=== PATIENT | female | born 1945 | race Caucasian/White ===

== ENCOUNTER 2020-01-30 06:16 | Emergency (ER) | payer MEDICARE ==
--- OUTSIDE RECORDS SUMMARY | 2020-01-30 06:18 | XMS REPORT | Summary of Care ---
:1945 Author Organization [facility] - Health Address [address] [place] [address] Care Team Providers Name Role Phone Samm Cortés Primary Care Provider Reason for Visit Auth/Cert Status Reason Specialty Diagnoses / Procedures Referred By Chelsea self To Contact Contact Surgery Diagnoses Unilateral primary osteoarthritis, right hip Primary osteoarthritis of right hip [M16.11] Adc Pre/P acu/Post Procedures [facility] CODING HELP AR TOTAL HIP ARTHROPLASTY TOTAL HIP ARTHROPLASTY [id number] - AR TOTAL HIP ARTHROPLASTY [address] [place], [place] [address] Fax: Encounter Details Date Type Department Care Team Description 01/13/2020 Anesthesia [facility] Kia Bernstein MD [address] [place] [address] [phone] [facility] Josef Meeks CRNA [address] [place] [phone] [place] [address] [place] [address] Allergies No Known Allergiesdocumented as of this encounter (statuses as of 01/14/2020) Medications Medication Sig Dispensed Refills Start Date End Date Status amitriptyline 10 mg Take 10 mg by 0 Suspended tablet mouth at bedtime. Levothyroxine 88 mcg Take by mouth 0 Suspended capsule daily. propranolol HCl Take 80 mg by 0 Suspended (INDERAL ORAL) mouth 2 (two) times daily. naproxen 250 mg tablet Take 250 mg by 0 Suspended mouth 2 (two) times daily with meals. documented as of this encounter (statuses as of 01/14/2020) Active Problems Problem Noted Date Pain 01/13/2020 documented as of this encounter (statuses as of 01/14/2020) Social History Tobacco Use Types Packs/Day Years Used Date Never Smoker Smokeless Tobacco: Never Used Sex Assigned at Date Recorded Not on file COVID-19 Exposure Response Date Recorded In the last month, have you been in contact with No / Unsure 01/12/2020 10:42 AM CDT someone who was confirmed or suspected to have Coronavirus / COVID-19? documented as of this encounter Last Filed Vital Signs Not on filedocumented in this encounter OR Notes Anesthesia Postprocedure Evaluation - Memo Silverman MD - 01/13/2020 5:27 PM CDT Patient: Amirah Maynard Procedure Summary Date: 01/13/20 Room / Location: [address] Location Anesthesia Start: 1346 Anesthesia Stop: 1642 Procedure: TOTAL HIP ARTHROPLASTY (Right Hips) Diagnosis: Primary osteoarthritis of right hip (Primary osteoarthritis of right hip [M16.11]) Surgeon: Esteban Chawla MD Responsible Provider: Memo Silverman MD Anesthesia Type: General ASA Status: 3 Anesthesia Type: General Last vitals BP 109/57 (01/13/20 1704) Temp 36.6 C (97.9 F) (01/13/20 1639) Pulse 61 (01/13/20 1654) Resp 16 (01/13/20 1648) SpO2 99 % (01/13/20 1704) No complications documented. Anesthesia Post Evaluation Patient location during evaluation: PACU Patient participation: complete - patient participated Level of consciousness: sleepy but conscious Pain management: satisfactory to patient Airway patency: patent Cardiovascular status: acceptable and blood pressure returned to baseline Respiratory status: acceptable Hydration status: acceptable Anesthesia Procedure Notes - Josef Meeks CRNA - 01/13/2020 2:11 PM CDT Associated Order(s): IntubationIntubation Urgency: elective Airway not difficult General Information and Staff Patient location during procedure: OR Resident/TEACHING MUSIC LESSONS: Josef Meeks CRNA Performed: resident/TEACHING MUSIC LESSONS Indications and Patient Condition Indications for airway management: anesthesia Spontaneous Ventilation: absent Sedation level: deep Preoxygenated: yes Patient position: sniffing MILS maintained throughout Mask difficulty assessment: 1 - vent by mask Final Airway Details Final airway type: endotracheal airway Successful airway: ETT Cuffed: yes Successful intubation technique: direct laryngoscopy Endotracheal tube insertion site: oral Blade: Helm Blade size: #2 ETT size (mm): 7.0 Cormack-Lehane Classification: grade I - full view of glottis Placement verified by: chest auscultation and capnometry Measured from: lips ETT to lips (cm): 21 Number of attempts at approach: 1 Additional Comments Airway dry intact nesthesia Preprocedure Evaluation - Karmen Almanzar MD - 01/12/2020 11:43 AM CDT Name/ MRN / Age / Gender: Amirah Maynard, [id number] 74 year old female BMI: Estimated body mass index is 30.07 kg/m as calculated from the following: Height as of this encounter: 1.6 m (5' 3"). Weight as of this encounter: 77 kg (169 lb 12.1 oz). Allergies: Patient has no known allergies. Last Vitals: BP Readings from Last 1 Encounters: No data found for BP Pulse Readings from Last 1 Encounters: No data found for Pulse SpO2 Readings from Last 1 Encounters: No data found for SpO2 Date of Surgery: 01/13/2020 Surgeon: Esteban Chawla MD Procedure: TOTAL HIP ARTHROPLASTY (Right Hips) OR Location: [facility] OR [facility] Anesthesia Preop Eval (physical exam) Anesthesia Preop: Chart Review and Fmim-vp-Fisp [facility] Communication: Patient contacted. Poor historian from alzheimer's. NPO Status Verified Clear Liquids: > 2 Hours Solid Food/Non-Clear Liquids: > 8 Hours PONV Risk Factors: female, non-smoker and post-op opiate use anticipated PONV Risk Score: 3 Anesthesia History Anesthesia History Negative Anesthesia History Negative per Chart Review Previous Anesthetics/Airways Cardiovascular (+) Hypertension Pulmonary Negative Pulmonary ROS Pulmonary ROS Negative per Chart Review Neuro/Musculoskeletal (+) Dementia GI/Hepatic Negative GI/Hepatic ROS GI/Hepatic ROS Negative per Chart Review Hematology Negative Hematology ROS Hematology ROS Negative per Chart Review Comments: Results for AMIRAH MAYNARD ( ) as of 01/13/2020 11:20 01/12/2020 17:41 WBC x10^3: 8.31 RBC x10^6: 4.20 HGB: 13.2 HCT: 39.8 MCV: 94.8 MCH: 31.4 MCHC: 33.2 RDW-SD: 45.0 RDW-CV: 12.8 PLT x10^3: 190 (+) Patient accepts blood transfusion Renal Negative Renal ROS Renal ROS Negative per Chart Review Comments: Results for AMIRAH MAYNARD ( ) as of 01/13/2020 11:20 01/12/2020 17:41 NA: 137 K: 4.6 CL: 104 CO2 TOTAL: 24 AGAP: 9 BUN: 24 (H) GLUCOSE: 91 CREATININE: 0.88 eGFR CALCULATION (non ): 63.2 eGFR CALCULATION (): 76.6 TOTAL BILI: 0.8 CALCIUM: 10.3 Skin Skin ROS Negative per Chart Review Endo/Other (+) Hypothyroidism 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 Hold on DOS. Anticoagulant Therapy: Defer to surgeons Phentermine: Alert [facility] anesthesiologist MAC Cases: Continue taking MILIND inhibitors and ARBs ASA Classification ASA: 3 ASA Comments: Obesity HTN Dementia Hypothyroidism Current Medications: Outpatient Medications Marked as Taking for the 01/13/20 encounter (Hospital Encounter) Medication Sig Dispense Refill amitriptyline 10 mg tablet Take 10 mg by mouth at bedtime. Levothyroxine 88 mcg capsule Take by mouth daily. naproxen 250 mg tablet Take 250 mg by mouth 2 (two) times daily with meals. propranolol HCl (INDERAL ORAL) Take by mouth. Previous Surgeries: Past Surgical History: Procedure Laterality Date HYSTERECTOMY Left TOTAL KNEE ARTHROPLASTY Left Anesthesia Physical Exam General no apparent distress and alert and oriented x 3 Neuro/Psych neurological Dental Abdominal (+) obesity Airway Mallampati score:III TM distance:> 5 cm Neck ROM: full Mouth opening:normal Extremity Normal extremity Pulmonary bilateral clear to auscultation Other Implants front upper Cardiovascular Rhythm:regular Rate: normal Anesthesia Plan ASA Status: 3 Plan discussed during pre-op evaluation: General Anesthetic plan on DOS: General Plan to include: IV induction and ETT Anesthesia plan discussed with: patient or telephone service representative Post-Operative Analgesia: routine analgesia & antiemetics Recovery Plan: PACU Additional comments: Discussed risks of GA, including dysphagia, dysphonia, organ damage, post-operative ventilation, PONV, damage to teeth/lips, heart attack, or stroke. Pt understands and agrees to proceed. All questions answered. Verified the patient has an understanding of the situation for consent. She is AAOx3, is able to say location, procedure, year, month, name, birthday, and answer all questions appropriately. documented in this encounter Miscellaneous Notes Addendum Note - Terri Hernandez CRNA - 01/14/2020 5:00 AM CDT Addendum created 01/14/20 0500 by Terri Hernandez CRNA Intraprocedure Meds edited documented in this encounter Plan of Treatment Health Maintenance Due Date Last Done Comments HEPATITIS C (HCV) SCREEN 1945 DTaP,Tdap,and Td Vaccines (1 - Tdap) 1966 Breast Cancer Screening (MAMMOGRAM) 1987 COLON CANCER SCREENING ANNUAL FIT/FOBT 1997 COLON CANCER SCREENING FIT DNA EVERY 3 YEARS 1997 COLON CANCER SCREENING SIGMOIDOSCOPY EVERY 5 YEARS 1997 COLONOSCOPY 1997 Colorectal Cancer Screening 1997 Zoster Recombinant Vaccine (SHINGRIX) (1 of 2) 1997 Medicare Wellness Visit 2012 Osteoporosis Screening 2012 PNEUMOCOCCAL VACCINES 65+ (1 of 1 - PPSV23) 2012 INFLUENZA VACCINE (#1) 2020 Depression Screening 01/12/2021 01/13/2020 documented as of this encounter Implants Implanted Type Area Mds Rn Device Shelf Model / Identifier Expiration Serial / Lot Date Standard Neck HIP Right: Biomet 06/24/2029 [id number] / Implanted: Qty: 1 on 01/13/2020 by Esteban Darnell MD at [facility] Hip 1 [id number] / [id number] Dual Mobility Bearing HIP Right: [employer] 08/25/19 25 [id number] / Implanted: Qty: 1 on 01/13/2020 by Esteban Darnell MD at [facility] Hip 1 [id number] / [id number] Dual Mobility Acetabular Liner Liner Right: [employer] 07/02/2029 [id number] / Implanted: Qty: 1 on 01/13/2020 by Esteban Darnell MD at [facility] Hip 1 [id number] / [id number] Acetabular Shell Shell Right: [employer] 10/25/2028 [id number] / Implanted: Qty: 1 on 01/13/2020 by Esteban Darnell MD at [facility] Hip 0 [id number] / [id number] Porous Coated Stem Stem Right: [employer] 10/21/2028 [id number] / Implanted: Qty: 1 on 01/13/2020 by Esteban Darnell MD at [facility] Hip 5 [id number] / [id number] documented as of this encounter Procedures Procedure Name Priority Date/Time Associated Diagnosis Comme nts INTUBATION Routine 01/13/2020 2:11 PM Results for this CDT procedure are i n the results section . documented in this encounter Results Intubation (01/13/2020 2:11 PM CDT) Narrative Performed At Josef Meeks CRNA 01/13/2020 2:1 2 PM Intubation Urgency: elective Airway not difficult General Information and Staff Patient location during procedure: OR Resident/TEACHING MUSIC LESSONS: Josef Meeks CRNA Performed: resident/TEACHING MUSIC LESSONS Indications and Patient Condition Indications for airway management: anest hesia Spontaneous Ventilation: absent Sedation level: deep Preoxygenated: yes Patient position: sniffing MILS maintained throughout Mask difficulty assessment: 1 - vent by mask Final Airway Details Final airway type: endotracheal airway Successful airway: ETT Cuffed: yes Successful intubation technique: direct laryngoscopy Endotracheal tube insertion site: oral Blade: Helm Blade size: #2 ETT size (mm): 7.0 Cormack-Lehane Classification: grade I - full view of glottis Placement verified by: chest auscultatio n and capnometry Measured from: lips ETT to lips (cm): 21 Number of attempts at approach: 1 Additional Comments Airway dry intact documented in this encounter Administered Medications Medication Order MAR Action Action Date Dose Rate Site acetaminophen ADULT (OFIRMEV) Given 01/13/2020 3:46 PM CDT 1,00 0 mg injection Administer over 15 Minutes, ONCE INTRA PROCEDURE, Starting Sat01/13/20 at 1546, Until Sat01/13/20 at 1643, Routine, Intra-op ceFAZolin (ANCEF) injection Given 01/13/2020 2:12 PM CDT 2 g ONCE INTRA PROCEDURE, Starting Sat01/13/20 at 1412, Until Codie 01/14/20 at 0459, CRUZ, Intra-op dexamethasone (DECADRON PHOSPHATE) injec tion Given 01/13/2020 2:04 PM CDT 8 mg ONCE INTRA PROCEDURE, Starting Sat01/13/20 at 1404, Until Sat01/13/20 at 1643, Routine, Intra-op ePHEDrine 25 mg/5 mL (5 mg/mL) syringe Given 01/13/2020 3:56 PM CDT 5 mg ONCE INTRA PROCEDURE, Starting Sat01/13/20 at 1501, Until Sat01/13/20 at 1643, Routine, Intra-op Given 01/13/2020 3:30 PM CDT 5 mg Given 01/13/2020 3:21 PM CDT 5 mg FENTanyl PF (SUBLIMAZE (PF)) injection Given 01/13/2020 4:27 PM CDT 25 mcg ONCE INTRA PROCEDURE, Starting Sat01/13/20 at 1354, Until Sat01/13/20 at 1643, Routine, Intra-op Given 01/13/2020 1:54 PM CDT 50 mcg HYDROmorphOne (DILAUDID) injection Given 01/13/2020 2:27 PM CDT 0.2 mg ONCE INTRA PROCEDURE, Starting Sat01/13/20 at 1427, Until Sat01/13/20 at 1643, Routine, Intra-op lactated ringers IV infusion New Bag 01/13/2020 3:12 PM CDT CONTINUOUS PRN, Starting Sat01/13/20 at 1346, Until Sat01/13/20 at 1643, Routine, Intra-op New Bag 01/13/2020 1:46 PM CDT lidocaine 1% (XYLOCAINE) 100 mg/10 mL (1 %) Given 01/13/2020 1: 54 PM CDT 8 mL injection ONCE INTRA PROCEDURE, Starting Sat01/13/20 at 1354, Until Sat01/13/20 at 1643, Routine, Intra-op ondansetron (ZOFRAN (PF)) injection Given 01/13/2020 4:06 PM CDT 4 mg ONCE INTRA PROCEDURE, Starting Sat01/13/20 at 1606, Until Sat01/13/20 at 1643, Routine, Intra-op phenylephrine (VAZCULEP) injection Given 01/13/2020 3:56 PM CDT 100 mcg ONCE INTRA PROCEDURE, Starting Sat01/13/20 at 1508, Until Sat01/13/20 at 1643, Routine, Intra-op Given 01/13/2020 3:30 PM CDT 100 mcg Given 01/13/2020 3:21 PM CDT 50 mcg propofoL IV infusion Given 01/13/2020 1:54 PM CDT 150 mg ONCE INTRA PROCEDURE, Starting Sat01/13/20 at 1354, Until Sat01/13/20 at 1643, Routine, Intra-op rocuronium (ZEMURON) injection Given 01/13/2020 2:17 PM CDT 10 mg ONCE INTRA PROCEDURE, Starting Sat01/13/20 at 1354, Until Sat01/13/20 at 1643, Routine, Intra-op Given 01/13/2020 1:54 PM CDT 40 mg sugammadex (BRIDION) injection Given 01/13/2020 4:13 PM CDT 160 mg ONCE INTRA PROCEDURE, Starting Sat01/13/20 at 1613, Until Sat01/13/20 at 1643, Routine, Intra-op tranexamic acid (CYKLOKAPRON) 770 mg in New Bag 01/13/2020 2:12 P M CDT 770 mg NaCl 0.9% (NS) 250 mL piggyback 770 mg, IV Piggyback, ONCE, 1 dose, Sat01/13/20 at 1130, 250 mL, DSU Pre-op documented in this encounter Insurance Payer Benefit Plan / Subscriber ID Effective Phone Address T ype Group Dates [employer] [id number] [address] [facility] - MEDICARE nt HMO MANAGED MEDICARE ADVANTAGE documented as of this encounter
--- OUTSIDE RECORDS SUMMARY | 2020-01-30 06:18 | XMS REPORT | Summary of Care ---
:1945 Author Organization [facility] Address [address] [place] [address] Care Team Providers Name Role Phone Samm Cortés Primary Care Provider Encounter Details Date Type Department Care Team Description 01/13/2020 Letter (Out) ACC[facility] Magali Wray RN [address] [phone] [place], [place] [phone] Allergies No Known Allergiesdocumented as of this encounter (statuses as of 01/13/2020) Medications Medication Sig Dispensed Refills Start Date End Date Status amitriptyline 10 mg Take 10 mg by 0 Active tablet mouth at bedtime. Levothyroxine 88 mcg Take by mouth 0 Active capsule daily. propranolol HCl (INDERAL Take by mouth. 0 Active ORAL) naproxen 250 mg tablet Take 250 mg by 0 Active mouth 2 (two) times daily with meals. documented as of this encounter (statuses as of 01/13/2020) Active Problems Not on filedocumented as of this encounter (statuses as of 01/13/2020) Social History Tobacco Use Types Packs/Day Years [...] Signs Not on filedocumented in this encounter Plan of Treatment Health Maintenance Due Date Last Done Comments HEPATITIS C (HCV) SCREEN 1945 Depression Screening 1959 DTaP,Tdap,and Td Vaccines (1 - Tdap) 1966 [...] - PPSV23) 2012 INFLUENZA VACCINE (#1) 2020 documented as of this encounter Results Not on filedocumented in this encounter Insurance Payer Benefit Plan / Subscriber ID Effective Phone Address T e Group [facility] [employer]ER [id number] 2019-[address] [facility] documented as of this encounter
--- OUTSIDE RECORDS SUMMARY | 2020-01-30 06:18 | XMS REPORT | Summary of Care ---
:[address] [facility] Address [address] [place] [address] Care Team Providers Name Role Phone CortésSamm David Primary Care Provider Reason for Visit Auth/Cert Status Reason Specialty Diagnoses / Procedures Referred By Dvaid quiñones Referred To Contact Phlebotomy Diagnoses Unilateral primary osteoarthritis, right hip M16.11 (ICD-10-CM) - Unilateral primary osteoarthritis, right hip Adc Pob Lab Draw Procedures CBC WITH DIFF COMP. METABOLIC PANEL (91708) URINALYSIS TYPE AND SCREEN PROTHROMBIN TIME / INR CBC WITH DIFF CMP UA TYPE AND SCREEN - 2 UNITS PT/PTT Professional Office Building [address] [facility] [address], [address] [place] [address] Phone: Fax: Encounter Details Date Type Department Care Team Description 01/12/2020 Hospital Encounter [facility] Radiology MD Robert [address] [place] [phone] [facility] [address] [place], [place] [phone] Allergies No Known Allergiesdocumented as of this [...] (#1) 2020 documented as of this encounter Procedures Procedure Name Priority Date/Time Associated Diagnosis Comme nts XR CHEST 2 VW Routine 01/12/2020 4:07 PM Primary osteoarthrit is Results for this CDT of right hip procedure are i n the results section. documented in this encounter Results XR CHEST 2 VW (01/12/2020 4:07 PM CDT) Specimen Narrative Performed At This result has an attachment that is no t available. HISTORY: Preop. PACS/VR/DOSE TECHNIQUE: PA and lateral views of the chest are obtai karla. No prior chest study available for comparison. FINDINGS: No acute pneumonia detected. No pneumothorax or pleural effusion or pulmonary congestion. Cardiothoracic ratio of appro ximately 13/28.3 cm is consistent with normal cardiac size. Calcified gran ulomas are seen in the right upper lung with calcifications in the right perihilar lymph nodes secondary to remote infection. Left mastectomy noted. Mild thoracolumbar scoliosis noted. No compression fra cture detected in the thoracic vertebral bodies. No aggressive bone lesions. CONCLUSIONS: No signs of acute cardiopulmonary disease . Procedure Note [facility], Radiant Results Inft User - 2019 4:10 PM CDT HISTORY: Preop. TECHNIQUE: PA and lateral views of the c hest are obtained. No prior chest study available for comparison. FINDINGS: No acute pneumonia detected. N o pneumothorax or pleural effusion or pulmonary congestion. Cardiothoracic ratio of approximately 13/28.3 cm is consistent with normal cardiac size. Calcified granulomas are seen in the right upper lung with calcifications in the right perihilar lymph nodes secondary to remote infection. Left mast ectomy noted. Mild thoracolumbar scoliosis noted. No c ompression fracture detected in the thoracic vertebral bodies. No aggressive bone lesions. CONCLUSIONS: No signs of acute cardiopul monary disease. Performing Organization Address City/State/Zipcode Phone Number PACS/VR/DOSE documented in this encounter Visit Diagnoses Diagnosis Primary osteoarthritis of right hip Primary localized osteoarthrosis, pelvic region and thigh documented in this encounter Additional Health Concerns Infection Onset Date Last Indicated Resolved Time COVID-19 Rule Out 01/12/2020 01/12/2020 01/12/2020 6: 26 PM CDT documented as of this encounter Insurance Payer Benefit Plan / Subscriber ID Effective Phone Address T ype Group Dates [facility] [id number] [address] [facility] - MEDICARE HMO MANAGED MEDICARE ADVANTAGE documented as of this encounter
--- OUTSIDE RECORDS SUMMARY | 2020-01-30 06:18 | XMS REPORT | Continuity of Care Document ---
:1945 Author Organization [facility] t Address [address] [place] [address] Care Team Providers Name Role Phone Franchesca HERNANDEZ, A Attending Clinician Unavailable Robert Chawla MD Attending Clinician Jeanna DANIEL Attending Clinician Herrera KHOURY Attending Clinician Nils HERNANDEZ, T Attending Clinician Unavailable Doctor Unassigned, Name Attending Clinician Unavailable Pob, Lab Main Attending Clinician Unavailable Robert Chawla MD Admitting Clinician Problems Condition Condition Condition Status Onset Resolution Last Treating Co mments Source Name Details Category Date Date Treatment Clinician Date Kidney Kidney Problem Active [facility] Primary Primary Diagnosis Active [facility] oste[facility] osteoarthr Kizzy kes - itis of itis of Memoria right hip right hip l [facility] Pain in Pain in Diagnosis Active [facility] joint of [facility] - right hip right hip Pancho brit l [facility] ent Clinics Allergies, Adverse Reactions, Alerts This patient has no known allergies or adverse reactions. Medications Ordered Filled Start Stop Current Ordering Indication Dosage Frequency Signature Comments Components Source Medication Medication Date Date Medication? Clinician (SIG) Name Name Amlodipine Amlodipine Yes Clemente [address] [facility] Besylate Besylate Kendrick [facility] Amitriptyli Amitriptyli Yes Clemente [address] [facility] ne HCl ne HCl Kendrick kes - Memoria l [facility] Propranolol Propranolol Yes Clemente [address] [facility] HCl HCl Kendrick kes - Memoria l [facility] Vitamin D Vitamin D Yes Clemente [address] [facility] Kendrick [facility] Naproxen Naproxen Yes Clemente [address] [facility] Kendrick with food [facility] - or milk as Memoria needed l Outpati ent Clinics Anastrozole Anastrozole Yes Clemente [address] [facility] Kendrick [facility] Levothyroxi Levothyroxi Yes Clemente [address] [facility] ne Sodium ne Sodium Kendrick on an Luke s - empty Memoria stomach in l the Outpati morning ent Clinics Propranolol Propranolol Yes Clemente not [facility] HCl ER HCl ER Kednrick defined [facility] Amitriptyli Amitriptyli Yes Clemente not [facility] ne HCl ne HCl Kendrick defined [facility] Losartan Losartan Yes Clemente [address] [facility] Potassium Potassium Kendrick [facility] Procedures This patient has no known procedures. Encounters Start End Encounter Admission Attending Care Care Encounter Source Date/Time Date/Time Type Type Clinicians Facility Department ID 2020-01-20 2020-01-20 Nurse TOYA Sorensen [id number] 00:00:00 00:00:00 Triage Honey AGUILAR [id number]686 [id number] 2020-01-20 2020-01-20 Telephone Cammy TOYA [id number] 00:00:00 00:00:00 Esteban AGUILAR [id number]686 [id number] 2020-01-13 2020-01-15 [facility] [id number] 10:03:00 15:30:00 Encounter Esteban Jones Reg [id number] [place] [id number] [place] [id number] 2020-01-13 2020-01-13 Anesthesia Josef Meeks [facility] [id number] 13:46:00 16:42:00 Memo Silverman [id number] [place] 4.2.7.2.686 Surgical [id number] [place] [address] 2020-01-13 2020-01-13 Letter TOYA Wray [id number] 00:00:00 00:00:00 (Out) Magali AGUILAR [id number]686 [id number] [id number] 2020-01-13 2020-01-13 Orders Doctor TOYA [id number] 00:00:00 00:00:00 Only Unassigned, LAUREN [id number] [place] [address]686 [id number] 2020-01-12 2020-01-12 [facility] [id number] 15:35:03 23:59:00 Encounter Esteban Finney [id number] [place] 4.2.7.2.686 [place] [id number] 2020-01-12 2020-01-12 Cadmium Liquor Maker Sasha Raman [facility] [id number] 15:29:06 17:51:05 Visit Lab Main Reg [id number] [place] [id number] Professio [id number] [address] 2019-10-07 2019-10-07 [facility] [id number] [address] 15:44:00 15:44:00 t Bone Bone and [facility] ent [facility] 2019-10-06 2019-10-06 [facility] [id number] 14:00:00 14:00:00 t Bone Bone and [facility] Joint [facility] a [facility] ent [facility] 2018-08-01 2018-08-01 [facility] [id number] 14:15:00 14:15:00 t Specialty/U Kizzy kes - Specialty rology Memori a /Urology Clinic [facility] 2018-02-05 2018-02-05 [facility] [id number] 13:30:00 13:30:00 t Specialty/U Kizzy kes - Specialty rology Memori a /Urology Clinic [facility] 2018-01-23 2018-01-23 [facility] [id number] 13:00:00 13:00:00 t Specialty/U Kizzy kes - Specialty rology Memori a /Urology Clinic l [facility] 2018-01-09 2018-01-09 [facility] [id number] 15:04:00 15:04:00 t Specialty/U Kizzy kes - Specialty rology Memori a /Urology Clinic l [facility] 2017-12-26 2017-12-26 [facility] [id number] 16:01:00 16:01:00 t Specialty/U Kizzy kes - Specialty rology Memori a /Urology Clinic l [facility] 2017-12-19 2017-12-19 [facility] [id number] 11:30:00 11:30:00 t Specialty/U Kizzy kes - Specialty rology Memori a /Urology Clinic l [facility] Results This patient has no known results.
--- OUTSIDE RECORDS SUMMARY | 2020-01-30 06:18 | XMS REPORT | Summary of Care ---
:1945 Author Organization [facility] Address [address] [place] [address] Care Team Providers Name Role Phone Samm Cortés David Primary Care Provider Reason for Visit Reason Comments LAB WORK Auth/Cert Status Reason Specialty Diagnoses / Procedures Referred By David quiñones Referred To Contact Phlebotomy Diagnoses Unilateral primary osteoarthritis, right hip M16.11 (ICD-10-CM) - Unilateral primary osteoarthritis, right hip Adc Pob Lab Draw Procedures CBC WITH DIFF COMP. METABOLIC PANEL (25875) URINALYSIS TYPE AND SCREEN PROTHROMBIN TIME / INR CBC WITH DIFF CMP UA TYPE AND SCREEN - 2 UNITS PT/PTT Professional Office Building [address] , [address] [place] [address] Phone: Fax: Encounter Details Date Type Department Care Team Description 01/12/2020 Shoulder Puncher Visit [facility] Ricardo Chawla MD [address] [place] [address] [place] [address] Pre-operative exam (Primary Dx); Professional Office Pob, Adc Lab Main Preop testing Building Phlebotomy Lab Professional Office Building [address] [place] [address] , [address] [place] [address] Allergies No Known Allergiesdocumented as of this encounter (statuses as of 01/12/2020) Medications Medication Sig Dispensed Refills Start Date [...] as of this encounter (statuses as of 01/12/2020) Active Problems Not on filedocumented as of this encounter (statuses as of 01/12/2020) Social History Tobacco Use Types Packs/Day Years [...] Signs Not on filedocumented in this encounter Nursing Notes Tarah Thomas - 01/12/2020 3:15 PM CDT Venipuncture collection performed by clean technique on the right anticubitus. Total of 1 attempts were made. Slight pressure and a bandage/dressing were applied to the site(s). The patient experiencedno complications. The following specimens were processed according to instructions and sent to [facility] laboratories per lab order on : 1 LT BLUE 1 SST RED 3 LAV PPT DK GREEN (LiHep) DK GREEN (SodH) RILEY DK BLUE (K2) DK BLUE (S) ACD Blood Culture NIPT/NTD Covid swab collected. documented in this encounter Miscellaneous Notes Addendum Note - Tarah Thomas - 01/12/2020 3:15 PM CDT Addended by: TARAH THOMAS on: 01/12/2020 05:51 PM Modules accepted: Orders documented in this encounter Plan of Treatment Date Type Specialty Care Team Description 01/13/2020 Hospital Encounter Surgery Esteban Chawla MD [address] [place] [address] [address] [place] [address] [phone] 01/13/2020 Anesthesia Event Surgery Josef Meeks C [address] [phone] 01/13/2020 Surgery Surgery CammyEsteban TOTAL HIP ARTHROPLASTY MD Robert [address] [place] [address] [phone] Name Type Priority Associated Diagnoses Date/Ti me COMP. METABOLIC PANEL LAB Routine Pre-operative exam 01/12/2020 5:41 PM CDT (52928) PROTHROMBIN TIME / INR LAB Routine Pre-operative exam 01/12/2020 5:41 PM CDT aPTT LAB Routine Pre-operative exam 0 5:41 PM CDT URINALYSIS LAB Routine Pre-operative exam 0 5:41 PM CDT COVID-19 (ID NOW RAPID LAB Routine Preop testing 12/25 5:51 PM CDT TESTING) Name Type Priority Associated Diagnoses Order S chedule COMP. METABOLIC PANEL LAB Routine Pre-operative exam Expected: 01/12/2020, (94012) Expires: 2020 PROTHROMBIN TIME / INR LAB Routine Pre-operative exam Expected: 01/12/2020, Expires: 2020 aPTT LAB Routine Pre-operative exam Expected: 01/12/2020, Expires: 2020 Type and Screen - LAB Routine Pre-operative exam Expe cted: 01/12/2020, Expires: 2020 URINALYSIS LAB Routine Pre-operative exam Expected: 01/12/2020, Expires: 2020 COVID-19 (ID NOW RAPID LAB Routine Preop testing Expe cted: 01/12/2020, TESTING) Expires: 2020 Health Maintenance Due Date Last Done Comments [...] Name Priority Date/Time Associated Diagnosis Comme nts CBC WITH DIFF Routine 01/12/2020 5:41 PM Pre-operative exam R esults for this CDT procedure are i n the results section . documented in this encounter Results CBC WITH DIFF (01/12/2020 5:41 PM CDT) Pathologist Sig nature WBC 8.31 4.30 - 11.10 [facility] 10*3/L H[facility]PITAL [facility] RBC 4.20 3.93 - 5.25 [facility] 10*6/L [facility]ITAL [facility] HGB 13.2 11.6 - 15.0 g/dL [facility] HCT 39.8 35.7 - 45.2 % [facility] MCV 94.8 80.6 - 95.5 fL [facility] MCH 31.4 25.9 - 32.8 pg [facility] MCHC 33.2 31.6 - 35.1 g/dL [facility] RDW-SD 45.0 39.0 - 49.9 fL [facility] RDW-CV 12.8 12.0 - 15.5 % [facility] PLT 190 166 - 358 [facility] 10*3/L HOSPITAL LAB[facility] MPV 10.3 9.5 - 12.9 fL [facility] NRBC/100 WBC 0.0 0.0 - 10.0 /100 [facility] WBCs [facility] NRBC x10^3 <0.01 10*3/L [facility] GRAN MAT (NEUT) % 62.8 % [facility] IMM GRAN % 0.50 % [facility] LYMPH % 22.5 % [facility] MONO % 9.5 % [facility] EOS % 3.9 % [facility] BASO % 0.8 % [facility] GRAN MAT x10^3(ANC) 5.22 1.88 - 7.09 [facility] 10*3/uL HOSPITAL LAB[facility]ATORY IMM GRAN x10^3 0.04 0.00 - 0.06 [facility] 10*3/uL HOSPITAL LAB[facility] LYMPH x10^3 1.87 1.32 - 3.29 [facility] 10*3/uL HOSPITAL LAB[facility] MONO x10^3 0.79 0.33 - 0.92 [facility] 10*3/uL HOSPITAL LAB[facility]AT[facility] EOS x10^3 0.32 0.03 - 0.39 [facility] 10*3/uL [facility] BASO x10^3 0.07 0.01 - 0.07 [facility] 10*3/uL [facility] Specimen Blood Performing Organization Address City/State/Zipcode Phone Number [facility] CLIA: [id number] [place] [address] documented in this encounter Visit Diagnoses Diagnosis Hip arthritis - Primary Unspecified arthropathy, pelvic region a nd thigh Pre-operative exam - Primary Preoperative examination, unspecified Preop testing Preoperative examination, unspecified Primary osteoarthritis of right hip Primary localized osteoarthrosis, pelvic region and thigh documented in this encounter Additional Health Concerns Infection Onset Date Last Indicated Resolved Time COVID-19 Rule Out 01/12/2020 01/12/2020 documented as of this encounter Insurance Payer Benefit Plan / Subscriber ID Effective Phone Address T ype Group [facility] [id number] [address] [facility] - MEDICARE HMO MANAGED MEDICARE ADVANTAGE documented as of this encounter
--- OUTSIDE RECORDS SUMMARY | 2020-01-30 06:18 | XMS REPORT | Summary of Care ---
:[address] [facility] Address [address] [place] [address] Care Team Providers Name Role Phone Samm Cortés David Primary Care Provider Reason for Visit Reason Comments LAB WORK Auth/Cert Status Reason Specialty Diagnoses / Procedures Referred By David quiñones Referred To Contact Phlebotomy Diagnoses Unilateral primary osteoarthritis, right hip M16.11 (ICD-10-CM) - Unilateral primary osteoarthritis, right hip Adc Pob Lab Draw Procedures CBC WITH DIFF COMP. METABOLIC PANEL (17244) URINALYSIS TYPE AND SCREEN PROTHROMBIN TIME / INR CBC WITH DIFF CMP UA TYPE AND SCREEN - 2 UNITS PT/PTT Professional Office Building [address] [facility] , [address] [place] [address] Phone: Fax: Encounter Details Date Type Department Care Team Description 01/12/2020 Hotel Or Motel Receptionist Visit [facility] Ricardo Chawla MD [address] [place] [address] Pre-operative exam Professional Office Pob, Adc Lab Main (Primary Dx) Building Phlebotomy Lab Professional Office Building [address] [facility] , [address] [place] [address] Allergies No Known Allergiesdocumented as [...] processed according to instructions and sent to [facility] laboratories per lab order on : 1 LT BLUE 1 SST RED 3 LAV PPT DK GREEN (LiHep) DK GREEN (SodH) RILEY DK BLUE (K2) DK BLUE (S) ACD Blood Culture NIPT/NTD Covid swab collected. documented in this encounter Plan of Treatment Date Type Specialty Care Team Description 01/13/2020 Hospital Encounter Surgery Esteban Chawla MD [address] [facility] So [address] [address] 01/13/2020 Anesthesia Event Surgery Josef Meeks C [address] [phone] 01/13/2020 Surgery Surgery Esteban Chawla TOTAL HIP ARTHROPLASTY MD Robert [address] [facility] So [address] [address] Name Type Priority Associated Diagnoses Order S chedule CBC WITH DIFF LAB Routine Pre-operative exam Expected : 01/12/2020, Expires: 2020 COMP. METABOLIC PANEL LAB Routine Pre-operative exam Expected: 01/12/2020, ([id number]) Expires: 2020 PROTHROMBIN TIME / INR LAB Routine Pre-operative exam Expected: 01/12/2020, Expires: 2020 aPTT LAB Routine Pre-operative exam Expected: 01/12/2020, Expires: 2020 Type and Screen - LAB Routine Pre-operative exam Expe cted: 01/12/2020, Expires: 2020 URINALYSIS LAB Routine Pre-operative exam Expected: 01/12/2020, Expires: 2020 Health Maintenance Due Date Last [...] Results Not on filedocumented in this encounter Visit Diagnoses Diagnosis Hip arthritis - Primary Unspecified arthropathy, pelvic region a nd thigh Pre-operative exam - Primary Preoperative examination, unspecified Primary osteoarthritis of right hip Primary localized osteoarthrosis, pelvic region and thigh documented in this encounter Insurance Payer Benefit Plan / Subscriber ID Effective Phone Address T ype Group Dates [facility] [id number] 2019-[address] - MEDICARE nt HMO MANAGED MEDICARE ADVANTAGE documented as of this encounter
--- OUTSIDE RECORDS SUMMARY | 2020-01-30 06:19 | XMS REPORT | Summary of Care ---
:1945 Author Organization [facility] Address [address] [place] [address] Care Team Providers Name Role Phone Samm Cortés Primary Care Provider Encounter Details Date Type Department Care Team Description 01/13/2020 Orders Only [facility] Doctor Unassigned, No [address] [facility] [place] [address] [address] [place] [address] Allergies No Known Allergiesdocumented as of this encounter (statuses as of 01/18/2020) Medications Medication Sig Dispensed Refills Start Date End Date Status rivaroxaban Take 1 tablet by 20 tablet 0 01/14/2020 02/03/2020 Active (XARELTO) mouth daily for 20 tabletIndications: days. Indications: deep vein thrombosis deep vein prevention thrombosis prevention documented as of this encounter (statuses as of 01/18/2020) Active Problems Problem Noted Date Pain 01/13/2020 documented as of this encounter (statuses as of 01/18/2020) Social History Tobacco Use Types Packs/Day Years [...] DTaP,Tdap,and Td Vaccines (1 - Tdap) 1966 COLON CANCER SCREENING ANNUAL FIT/FOBT 1997 COLON CANCER SCREENING FIT DNA EVERY 3 1997 YEARS COLON CANCER SCREENING SIGMOIDOSCOPY EVERY 1997 5 YEARS COLONOSCOPY 1997 Colorectal Cancer Screening 1997 Zoster Recombinant Vaccine (SHINGRIX) (1 1997 of 2) Medicare Wellness Visit 2012 Osteoporosis Screening 2012 PNEUMOCOCCAL VACCINES 65+ (1 of 1 - 2012 PPSV23) INFLUENZA VACCINE (#1) 2020 Breast Cancer Screening (MAMMOGRAM) 03/05/2020 03/05/2019, 07/03/2017 Depression Screening 01/12/2021 01/13/2020 documented as of this encounter Implants Implanted Type Area Learning And Development Director Device Shelf Model / Identifier Expiration Serial / Lot Date Standard Neck HIP Right: Biomet 06/24/2029 [id number] / Implanted: Qty: 1 on 01/13/2020 by Esteban Darnell MD at [facility] Hip 1 [id number] / [id number] Dual Mobility Bearing HIP Right: Biomet 08/25/19 25 [id number] / Implanted: Qty: 1 on 01/13/2020 by Esteban Darnell MD at [facility] Hip 1 [id number] / [id number] Dual Mobility Acetabular Liner Liner Right: [employer]omet 07/02/2029 [id number] / Implanted: Qty: 1 on 01/13/2020 by Esteban Darnell MD at [facility] Hip 1 [id number] / [id number] Acetabular Shell Shell Right: [employer]omet 10/25/2028 [id number] / Implanted: Qty: 1 on 01/13/2020 by Esteban Darnell MD at [facility] Hip 0 [id number] / [id number] Porous Coated Stem Stem Right: Biomet 10/21/2028 [id number] / Implanted: Qty: 1 on 01/13/2020 by Esteban Darnell MD at [facility] Hip 5 [id number] / [id number] documented as of this encounter Procedures Procedure Name Priority Date/Time Associated Diagnosis Comme nts DAY SURGERY - ADC Routine 01/13/2020 12:01 AM CDT documented in this encounter Results Not on filedocumented in this encounter Insurance Payer Benefit Plan / Subscriber ID Effective Phone Address T ype Group Dates [facility] [id number] 2019-[address] [place] [facility] - MEDICARE nt HMO MANAGED MEDICARE ADVANTAGE documented as of this encounter
--- OUTSIDE RECORDS SUMMARY | 2020-01-30 06:19 | XMS REPORT | Summary of Care ---
:1945 Author Organization [facility] Address [address] [place] [address] Care Team Providers Name Role Phone Samm Cortés Primary Care Provider Reason for Visit Reason Comments Assessment Surgical Wound Encounter Details Date Type Department Care Team Description 01/20/2020 Telephone ACCESS CENTER Esteban Chawla Assessment; Surgical [address] MD Robert Wound Martell [address] [place], [place] [address] [facility] [phone] [place] [address] Allergies No Known Allergiesdocumented as of this encounter (statuses as of 01/20/2020) Medications Medication Sig Dispensed Refills Start Date End Date Status rivaroxaban Take 1 tablet by 20 tablet 0 01/14/2020 02/03/2020 Active (XARELTO) mouth daily for 20 tabletIndications: days. Indications: deep vein thrombosis deep vein prevention thrombosis prevention documented as of this encounter (statuses as of 01/20/2020) Active Problems Problem Noted Date Pain 01/13/2020 documented as of this encounter (statuses as of 01/20/2020) Social History Tobacco Use Types Packs/Day Years [...] Signs Not on filedocumented in this encounter Miscellaneous Notes Telephone Encounter - Nissa Hazel - 01/20/2020 4:54 PM CDTPatient had hip surgery last week and the surgery site is leaking since yesterday. She would like toknow what to do. Please call back documented in this encounter Plan of Treatment [...] of this encounter Implants Implanted Type Area Security Officer Supervisor Device Shelf Model / Identifier Expiration Serial / Lot Date Standard Neck HIP Right: Biomet 06/24/2029 [id number] / Implanted: Qty: 1 on 01/13/2020 by Esteban Darnell MD at [facility] Hip 1 [id number] / [id number] Dual Mobility Bearing HIP Right: [employer] 08/25/19 25 [id number] / Implanted: Qty: 1 on 01/13/2020 by Esteban Darnell MD at [facility] Hip 1 [id number] / [id number] Dual Mobility Acetabular Liner Liner Right: [employer] 07/02/2029 [id number] / Implanted: Qty: 1 on 01/13/2020 by Esteban Darnell MD at [facility] Hip 1 [id number] / [id number] Acetabular Shell Shell Right: [employer] 10/25/2028 [id number] / Implanted: Qty: 1 on 01/13/2020 by Esteban Darnell MD at [facility] Hip 0 [id number] / [id number] Porous Coated Stem Stem Right: [employer]omet 10/21/2028 [id number] / Implanted: Qty: 1 on 01/13/2020 by Esteban Darnell MD at [facility] Hip 5 [id number] / [id number] documented as of this encounter Results Not on filedocumented in this encounter Insurance Payer Benefit Plan / Subscriber ID Effective Phone Address T ype Group Dates [facility] [id number] [address] [facility] - MEDICARE HMO MANAGED MEDICARE ADVANTAGE documented as of this encounter
--- OUTSIDE RECORDS SUMMARY | 2020-01-30 06:19 | XMS REPORT | Summary of Care ---
:1945 Author Organization [facility] - Health Address [address] [place] [id number] Care Team Providers Name Role Phone Samm Cortés David Primary Care Provider Reason for Referral Radiology Services (Routine) Status Reason Specialty Diagnoses / Referred By Referred To Procedures Contact Contact New Request Diagnostic Diagnoses Status post total replacement of right hip Cammy, Radiology Procedures XR HIP 1 VW RIGHT Esteban Jones MD [address] [address] Reason for Visit Auth/Cert Status Reason Specialty Diagnoses / Procedures Referred By R eferred To Contact Contact Surgery Diagnoses Unilateral primary osteoarthritis, right hip Primary osteoarthritis of right hip [M16.11] Adc Pre/P acu/Post Procedures [facility] CODING HELP DE TOTAL HIP ARTHROPLASTY TOTAL HIP ARTHROPLASTY [id number] - DE TOTAL HIP ARTHROPLASTY [address] [place], [place] [address] Fax: Encounter Details Date Type Department Care Team Description 01/13/2020 - Hospital Encounter ADC Medicine Surgery Cammy, [place] Pain 01/15/2020 Unit MD Robert [address] [facility] [address] [place] [address] [facility] [phone] [id number] Allergies No Known Allergiesdocumented as of this encounter (statuses as of 01/15/2020) Medications Medication Sig Dispensed Refills Start Date End Date Status rivaroxaban Take 1 tablet by 20 tablet 0 01/14/2020 Active (XARELTO) mouth daily for 0 tabletIndications: 20 days. deep vein Indications: thrombosis deep vein prevention thrombosis prevention amitriptyline 10 mg Take 10 mg by 0 Discontinued tablet mouth at 0 bedtime. Levothyroxine 88 Take by mouth 0 01/15/20 2 Discontinued mcg capsule daily. 0 propranolol HCl Take 80 mg by 0 Discontinued (INDERAL ORAL) mouth 2 (two) 0 times daily. naproxen 250 mg Take 250 mg by 0 Discontinued tablet mouth 2 (two) 0 times daily with meals. documented as of this encounter (statuses as of 01/15/2020) Active Problems Problem Noted Date Pain 01/13/2020 documented as of this encounter (statuses as of 01/15/2020) Social History Tobacco Use Types Packs/Day Years Used Date Never Smoker Smokeless Tobacco: Never Used Tobacco Cessation: Counseling Given: No Sex Assigned at Date Recorded Not on file COVID-19 Exposure Response Date Recorded In the last month, have you been in contact with No / Unsure 01/12/2020 10:42 AM CDT someone who was confirmed or suspected to have Coronavirus / COVID-19? documented as of this encounter Last Filed Vital Signs Vital Sign Reading Time Taken Comments Blood Pressure 113/59 01/15/2020 10:47 AM CDT Pulse 63 01/15/2020 10:47 AM CDT Temperature 36.2 C (97.2 F) 01/15/2020 10:47 AM CDT Respiratory Rate 18 01/15/2020 10:47 AM CDT Oxygen Saturation 91% 01/15/2020 10:47 AM CDT Inhaled Oxygen Concentration - - Weight 101.5 kg (223 lb 11.2 oz) 01/15/2020 4:58 AM CDT Height 160 cm (5' 2.99") 01/12/2020 11:44 AM CDT Body Mass Index 39.64 01/12/2020 11:44 AM CDT documented in this encounter Discharge Instructions Kristie Gordon RN - 01/15/2020 Patient Discharge Instructions Discharge date: 01/15/2020 Procedure(s): Procedure(s): TOTAL HIP ARTHROPLASTY Discharge Orders Regular Diet; Texture: Regular. Texture Regular. Diabetic: No Discharge Condition - Discharge Condition: GOOD Discharge Activity Discharge Activity: Ambulate VTE Propylaxis- Was ordered during hospitalization Home Health Order Order Comments: I certify that Amirah Arroyo is under my care and that I, or a nurse practitioner or physician's administrative assistant receptionist working with me, had a lvqv-ln-gwwu encounter with this patient on: 01/14/2020. The encounter with Amirah Arroyo was in whole or in part, for the following medical condition(s), which is the primary reason for home health care: Right total hip arthoplasty. I am ordering and certify that based on my findings the following services are medically necessary home health services: Evaluation and Treatment, Home Safety Eval and Physical Therapy Eval & Treatment Times a week: Three For: 4 Weeks Group Home Services: Medication Management and Teaching Times a week: Three For: 4 Weeks PCP follow up: Samm Cortés Call lab results to: My clinical findings support the need for the services listed above because: Decreased mobility Further, I certify that my clinical findings support that this patient is homebound (i.e. absences from home require considerable and taxing effort and are for medical reasons or mormonism services or infrequently or of short duration when for other reasons) because: Requires assistance of supported de vices to leave the home I understand and acknowledge that this is not a valid order until it is authenticated by a medical provider who has authority within their Scope of Practice to do so. I am inputting this information in my capacity as a scribe. Isaiah Moreno RN DMEPOS Order Order Comments: Amirah Arroyo [id number]/[id number] Estimated ANNIA: 99 Date of Laod-yi-Wfir Needs Assessment: 01/14/20 I certify that this patient is under my care and that I, or a nurse practitioner, a certified nurse specialist, or a physician's administrative assistant receptionist working with me, had a bzyl-uh-jqgg encounter that meets the physician bmlk-uj-feps encounter requirement with this patient on the above given date. Diagnosis and Medical Necessity of Requested Service: Right total hip arthoplasty Ambulatory Aids: Bariatric Walker (Folder w/Wheels) Please Attach the Following (as applicable): Patient Demographics Sheet I understand and acknowledge that this is not a valid order until it is authenticated by a medical provider who has authority within their Scope of Practice to do so. I am inputting this information in my capacity as a scribe. Isaiah Moreno, RN DMEPOS Order Order Comments: Amirah Arroyo [id number] Estimated ANNIA: 99 Date of Ivgs-gb-Aroq Needs Assessment: 01/14/20 I certify that this patient is under my care and that I, or a nurse practitioner, a certified nurse specialist, or a physician's administrative assistant receptionist working with me, had a eayh-sa-kyfd encounter that meets the physician surv-sd-sbvq encounter requirement with this patient on the above given date. Diagnosis and Medical Necessity of Requested Service: Right total hip arthoplasty Bariatric 3in1 bedside commode Please Attach the Following (as applicable): Patient Demographics Sheet I understand and acknowledge that this is not a valid order until it is authenticated by a medical provider who has authority within their Scope of Practice to do so. I am inputting this information in my capacity as a scribe. Isaiah Moreno RN Follow instructions as indicated below: 4. Lifting: No weight over 10 lbs 5. Weight: In general, sudden weight gains or losses should be reported to your provider. Cardiac patients should weigh daily and notify their provider for a weight gain of 3 pounds per day or 5 pounds per week. 6. Tobacco Avoidance: Follow recommendations below 7. Because the medications used could procedure some residual nausea and vomiting after you go home,you should eat lightly today, starting with clear liquids (broth, soft drinks, apple juice, jello) and toast or crackers, progressing to bland solid foods and then to your normal diet as tolerated, unle ss otherwise stated by your surgeon. If you get sick, wait a couple of hours and then begin to eat. After 24 hours the nausea should be gone. 8. You may experience some pain and your physician will advise you on what to take for discomfort. This should be taken as directed. If the pain is not relieved, contact your physician. You may alsohave a sore throat from the airway that was in place. You may uses lozenges, throat spray (such as C hloraseptic), or warm salt water gargles for symptomatic relief. 9. If you feel warm, take your temperature. If it is 101 degrees or above call your physician. 10. If you are unable to urinate within five hours after your procedure, call your physician. 11. The type of surgery performed will determine how much bleeding (if any) to expect. Normally, some spotting might occur. If your dressing pad becomes saturated, notify your physician. Elevate surgical site, if applicable, to reduced swelling and pain. Tips on preventing a surgical site infection.. Dont smoke. It is best to quit at least 30 days before surgery, but quitting after surgery is also helpful. If you are diabetic, keep your blood sugar well controlled. WASH YOUR HANDS. Keep your wound clean and remember to wash your hands before and after contact with the area. All health care workers should also wash their hands or use an alcohol based hand rub prior to examining you. If antibiotics are prescribed, take them as directed. Finish the entire course of antibiotics. Call your doctor if you have signs of infection: ? Increased tenderness at the surgical site ? Red streaks or increased redness of the area ? Bad-smelling discharge from the incision ? Fever of 101F or higher ? General tired feeling that doesnt improve Take Home Medications These are medications ordered for you by your healthcare provider. Do not take any other medications or supplements unless advised by your healthcare provider. Current Discharge Medication List START taking these medications Details rivaroxaban (XARELTO) tablet Take 1 tablet by mouth daily for 20 days. Indications: deep vein thrombosis prevention Qty: 20 tablet, Refills: 0 Associated Diagnoses: Hip arthritis; Status post total replacement of right hip; Pain STOP taking these medications amitriptyline 10 mg tablet Comments: Reason for Stopping: Levothyroxine 88 mcg capsule Comments: Reason for Stopping: naproxen 250 mg tablet Comments: Reason for Stopping: propranolol HCl (INDERAL ORAL) Comments: Reason for Stopping: Follow-up appointments: Please follow up with Dr. Chawla For questions regarding follow-up instructions call the [facility] at or If you experience any of the following symptoms such as fever, redness or swelling around the incision site, tenderness, foul odor, please follow up with Dr. Chawla. For worsening symptoms/changing condition/problems or questions: Non-emergency/urgent: Call the [facility] at or Emergency: Go to the closest emergency room or call [phone] If you receive the patient satisfaction survey by mail please complete and return and let us know how we are doing. TOBACCO AVOIDANCE Exposure to tobacco either from smoking or from second hand (environmental) smoke or smokeless tobacco (snuff) is damaging to your health. This information is to encourage everyone to avoid tobacco exposure. It is recommended that you: ? If you smoke or use smokeless tobacco, we encourage you to quit. ? If you have already quit smoking, continue your good work! ? If you do not smoke or use smokeless tobacco, do not start. ? Avoid secondhand smoke. Additional Resources You may want to contact these organizations for further information on smoking and how to quit. [place] [employer], http://www.lungusa.org/stop-smoking/ [place] [employer], http://www.cancer.org/Healthy/StayAwayfromTobacco/index [place] [employer], http://www.heart.org/HEARTORG/GettingHealthy/QuitSmoking/Quit-Smoking_[facility] _001085_SubHomePage.jsp documented in this encounter Progress Notes Paulina Arriola - 01/15/2020 12:10 PM CDTRoutine rounding visit; tax revenue officer initiated a relationship of care and support with patient; patient shared a bit of her narrative; tax revenue officer celebrated with patient as she shared her narrative; patient appears to be coping well; patient requested large print Bible; tax revenue officer provided support through presence, Bible and spiritual resources; patient expressed gratitude for the visit. Cande Machado LB - 01/15/2020 10:04 AM CDT Care Management Discharge Disposition Note (DCDN) 5-2-1 Interventions: Disease specific education;Clear discharge plan;Home visit/home health referral;Follow-up appointments 5-2-1 Providers: Physician;Equity Sales Assistant/Dramatic Reader;Nurse 5-2-1 Patient Capacity Improvements: Avoidance of adverse events/readmission Discharge Plan for ongoing care and services: Durable Medical Equipment;Home Health (HH) Is this a new referral: Yes Patient Choice completed for referred services: Yes DME location: [address] , [place], [place] () [phone] (F) [phone] Other DME location: Durable Medical Equipment: Rolling Walker Home Health location: [address], [place], [place] [address] (P) [phone] (F) [phone]. Discharge location(s): Home Health location: [address], [place], [place] [address] (P) [phone] (F) [phone]. DME location: [address] , [place], [place] () [phone] (F) [phone] Patient choice completed for referred services: Yes Discussed with patient/patients family involved in decision making: No Patient or family caregiver understands, and agrees with discharge plan. Community resources/referrals made or provided to patient: No Resources/Referrals: Transportation: Private Vehicle Mental Status: Alert & Oriented to Person,Place & Time Living Arrangement: Home Other living arrangement: Address of living arrangement: [address] [place] [address] [address] [place] [address] Funding Resources: Medicare Replacement Nursing informed of discharge plan: Yes Name of RN informed: Kristie Expected discharge date: 01/14/2020 Time: Midday [20] Additional Information: CM/SW Name & Contact number: LAINEY Combs Ph. [phone] The following information has been provided to the facility noted above: reason for the patient discharge or transfer; patients physical and psychosocial status; summary of care, treatment, servicesprovided to patient; and the patient progress toward goals. Howard Guerrier PTA - 01/14/2020 2:29 PM CDT Physical Therapy Progress Note: Discharge Recommendations: Therapy Needs and Potential: Patient demonstrates good potential to improve and meet therapy goals with further physical therapy services. Challenges to Home Transition: increased risk of falls decreased safety awareness Equipment recommendations: bariatric RW, shower chair PAIN: Patient reports no pain at rest. Reports right hip pain with movement but doies not rate. PRECAUTIONS: Weight Bearing Precaution: WBAT General Precautions: PPE used:Gloves and Surgical mask, Fall, Posterior hip precautions, Bracing/Cast present or required:N/A S: Patient agreeable to working with PT. Patient is awake and alert but has difficulty staying on task or understanding concepts. O: Patient met Up in chair. Patient seen for the following: Transfers: Sit to stand: CGA using Rolling Walker Stand to sit: CGA using Rolling Walker Gait: Assisted patient with ambulation as follows: 60 feet using Rolling Walker and CGA. Therapeutic exercise: instructed patient in the following: MARY protocol x 10 reps each After session, patient Up in chair and call kapoor provided. RN aware A: Patient tolerated session fair. Gait is steady with slowed radhika and short stride length. Pattern is Step to and antalgic. Patient has difficulty with multi step commands and demonstrates decreased safety awareness. Patient reports multiple falls prior to surgery. Patient has some difficulty u nderstanding hip precautions. She refuses to consider any rehab placement and wants to use home health for rehab. . Patient declines DC today as she feels too weak. P: PT will continue POC with emphasis on gait, transfers, MARY precautions and functional mobility.. Total Timed Tx Codes in Minutes: 43 Min Total Treatment Time in Minutes: 43 Min Howard Kasper PTA [facility] Lic [id number] [facility] Rehab Services [facility] [phone] Krissy Cross PT supv Cande Machado LBSW - 01/14/2020 11:31 AM CDTSubjective Patient ID: Amirah Arroyo is a 74 year old female. Care Management Social Functional Assessment Patient Name: Amirah Arroyo Age: [age] year old Sex: female Previous admit date: N/A Current diagnosis and co-morbidities: Primary osteoarthritis of right hip (M16.11) Readmission Questions: Was patient discharged from any acute care hospital within the last 30 days: No Social Functional Assessment: Primary language spoken/preferred: German Mental Status: Alert & Oriented to Person, Place Information given by: Self Patient's support system: Child Name and number of support system: Faisal Woods dtr [phone] Primary Lithography Contact Worker: Self;Other MPOA: No Living Arrangement: Apartment Address of living arrangement : [address] [place] [address] [address] [place] [address] Persons living in home: Self;Other Names & numbers of persons living in home: pt states her granddtr, Courtney Woods resides with her Barriers to returning home: None Baseline functional status- ambulation: Requires minimal to moderate assistance Functional status-baseline personal care: Requires minimal to moderate assistance Baseline functional status- driving: Dependent Baseline functional status- grocery shopping: Dependent Functional status-baseline housekeeping: Dependent Functional status-baseline meal prep: Requires minimal to moderate assistance Current functional status same as prior: Yes Do you have a PCP?: Yes Name of PCP: Dr. Cortés Home Health Care Agency: No Provider Services: No DME Company: No Equipment: Rollator;Bedside Commode Hemodialysis: No Community resources utilized: None Funding Resources: Medicare Replacement Medicare Replacement name and information: [facility] Prescription coverage plan: Medicare Part D Pharmacy where meds are filled: Other Anticipated services prior to disharge: Continue Medical Eval Additional Recommendations for DC: Medical clearance, pt request to dc home with [facility] Staff Relief and new rolling walker Additional info required for discharge planning: Pending medical evaluation Recommended discharge plan: Home;Home with [facility];DME Referral SFA Complete: Social Functional Assessment complete: Yes Alcohol Use Screening (AUDIT-C) How often do you have a drink containing alcohol?: Never SCORE: 0 Did patient elect to have resources provided: No Role of Care Management explained. Any issues or concerns with obtaining/affording your medications at home: no. Are you or your support system able to worm picker medications at discharge: yes. Review of Systems Objective Physical Exam Assessment/Plan Home with and new rolling walker LAINEY Harrell Dramatic Reader - Care Management [facility] [phone] [email or web address] Abbie Mathew FNP - 01/14/2020 11:16 AM CDT [facility] Hospitalist Progress Note SUBJECTIVE: Patient seen sitting up to chair working with phyiscal therapy no distress. CURRENT MEDICATIONS - reviewed. Current Facility-Administered Medications Medication Dose Route Frequency Last Rate Last Dose acetaminophen (TYLENOL) tablet 1,000 mg 1,000 mg Oral O.R. HOLDING ONCE amitriptyline (ELAVIL) tablet 10 mg 10 mg Oral QHS 10 mg at 01/14/20 0301 diphenhydrAMINE (BENADRYL) tablet 25 mg 25 mg Oral Q4HPRN docusate (COLACE) capsule 100 mg 100 mg Oral Q12H 100 mg at 01/14/20 0844 enoxaparin (LOVENOX) injection 30 mg 30 mg Subcutaneous Q12H 30 mg at 01/14/20 0845 hydralAZINE (APRESOLINE) injection 10 mg 10 mg Intravenous Q6HPRN HYDROcodone-acetaminophen (NORCO 5) 5-325 mg tablet 1 tablet 1 tablet Oral Q6HPRN 1 tablet at01/14/20 0937 levothyroxine (SYNTHROID) tablet 88 mcg 88 mcg Oral QAM-0600 88 mcg at 01/14/20 0410 morpHINE injection 2 mg 2 mg Slow IV Push Q3HPRN 2 mg at 01/13/20 2150 ondansetron (ZOFRAN (PF)) injection 4 mg 4 mg Slow IV Push Q6HPRN 4 mg at 01/14/20 0859 proMETHazine (PHENERGAN) 12.5 mg in NaCl 0.9% (NS) 50 mL IV piggyback 12.5 mg IV Piggyback Q4HPRN 12.5 mg at 01/13/20 2149 propranolol LA (INDERAL LA) 24 hr capsule 80 mg 80 mg Oral BID Stopped at 01/14/20 0800 sodium chloride 0.9 % irrigation solution PRN 1,000 mL at 01/13/20 1349 sodium chloride 0.9 % irrigation solution PRN 3,000 mL at 01/13/20 1349 PHYSICAL EXAM: BP 122/48 | Pulse 55 | Temp 37 C (98.6 F) (Temporal Artery) | Resp 18 | Ht 1.6 m (5' 2.99")| Wt 100 kg (220 lb 6.4 oz) | SpO2 97% | BMI 39.05 kg/m General: NAD HEENT: Anicteric sclerae, NCAT Lungs: CTAB Cardio: RRR, strong symmetric pulses Abdomen: Soft, NTND Genitourinary: No lesions Musculoskeletal: right hip drsg c/d/i Skin: No rash or lesions, normal turgot Neuro: AAOx3, no focal deficits Psych: Normal affect LABS/IMAGING - reviewed, pertinent results as below: CBC BMP PT/INR WBC (10*3/L) Date Value 01/14/2020 11.93 (H) NA (mmol/L) Date Value 01/12/2020 137 No results found for: PT RBC (10*6/L) Date Value 01/14/2020 4.02 K (mmol/L) Date Value 01/12/2020 4.6 INR (no units) Date Value 01/12/2020 1.1 PLT (10*3/L) Date Value 01/14/2020 187 CALCIUM (mg/dL) Date Value 01/12/2020 10.3 HGB (g/dL) Date Value 01/14/2020 12.5 CL (mmol/L) Date Value 01/12/2020 104 aPTT HCT (%) Date Value 01/14/2020 38.5 BUN (mg/dL) Date Value 01/12/2020 24 (H) APTT Patient (Seconds) Date Value 01/12/2020 28 CREATININE (mg/dL) Date Value 01/12/2020 0.88 IMAGING- Hospital Encounter on 01/13/20 XR HIP 1 VW RIGHT Narrative HISTORY: Right hip replacement in [place]. FINDINGS: Crosstable view right hip obtained intraoperatively show resection of head and neck of right femur, acetabular measuring metallic device in the acetabular cavity and metallic measuring device inserted into proximal shaft of the right femur. Additional orthopedic hardware seen projected over the gluteal soft tissues. ASSESSMENT/PLAN Amirah Arroyo is a 74 year old female with PMH as listed above, admitted to the hospital with: POD #1; Right hip arthroplasty by Dr Chawla on 01/13/2020 DVT prophylaxis, discharge planning and pain management done by Dr Chawla. HTN Inderal 80 mg BID Hypoxia likely due to post anesthesia O2 @ 2 liter sat 93% Wean off O2 as tolerated Encourage IS q 1 hr WA Hypothyroidism Levothyroxine 88 mg daily Depression Amitriptyline 10 mg q hs Thank you for the participation in patient care Further recommendations will depend on patient hospital course Prophylaxis: DVT- enoxaparin Patient will discharge with xarelto Stress Ulcer: no indication for prophylaxis Code Status: addressed: full code Disposition: defer to primary [facility] was viewed during this stay ARVIND Rubi Associated attestation - Eugenio Olguin MD - 01/14/2020 5:52 PM CDTI have independently seen and evaluated this patient. I agree with the note below including physicalexam and plan. In summary, patient is admitted for right hip arthroplasty. Rest of plan per below. Annalise Culver, RD - 01/14/2020 10:03 AM CDT MEDICAL NUTRITION THERAPY- CONSULT NOTE: Reason For Consultation: straightener gun parts for positive initial nutrition screen: Moderate disease severity, age Malnutrition Assessment: Nutritional Diagnosis: None SGA Rating: Well-Nourished, Normal Plan: Continue current diet Admission Chief Complaint: had no chief complaint listed for this encounter. Present on Admission: Pain PMH/PSH: has a past medical history of Alzheimer's dementia, Arthritis, Breast cancer, and HTN (hypertension). has a past surgical history that includes hysterectomy (Left); total knee arthroplasty (Left); and total hip arthroplasty (Right, 01/13/2020). GI and Nutrition Related Findings: Symptoms: Nausea and Constipation Difficulty: N/A GI tract alteration: N/A Alternative means of nutrition: N/A General: N/A Medications: Current Facility-Administered Medications: acetaminophen (TYLENOL) tablet 1,000 mg, 1,000 mg, Oral, O.R. HOLDING ONCE, Esteban Chawla MD amitriptyline (ELAVIL) tablet 10 mg, 10 mg, Oral, QHS, Abbie Weiss, REMOTE BROADCAST ENGINEER, 10 mg at 01/14/20 0301 diphenhydrAMINE (BENADRYL) tablet 25 mg, 25 mg, Oral, Q4HPRN, Esteban Chawla MD docusate (COLACE) capsule 100 mg, 100 mg, Oral, Q12H, Esteban Chawla MD, 100 mg at 01/14/20 0844 enoxaparin (LOVENOX) injection 30 mg, 30 mg, Subcutaneous, Q12H, Esteban Chawla MD, 30mg at 01/14/20 0845 hydralAZINE (APRESOLINE) injection 10 mg, 10 mg, Intravenous, Q6HPRN, Zita Fabian MD HYDROcodone-acetaminophen (NORCO 5) 5-325 mg tablet 1 tablet, 1 tablet, Oral, Q6HPRN, Esteban Chawla MD, 1 tablet at 01/14/20 0937 levothyroxine (SYNTHROID) tablet 88 mcg, 88 mcg, Oral, QAM-0600, Abbie Weiss FNP, 88 mcg at 01/14/20 0410 morpHINE injection 2 mg, 2 mg, Slow IV Push, Q3HPRN, Zita Fabian MD, 2 mg at01/13/20 2150 ondansetron (ZOFRAN (PF)) injection 4 mg, 4 mg, Slow IV Push, Q6HPRN, Esteban Chawla MD, 4 mg at 01/14/20 0859 proMETHazine (PHENERGAN) 12.5 mg in NaCl 0.9% (NS) 50 mL IV piggyback, 12.5 mg, IV Piggyback, Q4HPRN, Zita Fabian MD, 12.5 mg at 01/13/20 2149 propranolol LA (INDERAL LA) 24 hr capsule 80 mg, 80 mg, Oral, BID, Abbie Weiss FNP, Stopped at 01/14/20 0800 sodium chloride 0.9 % irrigation solution, , , PRN, Esteban Chawla MD, 1,000 mL at 01/13/20 1349 sodium chloride 0.9 % irrigation solution, , , PRN, Esteban Chawla MD, 3,000 mL at 01/13/20 1349 Lab and Medical Test Results: NA (mmol/L) Date Value 01/12/2020 137 K (mmol/L) Date Value 01/12/2020 4.6 CALCIUM (mg/dL) Date Value 01/12/2020 10.3 CL (mmol/L) Date Value 01/12/2020 104 BUN (mg/dL) Date Value 01/12/2020 24 (H) CREATININE (mg/dL) Date Value 01/12/2020 0.88 GLUCOSE (mg/dL) Date Value 01/12/2020 91 CO2 TOTAL (mmol/L) Date Value 01/12/2020 24 ALBUMIN (g/dL) Date Value 01/12/2020 3.9 T PROTEIN (g/dL) Date Value 01/12/2020 6.6 TOTAL BILI (mg/dL) Date Value 01/12/2020 0.8 No results found for: BILIUNCON No results found for: BILICONJ ALTv (U/L) Date Value 01/12/2020 15 AST(SGOT) (U/L) Date Value 01/12/2020 26 ALK PHOS (U/L) Date Value 01/12/2020 79 Nutrition Assessment: Age: [age] year old Sex: female Ht: Ht Readings from Last 3 Encounters: 01/12/20 1.6 m (5' 2.99") Current Wt: Wt Readings from Last 1 Encounters: 01/13/20 100 kg (220 lb 6.4 oz) BMI: Body mass index is 39.05 kg/m. (Obesity (BMI 30-39.9)) IBW for Ht: 52.27 kg +/- 5.2 kg %IBW: 191% Weight History: Wt Readings from Last 10 Encounters: 01/13/20 100 kg (220 lb 6.4 oz) Inflammatory Markers: Elevated WBC Current Dietary Order(s): Orders Placed This Encounter Procedures Regular Diet; Texture: Regular. EMR Documented Food Allergies/Intolerance/Cultural Preferences: No Known Allergies Nutrition & Diet History: History of Alzheimer's. Patient reports some nausea and constipation. MD aware and correcting. She reports eating breakfast well with no chewing/ swallowing difficulties. Patient appears well nourishedat this time. RD reviewed patient's labs, and will continue to monitor. Calculated Daily Nutritional Needs: Calories: 1850 kcal/day = 18 kcal/kg current wt = 35 kcal/kg IBW Protein: 20% of kcal need/day = 93 g/day = 0.9 g/kg current wt = 1.7 g/kg IBW Fluid: 1850 mL/day or per MD; adjust per acute needs Nutrition Diagnosis: PES #1: Overweight/ obesity related to excessive energy intake as evidenced by BMI of 39 Nutrition Intervention(s): Interventions: 1. Recommend continue the current diet order 2. Recommend encouragement at meals & offer assistance if needed 3. Recommend daily weights 4. Recommend accurate PO intake documented on flowsheet by nursing 5. Took food preferences - kitchen will be helping patient order meals if needed 6. Will monitor diet tolerance, intake, GI function, and nutrition related labs Goals: 1. The pt's documented intake is no less than 75% of provided meals D/C Planning: General healthy diet Nutrition Monitoring and Evaluation: A registered dietitian will f/u in 5-7 days to report nutrition related information and to revise the recommended nutrition intervention(s) if necessary; please page with questions or concerns, thank-you. Annalise Culver RD,GEN RD Office: [phone] signed by Annalise Culver RD at 01/14/2020 10:25 AM CDTdocumented in this encounter Consult Notes Cande Conley LBSW - 01/14/2020 3:22 PM CDTAssociated Order(s): CONSULT TELETYPEWRITER INSTALLER-ADULTPt anticipates on returning home with support of her family with new home health and will need a rolling walker for home use. Pt prefers to use [facility] and [facility]. LAINEY Harrell Dramatic Reader - Care Management [facility] [phone] [email or web address] Krissy Ross PT - 01/14/2020 10:35 AM CDTAssociated Order(s): CONSULT ADULT PHYSICAL THERAPY Patient agreeable to working with physical therapy. Patient met Semi reclined in bed. PHYSICAL THERAPY EVALUATION Consult received, chart reviewed and evaluation complete this date. Patient is referred to PT for evaluation and treatment. Patient is a 74 year old female who presents to hospital for Primary osteoarthritis of right hip [M16.11] , S/P R THR. Discharge Recommendations: Therapy Needs and Potential: Patient demonstrates good potential to improve and meet therapy goals with further physical therapy services. Challenges to Home Transition: increased risk of falls decreased safety awareness Equipment recommendations: bariatric RW, shower chair Current Functional Status and/or Treatment:Functional mobility training, Transfer training, Gait training and Patient/Family/Caregiver education Bed Mobility: Supine to sit: Moderate assist Scooting to edge of bed: Moderate assist Sit to supine: Moderate assist. Transfers: Sit to stand: Minimal assist using Rolling Walker Stand to sit: Minimal assist using Rolling Walker Verbal cueing provided for correct hand placement and correct use of AD Ambulation: Assisted patient with ambulation as follows: 8 feet using Rolling Walker and Minimal assist. With persisted verbal cues. Therapeutic exercise: instructed patient in the following: ankle pumps, quad sets, patient/caregiver verbalizes understanding of instructions. After session, patient Up in chair. Call button provided. Pillow in between LE for precaution. PLAN OF CARE: At least 3 times per week, once or twice a day (while in hospital) per patient's tolerance and medical needs. See below for complete details. Admit Date: 01/13/2020 Hospital Diagnosis:Primary osteoarthritis of right hip [M16.11] PT Diagnosis: Difficulty walking and Weakness Weight Bearing Precaution: WBAT General Precautions: PPE used:Gloves and Surgical mask, General, Fall, Posterior hip precautions Bracing/Cast present or required:N/A PMH: Past Medical History: Diagnosis Date Alzheimer's dementia Arthritis Breast cancer HTN (hypertension) PSH: Past Surgical History: Procedure Laterality Date HYSTERECTOMY Left TOTAL HIP ARTHROPLASTY Right 01/13/2020 Surgeon: Esteban Chawla MD; [place] [facility] [place]THROPLAST[place] Left Prior Living Situation: house and with grandson DME: Four wheeled walker with seat Prior level of Mobility: house hold ambulation Subjective: Patient agreed to participate with PT. Denies pain. Patient/Family Goals: To be able to walk. Patient/Family verbalizes understanding of condition: Yes PAIN: denies pain COMMUNICATION Primary Language: German Able to Verbalize needs: Yes Vision:glasses Hearing:good; no issues reported ORIENTATION/COGNITION: Oriented to: person, place, date/time and situation Awake: Yes Alert: Yes Dizzy: No Follows Commands: Yes 1-Step Yes Multi-Step Yes Inconsistent: No NEUROLOGICAL Light Touch: within functional limits bilateral LE Heel to sharma: NT Tone: Normal BALANCE: Sitting: Static: Good Dynamic: Good Standing: Static: Fair+ Dynamic: NT RANGE OF MOTION: within functional limits L LE, LROM on R hip due to THR STRENGTH: 4/5 (Good), LLE , NT = RLE ENDURANCE: NT SKIN INTEGRITY: not intact, R hip from THR PROBLEM LIST: Decline in bed mobility, Decline in gait, Decline in transfers, Decreased strength, Decreased balance, ROM deficits, Weight bearing restrictions and Safety awareness deficits ASSESSMENT: Patient is a 74 year old female seen secondary to the above listed diagnosis. Patient would benefit from continued PT to address the above listed deficits to maximize independence and safety with functional mobility. Rehabilitation Potential: good Goals: The following goals are to maximize independence and safety with functional mobility to eventually return to prior living situation and prior functional status. Upon discharge, patient and/or family will demonstrate the followin. Supine to sit: CGA Scooting to edge of bed: CGA Sit to supine: CGA 2. Sit to stand: CGA using Rolling Walker Stand to sit: CGA using Rolling Walker 3. CGA with ambulation, Feet: 100 using least assistive device. 4. Demonstrate or verbalize understanding of home exercise program in order to continue with their rehab on their own. Treatment Plan: Gait training, Therapeutic exercise, Transfer training, Balance training, Bed mobility training and Safety education, patient/caregiver education PATIENT EDUCATION: Patient provided with preferred teaching of verbal information on role of PT, plan of care, POC. Shows readiness to learn. Verbal instruction teaching provided. Individual is able toread and verbalizes understanding of teaching provided. Krissy Cross,PT [place] License: [id number] Required Components in Determining Evaluation Level History: No personal factors or comorbidities: Yes (98607) 1-2 personal factors and/or comorbidities: Yes (02895) 3 or more personal factors and/ or comorbidities: No (20527) Examination of Body System(s) Addressing 1-2 elements: Yes (24161) Addressing a total of 3 or more elements: No (14202) Addressing a total of 4 or more elements: No (21614) Clinical Presentation Stable: Yes (27244) Evolving: No (83606) Unstable: No (06487) Clinical Decision Making (Complexity) Low: Yes (57360) Moderate: No (49276) High: No (31333) Abbie Mathew FNP - 01/13/2020 7:17 PM CDTAssociated Order(s): CONSULT INTERNAL MEDICINE [facility] Hospitalist Consultation Note Date of Service: 01/13/2020 CHIEF COMPLAINT: medical management HISTORY OF PRESENT ILLNESS Amirah Arroyo is a 74 year old female with history of HTN, breast CA, hypothyroidism who presents withs/p right hip arthroplasty by Dr Chawla on 01/13/2020. Patient seen at beside, denies chest pain, SOB on O2 2L NC, abdominal pain, dysuria or hematuria. Hospitalist was consulted for medical management. PAST MEDICAL HISTORY Past Medical History: Diagnosis Date Alzheimer's dementia Arthritis Breast cancer HTN (hypertension) PAST SURGICAL HISTORY Past Surgical History: Procedure Laterality Date HYSTERECTOMY Left TOTAL KNEE ARTHROPLASTY Left ALLERGIES No Known Allergies MEDICATIONS Current home medication list reviewed: Current Discharge Medication List STOP taking these medications amitriptyline 10 mg tablet Comments: Reason for Stopping: Levothyroxine 88 mcg capsule Comments: Reason for Stopping: naproxen 250 mg tablet Comments: Reason for Stopping: propranolol HCl (INDERAL ORAL) Comments: Reason for Stopping: FAMILY HISTORY Family History Family history unknown: Yes SOCIAL HISTORY Social History Socioeconomic History Marital status: Spouse name: Not on file Number of children: Not on file Years of education: Not on file Highest education level: Not on file Occupational History Occupation: retired Social Needs Financial resource strain: Not on file Food insecurity Worry: Not on file Inability: Not on file Transportation needs Medical: Not on file Non-medical: Not on file Tobacco Use Smoking status: Never Smoker Smokeless tobacco: Never Used Substance and Sexual Activity Alcohol use: Not on file Drug use: Not on file Sexual activity: Not on file Lifestyle Physical activity Days per week: Not on file Minutes per session: Not on file Stress: Not on file Relationships Social connections Talks on phone: Not on file Gets together: Not on file Attends mormonism service: Not on file Active member of club or organization: Not on file Attends meetings of clubs or organizations: Not on file Relationship status: Not on file Intimate partner violence Fear of current or ex partner: Not on file Emotionally abused: Not on file Physically abused: Not on file Forced sexual activity: Not on file Other Topics Concern Not on file Social History Narrative Not on file PHYSICAL EXAMINATION BP (!) 152/78 | Pulse 66 | Temp 35.5 C (95.9 F) (Temporal Artery) | Resp 18 | Ht 1.6 m (5' 2.99") | Wt 100 kg (220 lb 6.4 oz) | SpO2 93% | BMI 39.05 kg/m General: No acute distress HEENT: Normal oral mucosa, anicteric sclerae, NCAT Cardiovascular: RRR, strong symmetric radial pulses Lungs: CTAB Abdomen: Soft, NTND Musculoskeletal: Normal ROM,rt hip with c/d/i dressing Genitourinary: Normal Skin: No rash, lesions Neuro: AAOx3, no focal deficits Psych: Normal affect LABS - reviewed pertinent labs as below: CBC BMP PT/INR WBC (10*3/L) Date Value 01/12/2020 8.31 NA (mmol/L) Date Value 01/12/2020 137 No results found for: PT RBC (10*6/L) Date Value 01/12/2020 4.20 K (mmol/L) Date Value 01/12/2020 4.6 INR (no units) Date Value 01/12/2020 1.1 PLT (10*3/L) Date Value 01/12/2020 190 CALCIUM (mg/dL) Date Value 01/12/2020 10.3 HGB (g/dL) Date Value 01/12/2020 13.2 CL (mmol/L) Date Value 01/12/2020 104 aPTT HCT (%) Date Value 01/12/2020 39.8 BUN (mg/dL) Date Value 01/12/2020 24 (H) APTT Patient (Seconds) Date Value 01/12/2020 28 CREATININE (mg/dL) Date Value 01/12/2020 0.88 IMAGING - reviewed, pertinent results as below: Hospital Encounter on 01/13/20 XR HIP 1 VW RIGHT Narrative HISTORY: Right hip replacement in OR. FINDINGS: Crosstable view right hip obtained intraoperatively show resection of head and neck of right femur, acetabular measuring metallic device in the acetabular cavity and metallic measuring device inserted into proximal shaft of the right femur. Additional orthopedic hardware seen projected over the gluteal soft tissues. ASSESSMENT/PLAN Amirah Arroyo is a 74 year old white female admitted for: Right hip arthroplasty by Dr Chawla on 01/13/2020 DVT prophylaxis, discharge planning and pain management done by Dr Chawla. HTN Inderal 80 mg BID Hypoxia likely due to post anesthesia O2 @ 2 liter sat 93% Encourage IS q 1 hr WA Hypothyroidism Levothyroxine 88 mg daily Depression Amitriptyline 10 mg q hs Thank you for the participation in patient care Further recommendations will depend on patient hospital course Prophylaxis: DVT- enoxaparin Stress Ulcer: no indication for prophylaxis Code status: full code Smoking Cessation: (Z71.6) Tobacco user?: non smoker [place] [facility] was viewed during this stay ARVIND Rubi Associated attestation - Zita Fabian MD - 01/13/2020 9:40 PM CDTPlease see H&P for details. Patient doing well postoperatively. Still with mild nausea, hypertension and pain. Medications provided. Further recommendations per ortho. Thank you for the opportunityto assist in the care of this patient.documented in this encounter Miscellaneous Notes Care Plan - Nickie Dow RN - 01/15/2020 3:45 AM CDTRemains stable at this time, patient noted to have home medication container in her hands at [facility]. Patient stated that she had already taken her medications from the divided container in the morning and was getting ready to take her medications again. I instructed her not to take them because we already had her medications ready for her. [place] insisted on taking her own medications and I explained to her that we did not want to give her too much medication by mistake if she should forget to tell us that she took her own medication and delay her discharge by making her sick. For the patient's safety, the medications were placed on the desk where she could not reach them without asking for help. are Plan - Adela Morales RN - 01/13/2020 9:15 PM CDT. documented in this encounter Plan of Treatment [...] of this encounter Implants Implanted Type Area Workers Compensation Coordinator Device Shelf Model / Identifier Expiration Serial / Lot Date Standard Neck HIP Right: Biomet 06/24/2029 [id number] / Implanted: Qty: 1 on 01/13/2020 by Esteban Darnell MD at [facility] Hip 1 [id number] / [id number] Dual Mobility Bearing HIP Right: [employer] 08/25/19 25 [id number] / Implanted: Qty: 1 on 01/13/2020 by Esteban Darnell MD at [facility] Hip 1 [id number] / [id number] Dual Mobility Acetabular Liner Liner Right: [employer] 07/02/2029 [id number] / Implanted: Qty: 1 on 01/13/2020 by Esteban Darnell MD at [facility] Hip 1 [id number] / [id number] Acetabular Shell Shell Right: [employer] 10/25/2028 [id number] / Implanted: Qty: 1 on 01/13/2020 by Esteban Darnell MD at [facility] Hip 0 [id number] / [id number] Porous Coated Stem Stem Right: [employer] 10/21/2028 [id number] / Implanted: Qty: 1 on 01/13/2020 by Esteban Darnell MD at [facility] Hip 5 [id number] / [id number] documented as of this encounter Procedures Procedure Name Priority Date/Time Associated Diagnosis Comme nts CBC WITH DIFF Routine 01/15/2020 5:16 Results fo r AM CDT this procedure are in the results section. CBC WITH DIFF Routine 01/14/2020 3:32 Results fo r AM CDT this procedure are in the results section. XR HIP 1 VW RIGHT Routine 01/13/2020 3:45 Status post total R esults for PM CDT replacement of right this pr ocedure hip are in the results section. TOTAL HIP Level 5 01/13/2020 1:34 Primary ARTHROPLASTY (greater than 5 PM CDT osteoarthritis of days) right hip HB ABO GROUPING STAT 01/13/2020 11:00 Results for AM CDT this procedure are in the results section. NOTICE OF PRIVACY Routine 01/12/2020 3:22 PRACTICES PM CDT CONSENT/REFUSAL FOR Routine 01/12/2020 3:21 DIAGNOSIS AND PM CDT TREATMENT ASSIGNMENT OF Routine 01/12/2020 3:21 BENEFITS PM CDT documented in this encounter Results CBC WITH DIFF (01/15/2020 5:16 AM CDT) Pathologist Sig nature WBC 9.98 4.30 - 11.10 [facility] 10*3/L [facility] RBC 3.49 (L) 3.93 - 5.25 [facility] 10*6/L [facility] HGB 11.0 (L) 11.6 - 15.0 [facility] g/dL [facility] HCT 33.3 (L) 35.7 - 45.2 % [facility] MCV 95.4 80.6 - 95.5 fL [facility] MCH 31.5 25.9 - 32.8 pg [facility] MCHC 33.0 31.6 - 35.1 [facility] g/dL [facility] RDW-SD 45.0 39.0 - 49.9 fL [facility] RDW-CV 13.0 12.0 - 15.5 % [facility] PLT 169 166 - 358 [facility] 10*3/L [facility] MPV 11.0 9.5 - 12.9 fL [facility] NRBC/100 WBC 0.0 0.0 - 10.0 /100 [facility] WBCs [facility] NRBC x10^3 <0.01 10*3/L [facility] GRAN MAT (NEUT) % 58.7 % [facility] IMM GRAN % 0.30 % [facility] LYMPH % 25.6 % [facility] MONO % 11.8 % [facility] EOS % 3.0 % [facility] BASO % 0.6 % [facility] GRAN MAT x10^3(ANC) 5.86 1.88 - 7.09 [facility] 10*3/uL [facility] IMM GRAN x10^3 0.03 0.00 - 0.06 [facility] 10*3/uL [facility] LYMPH x10^3 2.55 1.32 - 3.29 [facility] 10*3/uL [facility] MONO x10^3 1.18 (H) 0.33 - 0.92 [facility] 10*3/uL [facility] EOS x10^3 0.30 0.03 - 0.39 [facility] 10*3/uL [facility] BASO x10^3 0.06 0.01 - 0.07 [facility] 10*3/uL [facility] Specimen Blood - ARM, LEFT Performing Organization Address City/State/Zipcode Phone Number [facility] CLIA: [id number] [place] [address] CBC WITH DIFF (01/14/2020 3:32 AM CDT) Pathologist Sig nature WBC 11.93 (H) 4.30 - 11.10 [facility] 10*3/L [facility] RBC 4.02 3.93 - 5.25 [facility] 10*6/L [facility] HGB 12.5 11.6 - 15.0 [facility] g/dL [facility] HCT 38.5 35.7 - 45.2 % [facility] MCV 95.8 (H) 80.6 - 95.5 fL [facility] MCH 31.1 25.9 - 32.8 pg [facility] MCHC 32.5 31.6 - 35.1 [facility] g/dL [facility] RDW-SD 42.9 39.0 - 49.9 fL [facility] RDW-CV 12.1 12.0 - 15.5 % [facility] PLT 187 166 - 358 [facility] 10*3/L [facility] MPV 10.8 9.5 - 12.9 fL [facility] NRBC/100 WBC 0.0 0.0 - 10.0 /100 [facility] WBCs [facility] NRBC x10^3 <0.01 10*3/L [facility] GRAN MAT (NEUT) % 87.6 % [facility] IMM GRAN % 0.60 % [facility] LYMPH % 6.0 % [facility] MONO % 5.5 % [facility] EOS % 0.0 % [facility] BASO % 0.3 % [facility] GRAN MAT x10^3(ANC) 10.45 (H) 1.88 - 7.[address]/[facility] LABORATORY IMM GRAN x10^3 0.07 (H) 0.00 - 0.[address]uL [facility] LYMPH x10^3 0.72 (L) 1.32 - 3.[address] LABORATORY MONO x10^3 0.66 0.33 - 0.[address]/[facility] LABORATORY EOS x10^3 <0.03 (L) 0.03 - 0.[address]/[facility] LABORATORY BASO x10^3 0.03 0.01 - 0.[address] LABORATORY Specimen Blood - ARM, LEFT Performing Organization Address City/[facility]/Zipcode Phone Number [facility] CLIA: [id number] [place] [address] XR HIP 1 VW RIGHT (01/13/2020 3:45 PM CDT) Specimen Narrative Performed At HISTORY: Right hip replacement in OR. PACS/VR/DOSE FINDINGS: Crosstable view right hip obta ined intraoperatively show resection of head and neck of right femu r, acetabular measuring metallic device in the acetabular cavity and metallic measuring device inserted into proximal shaft of the right femur. Addit ional orthopedic hardware seen projected over the gluteal soft tissues. Procedure Note [facility], Radiant Results Inft User - 2019 4:02 PM CDT HISTORY: Right hip replacement in OR. FINDINGS: Crosstable view right hip obta ined intraoperatively show resection of head and neck of right femu r, acetabular measuring metallic device in the acetabular cavity and meta llic measuring device inserted into proximal shaft of the right femur. Addit ional orthopedic hardware seen projected over the gluteal soft tissues. Performing Organization Address City/State/Zipcode Phone Number PACS/VR/DOSE Type and Screen - ONCE STAT (01/13/2020 11:00 AM CDT) Pathologist Sig nature ABO & RH A Positive LAB Comment: Performed at [facility] Laboratory Services - [facility] Blood Bank [address] [place], [place] [address] Toll Free: [phone] CLIA No. [id number] IAT Negative LAB Comment: Performed at [facility] Laboratory Services - [facility] Blood [facility] [address] [place], [place] [address] Toll Free: [phone] CLIA No. [id number] Specimen Blood - VENOUS Performing Organization Address City/State/Zipcode Phone Number BLD LAB documented in this encounter Visit Diagnoses Diagnosis Status post total replacement of right h ip - Primary Hip arthritis Unspecified arthropathy, pelvic region a nd thigh Pain Generalized pain documented in this encounter Administered Medications Medication Order MAR Action Action Date Dose Rate Site acetaminophen (TYLENOL) tablet 1,000 mg 1,000 mg, Oral, O.R. HOLDING ONCE, 1 dose, Starting We d 01/13/20 at 1004, Until Discontinued, Routine, surgery, DSU Pre-op amitriptyline (ELAVIL) tablet 10 mg Given 01/14/2020 8:51 PM CDT 10 mg 10 mg, Oral, QHS, First dose on Sat01/13/20 at 2100, Until Discontinued, Routine Given 01/14/2020 3:01 AM CDT 10 mg docusate (COLACE) capsule 100 mg Given 01/15/2020 8:19 AM CDT 100 mg 100 mg, Oral, Q12H, First dose on Sat01/13/20 at 2000, Until Discontinued, Routine Given 01/14/2020 8:51 PM CDT 100 mg Given 01/14/2020 8:44 AM CDT 100 mg enoxaparin (LOVENOX) injection 30 mg Given 01/15/2020 8:19 AM CDT 30 mg Abdo men-SC 30 mg, Subcutaneous, Q12H, First dose on Sat01/13/20 at 2000, Until Discontinued, Routine Given 01/14/2020 8:50 PM CDT 30 mg Abdo men-SC Given 01/14/2020 8:45 AM CDT 30 mg Abdo men-SC hydralAZINE (APRESOLINE) injection 10 mg 10 mg, Intravenous, Q6HPRN, Starting Sat01/13/20 at 21 38, Until Discontinued, Routine, Hypertension HYDROcodone-acetaminophen (NORCO 5) 5-325 Given 2019 7:40 AM CDT 1 tablet mg tablet 1 tablet 1 tablet, Oral, Q6HPRN, Starting Sat01/13/20 at 1732, Until Discontinued, Routine, Pain (scale 4-6) Given 01/14/2020 8:51 PM CDT 1 tablet Given 01/14/2020 9:37 AM CDT 1 tablet levothyroxine (SYNTHROID) tablet 88 mcg Given 01/15/2020 4:33 AM CDT 88 mcg 88 mcg, Oral, QAM-0600, First dose on Codie 01/14/20 at 0600, Until Discontinued Given 01/14/2020 4:10 AM CDT 88 mcg morpHINE injection 2 mg Given 01/13/2020 9:50 PM CDT 2 mg 2 mg, Slow IV Push, Q3HPRN, Starting Sat01/13/20 at 2137, Until Discontinued, Routine, Pain (scale 7-10), Hold for SBP<110, DBP<60, RR<12, and/or drowsiness/sedation ondansetron (ZOFRAN (PF)) injection 4 mg Given 01/15/2020 7:40 AM CDT 4 mg 4 mg, Slow IV Push, Q6HPRN, Starting Sat01/13/20 at 1731, Until Discontinued, Routine, Nausea and Vomiting (N/V) Given 01/14/2020 8:58 PM CDT 4 mg Given 01/14/2020 8:59 AM CDT 4 mg proMETHazine (PHENERGAN) 12.5 mg in NaCl Given 01/13/2020 9:49 PM CDT 12.5 mg 0.9% (NS) 50 mL IV piggyback 12.5 mg, IV Piggyback, Q4HPRN, Starting Sat01/13/20 at 2137, Until Discontinued, Routine, N/V unresponsive to Ondansetron propranolol LA (INDERAL LA) 24 hr capsule 80 Given 11:19 AM CDT 80 mg mg 80 mg, Oral, BID, First dose on Sat01/13/20 at 2000, Until Discontinued sodium chloride 0.9 % irrigation Given 01/13/2020 1:49 PM CDT 1 ,000 mL Right Hip solution PRN, Starting Sat01/13/20 at 1349, Until Discontinued, Intra-op sodium chloride 0.9 % irrigation Given 01/13/2020 1:49 PM CDT 3 ,000 mL Right Hip solution PRN, Starting Sat01/13/20 at 1349, Until Discontinued, Intra-op Medication Order MAR Action Action Date Dose Rate Site ceFAZolin (ANCEF) 1 g in NaCl 0.9% Given 01/14/2020 3:04 AM CDT 1 g (NS) 50 mL MINI-BAG 1 g, IV Piggyback, Q8H ABX, 2 doses, First dose on Sat01/13/20 at 1745, Last dose on Sat01/14/20 at 0145, 50 mL, Reason for Anti-Infective: Surgical Prophylaxis, Surgical Prophylaxis: Orthopaedic, Duration of therapy: within 24 hours of surgery Given 01/13/2020 7:52 PM CDT 1 g ceFAZolin in dextrose (iso-os) (ANCEF) 2 Given 01/14/2020 3:00 AM CDT 2 g gram/100 mL Piggyback 2 g 2 g (2,000 mg), IV Piggyback, O.R. HOLDING ONCE, 1 dose, Starting Sat01/13/20 at 1004, Until Sat01/14/20 at 0300, 100 mL, DSU Pre-op, Reason for Anti-Infective: Surgical Prophylaxis, Surgical Prophylaxis: Orthopaedic, Duration of therapy: within 24 hours of surgery celecoxib (CELEBREX) capsule 400 mg Given 01/13/2020 11:27 AM CDT 400 mg 400 mg, Oral, O.R. HOLDING ONCE, 1 dose, Starting Sat01/13/20 at 1004, Until Sat01/13/20 at 1127, Routine, Pain, DSU Pre-op gabapentin (NEURONTIN) capsule 300 mg Given 01/13/2020 11:27 AM CDT 300 mg 300 mg, Oral, O.R. HOLDING ONCE, 1 dose, Starting Sat01/13/20 at 1004, Until Sat01/13/20 at 1127, Routine, Surgery/Procedure, DSU Pre-op lactated ringers IV infusion New Bag 01/13/2020 11:28 AM CDT 1,000 mL 20 mL/hr 1,000 mL at 20 mL/hr, 1,000 mL, IV Infusion, ONCE, 1 dose, 01/13/20 at 1015, Routine, DSU Pre-op oxyCODONE-acetaminophen (PERCOCET) 5-325 Given 020 11:29 AM CDT 2 tablets mg per tablet 2 tablet 2 tablet, Oral, O.R. HOLDING ONCE, 1 dose, Starting 01/13/20 at 1004, Until Sat01/13/20 at 1129, Routine, surgery, DSU Pre-op propranoloL (INDERAL) tablet 80 mg Given 01/14/2020 4:09 AM CDT 80 mg 80 mg, Oral, ONCE, 1 dose, Codie 01/14/20 at 0515, Routine documented in this encounter Insurance Payer Benefit Plan / Subscriber ID Effective Phone Address T e Group [facility] [id number] [address] [facility] - MEDICARE Critical access hospitalO MANAGED MEDICARE ADVANTAGE documented as of this encounter
--- OUTSIDE RECORDS SUMMARY | 2020-01-30 06:19 | XMS REPORT | Summary of Care ---
:1945 Author Organization [facility] Address [address] [place] [id number] Care Team Providers Name Role Phone Samm Cortés Primary Care Provider Reason for Visit Reason Onset Date Comments POST-OP 01/20/2020 Draining fluid Encounter Details Date Type Department Care Team Description 01/20/2020 Nurse Triage [facility] Honey Sorensen, RN POST-OP (Draining [address] fluid) [place] [phone] Allergies No Known Allergiesdocumented as of this [...] this encounter Miscellaneous Notes Telephone Encounter - Honey Sorensen RN - 01/20/2020 5:31 PM CDT Reason for Disposition Dressing soaked with blood or body fluid (e.g., drainage) Protocols used: POST-OP INCISION [id number] Patient calls stating that she had hip replacement surgery on 01/13/2020 and there is fluid leaking from the bottom of the dressing and the dressing is saturated. RN advises patient she will call the orthopedic physician on-call for instructions and call the patient back when she has the recommendations. 1757 - RN calls Dr. Jose Juan Westfall the [facility] on-call orthopedic for today. He sates that he is not familiar with this patient and RN notifies that he is the on-call for today. Dr. Westfall informsthis RN that since the patient has another Aquacell dressing she should remove the saturated dressing and pat dry with guaze and apply the new Aquacell dressing. 1800 - RN calls patient back to notify of the above instructions per Dr. Westfall. Patient states that she cannot see back there and is unable to change the dressing herself. Patient states that she has a home health nurse that comes once a day and is asking this RN to call her and tell her what to do. RN states that patient should call the home health nurse to see if she will come back out tonight since she was already there today. Patient verbalizes understanding and states that she will call her now. elephone Encounter - Honey Sorensen RN - 01/20/2020 5:31 PM CDTAdult Triage Assessment Last Clinic Visit: 01/13/2020 - Hip replacement surgery. Primary Symptom: Surgical site is leaking fluid. Onset / Duration: Began yesterday Location / Description: Large dressing, Aquacell over the wound. Leaking at the bottom. Pain / Severity: 0/10 Associated Symptoms: Denies bleeding states that her pants had a wet spot that was about the size ofa 50 cent piece. Fever / Method: Denies Hydration: 1-16.9 oz bottle of water, 2 cups of coffee, urinating normally. Treatment so far: Nothing done Effect on ADL's: none LMP: n/a Pre-existing condition / Immunocompromised: Dementia, Cancer documented in this encounter Plan of Treatment [...] of this encounter Implants Implanted Type Area Nonprofit Director Device Shelf Model / Identifier Expiration Serial / Lot Date Standard Neck HIP Right: Biomet 06/24/2029 [id number] / Implanted: Qty: 1 on 01/13/2020 by Esteban Darnell MD at [facility] Hip 1 [id number] / [id number] Dual Mobility Bearing HIP Right: [employer] 08/25/19 25 [id number] / Implanted: Qty: 1 on 01/13/2020 by Esteban Darnell MD at [facility] Hip 1 [id number] / [id number] Dual Mobility Acetabular Liner Liner Right: [employer] 07/02/2029 [id number] / Implanted: Qty: 1 on 01/13/2020 by Esteban Darnell MD at [facility] Hip 1 [id number] / [id number] Acetabular Shell Shell Right: [employer] 10/25/2028 [id number] / Implanted: Qty: 1 on 01/13/2020 by Esteban Darnell MD at [facility] Hip 0 [id number] / [id number] Porous Coated Stem Stem Right: [employer] 10/21/2028 [id number] / Implanted: Qty: 1 on 01/13/2020 by Esteban Darnell MD at [facility] Hip 5 [id number] / [id number] documented as of this encounter Results Not on filedocumented in this encounter Insurance Payer Benefit Plan / Subscriber ID Effective Phone Address T e Group Dates [facility] [id number] 2019-[address] [facility] - MEDICARE [facility] documented as of this encounter
[2020-01-30] MEDS ORDERED: HYDROMORPHONE HCL 1 MG/ML INJ ONE ×2 (06:39→06:42)
[2020-01-30] MEDS ORDERED: NA CHLORIDE 0.9% 0 ML ONE (06:42)
[2020-01-30] MEDS ORDERED: NA CHLORIDE 0.9% 1,000 ML ONE (06:44)
[2020-01-30 06:49] LABS: Absolute Lymphocytes (CBC) 2.7 K/uL (0.7-4.9); Basophils % 1.2 % (0-1.3); Hematocrit 36.7 % (36.0-45.0); Lymphocytes % 23.6 % (15.3-44.8); MPV 9.1 fL (7.6-11.3); RBC Red Blood Cell Count 3.89 M/uL (3.86-4.86)
[2020-01-30 06:52] LABS: Protime INR 1.4
[2020-01-30 06:59] LABS: Potassium 4.6 mmol/L (3.5-5.1)
[2020-01-30] MEDS ORDERED: DIAZEPAM 10 MG/2 ML INJ SYRINGE ONE (07:52)
--- NOTE | 2020-01-30 09:24 | RAD REPORT ---
EXAM DESCRIPTION: RAD - Pelvis - 01/30/2020 7:58 am CLINICAL HISTORY: TRAUMA COMPARISON: No comparisons FINDINGS: Dislocated right total hip arthroplasty is noted. A fracture is not identified.
--- NOTE | 2020-01-30 09:24 | RAD REPORT ---
EXAM DESCRIPTION: RAD - Hip Right 2 View - 01/30/2020 7:58 am CLINICAL HISTORY: Pain;Smash injury COMPARISON: Hip Right 2 View dated 11/30/2016 FINDINGS: Right total hip arthroplasty is dislocated. The femoral head component is seen to lie in a superior position.
--- NOTE | 2020-01-30 09:42 | ER ---
Nurse's Notes [facility] Name: Amirah Arroyo Age: 74 yrs Sex: Female : 1945 Arrival Date: 01/30/2020 Time: 06:17 Bed 15 Private MD: Karen Cortés C Diagnosis: Dislocated right hip replacement Presentation: 01/29 06:20 Chief complaint: EMS states: they were toned out for report of pt haven fallen and c/o bb right hip pain pt had right hip replacement a week ago. Coronavirus screen: At this time, the client does not indicate any symptoms associated with coronavirus-19. Ebola Screen: No symptoms or risks identified at this time. Initial Sepsis Screen: Does the patient meet any 2 criteria? No. Patient's initial sepsis screen is negative. Does the patient have a suspected source of infection? No. Patient's initial sepsis screen is negative. Risk Assessment: Do you want to hurt yourself or someone else? Patient reports no desire to harm self or others. Onset of symptoms was January 30, 2020. 06:20 Method Of Arrival: EMS: [facility] bb 06:20 Acuity: SHONNA 2 bb Triage Assessment: 06:41 General: Appears distressed, uncomfortable, obese, unkempt, Behavior is anxious, vc uncooperative. Pain: Complains of pain in right hip Pain does not radiate. Pain currently is 10 out of 10 on a pain scale. Quality of pain is described as radiating, Pain began suddenly, Is continuous, Alleviated by medications, relaxation. Historical: - Allergies: 06:23 No Known Allergies; bb - Home Meds: 06:23 xarelto [Active]; unknown [Active]; bb - PMHx: 06:23 Colitis; Hypertension; bb - PSHx: 06:23 Joint replacement; bb - Immunization history:: Adult Immunizations up to date. - Social history:: Smoking status: unknown. Screenin:40 Abuse screen: Denies threats or abuse. Nutritional screening: No deficits noted. vc Tuberculosis screening: No symptoms or risk factors identified. Fall Risk Fall in past 12 months (25 points). Secondary diagnosis (15 points) recent hip replacement. IV access (20 points). Ambulatory Aid- Crutches/Cane/Walker (15 pts). Gait- Normal/Bed Rest/Wheelchair (0 pts) Mental Status- Oriented to own ability (0 pts). Total Sol Fall Scale indicates High Risk Score (45 or more points). Fall prevention measures have been instituted. Side Rails Up X 2 Frequent Obs/Assessments Occuring As available patient and family educated on Fall Prevention Program and Strategies. Assessment: 06:43 General: Appears distressed, uncomfortable, obese, unkempt, Behavior is agitated, vc anxious. Pain: Complains of pain in right hip. Neuro: Level of Consciousness is awake, alert, Oriented to person, place, time, situation. Cardiovascular: Capillary refill is > 3 seconds is sluggish toes Pulses are palpable in right dorsalis pedis artery and left dorsalis pedis artery Rhythm is sinus rhythm. Respiratory: No deficits noted. GI: No signs and/or symptoms were reported involving the gastrointestinal system. : No signs and/or symptoms were reported regarding the genitourinary system. Derm: surgical site noted to right hip, warm, pink, no signs of infection, animal hair noted to surgical sites. Musculoskeletal: Range of motion: limited in right hip Right leg appears shorter in length than left leg. 07:00 Reassessment: Patient's oxygen saturation dropped to 84%, respirations 11, placed on 2L vc nasal canula, SpO2 increased to 96%, respirations 15. 07:00 Reassessment: ELECTRIC HOIST OPERATOR and DAVID Griffith reported pt received 100mcg Fentanyl by EMS TANK TERMINAL GAUGER.. aa5 07:05 General: Appears comfortable, Behavior is calm, cooperative. Pain: Complains of pain in aa5 right hip. Neuro: Level of Consciousness is awake, alert, obeys commands, Oriented to person, place, time, situation. Cardiovascular: Heart tones S1 S2 present Rhythm is sinus rhythm. Respiratory: Airway is patent Respiratory effort is even, unlabored, Respiratory pattern is regular, symmetrical. GI: Abdomen is round. : No signs and/or symptoms were reported regarding the genitourinary system. EENT: No signs and/or symptoms were reported regarding the EENT system. Derm: Skin is pink, warm \\T\\ dry. Incision noted to right hip with Steri-Strips in place, no s/s of infection noted. Musculoskeletal: Right leg shortening noted. Reports pain in right hip. 07:45 Reassessment: X-ray at bedside, pt appears uncomfortable with movement, pt requesting aa5 pain medication at this time, ELECTRIC HOIST OPERATOR notified and Valium ordered. . 07:55 Reassessment: Pt's O2 sat decreased to 84% 2 L NC, rapidly increased to 93% 2 L NC, and aa5 pt currently 97% O2 sat 3 L NC, RR 16, pt drowsy and sleepy at this time, opens eyes to verbal stimuli. ELECTRIC HOIST OPERATOR was notified of findings. . 08:20 Reassessment: Pt resting in bed with eyes closed, drowsy, RR 18, O2 sat 100% 3 L NC. Pt aa5 appears comfortable in bed. Awaiting disposition, ELECTRIC HOIST OPERATOR stated awaiting call back from Dr. Chawla (orthopedic) . 09:00 Reassessment: Pt resting in bed with eyes closed, respirations even and unlabored, skin aa5 is pink/warm/dry. . 09:30 Reassessment: Patient is alert, oriented x 3, equal unlabored respirations, skin aa5 warm/dry/pink. per ER corporate legal secretary: Transfer to [facility], now attempting transfer to [facility]. Pt notified of wait time, pt verbalizes understanding. . 10:25 Reassessment: Pt resting in bed with eyes closed, respirations even and unlabored, skin aa5 is pink/warm/dry. . 11:30 Reassessment: Report given to Azeb Nurse at [facility] at 1030. Pt states "I aa5 need to speak to my grandson Ar before I go anywhere, I need to let him know". Attempted to call pt's grandson at 1034, 1115, and 1120, left voicemail for him to call back, pt was notified of unsuccessful attempts. Awaiting for grandson to return phone call before transfer to [facility]. . 11:45 Reassessment: Pt was able to contact grandson using ER's ipad using [employer]. Pt aa5 notified grandson of transfer to [facility]. EMS was contacted by ER corporate legal secretary for transfer. . 11:50 Reassessment: ELECTRIC HOIST OPERATOR notified of pt's increased pain and notified pt refused Perez aa5 placement. . 11:50 Reassessment: Patient is alert, oriented x 3, equal unlabored respirations, skin aa5 warm/dry/pink. 12:00 Reassessment: Patient is alert, oriented x 3, equal unlabored respirations, skin aa5 warm/dry/pink. Vital Signs: 06:20 BP 163 / 91; Pulse 77; Resp 20 S; Temp 99.1(A); Pulse Ox 96% on R/A; Weight 102.06 kg bb (R); Pain 10/10; 08:01 BP 154 / 85; Pulse 74; Resp 18; Temp 98.5(O); Pulse Ox 99% on 2 lpm NC; aa5 09:00 BP 152 / 93; Pulse 78; Resp 16 S; Pulse Ox 99% on 2 lpm NC; aa5 10:00 BP 149 / 67; Pulse 73; Resp 16 S; Pulse Ox 100% on 2 lpm NC; aa5 11:00 BP 136 / 73; Pulse 71; Resp 18 S; Temp 98.3(TE); Pulse Ox 99% on 2 lpm NC; aa5 ED Course: 06:17 Patient arrived in ED. am2 06:17 Karen Cortés MD is Private Physician. am2 06:19 [facility]iser [facility]-C [facility]. snw 06:19 Brendon Goodson MD is Attending Physician. snw 06:22 Triage completed. bb 06:23 Arm band placed on Patient placed in an exam room, on a stretcher, on pulse oximetry. bb 06:25 Inserted saline lock: 22 gauge in right forearm, using aseptic technique. Blood mg2 collected. 06:37 No provider procedures requiring assistance completed. mg2 06:40 Gladis Sahni RN is Primary Nurse. vc 06:43 Patient has correct armband on for positive identification. Placed in gown. Bed in low vc position. Side rails up X2. telemetry monitor on. Pulse ox on. NIBP on. 07:00 Report received from DAVID Griffith. aa5 07:58 XRAY Pelvis In Process Unspecified. EDMS 07:58 Hip Right 2 View XRAY In Process Unspecified. EDMS 08:31 initiated a transfer with Kishor from the [facility]. eb 08:41 connected the orthopedic surgeon clinical medical transcriptionist for [facility] with Lavern nunn Np for patient transfer consultation. 09:15 initiated a transfer with Honey Olsen from the [facility]. eb 09:[address] Price with Dr. Goodson for patient transfer consultation/ Dr. Price has eb denied the patient in transfer due to not having the service available. 09:23 Kishor from the [facility] called to deny patient in transfer due eb to physician discretion. 09:[address] Daley the orthopedic surgeon clinical medical transcriptionist for [facility] with Lavern for eb patient transfer consultation. 09:[address] Coleman the hospitalist clinical medical transcriptionist for [facility] with Serena Carr for eb patient transfer consultation. 09:54 administrative approval given by Honey Olsen/ patient has been accepted to [facility] bed 1510/ Dr. Coleman has accepted the patient in transfer/ report to be called to [phone]. 10:22 Chest Single View XRAY In Process Unspecified. EDMS 12:00 Patient transferred, IV remains in place. aa5 Administered Medications: 06:30 Drug: Dilaudid 1 mg Route: IVP; Site: right forearm; mg2 06:40 Follow up: Response: No adverse reaction; Pain is decreased vc 06:37 Drug: NS 0.9% 1000 ml Route: IV; Rate: 75 ml/hr; Site: right forearm; mg2 07:47 Drug: Valium 2.5 mg Route: IVP; Site: right antecubital; aa5 08:26 Follow up: Response: Other; Other: See nurse's notes. aa5 11:52 Drug: Dilaudid 0.5 mg Route: IVP; Site: right forearm; aa5 12:00 Follow up: Response: No adverse reaction aa5 Outcome: 09:42 ER care complete, transfer ordered by MD. jones 12:00 Transferred by ground EMS to [facility], Transfer form completed. aa5 X-rays sent w/ patient. 12:00 Condition: stable 12:00 Instructed on the need for transfer, Demonstrated understanding of instructions. 12:03 Patient left the ED. aa5 Signatures: Dispatcher [employer] EDOK Lavern Kiser, FABRICE CAROUSEL ATTENDANT-Alexisw Sharon Ahumada RN RN bb Gongora, Angie, Nadine Melendez RN [facility] Aggie Finch Elizabeth eb Gardose, Michele, RN RN mg2 Gladis Sahni RN RN vc Corrections: (The following items were deleted from the chart) 08:05 08:01 Pulse 74bpm; Resp 18bpm; Pulse Ox 99% RA; mh5 mh5 08:54 08:41 connected the orthopedic surgeon clinical medical transcriptionist for [facility] with Lavern nunn for patient transfer consultation. eb 09:22 09:18 Diet: eb eb 14:05 08:01 BP 154 / 85; Pulse 74bpm; Resp 18bpm; Pulse Ox 99% RA; Temp 98.5F Oral; 5 aa5
--- NOTE | 2020-01-30 09:42 | EDPHYS ---
Physician Documentation [facility] Name: Amirah Arroyo Age: 74 yrs Sex: Female : 1945 Arrival Date: 01/30/2020 Time: 06:17 Bed 15 Private MD: Karen Cortés C ED Physician Brendon Goodson HPI: 01/29 07:07 This 74 yrs old Female presents to ER via EMS with complaints of Hip Pain. snw 07:07 The patient or guardian reports decreased range of motion, deformity, pain, swelling. snw that occurred at home, sustained from a fall, the right lower extremity is shortened, The patient is not able to ambulate. Patient is not able to bear weight. The complaints affect the right hip. Onset: The symptoms/episode began/occurred suddenly, this morning. Associated signs and symptoms: Loss of consciousness: the patient experienced no loss of consciousness. Severity of symptoms: At their worst the symptoms were moderate, severe. The patient has experienced a previous episode. recent right hip replacement. Historical: - Allergies: 06:23 No Known Allergies; bb - Home Meds: 06:23 xarelto [Active]; unknown [Active]; bb - PMHx: 06:23 Colitis; Hypertension; bb - PSHx: 06:23 Joint replacement; bb - Immunization history:: Adult Immunizations up to date. - Social history:: Smoking status: unknown. ROS: 07:05 Constitutional: Negative for fever, chills, and weight loss, Eyes: Negative for injury, snw pain, redness, and discharge, ENT: Negative for injury, pain, and discharge, Neck: Negative for injury, pain, and swelling, Cardiovascular: Negative for chest pain, palpitations, and edema, Respiratory: Negative for shortness of breath, cough, wheezing, and pleuritic chest pain, Abdomen/GI: Negative for abdominal pain, nausea, vomiting, diarrhea, and constipation, Back: Negative for injury and pain, : Negative for injury, bleeding, discharge, and swelling, Skin: Negative for injury, rash, and discoloration, Neuro: Negative for headache, weakness, numbness, tingling, and seizure, Psych: Negative for depression, anxiety, suicide ideation, homicidal ideation, and hallucinations. 07:05 MS/extremity: Positive for injury or acute deformity, decreased range of motion, pain, felt a pop in hip and fell. Exam: 06:28 Head/Face: Normocephalic, atraumatic. Eyes: Pupils equal round and reactive to light, snw extra-ocular motions intact. Lids and lashes normal. Conjunctiva and sclera are non-icteric and not injected. Cornea within normal limits. Periorbital areas with no swelling, redness, or edema. ENT: Nares patent. No nasal discharge, no septal abnormalities noted. Tympanic membranes are normal and external auditory canals are clear. Oropharynx with no redness, swelling, or masses, exudates, or evidence of obstruction, uvula midline. Mucous membranes moist. Neck: Trachea midline, no thyromegaly or masses palpated, and no cervical lymphadenopathy. Supple, full range of motion without nuchal rigidity, or vertebral point tenderness. No Meningismus. Chest/axilla: Normal chest wall appearance and motion. Nontender with no deformity. No lesions are appreciated. Cardiovascular: Regular rate and rhythm with a normal S1 and S2. No gallops, murmurs, or rubs. Normal PMI, no JVD. No pulse deficits. Respiratory: Lungs have equal breath sounds bilaterally, clear to auscultation and percussion. No rales, rhonchi or wheezes noted. No increased work of breathing, no retractions or nasal flaring. Abdomen/GI: Soft, non-tender, with normal bowel sounds. No distension or tympany. No guarding or rebound. No evidence of tenderness throughout. Back: No spinal tenderness. No costovertebral tenderness. Full range of motion. 06:28 Constitutional: The patient appears awake, anxious, in obvious pain. 06:28 Skin: Appearance: Color: pale, wound to right lateral hip well approximated. 06:28 Neuro: Exam negative for acute changes. 07:11 Musculoskeletal/extremity: Extremities: grossly normal except: noted in the right hip: snw decreased ROM, pain, swelling. Vital Signs: 06:20 BP 163 / 91; Pulse 77; Resp 20 S; Temp 99.1(A); Pulse Ox 96% on R/A; Weight 102.06 kg bb (R); Pain 10/10; 08:01 BP 154 / 85; Pulse 74; Resp 18; Temp 98.5(O); Pulse Ox 99% on 2 lpm NC; aa5 09:00 BP 152 / 93; Pulse 78; Resp 16 S; Pulse Ox 99% on 2 lpm NC; aa5 10:00 BP 149 / 67; Pulse 73; Resp 16 S; Pulse Ox 100% on 2 lpm NC; aa5 11:00 BP 136 / 73; Pulse 71; Resp 18 S; Temp 98.3(TE); Pulse Ox 99% on 2 lpm NC; aa5 MDM: 06:41 Patient medically screened. snw 07:59 Data reviewed: vital signs, nurses notes. Test interpretation: by ED physician or snw midlevel provider: plain radiologic studies, + right hip dislocation. Counseling: I had a detailed discussion with the patient and/or guardian regarding: the historical points, exam findings, and any diagnostic results supporting the discharge/admit diagnosis, the presence of at least one elevated blood pressure reading (>120/80) during this emergency department visit, radiology results. Physician consultation: Esteban Chawla MD was called at 08:00, regarding consult. 08:24 Physician consultation: was contacted at 08:25, Dr. Chawla is out of town, will snw attempt transfer. 08:31 ED course: Attempting/Initiating transfer to [facility]. snw 08:52 Physician consultation: Dr. Price was called at 08:53, was contacted at 08:53, regarding snw regarding transfer, Dr. Price is a trauma surgeon and will reach out to joint/ortho team. 09:20 ED course: Dr. Kendrick, chief of ortho, out of town. Dr. Price called to let us know they snw have no ortho services available. Will attempt transfer to [facility] . 09:31 Physician consultation: Dr Montoya was called at 09:31, was contacted at 09:32, snw regarding regarding transfer, Dr. Montoya kindly accepts pt in transfer. 01/29 06:28 Order name: CBC with Diff; Complete Time: 06:59 snw 01/29 06:28 Order name: Chem 7; Complete Time: 06:59 snw 01/29 06:28 Order name: PT-INR; Complete Time: 07:01 snw 01/29 06:28 Order name: Ptt, Activated; Complete Time: 07:01 snw 01/29 06:28 Order name: TS; Complete Time: 08:39 snw 01/29 07:53 Order name: ABO/RH no charge; Complete Time: 07:53 EDMS 01/29 06:28 Order name: XRAY Pelvis; Complete Time: 09:33 snw 01/29 06:28 Order name: Hip Right 2 View XRAY; Complete Time: 09:33 snw 01/29 06:28 Order name: EKG; Complete Time: 06:29 snw 01/29 09:52 Order name: Chest Single View XRAY; Complete Time: 11:07 snw 01/29 06:28 Order name: NPO; Complete Time: 06:37 snw 01/29 06:28 Order name: EKG - Nurse/Tech; Complete Time: 06:37 snw 01/29 07:00 Order name: O2 Per Protocol; Complete Time: 07:05 snw EC:37 Rate is 75 beats/min. Rhythm is regular. QRS [place] is Normal. CA interval is normal. QRS snw interval is normal. QT interval is normal. T waves are Normal. Clinical impression: Normal ECG. Administered Medications: 06:30 Drug: Dilaudid 1 mg Route: IVP; Site: right forearm; mg2 06:40 Follow up: Response: No adverse reaction; Pain is decreased vc 06:37 Drug: NS 0.9% 1000 ml Route: IV; Rate: 75 ml/hr; Site: right forearm; mg2 07:47 Drug: Valium 2.5 mg Route: IVP; Site: right antecubital; aa5 08:26 Follow up: Response: Other; Other: See nurse's notes. aa5 11:52 Drug: Dilaudid 0.5 mg Route: IVP; Site: right forearm; aa5 12:00 Follow up: Response: No adverse reaction aa5 Disposition: 01/30/20 09:42 Transfer ordered to [facility]. Diagnosis is Dislocated right hip replacement. - Reason for transfer: Higher level of care. - Accepting physician is Dr. Coleman. - Condition is Stable. - Problem is new. - Symptoms are unchanged. Addendum: 02/02/2020 10:17 Co-signature as Attending Physician, Brendon Goodson MD I agree with the assessment and c gilbert plan of care. Signatures: Dispatcher [employer] Brendon Villa MD MD cha Waters, Shelly, ASSOCIATE DESIGNER-C ASSOCIATE DESIGNER-Csnw Sharon Ahumada, RN RN bb Angie Gongora, DAVID RN aa5 Jessee Alcocer RN RN [facility] Gladis Sahni RN Corrections: (The following items were deleted from the chart) 01/29 07:07 06:28 Musculoskeletal/extremity: Extremities: decreased ROM, pain, shortened, rotated, snw Circulation is intact in all extremities. Sensation intact. snw 07: 07:07 that occurred at home, sustained from a fall, the left lower extremity is snw shortened, The patient is not able to ambulate. Patient is not able to bear weight. snw : 07:07 recent right hip replacement, snw snw 07:14 06:28 Skin: Appearance: Color: pale, snw snw 07:14 06:28 Musculoskeletal/extremity: Extremities: decreased ROM, pain, shortened, rotated, snw Circulation is intact in all extremities. Sensation intact. left hip painful, shortened, pedal edema. snw 12:01 11:24 Perez ordered. snw aa5 12:03 09:42 01/30/2020 09:42 Transfer ordered to [facility]. aa5 Diagnosis is Dislocated right hip replacement. Reason for transfer: Higher level of care. Accepting physician is Dr. Coleman. Condition is Stable. Problem is new. Symptoms are unchanged. snw
--- NOTE | 2020-01-30 10:39 | RAD REPORT ---
EXAM DESCRIPTION: RAD - Chest Single View - 01/30/2020 10:22 am CLINICAL HISTORY: pre op Chest pain. COMPARISON: Chest Pa And Lat (2 Views) dated 10/09/2019; Chest Pa And Lat (2 Views) dated 03/04/2019; Abdomen 1 View (KUB) dated 12/19/2017; Chest Pa And Lat (2 Views) dated 12/20/2016 FINDINGS: Portable technique limits examination quality. Calcified granulomas are present in the right lung, unchanged. The lungs are mildly emphysematous but clear. The heart is normal in size. No displaced fractures.Left axilla surgical clips seen. IMPRESSION: No acute intrathoracic process suspected.
[2020-01-30] MEDS ORDERED: HYDROMORPHONE HCL 0.5 MG/0.5 ML INJ ONE (11:56)
--- NOTE | 2020-01-31 06:54 | EKG ---
Test Date: 2020-01-30 Test Time: 06:37:35 Roentgenologist: DIAN MEASUREMENT RESULTS: Intervals: Rate: 75 MI: 174 QRSD: 78 QT: 376 QTc: 419 [place]: P: 81 MI: 174 QRS: -1 T: 51 INTERPRETIVE STATEMENTS: Normal sinus rhythm Normal ECG Compared to ECG 10/13/2019 14:07:27 No significant changes Electronically Signed On 01-31-20 06:53:14 CDT by Syd Oswald
[2020-01-31 12:04] VITALS: BP 154/85; TEMP 98.5; O2SAT 99
== END 2020-01-30 12:03 | disposition short-term general hospital (02) ==
LOC: ER 06:16
DX: T84.020A Dislocation of internal right hip prosthesis, initial encounter (principal); W19.XXXA Unspecified fall, initial encounter; Y93.9 Activity, unspecified; Y92.009 Unspecified place in unspecified non-institutional (private) residence as the place of occurrence of the external cause; I10 Essential (primary) hypertension; Z79.01 Long term (current) use of anticoagulants
CPT/HCPCS: 93005; 85025; 80048; 36415; 86900; 86850; 85610; 86901; 85730; 71045; 72170; 73502; 99285; J3360; J1170 ×2; J7030

== ENCOUNTER 2020-02-05 14:09 | Inpatient (IN) | payer MEDICARE ==
--- NOTE | 2020-02-08 10:46 | R.PREADM ---
PRE-ADMISSION SCREENING FORM SCREENING DATE AND TIME 02/05/2020 11:44 (CDT) ANTICIPATED REHAB ADMISSION DATE 02/07/2020 REFERRING FACILITY [facility] MEDICAL REFERRAL DATE AND TIME 02/05/2020 11:45 (CDT) ACUTE ADMIT DATE 01/30/2020 Previous Rehabilitation(s): No. ACUTE METAL EXPEDITER/DC NUCLEAR WEAPONS SPECIALIST [facility]ILPA ATTENDING PHYSICIAN KHADRA BAIRD REFERRING PHYSICIAN KORINA BAIRD PRIMARY CARE PHYSICIAN [facility] REHAB FACILITY [facility] CLINICAL LIAISON Rosibel Liu PHYSICIAN REVIEWER Dr. Charly Ross M.D. MR# [id number] NAME AMIRAH MAYNARD ADDRESS [address] [place] [address] PHONE [facility] [id number] DATE OF 1945 AGE 74 N# [id number] GENDER female MARITAL STATUS RACE unknown race ADMIT FROM 02 - [facility] PRE-HOSPITAL LIVING SETTING 01 - Home (private home/apt. board/care, assisted living, retirement, transitional living) HOME TYPE AND DETAILS Type of home: single family house # of levels in the residence: 1 # of steps within the residence: 0 # of steps to enter the residence: 0 PRE-HOSPITAL LIVING WITH Alone FAMILY SUPPORT No PRIMARY FAMILY CONTACT NAME PIA LEARY PRIMARY FAMILY CONTACT PHONE PRIMARY FAMILY CONTACT RELATIONSHIP DAUGHTER PHONE PRIMARY FAMILY CONTACT ON ADM.? no IS PRIMARY FAMILY CONTACT AUTH. REP.? no 1ST EMERGENCY CONTACT PIA LEARY 1ST CONTACT PHONE 1ST CONTACT RELATIONSHIP DAUGHTER PHONE 1ST CONTACT ON ADM. no IS 1ST CONTACT AUTH. REP.? no PHONE 2ND CONTACT ON ADM.? no PATIENT EMPLOYMENT STATUS Retired (for age) PATIENT EMPLOYER No Employer PAYOR INFORMATION: 1ST PAYOR NAME [facility] 1ST PAYOR PHONE [phone] 1ST PAYOR INJURY/ILLNESS DUE TO ACCIDENT? No ANOTHER REPUBLICAN RESPONSIBLE? No PRIMARY REHAB/ACUTE DIAGNOSIS: RIGHT HIP FRACTURE ONSET DATE 01/30/2020 REHAB IMPAIRMENT CATEGORY (EFRAIN): 07 Fracture of LE (FracLE) MEETS 60% rule AFFECTED EXTREMITIES: RLE PRIMARY DIAGNOSIS-RELATED SURGERIES: Emergency Unilateral Hip Fracture - performed by KORINA BAIRD on 01/30/2020 SUMMARY OF ACUTE HOSPITALIZATION: Pt. is a 74 yo Right-handed female of unknown race. On 01/30/2020 she was admitted to [facility] and underwent emergency surgery for RI GHT HIP FRACTURE (Unilateral Hip Fracture) by KORINA BAIRD. Pre-morbidly, Pt. was independent/mod-I in Locomotion, Balance, Safety Awareness, Sphincter Control, Self-Care, and Communication; and she had good Social Cognition and Endurance. Currently, she has deficits of Locomotion, Balance, Transfers Control, Self-Care, and Endurance. Pt. is now referred to [facility] for acute in-patient rehabilitation in order to maximize patient's functional independence in activities of daily living, strength, ROM, and mobi lity. Patient has realistic goal of being discharged at assistance level 7-Ind to reside at Home with Pt s elf. Amirah Maynard is a 74 year -old female that lives independently at home in her one story home. She has no stairs to get into his house. She was able to do daily activated on her own prior. Mrs. Maynard has a history of HTN, hypothyroidism, L breast cancer in remission, s/p L TKA who presents with acute R hip dislocation after a R MARY on 01/06/2020 and is now s/p L hip revision on 02/03/[address] Flores. Pt WBAT with posterior hip precautions. To f u/p in clinical in 2-3 weeks for suture removal. She has done all of her own caring, Cooking and laundry. She performs all her own ADLs and IADLs. Prior to [facility] she was seeing her PCP regularly. The patient would most definitely benefit from acute inpatient rehab and has become severely debilitated and unable to live at her prior level of activity at home Getting her stronger and better to be back living at home independently is our goal. It is reasonable and necessary for the patient to come to acute inpatient rehab for approximately 7-10 days in order to return to her prior level of care. She now being transferre d to [facility] Inpatient rehabilitation and is medically stable with relatively stable labs. She is now medically stable but in need of 24 hour nursing, doctor supervision and oversight while receiving active and ongoing participate in 3 hours of therapy a day/15 hours per week and receive care with intensive interdisciplinary approach. COVID-19 screening performed; spoke with patient via phone. Patient denies new onset of fever, cough, difficulty breathing, sore throat, body aches and non-allergy nasal congestion in the past 24 hours. Patient denies travel outside of [place] in the past 14 days. Patient denies any contact with someone who has a confirmed diagnosis of or is under investigation for COVID-19 in the past 14 days. Patient has been tested negative for COVID- 19. PAST MEDICAL HISTORY HTN Hypothyroidism, unspecified (E03.9) L BREAST CANCER IN REMISSION R HIP DISLOCATION PAST SURGICAL HISTORY: TOTAL HIP ARTHROPLASTY 01/06/20 RIGHT HIP REVISION 02/02/20 PLACEMENT WOUND VAC MEDICATION ALLERGIES: No Known Drug Allergies (NKDA) ENVIRONMENTAL ALLERGIES: - Substance Allergies None Known - Other Allergies None Known CODE STATUS: Full code WEIGHT/HEIGHT/BMI: WEIGHT 103 lbs HEIGHT 5' 4" BMI 17.7 DIET: - Diet Type Regular - Diet - Solid Texture Regular - Diet - Liquid Texture Regular - Tube Feed N/A REVIEW OF SYSTEMS: - Gen Alert and awake Lying in bed No apparent distress Oriented to: person, time, and place - Vital Signs Temperature: 97.5 F SBP/DBP: 167/73 Pulse:79 Resp: 18 Vital signs stable, afebrile - CVS RRR VITAL SIGNS Temperature: 97.5 SBP/DBP: 167/73 Pulse:79 Resp: 18 Vital signs stable, afebrile MEDICATIONS/TREATMENT: Other- See attached MAR (Medication Administration Record). CURRENT SPHINCTER CONTROL: Pre-hospital bladder status: unspecified # of bladder accidents in the last 7 days prior to screenin Pre-hospital bowel status: unspecified # of bowel accidents in the last 7 days prior to screenin Last Bowel Movement Date: 02/05/2020 CURRENT LOCOMOTION STATUS: distance walked 200 feet W RW DETAILED CURRENT FUNCTIONAL STATUS: - Bladder accident frequency: Ind - No accidents in the past 7 days - Bowel accident frequency: Ind - No accidents in the past 7 days - Walking score based on distance walked: 0(N/A) - Wheelchair score based on distance traveled: 0(N/A) QI SCORES: - Self-Care A. Eating 03-Partial/moderate assistance B. Oral hygiene 03-Partial/moderate assistance C. Toileting hygiene 03-Partial/moderate assistance E. Shower/bathe self 03-Partial/moderate assistance G. Lower body dressing 88-Not attempted due to medical condition or safety concerns H. Putting on/taking off footwear 88-Not attempted due to medical condition or safety concerns - Mobility A. Roll left and right 03-Partial/moderate assistance B. Sit to lying 03-Partial/moderate assistance C. Lying to sitting on side of bed 03-Partial/moderate assistance D. Sit to stand 04-Supervision or touching assistance E. Chair/[id number]-sqlga transfer 03-Partial/moderate assistance F. Toilet transfer 03-Partial/moderate assistance G. Car transfer 88-Not attempted due to medical condition or safety concerns I. Walk 10 feet 88-Not attempted due to medical condition or safety concerns J. Walk 50 feet with two turns 88-Not attempted due to medical condition or safety concerns K. Walk 150 feet 88-Not attempted due to medical condition or safety concerns L. Walking 10 feet on uneven surfaces 88-Not attempted due to medical condition or safety concerns M. 1 step (curb) 88-Not attempted due to medical condition or safety concerns N. 4 steps 88-Not attempted due to medical condition or safety concerns O. 12 steps 88-Not attempted due to medical condition or safety concerns P. Picking up object 88-Not attempted due to medical condition or safety concerns R. Wheel 50 feet with two turns 88-Not attempted due to medical condition or safety concerns S. Wheel 150 feet 88-Not attempted due to medical condition or safety concerns - Bladder and Bowel Bladder continence Bowel continence - Endurance Fair - Balance Fair - Safety Awareness Fair CURRENT FUNC. DEFICITS: Self-Care, Mobility, Endurance, Balance, and Safety Awareness CURRENT / PREVIOUS ASSISTIVE DEVICES: 3-in-1 Commode Rolling Walker HISTORY OF FALLS. HAS THE PATIENT HAD TWO OR MORE FALLS IN THE PAST YEAR OR ANY FALL WITH INJURY IN T HE PAST YEAR?: No PRIOR SURGERY. DID THE PATIENT HAVE MAJOR SURGERY DURING THE 100 DAYS PRIOR TO ADMISSION?: No THERAPY NOTES FROM ACUTE CARE: Attached. SPECIAL NEEDS: - Safety Concerns Skin breakdown precautions needed due to skin breakdown risk PRECAUTIONS: - Anterior Hip Precaution No abduction No active extension No adduction across midline No external rotation No hip flexion >90 degrees No internal rotation - Posterior Hip Precaution No adduction across midline No external rotation No hip flexion >90 degrees No internal rotation No wheel chair propulsion - Weight Bearing Precaution WBAT right LE PATIENT NEEDS ACTIVE AND ONGOING THERAPEUTIC INTERVENTION OF MULTIPLE THERAPY DISCIPLINES, INCLUDING: - Dietary and Nutrition Adequate Nutrition. Nutritional Education. Nutritional Supplements. PATIENT NEEDS CLOSE MEDICAL SUPERVISION BY A REHABILITATION PHYSICIAN FOR: Coordination of Treatment Team Post-Op Complications PATIENT REQUIRES 24X7 REHAB NURSING FOR MEDICAL AND FUNCTIONAL MGT. OF THE FOLLOWING DEFICITS: Disease Management Medication Management Patient/Family Education Providing Safe Environment PATIENT REQUIRES INTENSIVE, COORDINATED INTERDISCIPLINARY APPROACH TO REHAB: Arranging Home Equipment/Services Discharge Planning Family Intervention/Training Director Of Revenue/Case Management PATIENT REHAB POTENTIAL: Ten MAYNARD is able and expected to receive 3 hours of individualized therapy daily on at least 5 of ever y 7 days [facility] [place] prognosis for significant practical improvement within a reasonable period of time appears Good Expected level of measurable improvement will be of a practical value to Ten CHENGs functional capacit y or adaptations to impairments Has a viable Discharge Plan Medically appropriate; condition is sufficiently stable to participate in intensive rehab program DISCHARGE PLAN: - Estimated Length of Stay (days) 14. - Consensus on plan Discharge plan has been discussed with primary caregiver. Patient/Family is in agreement with the meagan n. Primary caregiver is in agreement with the plan. - Patient/Family Goals Return home independently. - Planned Living Setting Upon Discharge Home, to live alone. Transitional Living. Primary caregiver: Pt self. RECOMMENDED CARE LEVEL: IRF RECOMMENDATION DETAILS: Recommended Admission to Comprehensive Rehabilitation Program to Increase Functional [place] SCREENER'S COMPLETENESS CONFIRMATION: - Screening Confirmation The patient data collection on this preadmission screening form is finished PHYSICIANS REVIEW AND ADMISSION DETERMINATION Admit - Based on my review of the Pre-Admission Screening results, in my medical judgment and experie nce, I concur with the findings and recommend admission to [facility], as this patient requires an IRF level of care. SIGNATURE PANEL: Records Management Assistant - [electronically] signed by Rosibel Liu on 02/08/2020 at 09:16 (CDT) Records Management Assistant - [electronically] signed by Jose Carson PT on 02/08/2020 at 10:18 (CDT) Physician Reviewer - [electronically] signed by Dr. Charly Ross M.D. on 02/08/2020 at 10:45 (CDT )
--- OUTSIDE RECORDS SUMMARY | 2020-02-08 16:26 | XMS REPORT | Clinical Summary ---
:1945 Author Organization [facility] Address [address] [place] [address] Care Team Providers Name Role Phone Samm Cortés MD Primary Care Provider Allergies No Known Allergies Medications Medication Sig Dispensed Refills Start Date End Date Status acetaminophen Take 2 tablets 30 tablet 0 02/08/2020 Active (TYLENOL) 500 MG (1,000 mg total) by 0 tablet mouth every 8 (eight) hours as needed for Pain for up to 10 days. amitriptyline Take 1 tablet (50 mg 30 tablet 0 02/08/202001/25 Active (ELAVIL) 50 MG total) by mouth 1 tablet nightly. amLODIPine Take 1 tablet (10 mg 30 tablet 0 02/09/2020 02 Active (NORVASC) 10 MG total) by mouth 1 tablet daily. enoxaparin Inject 0.4 mLs (40 8 mL 0 02/09/2020 Active (LOVENOX) 40 mg/0.4 mg total) 0 mL Syrg subcutaneously daily for 20 days. levothyroxine Take 1 tablet (137 30 tablet 0 02/09/2020 Active (SYNTHROID, mcg total) by mouth 1 LEVOTHROID) 137 MCG Every morning on an tablet empty stomach. lidocaine Place 1 patch onto 30 patch 0 02/08/2020 Active (LIDODERM) 5 % the skin daily for 0 patch 30 days Remove & Discard patch within 12 hours or as directed by MD. propranoloL Take 1 tablet (10 mg 90 tablet 0 02/08/2020 Active (INDERAL) 10 MG total) by mouth 3 0 tablet (three) times daily for 30 days. rifAMPin (RIFADIN) Take 1 capsule (300 84 capsule 0 02/08/2020 Active 300 MG capsule mg total) by mouth 0 every 12 (twelve) hours for 42 days. vancomycin Inject 1,000 mg 0 02/08/2020 Ac tive (VANCOCIN) 1000 mg intravenously every IV in NS 100 ML MBP 12 (twelve) hours. Active Problems Problem Noted Date Dislocated hip, right, initial encounter 01/30/2020 Hypothyroidism 01/30/2020 Left breast cancer in remission 01/30/2020 History of total right hip arthroplasty 01/30/2020 Encounters Date Type Specialty Care Team Description 02/02/2020 Anesthesia Event Gino Ball, MARÍA 02/02/2020 Surgery Marisol Galindo REVISION,TOT AL HIP MD Edin 01/30/2020 - Hospital Encounter General Internal [place], Dislo cated hip, right, initial encounter ([facility]); 02/08/2020 Medicine MD Nancy Impaired mobility and ADLs; Toño Allred MD Metabolic encephalopathy; Yahaira Galvan History of total right hip arthroplasty; MD Juan J Hypothyroidi sm, unspecified type; Infection of pr osthetic joint, initial encounter ([facility]) 01/30/2020 Orders Only General Internal Medicine 01/30/2020 Documentation Internal Medicine Nancy Coleman MD after 02/07/2019 Social History Tobacco Use Types Packs/Day Years Used Date Never Assessed Sex Assigned at Date Recorded Not on file Job Start Date Occupation Industry Not on file Not on file Not on file Travel History Travel Start Travel End No recent travel history available. Last Filed Vital Signs Vital Sign Reading Time Taken Blood Pressure 136/78 02/08/2020 11:16 AM CDT Pulse 84 02/08/2020 11:16 AM CDT Temperature 36.2 C (97.2 F) 02/08/2020 11:16 AM CDT Respiratory Rate 18 02/08/2020 11:16 AM CDT Oxygen Saturation 99% 02/08/2020 11:16 AM CDT Inhaled Oxygen Concentration - - Weight 103.9 kg (229 lb) 01/30/2020 5:00 PM CDT Height 162.6 cm (5' 4") 01/30/2020 3:34 PM CDT Body Mass Index 39.31 01/30/2020 5:00 PM CDT Plan of Treatment Health Maintenance Due Date Last Done Comments BREAST CANCER SCREENING 1945 COLON CANCER SCREENING COLONOSCOPY 1945 PNEUMOCOCCAL 65+ LOW/MEDIUM RISK (1 of 2 - PCV13) 2012 Medicare IPPE (WELCOME TO MEDICARE) 05/27/2019 INFLUENZA VACCINE (#1) 2020 Implants Implanted Type Area Pillowcase Turner Device Shelf Model / Identifier Expiration Serial / Date Lot Scr Acet St Tril 6.5x30mm - [id number] TOTAL JOINT Right: TALITA:TALITA [id number] 11/30/2029 / Implanted: Qty: 1 on 02/02/2020 by Marisol Galindo MD CONSTRUCT Hip US / [id number] Scr Acet St Tril 6.5x30mm - [id number] TOTAL JOINT Right: TALITA:TALITA [id number] 05/26/2029 / Implanted: Qty: 1 on 02/02/2020 by Marisol Galindo MD CONSTRUCT Hip US / [id number] Liner G7 Dual Mobility 44mm F [id number] - [id number] TOTAL JOINT Right: BIOMET ORTHO [id number] 10/26/2029 [id number] / Implanted: Qty: 1 on 02/02/2020 by Marisol Galindo MD CONSTRUCT Hip / [id number] Head Ceramic Biolx 28mm Delta 650-1055 - [id number] TOTAL JOINT Ri ght: BIOMET [id number] 09/13/2029 650-1055 / Implanted: Qty: 1 on 02/02/2020 by Marisol Galindo MD CONSTRUCT Hip / [id number] Sleeve Taper Ceramic 650-1068 - [id number] TOTAL JOINT Right: BIOMET [id number] 11/25/2028 650-1068 / Implanted: Qty: 1 on 02/02/2020 by Marisol Galindo MD CONSTRUCT Hip / [id number] [place] Acetabular Shell Right: BIOMET [id number] 07/20/2029 [id number] / Implanted: Qty: 1 on 02/02/2020 by Marisol Galindo MD Hip / [id number] 6.5 Mm Self Tapping Bone Screw Right: BIOMET [id number] 10/21/2029 [id number] / Implanted: Qty: 1 on 02/02/2020 by Marisol Galindo MD Hip / [id number] 6.5x20mm Bone Screw Right: Talita [id number] 07/27 [id number] / Implanted: Qty: 1 on 02/02/2020 by Marisol Galindo MD Hip / [id number] Dual Mobility Bearing Right: Talita [id number] / Implanted: Qty: 1 on 02/02/2020 by Marisol Galindo MD Hip / [id number] Procedures Procedure Name Priority Date/Time Associated Comments Diagnosis CBC W/PLT COUNT & AUTO Routine 02/08/2020 5:44 R esults for this DIFFERENTIAL AM CDT procedure are i n the results section. CBC W/PLT COUNT & AUTO Routine 02/08/2020 5:44 R esults for this DIFFERENTIAL AM CDT procedure are i n the results section. MAGNESIUM Routine 02/08/2020 5:44 Results for this AM CDT procedure are i n the results section. BASIC METABOLIC PANEL Routine 02/08/2020 5:44 Re sults for this (7) AM CDT procedure are i n the results section. SARS-COV2/RT-PCR ([facility] STAT 02/07/2020 12:43 R esults for this & REF LABS) PM CDT procedure are i n the results section. CBC W/PLT COUNT & AUTO Routine 02/07/2020 4:08 R esults for this DIFFERENTIAL AM CDT procedure are i n the results section. VANCOMYCIN LEVEL, Timed 02/07/2020 4:08 Result s for this TROUGH AM CDT procedure are i n the results section. CBC W/PLT COUNT & AUTO Routine 02/07/2020 4:08 R esults for this DIFFERENTIAL AM CDT procedure are i n the results section. MAGNESIUM Routine 02/07/2020 4:08 Results for this AM CDT procedure are i n the results section. BASIC METABOLIC PANEL Routine 02/07/2020 4:08 Re sults for this (7) AM CDT procedure are i n the results section. XR CHEST 1 VIEW STAT 02/06/2020 9:40 Results for this PORTABLE/BEDSIDE AM CDT procedure a re in the results section. CBC W/PLT COUNT & AUTO Routine 02/06/2020 5:29 R esults for this DIFFERENTIAL AM CDT procedure are i n the results section. CBC W/PLT COUNT & AUTO Routine 02/06/2020 5:29 R esults for this DIFFERENTIAL AM CDT procedure are i n the results section. MAGNESIUM Routine 02/06/2020 5:29 Results for this AM CDT procedure are i n the results section. BASIC METABOLIC PANEL Routine 02/06/2020 5:29 Re sults for this (7) AM CDT procedure are i n the results section. TRANSFUSION SERVICE 02/05/2020 6:00 REPORT - SCAN PM CDT MAGNESIUM Routine 02/05/2020 6:39 Results for this AM CDT procedure are i n the results section. BASIC METABOLIC PANEL Routine 02/05/2020 6:39 Re sults for this (7) AM CDT procedure are i n the results section. TRANSFUSION SERVICE 02/04/2020 6:01 REPORT - SCAN PM CDT MAGNESIUM Routine 02/04/2020 6:09 Results for this AM CDT procedure are i n the results section. BASIC METABOLIC PANEL Routine 02/04/2020 6:09 Re sults for this (7) AM CDT procedure are i n the results section. PREPARE RBC STAT 02/04/2020 12:09 Results for this AM CDT procedure are i n the results section. PREPARE RBC Routine 02/03/2020 11:54 Results for this PM CDT procedure are i n the results section. TRANSFUSION SERVICE 02/03/2020 6:00 REPORT - SCAN PM CDT CBC (HEMOGRAM ONLY) Routine 02/03/2020 6:58 Resu lts for this AM CDT procedure are i n the results section. MAGNESIUM Routine 02/03/2020 6:58 Results for this AM CDT procedure are i n the results section. BASIC METABOLIC PANEL Routine 02/03/2020 6:58 Re sults for this (7) AM CDT procedure are i n the results section. HEMOGLOBIN AND Routine 02/02/2020 10:05 Results f or this HEMATOCRIT PM CDT procedure are i n the results section. TRANSFUSION SERVICE 02/02/2020 6:20 REPORT - SCAN PM CDT PREPARE PLASMA STAT 02/02/2020 5:44 Results f or this PM CDT procedure are i n the results section. XR CHEST 1 VIEW CRUZ 02/02/2020 5:28 Results for this PORTABLE/BEDSIDE PM CDT procedure a re in the results section. XR PELVIS 1 OR 2 VIEWS STAT 02/02/2020 5:28 R esults for this PM CDT procedure are i n the results section. ANTIBODY STAT 02/02/2020 5:01 Results for this IDENTIFICATION PM CDT procedure are in the results section. TISSUE EXAM AP Routine 02/02/2020 3:53 Results for this PM CDT procedure are i n the results section. XR PELVIS 1 OR 2 VIEWS Routine 02/02/2020 3:15 R esults for this PM CDT procedure are i n the results section. TRANSFUSE Routine 02/02/2020 3:08 LEUKO-REDUCED RED PM CDT BLOOD CELLS HGB/HCT (H&H) - STAT STAT 02/02/2020 3:05 Res ults for this LAB PM CDT procedure are i n the results section. GLUCOSE-STAT LAB STAT 02/02/2020 3:05 Results for this PM CDT procedure are i n the results section. POTASSIUM-STAT LAB STAT 02/02/2020 3:05 Resul ts for this PM CDT procedure are i n the results section. SODIUM NA-STAT LAB STAT 02/02/2020 3:05 Resul ts for this PM CDT procedure are i n the results section. BLOOD GAS, ARTERIAL STAT 02/02/2020 3:05 Resu lts for this PM CDT procedure are i n the results section. CALCIUM, IONIZED STAT 02/02/2020 3:05 Results for this PM CDT procedure are i n the results section. RRL CRITICAL LABS STAT 02/02/2020 3:05 Result s for this (ABG,NA,K,H&H,GLUCOSE) PM CDT proce dure are in the results section. FUNGUS CULTURE + Routine 02/02/2020 2:19 SMEAR PM CDT AFB CULTURE + SMEAR Routine 02/02/2020 2:19 (NON-SPUTUM) PM CDT SURGICALLY OBTAINED Routine 02/02/2020 2:19 Resu lts for this CULTURE + GRAM STAIN PM CDT procedu re are in the results section. ANAEROBIC CULTURE Routine 02/02/2020 2:19 PM CDT HGB/HCT (H&H) - STAT STAT 02/02/2020 2:17 Res ults for this LAB PM CDT procedure are i n the results section. GLUCOSE-STAT LAB STAT 02/02/2020 2:17 Results for this PM CDT procedure are i n the results section. POTASSIUM-STAT LAB STAT 02/02/2020 2:17 Resul ts for this PM CDT procedure are i n the results section. SODIUM NA-STAT LAB STAT 02/02/2020 2:17 Resul ts for this PM CDT procedure are i n the results section. BLOOD GAS, ARTERIAL STAT 02/02/2020 2:17 Resu lts for this PM CDT procedure are i n the results section. STAT-LAB IONIZED STAT 02/02/2020 2:17 Results for this CALCIUM PM CDT procedure are i n the results section. RRL CRITICAL LABS STAT 02/02/2020 2:17 Result s for this (ABG,NA,K,H&H,GLUCOSE) PM CDT proce dure are in the results section. FUNGUS CULTURE + Routine 02/02/2020 2:14 SMEAR PM CDT ANAEROBIC CULTURE Routine 02/02/2020 2:14 PM CDT AFB CULTURE + SMEAR Routine 02/02/2020 2:14 (NON-SPUTUM) PM CDT SURGICALLY OBTAINED Routine 02/02/2020 2:14 Resu lts for this CULTURE + GRAM STAIN PM CDT procedu re are in the results section. SPIN/CONCENTRATION Routine 02/02/2020 2:14 Resul ts for this CHARGE PM CDT procedure are i n the results section. FUNGUS CULTURE + Routine 02/02/2020 1:53 SMEAR PM CDT AFB CULTURE + SMEAR Routine 02/02/2020 1:53 (NON-SPUTUM) PM CDT SURGICALLY OBTAINED Routine 02/02/2020 1:53 Resu lts for this CULTURE + GRAM STAIN PM CDT procedu re are in the results section. ANAEROBIC CULTURE Routine 02/02/2020 1:53 PM CDT SPIN/CONCENTRATION Routine 02/02/2020 1:53 Resul ts for this CHARGE PM CDT procedure are i n the results section. PREPARE RBC STAT 02/02/2020 12:29 Results for this PM CDT procedure are i n the results section. PLACEMENT,WOUND VAC 02/02/2020 12:00 Dislocated hip, PM CDT right, initial encounter (HCC) Special Needs REQ: RADIOLUCENT FLAT TOP TA BLE, PEG BOARD, CELL SAVER, AQUA MANTIS, LUZ REVISION SET (FLEXIBLE OSTEO TOMES) HOOK CUREWETTES, BIOMET, DR[facility] GAL[facility]O[employer] SPECIAL HIP RETRACTOR (FROM [facility]) , ADAPTIC WOUND VAC SUPPLIES, HAVE AVAILABLE CANCELLOUS BONE GRAFT REVISION,TOTAL HIP 02/02/2020 12:00 PM CDT Dislocated hip, right, initial encounter ([facility]) Special Needs REQ: RADIOLUCENT FLAT TOP TA BLE, PEG BOARD, CELL SAVER, AQUA MANTIS, LUZ REVISION SET (FLEXIBLE OSTEO TOMES) HOOK CUREWETTES, BIOMET, DR[employer] GALINDO[employer] SPECIAL HIP RETRACTOR (FROM [facility]) , ADAPTIC WOUND VAC SUPPLIES, HAVE AVAILABLE CANCELLOUS BONE GRAFT CBC (HEMOGRAM ONLY) Routine 02/02/2020 6:05 AM CDT Results for this procedure are i n the results section . APTT Routine 02/02/2020 6:05 AM CDT Resu lts for this procedure are i n the results section . PROTHROMBIN TIME/INR Routine 02/02/2020 6:05 AM CDT Results for this procedure are i n the results section . MAGNESIUM Routine 02/02/2020 6:05 AM CDT Resu lts for this procedure are i n the results section . BASIC METABOLIC PANEL (7) Routine 02/02/2020 6:05 AM CDT Results for this procedure are i n the results section . TRANSFUSION SERVICE REPORT 02/01/2020 6:00 PM CDT - SCAN PT/APTT Routine 02/01/2020 6:46 AM CDT Resu lts for this procedure are i n the results section . CBC (HEMOGRAM ONLY) Routine 02/01/2020 6:46 AM CDT Results for this procedure are i n the results section . MAGNESIUM Routine 02/01/2020 6:46 AM CDT Resu lts for this procedure are i n the results section . BASIC METABOLIC PANEL (7) Routine 02/01/2020 6:46 AM CDT Results for this procedure are i n the results section . FL ASPIRATION HIP RIGHT Routine 01/31/2020 3:18 PM CDT Results for this procedure are i n the results section . CT PELVIS WITHOUT IV STAT 01/31/2020 2:46 PM CDT Results for this CONTRAST procedure are i n the results section . ABORH, MANUAL STAT 01/31/2020 12:52 PM CDT Res ults for this procedure are i n the results section . TYPE AND SCREEN, AUTOMATED STAT 01/31/2020 12:14 PM CDT Results for this procedure are i n the results section . C-REACTIVE PROTEIN STAT 01/31/2020 11:23 AM CDT Results for this procedure are i n the results section . XR PELVIS 1 OR 2 VIEWS STAT 01/31/2020 9:37 AM CDT Results for this procedure are i n the results section . PTH, INTACT Routine 01/31/2020 2:40 AM CDT Resu lts for this procedure are i n the results section . PHOSPHORUS Routine 01/31/2020 2:40 AM CDT Resu lts for this procedure are i n the results section . MAGNESIUM Routine 01/31/2020 2:40 AM CDT Resu lts for this procedure are i n the results section . BASIC METABOLIC PANEL (7) Routine 01/31/2020 2:40 AM CDT Results for this procedure are i n the results section . ECG 12-LEAD Routine 01/30/2020 7:06 PM CDT Procedure Note - Interface, External Ris In - 01/30/2020 7:17 PM CDT Ventricular Rate 72 BPM Atrial Rate 72 BPM P-R Interval 182 ms QRS Duration 82 ms Q-T Interval 378 ms QTC Calculation(Bazett) 413 ms P Newton 44 degrees R Newton -12 degrees T Newton 39 degrees Normal sinus rhythm Normal ECG When compared with ECG of 21:37, No significant change was fo und ECG 12-LEAD Routine 01/30/2020 7:06 PM CDT Resu lts for this procedure are i n the results section . PT/APTT Routine 01/30/2020 4:43 PM CDT Resu lts for this procedure are i n the results section . MAGNESIUM Routine 01/30/2020 4:43 PM CDT Resu lts for this procedure are i n the results section . COMPREHENSIVE METABOLIC Routine 01/30/2020 4:43 PM CDT Results for this PANEL procedure are i n the results section . CBC (HEMOGRAM ONLY) Routine 01/30/2020 4:43 PM CDT Results for this procedure are i n the results section . TSH/FREE T4 IF INDICATED Routine 01/30/2020 4:32 PM CDT Results for this procedure are i n the results section . SARS-COV2/RT-PCR ([facility] & REF STAT 01/30/2020 3:44 PM CDT Results for this LABS) procedure are i n the results section . XR HIP 4 VIEWS, RIGHT STAT 01/30/2020 2:44 PM CDT Results for this procedure are i n the results section . after 02/07/2019 Results CBC with platelet count + automated diff (02/08/2020 5:44 AM CDT)Only the most recent of3 resultswithin the time period is included. WBC 6.8 3.5 - 10.5 K/L [facility] RBC 2.82 (L) 3.93 - 5.22 M/L [facility] Hemoglobin 8.6 (L) 11.2 - 15.7 GM/DL [facility] Hematocrit 28.6 (L) 34.1 - 44.9 % [facility] MCV 101.4 (H) 79.4 - 94.[address] [facility] MCH 30.5 25.6 - 32.2 pg [facility] MCHC 30.1 (L) 32.2 - 35.5 GM/DL [facility] RDW 13.9 11.7 - 14.4 % [facility] Platelets 233 150 - 450 K/CU MM [facility] MPV 10.4 9.4 - 12.[address] [facility] nRBC 0 0 - 0 /[address] [facility] % Neutros 50 % [facility] % Lymphs 21 % [facility] % Monos 13 % [facility] % Eos 15 % [facility] % Baso 1 % [facility] # Neutros 3.41 1.56 - 6.13 K/L [facility] # Lymphs 1.40 1.18 - 3.74 K/L [facility] # Monos 0.88 (H) 0.24 - 0.36 K/L [facility] # Eos 1.03 (H) 0.04 - 0.36 K/L [facility] # Baso 0.06 0.01 - 0.08 K/L [facility] Immature 1 0 - 1 % [facility] Granulocytes-Relative MEDICAL CE NTER Specimen Blood Performing Organization Address City/[facility] Phone Number [address] [address] CENTER Magnesium (02/08/2020 5:44 AM CDT)Only the most recent of10 resultswithin the time period is included. Magnesium 1.9 1.6 - 2.6 mg/dL [facility] Specimen Blood Narrative Performed At Branding Specialist ID - AAHAMID [facility] Performing Organization Address [facility] Phone Number [address] [address] CENTER Basic Metabolic Panel (02/08/2020 5:44 AM CDT)Only the most recent of9 results within the time period is included. Sodium 139 136 - 145 meq/L [facility] Potassium 3.9 3.5 - 5.1 meq/L [facility] Chloride 105 98 - 107 meq/L [facility] CO2 28 22 - 29 meq/L [facility] BUN 12 7 - 21 mg/dL [facility] Creatinine 0.79 0.57 - 1.25 mg/dL [facility] Glucose 109 (H) 70 - 105 mg/dL [facility] Calcium 9.6 8.4 - 10.2 mg/dL [facility] EGFR 72Comment: ESTIMATED GFR IS mL/min/1.73 sq m [facility] NOT ACCURATE CREATININE ME DICAL CENTER CLEARANCE IN PREDICTING GLOMERULAR FILTRATION RATE. ESTIMATED GFR IS NOT APPLICABLE FOR DIALYSIS PATIENTS. Specimen Blood Narrative Performed At Branding Specialist ID - AAHAMID [facility] Performing Organization Address City/State/Zipcode Phone Number [facility] [address] [place] [address] CENTER SARS-CoV2/RT-PCR (Asymptomatic ONLY) (02/07/2020 12:43 PM CDT)Only the most recent of2 resultswithin the time period is included. SARS-COV2/RT-PCR Negative Not Detected, Negative, [facility] See external report for MEDICAL CENTER linked test SARS-COV-[address] [facility] LOLITA [facility] Specimen Other Narrative Performed At Negative result for this test determines that [facility] SARS-CoV-2 RNA was not present in the specimen above the Limit of Detection (LOD).However, Negative results do not preclude SARS-CoV-2 infection and should not be used as the sole basis for treatment or patient management decisions. Negative results must be combined with clinical observations, patient history, and epidemiological information. A false negative result may occur if a specimen is improperly collected, transported or handled.A false negative result should be considered if patient's recent exposures or clinical presentation indicate that COVID-19 (SARS-CoV-2) is likely and diagnostic tests for other causes of illness are negative.Re-testing should be considered in cases of suspected false negatives. The limit of detection for this assay is 800 copies/mL. This SARS CoV-2 test is a real-time RT-PCR test intended for the qualitative detection of nucleic acid from SARS-CoV-2 in a nasopharyngeal swab specimen collected from individuals suspected of COVID-19 by their healthcare provider. This test has not been Food and Drug Administration (FDA) cleared or approved.This is a modified version of an approved Emergency Use Authorization (EUA) and is in the process of review by the FDA. Once authorized by the FDA, the issued EUA will be effective until the declaration that circumstances exist justifying the authorization of the emergency use of in vitro diagnostic tests for detection and/or diagnosis of COVID-19 is terminated under Section 564(b)(2) of the Act or the EUA is revoked under Section 564(g) of the Act. Fact Sheet for Healthcare Providers: https://www.Giv[employer]/sites/default/files/pro duct/documents/Fact_Sheet_HC_Providers_Lyra_SA RS-CoV-2.pdf Fact Sheet for Healthcare Patients: https://www.[employer]iv[employer]/sites/default/files/pro duct/documents/Fact_Sheet_Patients_Lyra_SARS-C oV-2.pdf Performing Laboratory: [address] [address] Performing Organization Address City/State/Zipcode Phone Number [address] [address] CENTER Vancomycin level, trough (02/07/2020 4:08 AM CDT) Vancomycin Tr 15.1 10.0 - 20.0 ug/mL [facility] Specimen Blood Narrative Performed At Branding Specialist ID - ADMIN [facility] Performing Organization Address City/State/Zipcode Phone Number [facility] [address] [place], [place] [address] XR chest 1 view portable / bedside (02/06/2020 9:40 AM CDT)Only the most recent of2 resultswithin the time period is included. Specimen Narrative Performed At FINAL REPORT GE RIS Exam: RAD, CHEST, 1 VIEW, NON DEPT Date: 02/06/2020 10:05 AM Indication: Line placement Comparison: Chest radiograph 02/02/2020 FINDINGS: Lines/Tubes:Interval removal of right IJ central venous catheter. Interval placement of right PICC line wh ich terminates in the SVC. Lungs:The lungs are well-inflated. Uncha nged right lung nodules measuring up to 1.3 cm. No new focal con solidation or pulmonary edema. Pleura:No pleural effusion. No pneumotho rax. Heart/Mediastinum:The cardiomediastinal silhouette is normal in size and contour. Bones/Soft Tissues: No acute osseous inj ury. Abdomen: No free air below the diaphragm . IMPRESSION: Right PICC line terminates in the SVC. Unchanged right pulmonary nodules measur ing up to 1.[address] should be considered on a nonurgent basi s for further evaluation. Signed: Dane Stovall MD Report Verified Date/Time:02/06/2020 10:07:30 Reading Location: [address] Reading Room Procedure Note Interface, External Ris In - 02/06/2020 10:09 AM CDT FINAL REPORT Exam: RAD, CHEST, 1 VIEW, NON DEPT Date: 02/06/2020 10:05 AM Indication: Line placement Comparison: Chest radiograph 02/02/2020 FINDINGS: Lines/Tubes:Interval removal of right IJ central venous catheter. Interval placement of right PICC line wh ich terminates in the SVC. Lungs:The lungs are well-inflated. Uncha nged right lung nodules measuring up to 1.3 cm. No new focal con solidation or pulmonary edema. Pleura:No pleural effusion. No pneumotho rax. Heart/Mediastinum:The cardiomediastinal silhouette is normal in size and contour. Bones/Soft Tissues: No acute osseous inj ury. Abdomen: No free air below the diaphragm . IMPRESSION: Right PICC line terminates in the SVC. Unchanged right pulmonary nodules measur ing up to 1.[address] should be considered on a nonurgent basi s for further evaluation. Signed: Dane Stovall MD Report Verified Date/Time: 02/06/2020 1 0:07:30 Reading Location: [address] Reading Room Performing Organization Address City/State/Zipcode Phone Number [employer] RIS TRANSFUSION SERVICE REPORT - SCAN (02/05/2020 6:00 PM CDT)Only the most recent of5 resultswithin the time period is included. Narrative Performed At This result has an attachment that is no t available. Prepare RBC (02/04/2020 12:09 AM CDT)Only the most recent of3 resultswithin the time period is included. Unit ABO A Pos SAFETRACE TX UNIT NUMBER [id number] SAFETRACE TX Status WORK IN PROGRESS SAFETRACE TX Blood Bank Product RED BLOOD CELLS SAFETRACE TX PRODUCT CODE [id number] SAFETRACE TX Unit ABO A Pos SAFETRACE TX UNIT NUMBER [id number] SAFETRACE TX Status WORK IN PROGRESS SAFETRACE TX Blood Bank Product RED BLOOD CELLS SAFETRACE TX PRODUCT CODE [id number] SAFETRACE TX Unit ABO A Pos SAFETRACE TX UNIT NUMBER [id number] SAFETRACE TX Status WORK IN PROGRESS SAFETRACE TX Blood Bank Product RED BLOOD CELLS SAFETRACE TX PRODUCT CODE [id number] SAFETRACE TX Unit ABO A Pos SAFETRACE TX UNIT NUMBER [id number] SAFETRACE TX Status WORK IN PROGRESS SAFETRACE TX Blood Bank Product RED BLOOD CELLS SAFETRACE TX PRODUCT CODE [id number] SAFETRACE TX CROSSMATCH COMPATIBLE SAFETRACE TX CROSSMATCH COMPATIBLE SAFETRACE TX CROSSMATCH COMPATIBLE SAFETRACE TX CROSSMATCH COMPATIBLE SAFETRACE TX Performing Organization Address City/State/[facility] Phone Number SAFETRACE TX CBC (Hemogram only) (02/03/2020 6:58 AM CDT)Only the most recent of4 results within the time period is included. WBC 13.4 (H) 3.5 - 10.5 K/L [facility] RBC 2.94 (L) 3.93 - 5.22 M/L [facility] Hemoglobin 9.2 (L) 11.2 - 15.7 GM/DL [facility] Hematocrit 28.9 (L) 34.1 - 44.9 % [facility] MCV 98.3 (H) 79.4 - 94.8 fL [facility] MCH 31.3 25.6 - 32.2 pg [facility] MCHC 31.8 (L) 32.2 - 35.5 GM/DL [facility] RDW 13.2 11.7 - 14.4 % [facility] Platelets 236 150 - 450 K/CU MM [facility] MPV 11.3 9.4 - 12.3 fL [facility] nRBC 0 0 - 0 /100 WBC [facility] Specimen Blood Performing Organization Address City/State/Zipcode Phone Number [address] [address] CENTER Hemoglobin and hematocrit (02/02/2020 10:05 PM CDT) Hemoglobin 10.0 (L) 11.2 - 15.7 GM/DL [facility] Hematocrit 31.5 (L) 34.1 - 44.9 % [facility] Specimen Blood Narrative Performed At Branding Specialist ID - [id number] [facility] Performing Organization Address [facility] Phone Number [address] [address] CENTER Prepare plasma (02/02/2020 5:44 PM CDT) Unit ABO A Pos SAFETRACE TX UNIT NUMBER [id number] SAFETRACE TX Status RETURNED FROM ISSUE SAFETRACE TX Blood Bank Product FFP SAFETRACE TX PRODUCT CODE [id number] SAFETRACE TX Performing Organization Address City/[facility] Phone Number SAFETRACE TX XR pelvis 1 or 2 views (02/02/2020 5:28 PM CDT)Only the most recent of3 results within the time period is included. Specimen Narrative Performed At FINAL REPORT RIS RAD, PELVIS, 1 OR 2 VIEWS CLINICAL HISTORY:Post op TECHNIQUE: RAD, PELVIS, 1 OR 2 VIEWS COMPARISON: February 01 2022 hours prior . IMPRESSION: Right hip total arthroplasty revision silas hancock. Postoperative subcutaneous emphysema is reduced. Hardw are appears stable without acute complication. Osseous alignment is anatomic. Mild gaseous distention of small bowel l oops may represent postoperative ileus but mechanical obstr uction not excluded. Signed: Nino Aldana MD Report Verified Date/Time:02/02/2020 20:40:20 Procedure Note Interface, External Ris In - 02/02/2020 8:42 PM CDT FINAL REPORT RAD, PELVIS, 1 OR 2 VIEWS CLINICAL HISTORY:Post op TECHNIQUE: RAD, PELVIS, 1 OR 2 VIEWS COMPARISON: February 01 2022 hours prior . IMPRESSION: Right hip total arthroplasty revision silas hancock. Postoperative subcutaneous emphysema is reduced. Hardw are appears stable without acute complication. Osseous alignment is anatomic. Mild gaseous distention of small bowel l oops may represent postoperative ileus but mechanical obstr uction not excluded. Signed: Nino Aldana MD Report Verified Date/Time: 02/02/2020 2 0:40:20 Performing Organization Address City/[facility] Phone Number GE RIS Antibody identification (02/02/2020 5:01 PM CDT) ANTIBODY ID (BEAKER) UNID IgG SAFETRACE T X Antibody Consult SIGNED OUTComment: Nonspecific IgG SAFETRACE TX reactivity detected; this is likely of limited clinical significance. For transfusion purposes, crossmatch compatible RBCs will be selected. Electronic Signature: Jazzy Vasquez MD Specimen Performing Organization Address [facility] Phone Number SAFETRACE TX Tissue Exam (02/02/2020 3:53 PM CDT) Case Report Surgical Pathology Report Case: [id number] [facility] Authorizing Provider:Marisol Davis MDCollected: 02/02/2020 03:53 PM [facility] Ordering Location: [facility] PERIOPERATIVE Received:02/03/2020 09:39 AM SERVICES Pathologist: Lauren Putnam MD Specimen:Explant, Liu rdware from previous surgery for ID: cup/head from right hip replacement DIAGNOSIS [facility] [employer] ALTH A. HARDWARE, RIGHT HIP REPLACEMENT, GROSS EXAMIN ATION ONLY: [facility] - HARDWARE IDENTIFIED (SEE GROSS DESCRIPTION) . Signing Pathologist Direct Phone Line: CPT Code(s) [address] [facility] ADITU SAS HE ALTH [facility] ER CLINICAL HISTORY Dislocated right total [facility] hip. [facility] ER SPECIMEN SOURCE Explant [facility] Received fresh labeled with the patient's name, accession number and "explant" are three metallic narayan to narayan-white pieces of orthopedic hardware ranging from 2.3 to 5.0 cm in greatest dimension, which [facility] are grossly consistent with an acetabulum, ball and socket. The following inscription is identified: [facility] "[id number]" "[id number]" "B 28 MM X STD" "[id number]" A gross photograph is taken. No sections are submitted. This case is for gross examination only. PA/ew Gross assessment was [facility] performed at [place], Department of [facility] Pathology, [address] [place] [id number], Technical component was [facility] performed at [place], Department of [facility] Pathology, [address] [place] [id number], Professional component was [facility] performed at [place], Department of [facility] Pathology, [address] [place] [id number], Specimen Tissue - Explant Performing Organization Address City/[facility] Phone Number [address] [phone] [place] Transfuse Leuko-Red RBC (02/02/2020 3:08 PM CDT)Potassium-Stat Lab (02/02/2020 3:05 PM CDT)Only the most recent of2 resultswithin the time period is included. Potassium 3.8 3.6 - 5.5 meq/L [facility] Specimen Blood, Arterial Narrative Performed At FiO2: 50%, Temp 36.3C [facility] FiO2: 50%, Temp 36.3C FiO2: 50%, Temp 36.3C FiO2: 50%, Temp 36.3C FiO2: 50%, Temp 36.3C Performing Organization Address City/[facility] [place] [address] [place] Sodium Na-Stat Lab (02/02/2020 3:05 PM CDT)Only the most recent of2 results within the time period is included. Sodium 134 (L) 136 - 145 meq/L [facility] Specimen Blood, Arterial Narrative Performed At FiO2: 50%, Temp 36.3C [facility] FiO2: 50%, Temp 36.3C FiO2: 50%, Temp 36.3C FiO2: 50%, Temp 36.3C FiO2: 50%, Temp 36.3C Performing Organization Address City/[facility] [place] [address] [place] Glucose-Stat Lab (02/02/2020 3:05 PM CDT)Only the most recent of2 resultswithin the time period is included. Glucose 133 (H) 70 - 110 mg/dL [facility] Specimen Blood, Arterial Narrative Performed At FiO2: 50%, Temp 36.3C [facility] FiO2: 50%, Temp 36.3C FiO2: 50%, Temp 36.3C FiO2: 50%, Temp 36.3C FiO2: 50%, Temp 36.3C Performing Organization Address City/[facility] [place] [address] [place] HGB/HCT (H&H)-Stat Lab (02/02/2020 3:05 PM CDT)Only the most recent of2 resultswithin the time period is included. Hemoglobin 9.6 (L) 12.0 - 15.0 g/dL [facility] Hematocrit 28.0 (L) 36.0 - 45.0 % [facility] Specimen Blood, Arterial Narrative Performed At FiO2: 50%, Temp 36.3C [facility] FiO2: 50%, Temp 36.3C FiO2: 50%, Temp 36.3C FiO2: 50%, Temp 36.3C FiO2: 50%, Temp 36.3C Performing Organization Address [facility] Phone Number [address] [address] [place] Calcium, Ionized (02/02/2020 3:05 PM CDT) Calcium, Ion 1.09 (L) 1.12 - 1.27 mmol/L [facility] pH, Blood 7.38 [facility] Specimen Blood Narrative Performed At FiO2: 50%, Temp 36.3C [facility] Performing Organization Address [facility] Phone Number [address] [address] [place] Blood gas, arterial (02/02/2020 3:05 PM CDT)Only the most recent of2 results within the time period is included. pH, Arterial 7.39 7.35 - 7.45 [facility] pCO2, Arterial 41 35 - 45 mmHg [facility] pO2, Arterial 236 (H) 80 - 90 mmHg [facility] O2 Sat, Arterial 99.5 (H) 96.0 - 97.0 % [facility] HCO3, Arterial 24 21 - 29 mmol/L [facility] Base Excess, Arterial -0.9 -2.0 - 3.0 mmol/L [facility] Patient Temperature 36.3 C [facility] FIO2 50.0 % [facility] Specimen Blood, Arterial Narrative Performed At FiO2: 50%, Temp 36.3C [facility] FiO2: 50%, Temp 36.3C FiO2: 50%, Temp 36.3C FiO2: 50%, Temp 36.3C FiO2: 50%, Temp 36.3C Performing Organization Address [facility]/Zipcode Phone Number [facility] [address] [place] [address] CENTER Surgically obtained culture + gram stain (02/02/2020 2:19 PM CDT)Only the most recent of3 resultswithin the time period is included. Result <1+ Methicillin resistant [facility] Staphylococcus aureus (A) MEDICA L [place] Result <1+ Enterococcus species (A) [facility] Result <1+ Staphylococcus epidermidis C [facility] (A) MEDICAL CENTER Gram Stain Result 1+ White blood cells seen [facility] Gram Stain Result No organisms seen [facility] Specimen Tissue - Other Organism Antibiotic Method Susceptibility Methicillin resistant Clindamycin Resistant Staphylococcus aureus Methicillin resistant Erythromycin >=8: Resis tant Staphylococcus aureus Methicillin resistant Linezolid 2: Suscept ible Staphylococcus aureus Methicillin resistant Oxacillin >=4: Resis tant Staphylococcus aureus Methicillin resistant Rifampin <=0.5: [place]ba ceptible Staphylococcus aureus Methicillin resistant Tetracycline <=1: Susce ptible Staphylococcus aureus Methicillin resistant Trimethoprim + <=10: Susc eptible Staphylococcus aureus Sulfamethoxazole Methicillin resistant Vancomycin 1: Suscept ible Staphylococcus aureus Staphylococcus epidermidis Clindamycin <=0.1 2: Susceptible Staphylococcus epidermidis Erythromycin >=8: Resistant Staphylococcus epidermidis Linezolid 2: [place] sceptible Staphylococcus epidermidis Oxacillin >=4: Resistant Staphylococcus epidermidis Rifampin <=0.5 : Susceptible Staphylococcus epidermidis Tetracycline <=1: Susceptible Staphylococcus epidermidis Trimethoprim + 160: Resistant Sulfamethoxazole Staphylococcus epidermidis Vancomycin 2: [place] sceptible Performing Organization Address [facility]/Zipcode Phone Number [place] [phone] [place] [address] CENTER STAT-LAB IONIZED CALCIUM (02/02/2020 2:17 PM CDT) Filter Ionized Calcium 1.17 mmol/L [facility] Specimen Blood Narrative Performed At Reference Range: No Normals [facility] Performing Organization Address City/[facility]/Zipcode Phone Number [facility] [address] CENTER SPIN/CONCENTRATION CHARGE (02/02/2020 2:14 PM CDT)Only the most recent of2 resultswithin the time period is included. Concentration charged Done [facility] Specimen Tissue Performing Organization Address [facility] Phone Number [address] [phone] CENTER aPTT (02/02/2020 6:05 AM CDT) PTT 36.4 (H) 22.5 - 36.0 seconds [facility] Specimen Blood Performing Organization Address [facility] Phone Number [address] [phone] [place] Prothrombin time/INR (02/02/2020 6:05 AM CDT) Protime 14.3 (H) 11.9 - 14.2 seconds [facility] INR 1.14 <=5.90 [facility] Specimen Blood Narrative Performed At Effective 10/22/2018: PT Reference Range [facility] Change New: 11.9-14.2Previous: 11.7-14.7 RECOMMENDED COUMADIN/WARFARIN INR THERAPY RANGES STANDARD DOSE: 2.0-3.0Includes: PROPHYLAXIS for venous thrombosis, systemic embolization; TREATMENT for venous thrombosis and/or pulmonary embolus. HIGH RISK: Target INR is 2.5-3.5 for patients wiht mechanical heart valves. Performing Organization Address [facility] Phone Number [address] [phone] [place] PT/aPTT (02/01/2020 6:46 AM CDT)Only the most recent of2 resultswithin the time period is included. Protime 15.0 (H) 11.9 - 14.2 seconds [facility] INR 1.21 <=5.90 [facility] PTT 45.4 (H) 22.5 - 36.0 seconds [facility] Specimen Blood Narrative Performed At Effective 10/22/2018: PT Reference Range [facility] Change New: 11.9-14.2Previous: 11.7-14.7 RECOMMENDED COUMADIN/WARFARIN INR THERAPY RANGES STANDARD DOSE: 2.0-3.0Includes: PROPHYLAXIS for venous thrombosis, systemic embolization; TREATMENT for venous thrombosis and/or pulmonary embolus. HIGH RISK: Target INR is 2.5-3.5 for patients wiht mechanical heart valves. Performing Organization Address City/State/Zipcode Phone Number [facility] [address] [place] [address] CENTER FL aspiration hip right (01/31/2020 3:18 PM CDT) Specimen Narrative Performed At FINAL REPORT Sitrion Fluoroscopic guided right hip aspiration History: Patient with recent dislocation of right total hip arthroplasty. Technique: Written informed consent was obtained af ter discussing risks, benefits, and alternatives of the proced ure with the patient. Patient was brought to the fluoroscopy s uite and placed in supine position. Fluoroscopic imaging demonstra lesley posterior, superior dislocation of the right hip joint. The patient is status post right total hip arthroplasty, with inverted ac etabular cup. A suitable percutaneous access site was chosen over lying the inferolateral aspect of the acetabular cup, as request ed by the referring clinician. Overlying skin was prepared a nd draped in the usual sterile fashion.Overlying tissues we re anesthetized with dilute Lidocaine for local anesthesia.Using fluoroscopic guidance, an 22 gauge spinal needle was advanced onto th e inferolateral aspect of the acetabular cup. Brick Catcher images sa glen in the patient's medical record. Aspiration was attempted. No flu id was obtained from the hip joint. Needle was removed.Hemostasis achieved at puncture site by direct compression.The patient tolerated the proce dure well.There were no complications. Impression: Fluoroscopic guided intra-articular need le placement within the right hip joint. Aspiration was attempted, yie lding no fluid. Fluoroscopy time: 0.8 minutes Number of fluoroscopic images obtained: 4 Signed: Yonatan Lagos MD Report Verified Date/Time:01/31/2020 15:48:19 Reading Location: [facility] B1 C013T [facility] Reading Room Procedure Note Interface, External Ris In - 01/31/2020 3:50 PM CDT FINAL REPORT Fluoroscopic guided right hip aspiration History: Patient with recent dislocation of right total hip arthroplasty. Technique: Written informed consent was obtained af ter discussing risks, benefits, and alternatives of the proced ure with the patient. Patient was brought to the fluoroscopy s uite and placed in supine position. Fluoroscopic imaging demonstra lesley posterior, superior dislocation of the right hip joint. The patient is status post right total hip arthroplasty, with inverted ac etabular cup. A suitable percutaneous access site was chosen over lying the inferolateral aspect of the acetabular cup, as request ed by the referring clinician. Overlying skin was prepared a nd draped in the usual sterile fashion. Overlying tissues were anesthetized with dilute Lidocaine for local anesthesia. Using f luoroscopic guidance, an 22 gauge spinal needle was advanced onto th e inferolateral aspect of the acetabular cup. Brick Catcher images sa glen in the patient's medical record. Aspiration was attempted. No flu id was obtained from the hip joint. Needle was removed. Hemostasis a chieved at puncture site by direct compression. The patient tolerat ed the procedure well. There were no complications. Impression: Fluoroscopic guided intra-articular need le placement within the right hip joint. Aspiration was attempted, yie lding no fluid. Fluoroscopy time: 0.8 minutes Number of fluoroscopic images obtained: 4 Signed: Yonatan Lagos MD Report Verified Date/Time: 01/31/2020 1 5:48:19 Reading Location: [facility] B1 C013T [facility] Reading Room Performing Organization Address City/State/Zipcode Phone Number Sitrion CT pelvis without IV contrast (01/31/2020 2:46 PM CDT) Specimen Narrative Performed At FINAL REPORT Sitrion CT pelvis without contrast HISTORY: Periprosthetic hip dislocation, surgical planning COMPARISON: X-rays of same date Technique: serial axial imaging was perf ormed without intravenous contrast as per departmental protocol. Multiplanar images are reconstructed and reviewed when indicate d. This CT examination is performed using o ne or more of the following dose reduction techniques: Automated exposure control, adjustment o f the mA and /or kV according to patient size, and/or use of iterative reconstruction technique. FINDINGS: The patient is status post right total h ip arthroplasty the femoral component of the arthroplasty appears we ll situated within the medullary space of the proximal femur. T he right femoral head component is dislocated posteriorly and superiorly with respect to the right acetabulum. The acetabular com ponent of the arthroplasty is significantly displaced, with the cup op ening posteriorly and superiorly. No acute fracture is identif ied. Mild diffuse osteopenia is noted. Mild degenerative changes of t he symphysis pubis. Moderate L4-L5 and L5-S1 degenerative disc diseas e is noted. A lateral soft tissue fluid collection i s noted, which likely represents a postoperative seroma or phill lving hematoma. This measures 12.5 x 11.4 x 7.7 cm in size. Within the pelvis, small amount of nonsp ecific free fluid is seen. The uterus appears absent. IMPRESSION: 1. Posterosuperior dislocation of the ri ght hip. 2. The acetabular component of the right total hip arthroplasty is significantly displaced within the right acetabular fossa. The cup now opens posteriorly and superiorly. 3. 12.5 x 11.4 x 7.7 cm complex collecti on within the subcutaneous fat lateral to the right hip, likely a p ostoperative seroma or evolving hematoma. Signed: Yonatan Lagos MD Report Verified Date/Time:01/31/2020 15:42:10 Reading Location: [address] Reading Room Procedure Note Interface, External Ris In - 01/31/2020 3:45 PM CDT FINAL REPORT CT pelvis without contrast HISTORY: Periprosthetic hip dislocation, surgical planning COMPARISON: X-rays of same date Technique: serial axial imaging was perf ormed without intravenous contrast as per departmental protocol. Multiplanar images are reconstructed and reviewed when indicate d. This CT examination is performed using o ne or more of the following dose reduction techniques: Automated exposure control, adjustment o f the mA and /or kV according to patient size, and/or use of iterative reconstruction technique. FINDINGS: The patient is status post right total h ip arthroplasty the femoral component of the arthroplasty appears we ll situated within the medullary space of the proximal femur. T he right femoral head component is dislocated posteriorly and superiorly with respect to the right acetabulum. The acetabular com ponent of the arthroplasty is significantly displaced, with the cup op ening posteriorly and superiorly. No acute fracture is identif ied. Mild diffuse osteopenia is noted. Mild degenerative changes of t he symphysis pubis. Moderate L4-L5 and L5-S1 degenerative disc diseas e is noted. A lateral soft tissue fluid collection i s noted, which likely represents a postoperative seroma or phill lving hematoma. This measures 12.5 x 11.4 x 7.7 cm in size. Within the pelvis, small amount of nonsp ecific free fluid is seen. The uterus appears absent. IMPRESSION: 1. Posterosuperior dislocation of the ri ght hip. 2. The acetabular component of the right total hip arthroplasty is significantly displaced within the right acetabular fossa. The cup now opens posteriorly and superiorly. 3. 12.5 x 11.4 x 7.7 cm complex collecti on within the subcutaneous fat lateral to the right hip, likely a p ostoperative seroma or evolving hematoma. Signed: Yonaatn Lagos MD Report Verified Date/Time: 01/31/2020 1 5:42:10 Reading Location: [facility] C0T [facility] Reading Room Performing Organization Address City/State/Zipcode Phone Number GE RIS ABORH, manual (01/31/2020 12:52 PM CDT) Rh Factor POS [facility] ABO Grouping A [facility] Specimen Blood Performing Organization Address City/[facility]/Zipcode Phone Number [facility] [address] [place] [address] Type and screen, automated (01/31/2020 12:14 PM CDT) ABO/RH AUTOMATED (BEAKER) A [facility] Ab Scrn POSITIVEComment: done on [facility] Specimen Blood Performing Organization Address City/[facility] Phone Number [address] [address] C-Reactive Protein (01/31/2020 11:23 AM CDT) CRP 2.11 (H) 0.00 - 0.50 mg/dL [facility] Specimen Blood Narrative Performed At Branding Specialist ID - CHRISS Bonds [facility] Performing Organization Address City/[facility] Phone Number [address] [address] CENTER Phosphorus (01/31/2020 2:40 AM CDT) Phosphorus 3.3 2.3 - 4.7 mg/dL [facility] Specimen Blood Narrative Performed At Branding Specialist ID - ALFRED Galvan [facility] Performing Organization Address [facility] Phone Number [address] [address] CENTER PTH, intact (01/31/2020 2:40 AM CDT) PTH 138.2 (H) 8.5 - 72.5 pg/mL [facility] Specimen Blood Narrative Performed At Branding Specialist ID - ALFRED Galvan [facility] Performing Organization Address [facility] Phone Number [address] [address] CENTER ECG 12 lead (01/30/2020 7:06 PM CDT) Specimen Narrative Performed At Ventricular Rate 72 BPM GE MUSE Atrial Rate 72 BPM P-R Interval 182 ms QRS Duration 82 ms Q-T Interval 378 ms QTC Calculation(Bazett) 413 ms P Newton 44 degrees R Newton -12 degrees T Newton 39 degrees Normal sinus rhythm Normal ECG When compared with ECG of 29-OCT-2001 21 :37, No significant change was found Confirmed by MD NELSON, MANDA ([id number]) on 01/31/20 12:31:57 PM Procedure Note Interface, External Ris In - 01/31/2020 12:32 PM CDT Ventricular Rate 72 BPM Atrial Rate 72 BPM P-R Interval 182 ms QRS Duration 82 ms Q-T Interval 378 ms QTC Calculation(Bazett) 413 ms P Newton 44 degrees R Newton -12 degrees T Newton 39 degrees Normal sinus rhythm Normal ECG When compared with ECG of 29-OCT-2001 21 :37, No significant change was found Confirmed by MD DAMON MAJID ( 190) on 01/31/2020 12:31:57 PM Performing Organization Address City/State/Zipcode Phone Number GE LUCIO Comprehensive metabolic panel (01/30/2020 4:43 PM CDT) Protein, Total 7.0Comment: Specimen 6.0 - 8.3 gm/dL [facility] slightly hemolyzed [facility] Albumin 3.8Comment: Specimen 3.5 - 5.0 g/dL [facility] slightly hemolyzed [facility] Alkaline Phosphatase 100 40 - 150 U/L [facility] Total Bilirubin 0.5Comment: Specimen 0.2 - 1.2 mg/dL [facility] slightly hemolyzed [facility] Sodium 137 136 - 145 meq/L [facility] Potassium 4.4Comment: Specimen 3.5 - 5.1 meq/L [facility] slightly hemolyzed [facility] Chloride 104 98 - 107 meq/L [facility] CO2 24 22 - 29 meq/L [facility] BUN 22 (H) 7 - 21 mg/dL [facility] Creatinine 1.17Comment: Specimen 0.57 - 1.25 mg/dL [facility] slightly hemolyzed [facility] Glucose 103 70 - 105 mg/dL [facility] Calcium 9.7 8.4 - 10.2 mg/dL [facility] AST 19Comment: Specimen 5 - 34 U/L [facility] slightly hemolyzed [facility] ENTER ALT 11Comment: Specimen 6 - 55 U/L [facility] slightly hemolyzed [facility] ENTER EGFR 45Comment: ESTIMATED GFR mL/min/1.73 sq m [facility] IS NOT ACCURATE [facility] CREATININE CLEARANCE IN PREDICTING GLOMERULAR FILTRATION RATE. ESTIMATED GFR IS NOT APPLICABLE FOR DIALYSIS PATIENTS. Specimen Blood Narrative Performed At Branding Specialist ID - DB [facility] Performing Organization Address City/[facility]/Zipcode Phone Number [address] [address] CENTER TSH/Free T4 If Indicated (01/30/2020 4:32 PM CDT) TSH 2.609 0.350 - 4.940 uIU/mL [facility] Specimen Blood Narrative Performed At Branding Specialist ID - DB [facility] Performing Organization Address City/[facility] Phone Number [address] [phone] CENTER XR Hip 4 Views, Right (01/30/2020 2:44 PM CDT) Specimen Narrative Performed At FINAL REPORT GE RIS TECHNIQUE: Multiple views of the right h ip. INDICATION: 74-year-old woman with recen t right total hip arthroplasty. COMPARISON: None. FINDINGS: Suboptimal lateral views due to overlyin g electronic structures and body habitus. Superior dislocation of the femoral comp onent of the right hip prosthesis in relation to the acetabular component. No acute fractures. Soft tissues are grossly unremarkable. IMPRESSION: Superior dislocation of the femoral comp onent of the right hip prosthesis in relation to the acetabular component. Signed: Ba White MD Report Verified Date/Time:01/30/2020 17:21:57 Reading Location: [facility] B1 C013Y CT Body R eading Room Procedure Note Interface, External Ris In - 01/30/2020 5:24 PM CDT FINAL REPORT TECHNIQUE: Multiple views of the right h ip. INDICATION: 74-year-old woman with recen t right total hip arthroplasty. COMPARISON: None. FINDINGS: Suboptimal lateral views due to overlyin g electronic structures and body habitus. Superior dislocation of the femoral comp onent of the right hip prosthesis in relation to the acetabular component. No acute fractures. Soft tissues are grossly unremarkable. IMPRESSION: Superior dislocation of the femoral comp onent of the right hip prosthesis in relation to the acetabular component. Signed: Ba White MD Report Verified Date/Time: 01/30/2020 1 7:21:57 Reading Location: [facility] B1 C013Y CT Body R eading Room Performing Organization Address City/State/Zipcode Phone Number GE RIS after 02/07/2019 Insurance Payer Benefit Plan / Group Subscriber ID Type Phone A ddress [facility] - MEDICARE AARP/MEDICARE COMPLETE xxxxxxxxx MGD CARE Advance Directives For more information, please contact:[facility] [place], [place] [phone] Code Status Date Activated Date Inactivated Comments Full Code 01/30/2020 1:42 PM This code status was determined by: Patient
--- OUTSIDE RECORDS SUMMARY | 2020-02-08 16:28 | XMS REPORT | Continuity of Care Document ---
:1945 Author Organization [facility] t Address [address] [place] [address] Care Team Providers Name Role Phone David Cortés MD Primary Care Physician Nhi KHOURY Attending Clinician Alona Allred MD Attending Clinician Juan J Galvan MD Attending Clinician Kishor Ball CRNA Attending Clinician Edin Flores MD Attending Clinician NHI Attending Clinician Unavailable Franchesca HERNANDEZ, A Attending Clinician Unavailable Robert Chawla MD Attending Clinician Jeanna DANIEL Attending Clinician Herrera KHOURY Attending Clinician Nils HERNANDEZ, T Attending Clinician Unavailable Doctor Unassigned, Name Attending Clinician Unavailable Pob, Lab Main Attending Clinician Unavailable ALONA ALLRED Admitting Clinician Unavailable Robert Chawla MD Admitting Clinician Payers Payer Name Policy Type Policy Number Effective Expiration Source Date Date [facility] - xxxxxxxxx [facility] COMPLETExxxxxxxxx Center Problems Condition Condition Condition Status Onset Resolution Last Treating Co mments Source Name Details Category Date Date Treatment Clinician Date Dislocated Dislocated Disease Active [facility] hip, hip, 01-29 [facility] right, right, 00:00: Medical initial initial 00 Center encounter encounter Hypothyroi Hypothyroi Disease Active [facility] dism dism 01-29 [facility] - 00:[facility] Medical 00 Center Left Left Disease Active [facility] breast breast 01-29 kes - cancer in cancer in 00:00: Medi jan remission remission 00 Cent er History of History of Disease Active [facility] 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 Social History Social Habit Start Date Stop Date Quantity Comments Source Sex Assigned At [facility] Medications Ordered Filled Start Stop Current Ordering Indication Dosage Frequency Signature Comments Components Source Medication Medication Date Date Medication? Clinician (SIG) Name Name vancomycin Yes 1000mg Inject [facility] (VANCOCIN) 02-07 1,000 mg [facility] - 1000 mg IV 00:00: intravenou M edical in NS 100 00 sly every Cente r ML MBP 12 (twelve) hours. amitriptyli 2020- Yes 50mg QD Take [address] [address] ne (ELAVIL) 02-07 tablet (50 L ukes - 50 MG 00:00: 23:59 mg total) Medica l tablet 00 :00 by mouth Center nightly. rifAMPin 2019- Yes 300mg Take 1 [facility] (RIFADIN) 02-07 capsule [facility] - 300 MG 00:00: 23:59 (300 mg Medical capsule 00 :00 total) by Center mouth every 12 (twelve) hours for 42 days. lidocaine 2019- Yes 1{patch Q24H Place [address] (LIDODERM) 02-07 } patch onto Kizzy kes - 5 % patch 00:00: 23:59 the skin Med ical 00 :00 daily for Center 30 days Remove & Discard patch within 12 hours or as directed by . propranoloL 2019- Yes 10mg [id number] Take [address] [address] (INDERAL) 02-07 [id number] tablet (10 [facility] - 10 MG 00:00: 23:59 3D mg total) Medica l tablet 00 :00 by mouth 3 Center (three) times daily for 30 days. acetaminoph 2019- Yes 1000mg Take [address] en 02-07 09-24 tablets [facility] - (TYLENOL) 00:00: 23:59 (1,000 mg Me dical 500 MG 00 :00 total) by Center tablet mouth every 8 (eight) hours as needed for Pain for up to 10 days. Amlodipine Amlodipine Yes Clemente [address] [facility] [address] Besylate Besylate Kendrick [facility] Amitriptyli Amitriptyli Yes Clemente [address] [facility] ne HCl ne HCl Kendrick [facility] Propranolol Propranolol Yes Clemente [address] [facility] [address] HCl HCl Kendrick [facility] Vitamin D Vitamin D Yes Clemente [address] [facility] Kendrick [facility] Naproxen Naproxen Yes Clemente [address] Kendrick with food [facility] - or milk as Memoria needed l [facility] Anastrozole Anastrozole Yes Clemente [address] [facility] [address] Kendrick [facility] Levothyroxi Levothyroxi Yes Clemente [address] [facility] ne Sodium ne Sodium Kendrick on an Luke s - empty Memoria stomach in l the [facility] Propranolol Propranolol Yes Clemente not [facility] HCl ER HCl ER Kendrick defined [facility] Amitriptyli Amitriptyli Yes Clemente not [facility] ne HCl ne HCl Kendrick defined [facility] Losartan Losartan Yes Clemente [address] [address] Potassium Potassium Kendrick [facility] Vital Signs Vital Name Observation Time Observation Value Comments Source Systolic blood 2020-02-08 11:16:00 136 mm[Hg] [facility] Diastolic blood 2020-02-08 11:16:00 78 mm[facility]Hg[facility] Heart rate 2020-02-08 11:16:00 84 /min [facility] Body temperature 2020-02-08 11:16:00 36.22 Sara [facility] Respiratory rate 2020-02-08 11:16:00 18 /min [facility] Oxygen saturation in 2020-02-08 11:16:00 99 /min [facility] Arterial blood by Medical Ce nter Pulse oximetry Body weight Measured 2020-01-30 17:00:00 103.874 kg [facility] BMI 2020-01-30 17:00:00 39.31 kg/m2 [facility] Body height 2020-01-30 15:34:00 162.6 cm [facility] Procedures Procedure Date / Time Performing Clinician Source Performed BASIC METABOLIC PANEL (7) 2020-02-08 05:44:00 Toño Allred In [facility] MAGNESIUM 2020-02-08 05:44:00 Toño Allred In [facility] CBC W/PLT COUNT & AUTO 2020-02-08 05:44:00 Yahaira Galvan [facility] DIFFERENTIAL [facility] SARS-COV2/RT-PCR ([facility] & 2020-02-07 12:43:00 Toño Allred In [facility] - REF LABS) [facility] BASIC METABOLIC PANEL (7) 2020-02-07 04:08:00 Toño Allred In [facility] MAGNESIUM 2020-02-07 04:08:00 Toño Allred In [facility] VANCOMYCIN LEVEL, TROUGH 2020-02-07 04:08:[address] [facility] CBC W/PLT COUNT & AUTO 2020-02-07 04:08:00 Yahaira Galvan [facility] DIFFERENTIAL [facility] XR CHEST 1 VIEW 2020-02-06 09:40:[address] [facility] - PORTABLE/BEDSIDE [facility] BASIC METABOLIC PANEL (7) 2020-02-06 05:29:00 Toño Allred In [facility] MAGNESIUM 2020-02-06 05:29:00 Toño Allred In [facility] CBC W/PLT COUNT & AUTO 2020-02-06 05:29:00 Kristina Galvanfrancia [facility] TRANSFUSION SERVICE 2020-02-05 18:00:59 Provider, Default [facility] BASIC METABOLIC PANEL (7) 2020-02-05 06:39:00 Vanessa Allredg In [facility] MAGNESIUM 2020-02-05 06:39:00 Brigida Sung In [facility] TRANSFUSION SERVICE 2020-02-04 18:01:18 Provider, Default [facility] BASIC METABOLIC PANEL (7) 2020-02-04 06:09:00 Vanessa Allredg In [facility] MAGNESIUM 2020-02-04 06:09:00 Toño Allred In [facility] PREPARE RBC 2020-02-04 00:09:00 Vanessa Allredg In [facility] PREPARE RBC 2020-02-03 23:54:00 Vanessa Allredg In [facility] TRANSFUSION SERVICE 2020-02-03 18:00:51 Provider, Default [facility] BASIC METABOLIC PANEL (7) 2020-02-03 06:58:00 Vanessa Allredg In [facility] MAGNESIUM 2020-02-03 06:58:00 BrigidaVanessag In [facility] CBC (HEMOGRAM ONLY) 2020-02-03 06:58:00 Toño Allred In [facility] HEMOGLOBIN AND HEMATOCRIT 2020-02-02 22:05:00 Kyrie Husain [facility] TRANSFUSION SERVICE 2020-02-02 18:20:15 Provider, Default [facility] PREPARE PLASMA 2020-02-02 17:44:00 Marisol lFores [facility] XR PELVIS 1 OR 2 VIEWS 2020-02-02 17:28:00 Hakan Husain [facility] XR CHEST 1 VIEW 2020-02-02 17:28:00 Jacqueline Granger [facility] ANTIBODY IDENTIFICATION 2020-02-02 17:01:00 Marisol Flores [facility] TISSUE EXAM 2020-02-02 15:53:00 Sonia Floresmalintaomari [facility] XR PELVIS 1 OR 2 VIEWS 2020-02-02 15:15:00 Marisol Flores [facility] TRANSFUSE LEUKO-REDUCED 2020-02-02 15:08:47 LizzyGino [facility] RED BLOOD CELLS [facility] CALCIUM, IONIZED 2020-02-02 15:05:30 Sonia Floresmalintaomari [facility] BLOOD GAS, ARTERIAL 2020-02-02 15:05:30 Sonia Floresmalintaomari [facility] SODIUM NA-STAT LAB 2020-02-02 15:05:30 Sonia Floresmalintaomari [facility] POTASSIUM-STAT LAB 2020-02-02 15:05:30 Sonia Floresmalintaomari [facility] GLUCOSE-STAT LAB 2020-02-02 15:05:30 Sonia Floresmalintaomari [facility] HGB/HCT (H&H) - STAT LAB 2020-02-02 15:05:30 Mariana Floresomari Magdy eagle [facility] ANAEROBIC CULTURE 2020-02-02 14:19:31 Sonia Floresmalintaomari [facility] SURGICALLY OBTAINED 2020-02-02 14:19:31 Marisol Flores [facility] - CULTURE + GRAM STAIN [employer] CULTURE + SMEAR 2020-02-02 14:19:31 Mariana Floresomari Edin [facility] - (NON-SPUTUM) [facility] FUNGUS CULTURE + SMEAR 2020-02-02 14:19:31 Sonia Floresmalintaomari [facility] STAT-LAB IONIZED CALCIUM 2020-02-02 14:17:59 Ze Allred [facility] BLOOD GAS, ARTERIAL 2020-02-02 14:17:59 Ze Allred [facility] SODIUM NA-STAT LAB 2020-02-02 14:17:59 Ze Allred [facility] POTASSIUM-STAT LAB 2020-02-02 14:17:59 Brigida, Ze [facility] GLUCOSE-STAT LAB 2020-02-02 14:17:59 BrigidaZe [facility] HGB/HCT (H&H) - STAT LAB 2020-02-02 14:17:59 BrigidaZe [facility] SURGICALLY OBTAINED 2020-02-02 14:14:17 [facility] + GRAM STAIN [employer] CULTURE + SMEAR 2020-02-02 14:14:17 [facility] ANAEROBIC CULTURE 2020-02-02 14:14:17 [facility] FUNGUS CULTURE + SMEAR 2020-02-02 14:14:17 Sonia Floresmalintaomari [facility] SPIN/CONCENTRATION CHARGE 2020-02-02 14:14:00 Sandra Soniamalintaomari [facility] ANAEROBIC CULTURE 2020-02-02 13:53:38 Sonia Floresmalintaomari [facility] SURGICALLY OBTAINED 2020-02-02 13:53:38 Mariana [facility]ari [facility] + GRAM STAIN [facility] [employer] CULTURE + SMEAR 2020-02-02 13:53:38 Marisol Flores [facility] (NON-SPUTUM) [facility] FUNGUS CULTURE + SMEAR 2020-02-02 13:53:38 Sandra [facility] SPIN/CONCENTRATION CHARGE 2020-02-02 13:53:00 Sandra Soniamalintaomari [facility] PREPARE RBC 2020-02-02 12:29:00 Sandra [facility] REVISION,TOTAL HIP 2020-02-02 12:00:00 Sandra [facility] PLACEMENT,WOUND VAC 2020-02-02 12:00:00 Sandra [facility]intaomari [facility] BASIC METABOLIC PANEL (7) 2020-02-02 06:05:00 Toño Allred [facility] MAGNESIUM 2020-02-02 06:05:00 Toño Allred In [facility] PROTHROMBIN TIME/INR 2020-02-02 06:05:00 Brendon Means [facility] APTT 2020-02-02 06:05:00 Brendon Means [facility] CBC (HEMOGRAM ONLY) 2020-02-02 06:05:00 Toño Allred In [facility] TRANSFUSION SERVICE 2020-02-01 18:00:13 Provider, Default [facility] REPORT - SCAN Scanning [facility] BASIC METABOLIC PANEL (7) 2020-02-01 06:46:00 Toño Allred In [facility] MAGNESIUM 2020-02-01 06:46:00 oTño Allred In [facility] CBC (HEMOGRAM ONLY) 2020-02-01 06:46:00 Toño Allred In [facility] PT/APTT 2020-02-01 06:46:00 Toño Allred In [facility] FL ASPIRATION HIP RIGHT 2020-01-31 15:18:00 Toño Allred In [facility] CT PELVIS WITHOUT IV 2020-01-31 14:46:00 Brendon Means [facility] ABORH, MANUAL 2020-01-31 12:52:00 Marleen Montague [facility] TYPE AND SCREEN, 2020-01-31 12:14:00 Brendon Means [facility] C-REACTIVE PROTEIN 2020-01-31 11:23:00 Brendon Means [facility] XR PELVIS 1 OR 2 VIEWS 2020-01-31 09:37:00 Brendon Means [facility] BASIC METABOLIC PANEL (7) 2020-01-31 02:40:00 Toño Allred In [facility] MAGNESIUM 2020-01-31 02:40:00 Toño Allred In [facility] PHOSPHORUS 2020-01-31 02:40:00 Toño Allred In [facility] PTH, INTACT 2020-01-31 02:40:00 Toño Allred In [facility] ECG 12-LEAD 2020-01-30 19:06:28 Unknown, Hl7 Doctor [facility] CBC (HEMOGRAM ONLY) 2020-01-30 16:43:00 Toño Allred In [facility] COMPREHENSIVE METABOLIC 2020-01-30 16:43:00 Toño Allred In [facility] MAGNESIUM 2020-01-30 16:43:00 Toño Allred In [facility] PT/APTT 2020-01-30 16:43:00 Toño Allred In [facility] TSH/FREE T4 IF INDICATED 2020-01-30 16:32:00 Toño Allred In [facility] SARS-COV2/RT-PCR ([facility] & 2020-01-30 15:44:00 Toño Allred In [facility] REF LABS) [facility] XR HIP 4 VIEWS, RIGHT 2020-01-30 14:44:00 Toño Allred In [facility] Plan of Care Planned Activity Planned Date Details Comments Source Future Scheduled 2020-01-26 INFLUENZA VACCINE (#1) [facility] Test 00:00:00 [code = INFLUENZA Medical Ce nter VACCINE (#1)] Future Scheduled 2019-05-27 Medicare IPPE (WELCOME [facility] Test 00:00:00 TO MEDICARE) [code = [facility] Medicare IPPE (WELCOME TO MEDICARE)] Future Scheduled 2012 PNEUMOCOCCAL [address] - Test 00:00:00 LOW/MEDIUM RISK (1 of 2 [facility] - PCV13) [code = PNEUMOCOCCAL 65+ LOW/MEDIUM RISK (1 of 2 - PCV13)] Future Scheduled 1945 Screening for malignant [facility] - Test 00:00:00 neoplasm of breast Medical C enter (procedure) [code = 421145435] Future Scheduled 1945 Screening for malignant [facility] - Test 00:00:00 neoplasm of colon Medical Ce nter (procedure) [code = 549627137] Medication 2020-02-09 amLODIPine (NORVASC) 10 [facility] - 00:00:00 MG tablet [code = Medical Ce nter 694581] Medication 2020-02-[address] [facility] - 00:00:00 (SYNTHROID, LEVOTHROID) [facility] 137 MCG tablet [code = 338403] Medication 2020-02-09 enoxaparin (LOVENOX) [address] [facility] - 00:00:00 mg/0.4 mL Syrg [code = Medic [place] 722678] Encounters Start End Encounter Admission Attending Care Care Encounter Source Date/Time Date/Time Type Type Clinicians Facility Department ID 2020-01-20 2020-01-20 Nurse TOYA Sorensen [id number] 00:00:00 00:00:00 Triage Honey AGUILAR [id number] [place] [id number] 2020-01-20 2020-01-20 Telephone TOYA Chawla [id number] 00:00:00 00:00:00 Esteban AGUILAR [id number] [place] [id number] 2020-01-13 2020-01-15 [facility] [id number] 10:03:00 15:30:00 Encounter Esteban Finney [id number] [place] [id number] [place] [id number] [facility] 2020-01-13 2020-01-13 Anesthesia Josef Meeks [facility].2.840.11 [id number] 13:46:00 16:42:00 Memo Silverman [id number] [place] [id number] Surgical [id number] [place] 020 2020-01-13 2020-01-13 Letter TOYA Wray [id number] 00:00:00 00:00:00 (Out) Magali AGUILAR [id number]686 [id number] 019 2020-01-13 2020-01-13 Orders Doctor [place] [id number] 00:00:00 00:00:00 Only UnassignedLAUREN [id number] [place] [facility] [id number] [id number] 2020-01-12 2020-01-12 [facility] [id number] 15:35:03 23:59:00 Encounter Esteban Finney [id number] [place] [id number] [place] [id number] 2020-01-12 2020-01-12 Admitting Interviewer Sasha Raman [facility] [id number] 15:29:06 17:51:05 Visit Lab Emeka Finney [id number] [place] [id number] Professio [id number] [address] 2019-10-07 2019-10-07 [facility] [id number] 15:44:00 15:44:00 t [facility] 2019-10-06 2019-10-06 [facility] [id number] 14:00:00 14:00:00 t [facility] 2018-08-01 2018-08-01 [facility] [id number] 14:15:00 14:15:00 t Specialty/U Kzizy kes - Specialty rology Memori a /Urology Clinic l [facility] ent [facility] 2018-02-05 2018-02-05 [facility] [id number] 13:30:00 13:30:00 t Specialty/U Kizzy kes - Specialty rology Memori a /Urology Clinic l [facility] 2018-01-23 2018-01-23 [facility] [id number] 13:00:00 13:00:00 t Specialty/U Kizzy kes - Specialty rology Memori a /Urology Clinic l [facility] ent [facility] 2018-01-09 2018-01-09 [facility] [id number] 15:04:00 15:04:00 t Specialty/U Kizzy kes - Specialty rology Memori a /Urology Clinic l [facility] ent [facility] 2017-12-26 2017-12-26 Outpatient Akua Almanza [id number] 16:01:00 16:01:00 t Specialty/U [facility]izzy kes - [facility] 2017-12-19 2017-12-19 Outpatient Akua Almanza [id number] 11:30:00 11:30:00 t Specialty/U Kizzy kes - [facility]ty [facility] a /Urology [facility] ent [facility] Results Test Description Test Time Test Comments Results Result Comments Source SARS-CoV2/RT-PCR (Asymptomatic ONLY) 2020-02-08 11:39:00 Test Item Value Reference Range Interpretation Comme nts SARS-COV2/RT-PCR (test code = Negative Not Detected, 31247-8) Negative, See external report for linked test SARS-COV-2 PERFORMING LAB [facility] LOLITA (test code = 78275-0) CLARICE (test code = CLARICE) Negative result for this test determines that SARS-CoV-2 RNA was not present in the specimen above the Limit of Detection (LOD). However, Negative results do not preclude SARS-CoV-2 infection and should not be used as the sole basis for treatment or patient management decisions. Negative results must be combined with clinical observations, patient history, and epidemiological information. A false negative result may occur if a specimen is improperly collected, transported or handled. A false negative result should be considered if patient's recent exposures or clinical presentation indicate that COVID-19 (SARS-CoV-2) is likely and diagnostic tests for other causes of illness are negative. Re-testing should be considered in cases of suspected [...] Food and Drug Administration (FDA) cleared or approved. This is a modified version of an approved [...] of the Act. Fact Sheet for Healthcare Providers:https://www.[employer]. com/sites/default/files/produ ct/documents/Fact_Sheet_HC_Pr dlvcobb_Tqur_IQXX-HiU-7.pdf Fact Sheet for Healthcare Patients:https://www.[employer] om/sites/default/files/produc t/documents/Fact_Sheet_Patien nk_Vgzr_XODN-YdL-2.pdf Performing Laboratory:[facility] [place] [address] [facility] ([facility] & REF LABS)2020-02-08 11:39:00 Test Item Value Reference Range Interpretation Comments SARS-COV2/RT-PCR (test Negative Not Detected, Negative, code = 6884150) See external report for linked test SARS-COV-2 PERFORMING LAB [facility] LOLITA (test code = 1954027) Negative result for this test determines that SARS-CoV-2 RNA was not present in the specimen above the Limit of Detection (LOD). However, Negative results do not preclude SARS-CoV-2 infection and should not be used as the sole basis for treatment or patient management decisions. Negative results mustbe combined with clinical observations, patient history, and epidemiological information. A false negative result may occur if a specimen is improperly collected, transported or handled. A false negative result should be considered if patient's recent exposures or clinical presentation indicate that COVID-19 (SARS-CoV-2) is likely and diagnostic tests for other causes of illness are negative. Re-testing should be considered in cases of suspected false negatives.The limit of detection for this assay is 800 copies/mL.This SARS CoV-2 test is a real-time RT-PCR test intended for the qualitative detection of nucleic acid from SARS-CoV-2 in a nasopharyngeal swab specimen collected from individuals susp ected of COVID-19 by their healthcare provider.This test has not been Food and Drug Administration (FDA) cleared or approved. This is a modified version of an approved [...] is revoked under Section 564(g) of the Act.Fact Sheet for Healthcare Providers:https://www.[employer]/sites/default/files/product/documents/Fact_Shee c_TY_Prxhvqfub_Xthn_EJSU-KvO-5.pdfFact Sheet for Healthcare Patients:https://www.[employer]/sites/default/files/product/ documents/Ascv_Eqlpg_Bsbkgbmn_Pawi_CURM-KqY-8.pdfPerforming Laboratory:[facility], [place] [address]Yhuzs Metabolic Panel 2020-02-08 09:58:00 Test Item Value Reference Range Interpretation Comments Sodium (test code = 139 meq/L 304-248 5754-2) Potassium (test code = 3.9 meq/L 3.5-5.1 2823-3) Chloride (test code = 105 meq/L 98-107 2075-0) CO2 (test code = 28 meq/L 22-29 2028-9) BUN (test code = 12 mg/dL 7-21 3094-0) Creatinine (test code 0.79 mg/dL 0.57-1.25 = 2160-0) Glucose (test code = 109 mg/dL 70-105 H 2345-7) Calcium (test code = 9.6 mg/dL 8.4-10.2 91439-0) EGFR (test code = 72 mL/min/1.73 [place] [address]-0) NOT ACCURATE CREATININE CLEARANCE IN PREDICTING GLOMERULAR FILTRATION RATE . ESTIMATED GFR I S NOT APPLICABLE FOR DIALYSIS PATIENTS. CLARICE (test code = CLARICE) Urology Surgeon ID - AAHAMID Lab Interpretation Abnormal (test code = 29755-8) [facility]00 Test Item Value Reference Range Interpretation Comments Magnesium (test code = 1.9 mg/dL 1.6-2.6 96614-2) CLARICE (test code = CLARICE) Urology Surgeon ID - AAHAMID Lab Interpretation (test Normal code = 34576-3) [facility] Test Item Value Reference Range Interpretation Comments MAGNESIUM (BEAKER) (test code = 1.9 mg/dL 1.6-2.6 627) Urology Surgeon ID - AAHAMIDBASIC METABOLIC [id number] 09:58:00 Test Item Value Reference Range Interpretation Comments SODIUM (BEAKER) 139 meq/L 136-145 (test code = 381) POTASSIUM (BEAKER) 3.9 meq/L 3.5-5.1 (test code = 379) CHLORIDE (BEAKER) 105 meq/L 98-107 (test code = 382) CO2 (BEAKER) (test 28 meq/L 22-29 code = 355) BLOOD UREA NITROGEN 12 mg/dL 7-21 (BEAKER) (test code = 354) CREATININE (BEAKER) 0.79 mg/dL 0.57-1.25 (test code = 358) GLUCOSE RANDOM 109 mg/dL 70-105 H (BEAKER) (test code = 652) CALCIUM (BEAKER) 9.6 mg/dL 8.4-10.2 (test code = 697) EGFR (BEAKER) (test 72 mL/min/1.73 ESTIMA TAINA GFR IS code = 1092) sq m NOT ACCURATE CREATININE CLEARANCE IN PREDICTING GLOMERULAR FILTRATION RATE . ESTIMATED GFR I S NOT APPLICABLE FOR DIALYSIS PATIEN TS. Urology Surgeon ID - AAHAMIDCBC with platelet count + automated [id number] 06:38:00 Test Item Value Reference Range Interpretation Comments WBC (test code = 6690-2) 6.8 3.5- 10.5 K/L RBC (test code = 789-8) 2.82 3.93- 5.22 M/L L MCHC (test code = 786-4) 30.1 32.2- 35.5 GM/DL L Hematocrit (test code = 4544-3) 28.6 % 34.1-44.9 L MCV (test code = 787-2) 101.4 fL 79.4-94.8 H MCH (test code = 785-6) 30.5 pg 25.6-32.2 RDW (test code = 788-0) 13.9 % 11.7-14.4 Platelets (test code = 777-3) 233 150- 450 K/CU MM MPV (test code = 45406-6) 10.4 fL 9.4-12.3 nRBC (test code = 413) 0 0- 0 /100 WBC % Neutros (test code = 429) 50 % % Lymphs (test code = 430) 21 % % Monos (test code = 431) 13 % % Eos (test code = 432) 15 % % Baso (test code = 437) 1 % # Neutros (test code = 670) 3.41 1.56- 6.13 K/L # Lymphs (test code = 414) 1.40 1.18- 3.74 K/L # Monos (test code = 415) 0.88 0.24- 0.36 K/L H # Eos (test code = 416) 1.03 0.04- 0.36 K/L H # Baso (test code = 417) 0.06 0.01- 0.08 K/L Immature Granulocytes-Relative 1 % 0-1 (test code = 2801) Lab Interpretation (test code = Abnormal 18870-5) [facility] W/PLT COUNT & AUTO [id number] 06:38:00 Test Item Value Reference Range Interpretation Comments WHITE BLOOD CELL COUNT (BEAKER) 6.8 K/ L 3.5-10.5 (test code = 775) RED BLOOD CELL COUNT (BEAKER) 2.82 M/ L 3.93-5.22 L (test code = 761) HEMOGLOBIN (BEAKER) (test code = 8.6 GM/DL 11.2-15.7 L 410) HEMATOCRIT (BEAKER) (test code = 28.6 % 34.1-44.9 L 411) MEAN CORPUSCULAR VOLUME (BEAKER) 101.4 fL 79.4-94.8 H (test code = 753) MEAN CORPUSCULAR HEMOGLOBIN 30.5 pg 25.6-32.2 (BEAKER) (test code = 751) MEAN CORPUSCULAR HEMOGLOBIN CONC 30.1 GM/DL 32.2-35.5 L (BEAKER) (test code = 752) RED CELL DISTRIBUTION WIDTH 13.9 % 11.7-14.4 (BEAKER) (test code = 412) PLATELET COUNT (BEAKER) (test 233 K/CU MM 150-450 code = 756) MEAN PLATELET VOLUME (BEAKER) 10.4 fL 9.4-12.3 (test code = 754) NUCLEATED RED BLOOD CELLS 0 /100 WBC 0-0 (BEAKER) (test code = 413) NEUTROPHILS RELATIVE PERCENT 50 % (BEAKER) (test code = 429) LYMPHOCYTES RELATIVE PERCENT 21 % (BEAKER) (test code = 430) MONOCYTES RELATIVE PERCENT 13 % (BEAKER) (test code = 431) EOSINOPHILS RELATIVE PERCENT 15 % (BEAKER) (test code = 432) BASOPHILS RELATIVE PERCENT 1 % (BEAKER) (test code = 437) NEUTROPHILS ABSOLUTE COUNT 3.41 K/ L 1.56-6.13 (BEAKER) (test code = 670) LYMPHOCYTES ABSOLUTE COUNT 1.40 K/ L 1.18-3.74 (BEAKER) (test code = 414) MONOCYTES ABSOLUTE COUNT (BEAKER) 0.88 K/ L 0.24-0.36 H (test code = 415) EOSINOPHILS ABSOLUTE COUNT 1.03 K/ L 0.04-0.36 H (BEAKER) (test code = 416) BASOPHILS ABSOLUTE COUNT (BEAKER) 0.06 K/ L 0.01-0.08 (test code = 417) IMMATURE GRANULOCYTES-RELATIVE 1 % 0-1 PERCENT (BEAKER) (test code = 2801) BASIC METABOLIC [id number] 15:29:00 Test Item Value Reference Range Interpretation Comments SODIUM (BEAKER) 142 meq/L 136-145 (test code = 381) POTASSIUM (BEAKER) 3.9 meq/L 3.5-5.1 (test code = 379) CHLORIDE (BEAKER) 108 meq/L 98-107 H (test code = 382) CO2 (BEAKER) (test 26 meq/L 22-29 code = 355) BLOOD UREA NITROGEN 17 mg/dL 7-21 (BEAKER) (test code = 354) CREATININE (BEAKER) 0.84 mg/dL 0.57-1.25 (test code = 358) GLUCOSE RANDOM 114 mg/dL 70-105 H (BEAKER) (test code = 652) CALCIUM (BEAKER) 9.4 mg/dL 8.4-10.2 (test code = 697) EGFR (BEAKER) (test 67 mL/min/1.73 ESTIMA TAINA GFR IS code = 1092) sq m NOT ACCURATE CREATININE CLEARANCE IN PREDICTING GLOMERULAR FILTRATION RATE . ESTIMATED GFR I S NOT APPLICABLE FOR DIALYSIS PATIEN DIDIER. Run at [place] on [address] CH.[id number] 15:29:00 Test Item Value Reference Range Interpretation Comments MAGNESIUM (BEAKER) (test code = 1.9 mg/dL 1.6-2.6 627) Vancomycin level, [id number] 11:33:00 Test Item Value Reference Range Interpretation Comments Vancomycin Tr (test code = 15.1 ug/mL 10-20 4092-3) CLARICE (test code = CLARICE) Urology Surgeon ID - ADMIN Lab Interpretation (test Normal code = 89450-2) [facility] [id number] 11:33:00 Test Item Value Reference Range Interpretation Comments VANCOMYCIN TROUGH (BEAKER) (test 15.1 ug/mL 10.0-20.0 code = 522) Urology Surgeon ID - ADMINCBC W/PLT COUNT & AUTO [id number] 04:53:00 Test Item Value Reference Range Interpretation Comments WHITE BLOOD CELL COUNT (BEAKER) 6.5 K/ L 3.5-10.5 (test code = 775) RED BLOOD CELL COUNT (BEAKER) 2.63 M/ L 3.93-5.22 L (test code = 761) HEMOGLOBIN (BEAKER) (test code = 8.1 GM/DL 11.2-15.7 L 410) HEMATOCRIT (BEAKER) (test code = 26.8 % 34.1-44.9 L 411) MEAN CORPUSCULAR VOLUME (BEAKER) 101.9 fL 79.4-94.8 H (test code = 753) MEAN CORPUSCULAR HEMOGLOBIN 30.8 pg 25.6-32.2 (BEAKER) (test code = 751) MEAN CORPUSCULAR HEMOGLOBIN CONC 30.2 GM/DL 32.2-35.5 L (BEAKER) (test code = 752) RED CELL DISTRIBUTION WIDTH 13.8 % 11.7-14.4 (BEAKER) (test code = 412) PLATELET COUNT (BEAKER) (test 208 K/CU MM 150-450 code = 756) MEAN PLATELET VOLUME (BEAKER) 10.4 fL 9.4-12.3 (test code = 754) NUCLEATED RED BLOOD CELLS 0 /100 WBC 0-0 (BEAKER) (test code = 413) NEUTROPHILS RELATIVE PERCENT 46 % (BEAKER) (test code = 429) LYMPHOCYTES RELATIVE PERCENT 27 % (BEAKER) (test code = 430) MONOCYTES RELATIVE PERCENT 12 % (BEAKER) (test code = 431) EOSINOPHILS RELATIVE PERCENT 13 % (BEAKER) (test code = 432) BASOPHILS RELATIVE PERCENT 1 % (BEAKER) (test code = 437) NEUTROPHILS ABSOLUTE COUNT 3.04 K/ L 1.56-6.13 (BEAKER) (test code = 670) LYMPHOCYTES ABSOLUTE COUNT 1.75 K/ L 1.18-3.74 (BEAKER) (test code = 414) MONOCYTES ABSOLUTE COUNT (BEAKER) 0.79 K/ L 0.24-0.36 H (test code = 415) EOSINOPHILS ABSOLUTE COUNT 0.85 K/ L 0.04-0.36 H (BEAKER) (test code = 416) BASOPHILS ABSOLUTE COUNT (BEAKER) 0.06 K/ L 0.01-0.08 (test code = 417) IMMATURE GRANULOCYTES-RELATIVE 1 % 0-1 PERCENT (BEAKER) (test code = 2801) RAD, CHEST, 1 VIEW, NON [id number] 10:07:00Reason for exam:->PICC LINE PLACEMENTShould this be performed at the bedside?->YesFINAL REPORT Exam: RAD, CHEST, 1 VIEW, NON DEPTDate: 02/06/2020 10:05 AM Indica tion: Line placement Comparison: Chest radiograph 02/02/2020 FINDINGS: Lines/Tubes:Interval removal ofright IJ central venous catheter. Interval placement of right PICC line which terminates in the SVC.Lungs:The lungs are well-inflated. Unchanged right lung nodules measuring up to 1.3 cm. No new focal consolidation or pulmonary edema. Pleura:No pleural effusion. No pneumothorax. Heart/Mediastinum:Thecardiomediastinal silhouette is normal in size and contour. Bones/Soft Tissues: No acute osseous injury. Abdomen: No free air below the diaphragm. IMPRESSION:Right PICC line terminates in the SVC. Unchanged right pulmonary nodules measuring up to 1.[address] should be considered on a nonurgent basis for further evaluation. Signed: Dane Stovall Verified Date/Time: 02/06/2020 10:07:30 Reading Location: [address] Transitional Reading Room XR chest 1 view portable / [id number] 10:07:00Interface, External Ris In - 02/06/2020 10:09 AM CDTFINAL REPORT Exam: RAD, CH EST, 1 VIEW, NON DEPTDate: 02/06/2020 10:05 AM Indication: Line placement Comparison: Chest radiograph 02/02/2020 FINDINGS: Lines/Tubes:Interval removal of right IJ central venous catheter. Interval placement of right PICC line which terminates in the SVC. Lungs:The lungs are well-inflated. Unchanged right lung nodules measuring up to 1.3 cm. No new focal consolidation or pulmonary edema. Pleura:No pleural effusion. No pneumothorax. Heart/Mediastinum:The cardiomediastinal silhouette is normal in size and contour. Bones/Soft Tissues: No acute osseous injury. Abdomen: No free air below the diaphragm. IM PRESSION:Right PICC line terminates in the SVC. Unchanged right pulmonary nodules measuring up to 1.[address] should be considered on a nonurgent basis for further evaluation. Signed: Dane Stovall Verified Date/Time: 02/06/2020 10:07:30 Reading Location: [address] Transitional [facility]Room [facility] 08[facility]29:00 Test Item Value Reference Range Interpretation Comments MAGNESIUM (BEAKER) (test code = 1.9 mg/dL 1.6-2.6 627) Urology Surgeon ID - ALFRED MBASIC METABOLIC [id number] 08:29:00 Test Item Value Reference Range Interpretation Comments SODIUM (BEAKER) 139 meq/L 136-145 (test code = 381) POTASSIUM (BEAKER) 4.1 meq/L 3.5-5.1 (test code = 379) CHLORIDE (BEAKER) 107 meq/L 98-107 (test code = 382) CO2 (BEAKER) (test 24 meq/L 22-29 code = 355) BLOOD UREA NITROGEN 15 mg/dL 7-21 (BEAKER) (test code = 354) CREATININE (BEAKER) 0.91 mg/dL 0.57-1.25 (test code = 358) GLUCOSE RANDOM 101 mg/dL 70-105 (BEAKER) (test code = 652) CALCIUM (BEAKER) 9.6 mg/dL 8.4-10.2 (test code = 697) EGFR (BEAKER) (test 61 mL/min/1.73 ESTIMA TAINA GFR IS code = 1092) sq m NOT ACCURATE CREATININE CLEARANCE IN PREDICTING GLOMERULAR FILTRATION RATE . ESTIMATED GFR I S NOT APPLICABLE FOR DIALYSIS PATIEN TS. Urology Surgeon ID - ALFRED [facility] W/PLT COUNT & AUTO [id number] 06:23:00 Test Item Value Reference Range Interpretation Comments WHITE BLOOD CELL COUNT 7.7 K/ L 3.5-10.5 (BEAKER) (test code = 775) RED BLOOD CELL COUNT 2.81 M/ L 3.93-5.22 L (BEAKER) (test code = 761) HEMOGLOBIN (BEAKER) 8.9 GM/DL 11.2-15.7 L (test code = 410) HEMATOCRIT (BEAKER) 29.1 % 34.1-44.9 L (test code = 411) MEAN CORPUSCULAR 103.6 fL 79.4-94.8 H Discordant MCV VOLUME (BEAKER) (test result s compared to code = 753) previous result s; clinical correl ation required. MEAN CORPUSCULAR 31.7 pg 25.6-32.2 HEMOGLOBIN (BEAKER) (test code = 751) MEAN CORPUSCULAR 30.6 GM/DL 32.2-35.5 L HEMOGLOBIN CONC (BEAKER) (test code = 752) RED CELL DISTRIBUTION 13.7 % 11.7-14.4 WIDTH (BEAKER) (test code = 412) PLATELET COUNT 229 K/CU MM 150-450 (BEAKER) (test code = 756) MEAN PLATELET VOLUME 10.4 fL 9.4-12.3 (BEAKER) (test code = 754) NUCLEATED RED BLOOD 0 /100 WBC 0-0 CELLS (BEAKER) (test code = 413) NEUTROPHILS RELATIVE 47 % PERCENT (BEAKER) (test code = 429) LYMPHOCYTES RELATIVE 27 % PERCENT (BEAKER) (test code = 430) MONOCYTES RELATIVE 11 % PERCENT (BEAKER) (test code = 431) EOSINOPHILS RELATIVE 13 % PERCENT (BEAKER) (test code = 432) BASOPHILS RELATIVE 1 % PERCENT (BEAKER) (test code = 437) NEUTROPHILS ABSOLUTE 3.66 K/ L 1.56-6.13 COUNT (BEAKER) (test code = 670) LYMPHOCYTES ABSOLUTE 2.07 K/ L 1.18-3.74 COUNT (BEAKER) (test code = 414) MONOCYTES ABSOLUTE 0.86 K/ L 0.24-0.36 H COUNT (BEAKER) (test code = 415) EOSINOPHILS ABSOLUTE 1.00 K/ L 0.04-0.36 H COUNT (BEAKER) (test code = 416) BASOPHILS ABSOLUTE 0.08 K/ L 0.01-0.08 COUNT (BEAKER) (test code = 417) IMMATURE 1 % 0-1 GRANULOCYTES-RELATIVE PERCENT (BEAKER) (test code = 2801) SURGICALLY OBTAINED CULTURE + GRAM [id number] 11:08:00 Test Item Value Reference Range Interpretation Comments CULTURE A <1+ Same organi sm has (BEAKER) (test been isolated from code = 1095) cultures(s) of the same body site and collection date . Repeat identifi cation and susceptibil ity testing perform ed only after consultat ion with the [facility] microbiology laboratory.Ente rococcu s species GRAM STAIN <1+ White blood RESULT (BEAKER) cells seen (test code = 1123) GRAM STAIN No organisms seen RESULT (BEAKER) (test code = 338560) SURGICALLY OBTAINED CULTURE + GRAM [id number] 11:07:00 Test Item Value Reference Interpretation Comments Range CULTURE (BEAKER) METHICILLIN A <1+ Methici llin (test code = 1095) RESISTANT resistant STAPHYLOCOCCUS Staphylococcu s AUREUS aureus Clindamycin (test R code = 10) Erythromycin (test R code = 4) Linezolid (test code S = 40) Nitrofurantoin (test S code = 23) Oxacillin (test code R = 14) Rifampin (test code = S 43) Tetracycline (test S code = 2) Trimethoprim + S Sulfamethoxazole (test code = 47) Vancomycin (test code S = 13) CULTURE (BEAKER) A <1+ Enteroc occus (test code = 1095) species CULTURE (BEAKER) STAPHYLOCOCCUS A <1+ Staph ylococcus (test code = 1095) EPIDERMIDIS epidermid is Clindamycin (test S code = 10) Erythromycin (test R code = 4) Linezolid (test code S = 40) Nitrofurantoin (test S code = 23) Oxacillin (test code R = 14) Rifampin (test code = S 43) Tetracycline (test S code = 2) Trimethoprim + R Sulfamethoxazole (test code = 47) Vancomycin (test code S = 13) GRAM STAIN RESULT 1+ White blood (BEAKER) (test code = cells seen 1123) GRAM STAIN RESULT No organisms seen (BEAKER) (test code = 499251) SURGICALLY OBTAINED CULTURE + GRAM [id number] 11:07:00 Test Item Value Reference Range Interpretation Comments CULTURE (BEAKER) ENTEROCOCCUS A <1+ Enteroc occus (test code = FAECALIS faecalis 1095) Ampicillin (test S code = 26) Linezolid (test S code = 40) Vancomycin (test S code = 13) GRAM STAIN RESULT <1+ White blood (BEAKER) (test cells seen code = 1123) GRAM STAIN RESULT No organisms seen (BEAKER) (test code = 558221) [id number] 09:46:00 Test Item Value Reference Range Interpretation Comments MAGNESIUM (BEAKER) (test code = 1.9 mg/dL 1.6-2.6 627) Urology Surgeon ID - HULL FBASIC METABOLIC [id number] 09:46:00 Test Item Value Reference Range Interpretation Comments SODIUM (BEAKER) 142 meq/L 136-145 (test code = 381) POTASSIUM (BEAKER) 4.2 meq/L 3.5-5.1 (test code = 379) CHLORIDE (BEAKER) 107 meq/L 98-107 (test code = 382) CO2 (BEAKER) (test 26 meq/L 22-29 code = 355) BLOOD UREA NITROGEN 19 mg/dL 7-21 (BEAKER) (test code = 354) CREATININE (BEAKER) 0.85 mg/dL 0.57-1.25 (test code = 358) GLUCOSE RANDOM 108 mg/dL 70-105 H (BEAKER) (test code = 652) CALCIUM (BEAKER) 9.6 mg/dL 8.4-10.2 (test code = 697) EGFR (BEAKER) (test 66 mL/min/1.73 ESTIMA TAINA GFR IS code = 1092) sq m NOT ACCURATE CREATININE CLEARANCE IN PREDICTING GLOMERULAR FILTRATION RATE . ESTIMATED GFR I S NOT APPLICABLE FOR DIALYSIS PATIEN TS. Urology Surgeon ID - CHRISS [id number] 11:06:00 Test Item Value Reference Range Interpretation Comments MAGNESIUM (BEAKER) (test code = 1.9 mg/dL 1.6-2.6 627) Urology Surgeon ID - TITOBASIC METABOLIC [id number] 11:06:00 Test Item Value Reference Range Interpretation Comments SODIUM (BEAKER) 139 meq/L 136-145 (test code = 381) POTASSIUM (BEAKER) 4.3 meq/L 3.5-5.1 (test code = 379) CHLORIDE (BEAKER) 107 meq/L 98-107 (test code = 382) CO2 (BEAKER) (test 24 meq/L 22-29 code = 355) BLOOD UREA NITROGEN 18 mg/dL 7-21 (BEAKER) (test code = 354) CREATININE (BEAKER) 0.97 mg/dL 0.57-1.25 (test code = 358) GLUCOSE RANDOM 102 mg/dL 70-105 (BEAKER) (test code = 652) CALCIUM (BEAKER) 9.8 mg/dL 8.4-10.2 (test code = 697) EGFR (BEAKER) (test 56 mL/min/1.73 ESTIMA TAINA GFR IS code = 1092) sq m NOT ACCURATE CREATININE CLEARANCE IN PREDICTING GLOMERULAR FILTRATION RATE . ESTIMATED GFR I S NOT APPLICABLE FOR DIALYSIS PATIEN TS. Urology Surgeon ID - TITOPreparandre [id number] 00:09:00 Test Item Value Reference Range Interpretation Comments Unit ABO (test code = A Pos 0595166) UNIT NUMBER (test code = [id number] 934-0) Status (test code = 0844447) WORK IN PROGRESS Blood Bank Product (test RED BLOOD CELLS code = 2263) PRODUCT CODE (test code = L9373Q57 933-2) CROSSMATCH (test code = COMPATIBLE 2264) [facility] [id number] 15:53:00 Test Item Value Reference Range Interpretation Comments Case Report (test code Surgical Pathology = 104) Report Case: [id number] Authorizing Provider: Marisol Flores MD Collected: 02/02/2020 03:53 PM Ordering Location: [facility] PERI[facility] Received: 02/03/2020 09:39 AM SERVICES Pathologist: Lauren Putnam MD Specimen: Explant, Hardware from previous surgery for ID: cup/head from right hip replacement DIAGNOSIS (test code = [id number] 3220) uZzEwMzNcZnRuYmpcdWMxIH itwmZnBIokc2SmC9CmJyWfD FxhbnNpXGRlZmxhbmcxMDMz GAR9qyKrKEUkVPeyMMXqZZf eYq2dgAHqmFidKwBqMSZle7 vocdTDxvdmdOe7p7bnAJWeX aO7dJSaXFftI1extrZwxMCf KIMsSEu4cR82CUSqeY5gcIU sIDtccmVkMFxncmVlbjBcYm o8DRRaU1qcLCDaERLgV5BvZ Y2oFFDwWgm5HGH2KVG4nOgp b0T5jIUejTQiiAhbZuPsDnK yHAGPt4IkQVl8qOqgN1XfTH RtNkK6qORbCIVvXUptQUFkV KIuvyI3pB68PHfporZ3xHPt l5Ioy98ep500bP0tvVXwWYS 9LPWnHYTjuNAqOGImWOA1BQ XytOAiY5t9HcCviLLzG4E7R bEwxKDqH5V0BvPiwMZrR0V7 YmIveUMmHMHzeSEaQk9tdCW auHHogt1sor00EAC3j6RhwI gyDRZ5RSH3XvTcZk3veOPfA ZNwUA2dIvUrxTNyGQUdse77 kZsuAFfcqxLwmR6sAcLhKFT bnSJlPYSxSX0ifESiTCXfcC 5ucmxjXHBnYnJkcmhlYWRcc FfailNhNx8kjCziPSS9RLtm S0cvgT6cVoP5DHvaA4xclQ8 uELk4PYpsgUK3TTCjeQ3zEE 8oexrnx5lfUrYrKE6pmhbea 3zdSeBpFQ2kuoc9w9ckZiOa HB0wsdxrt0iiOjDzYEgkBIZ efaydACQvq9FjkfewOBIlu5 AaA8BpgNhnV39cdRhoI89bR DMqhSlorZ2xiQbjrG3dQmGz ZnMyMFxxbFxwbGFpblxmMFx mczIwXHBsYWluXGYwXGZzMj AgrDEmPPKsgqSghCcorM7kY jBcZnMyMFxwbGFpblxmMVxm czIwIEEuIEhBUkRXQVJFLCB SSUdIVCBISVAgUkVQTEFDRU 0PCgCdNAiPA8CWLYOISS2UM bJTFA1WJH7THWg9TTSwwfko bFxwbGFpblxmMFxmczIwXHB sYWluXGYxXGZzMjAgICAgLS TDFDGFG5ULEQEHRRHYSSlQV HNPVSwBVXIcS8DVT8AjALCA T8JSOPNST33yCvinfHPkqpr jFRbgbdHoFJTyum76WGM7Lt Llb1E5EVA1CLCdRYVew2asI GVmbGFuZzEwMzNcZnRuYmpc cEQpXUAhAoVjr2ebm414oQS gu6pfDQTeXfN9uWYxQDRhsZ NlH331JAIvKKjue8jod8CiK DWgvJTcy4T7ZSCLidkrrHh9 zKtqK61ed6K2IyxdO4zcSDV aDADlU6YhEA4rVVWqExt6VN D3SAK4WUOeXBUtX9AiWK0nV NXiyHJtEMd0h6cnpSmxDJFh HAD6e8tcCXrispOlOL8ahd4 nrFo8h0wzyfWkIWSoQZWokR IFCMDaE6VdnXoiFz3pdTq1i YghWfdxFIX3Xgg4YN7ikn10 csx2rZttWSSvpkpuJpG4QVf jIDSzovwrGPx7QXiwOPHmtH W8YNKhnJCrB9RzNPBqXV8zj bm4BHA9HHikVJPzMnN9JGIj cAIsSQGrgIhwBUzgs212MLJ 2FoVeBL0wU3Mnr2Z1lS4zfL ScIEDdsQJvFyCcSEAllk4va WFtDUzci3ChRHW4rgO1aMPa nEWaWUFnRcE4UFaeQR4ikx7 9ATBxVNT3ko3rrWDipUirjt ZofSHuHNtdY2WpSXExo533J VFuA0JwFBPjr6G7nbApIvJh IYDdyJL0pdQ0CLVxQK6uxpm ql8bpDDpyNXrlREBpnsJ9kn D0ALSljNYyK8GtyW7yAFOyG O3rahvlf5rcUVE8HEvzFPUa QRB2PnJdYIRsk9Fxaha4FyF kk3DhmJGpAPacL12ub067QJ JspoAoI7gleAAcqemyfNShx cmsLMwemmO8OKRfDOzrlzzk OMHfADujB3ikGcFuAIWsfBi gDGadu4VjGPDrVJSiOiGeuS EgNVZcTly5MTYefSNxAATyO bZpO2oswhkzCmFOKPQbj2mn R4walFJYwMOjD9GoDUsptqU wEYelNEayCxVbBAj5CV93RP roNUTqqd26 CPT Code(s) (test code n3qieIEkRREeaVAiJhWjCZO = 3357) yASDrg2omZNJrbWKoPjExWc NcZnRuYmpcdWMxXGRlZmYwe 2mcg156bJUod2hjILIwQfL4 aXQjZOXgzWWgU638w5kiv4e gnkVpxVL5WPZeGQB8IGxjpj GdvbE5JNoedIPbFaM5YNoud fMlUOlqbjWquxAaRld5ITSn T848AQY9pLpoe8gmSVD5KZB vUHQeMcLzUy7fdASzO312GD JgUODMPRQldOh4QDEimsSih zYkoWQZy648O306q6chJEGx ufUpaWhGpehcx2taU568FWI hcGVydzEyMjQwXHBhcGVyaD S1QQQqOL5qvzetNgWtEJ4sj lawHrAxOF1yecj7WbNvCL6a cmdiNzIwXGhlYWRlcnkwXGZ bi7MnjeohDD8lL5Fyv6Q0cN 9maXRcZGVmdGFiNzIwXGZvc y8mbCKmMSxzu3JmZDU1ydY5 dREetQMeTBVmBL79Dbwah0E eUbbxAVT4ZGBzflLym2Gvv3 pnUeBvzzNbS6mbA7QnWBWoV FFkRBUxGuCnszPzy4Kww9Rg eCFgyJc7f3mqVRPrLZOqaHa ms3diYYL4ICZrJ7J6wLOru0 izPIuqDCSgfFK4slosYOvyI JYzbbM2bvchAJfaMBSkmDZ5 mecqYNtnKJLyQgB5cvnkSUh kNEEgPIV1UOngy441MME3AX xzYmtwYWdlXHBnbmNvbnRcc GduZGVjXHBsYWluXHBsYWlu XGYwXGZzMjRccWxccGxhaW5 yBsDyPaGkCUkoFA8gVQQjF9 mypDZqVMYjGSTyR8ceTtOdd Y6wxCpjAHbnurBmIWs6JiQm XHBhcn0= CLINICAL HISTORY (test k5uuhGIfNFSuhSCiPbAgTKT code = 3356) cWHZdf0leDTFvdFPaDmDpSc NcZnRuYmpcdWMxXGRlZmYwe 7pot974kGYic3qpQIEnWuE3 iXYiKNUtdXKsM649i5ala4t umtOvgCN9KQUkBIP4GMmahc SolwH1TCxtbHSeJsJ1LMlrn aSmZAgauvJzzoSqLft4AZQn A640EJQ4pBpbj0obTXO5GBR lIHGvTsAgOy7byPLcR658DM VrFMCMYOEsbYh4QRIgbwCxj uLtyYPGx628H233f2itHKAl jdLwgGhUhtvig7mcR074IPZ hcGVydzEyMjQwXHBhcGVyaD S6ZXOeZM8hdhadYdVzYI1lp pqxZoHxYF8wles5DbVdOZ0x cmdiNzIwXGhlYWRlcnkwXGZ or0NrzcnpHY9cC0Uqu1E5oT 9maXRcZGVmdGFiNzIwXGZvc b2dcBOoGHdkn1WbMCT3ecZ4 oMPqwFTiXNItCM49Ggymc5O aQvpyKBK3CXIfllYsp4Ras3 cuFjFhzpNnE4ooH5HlSHTlT JCcWFVcFbFovnKhi8Vkf8Ti bTOknKb1h9wsUTOwSHXafXj oa7yxQSD3VTAbS3B0iFVbu8 unQYwyVOIwaVK4nitxUFjzU HWpdrZ9qifeANgwSREzhOW8 fdetASfxXRNtYvI9tovsEQy sZAYbTJJ8AZlrz570MZI7VR xzYmtwYWdlXHBnbmNvbnRcc GduZGVjXHBsYWluXHBsYWlu XGYwXGZzMjRccWxccGxhaW5 xLnDrDiSkPBqcNY4vESXpJ2 fajFRtRZAyUMXdT6slCbScb S9pqMnsVUripdKaKZFcp8oj V9A9KJRimmhpyNLylD89XVt gaGlwLlxwYXJ9 SPECIMEN SOURCE (test c2ttgFVxWALzdYPiEsUmLZA code = 3377) iOJZnx2llHRAhlCBsLpFoMc NcZnRuYmpcdWMxXGRlZmYwe 0qfm646wXJwt6bsLHByJjZ1 tLYhEAKfzPDvM490a8seh3z iooKbpKF4NCEvZTT1STpjio WpemG0KHtfiMKaFfG7KPnsw yGiUJpfwyFhzfXpEky5ZSUq E145WBC6nYcwf9qcQTJ9QUT iXPXwKtXgAc6dfPQbG577WI VqUPAVQBHbcKb9SSPgypVrs rDalYLUz507S747l3cgAZPn wgTbkWkMsrkik2iiH168HFK hcGVydzEyMjQwXHBhcGVyaD C3CVTcRI6hjqezQrFeJV1mw icxScJcYR6uval8TvOhRG5h cmdiNzIwXGhlYWRlcnkwXGZ vz0GlrkiwJB5uX8Qug0V6aH 9maXRcZGVmdGFiNzIwXGZvc t8zkPIbBAgqg1KgPUB0deP3 aXBexSEjDWVdZI41Mqkhj6E pRubxPRI9WSBnrrYre2Pfs3 ntFnPudvAyB0suD8DlXDJeI KAxWCPdRdLnfdUed2Kay9Nz kYXbvRh8r7ntHIZoUJWnuAv og5nfRHM6IEYvX7D2yWZll7 dbTPieGPSmhFP2xfphVRruK YKbjmE9xgxjLEybPELrmIC4 hjqpTEreSMLuAsI9rdpwIBm sMSBlGLR6JOpip542DTU4ZT xzYmtwYWdlXHBnbmNvbnRcc GduZGVjXHBsYWluXHBsYWlu XGYwXGZzMjRccWxccGxhaW5 wHnViPiOdBDbrBJ4pQMTkN0 fceZCoNQGjTVCiD3ldPwLld A2jiMsdHRznqbEtPBV7aGoh bnQgXHBhcn0= GROSS DESCRIPTION n1sjlTWbCNGltOFnQqOpWOH (test code = 3366) eBHBzb1dbGPDucOYuBuJdBk NcZnRuYmpcdWMxXGRlZmYwe 1nwt885eFQiu6cuEUZjViC6 fWWzWWTlyDAbU997m8xzw3u eeuFhzSN3VVPcRVV7BMowep BskoD7CZxhxDMvVzT4HEsnp yPvQSkrzvMyviCbGjr0YEUr R625YJD9cPsuu3vfJOR1ZQX uXBOeWtVtDc8ipVPjH381SZ FkVNFJWOWdlAm9YEOvjwVhn lUdeRXAf565N450w6shLBJh chEnlYlAejbak6wxQ139WOS hcGVydzEyMjQwXHBhcGVyaD Y9MBEgOL4txmniCeSlAR1ov vsiCvLrMN9msfg6QwGrAG0a cmdiNzIwXGhlYWRlcnkwXGZ jl4DmllgxWV9oM9Krx2X5jK 9maXRcZGVmdGFiNzIwXGZvc f3jpZEuVZhhq8WtGBC8ikV7 qKRenKHjBZRjJQ20Tpaxp4Y lPaitAUE2XVDhlyXvf2Clv3 ofOtYzvgIqR0gzN7PpLMEqZ JKtTEPtLjXksnSig4Yzs1Nz qPAfxAe3w9kpHNTyHRBoyKx ky9vaVZC8TGReO0D6uNCbf2 fxNRtgGJWkxMO6pwmtFYfeQ KJqbxC7kxtkKYpjZYNlwBP7 fhewTXolVCLdIhX5egkkUQh wWEXrCNL9CChnf184HBT1JC xzYmtwYWdlXHBnbmNvbnRcc GduZGVjXHBsYWluXHBsYWlu XGYwXGZzMjRccWxccGxhaW5 cUnBaXcWtLVryZP1iHUWaY3 tcnVEuOHOuBFTjD1bfViOrx N4dgSlsHVnxvzHwKVRfV9Sl dmVkIGZyZXNoIGxhYmVsZWQ el7b1yAQ8lNVfuYM0sJVewW ztDX7taQYtVUTxM1Bjz3iaa gEjkV4mAPHqBS0yFRBpeYTx MP61PkCoafIfxVjoDFWgkFU 3YChlzQAmK1DcxVR7cpHukb M4EAaopCMqKFMpJCLzyhQfF fMuwcKhg9TsWRejNGxtlsA2 YXJlIHJhbmdpbmcgZnJvbSA zAnTguF0uGD8jCFFlRVnrIN lyEMO7QZE7JKVsaPAtd4zcn dckj5kfW7gjEOPoCXjou8Pt xTpsY85eq0vslOXysFY3ePR pJQQiHHMtXUCjXmMduV0iJE TkvEieYM1gKKZoR4zdnI7mE VyqEDXexSmno7yiQnJckaCq cmlwdGlvbiBpcyBpZGVudGl maWVkOlxwYXJccGFyICIwMT IrWJF6TrHuPJUppvYlXsB0S FpsOkOwwBKsSBBUTTW5UF7D RShaV6MXKgpdRAMwRuE8WVJ 6GVAxxNIyILFxdkUXEZszb1 ZjPXMfu6DsZ7UvyGrgyBAbi UMzQE3mEL2nSZWyN2Fzu33j LLLpVLQtjSCjwGQ4XDAuBPN teMBzM8EhWUSldqPex2XbV9 Uig0RjKKiqeNngGFQev74ky 56luK9zUXBtOWwqKLGmhw2= Gross assessment was [facility] performed at ([facility], code = 2777) Department of Pathology, [address] [place] [address], Technical component [facility] was performed at ([facility], code = 2778) Department of Pathology, [address] [place] [address], Professional component [facility] was performed at ([facility], code = 2779) Department of Pathology, [address] [place] [address], [id number] 15:53:00Surgical Pathology Report Case: [id number] Authorizing Provider: Marisol Flores MD Collected: 02/02/2020 03:53 PM Ordering Location: [facility] PERIOPERATIVE Received: 02/03/2020 09:39 AM SERVICES Pathologist: Lauren Putnam MD Specimen: Explant, Hardware from previous surgery for ID: cup/head from right hip replacement A. HARDWARE, RIGHT HIP REPLACEMENT, GROSS EXAMINATION ONLY: - HARDWARE IDENTIFIED (SEE GROSS DESCRIPTION). Signing Pathologist Direct Phone Line: [phone] signed by Lauren Putnam MD on 02/03/2020 at 3:53 [id number] right total hip.Explant Received fresh labeled with the patient's name, accession number and "explant" are three metallic narayan to narayan- white pieces of orthopedic hardware ranging from 2.3 to 5.0 cm in greatest dimension, which are grossly consistent with an acetabulum, ball andsocket. The following inscription is identified:"[id number]""[id number]""B 28 MM X STD""[id number]"A gross photograph is taken. No sections are submitted. This case is for gross examination only. PA/ew [facility], Department of Pathology, [address] [place] [address], [facility], [address] [place] [address], [facility], Department of [facility]ology, [address] [place] [address], HOCPIZMUS 2020-02-03 10:24:00 Test Item Value Reference Range Interpretation Comments MAGNESIUM (BEAKER) 1.8 mg/dL 1.6-2.6 Specimen slightly (test code = 627) hemolyzed Urology Surgeon ID - PIAYA LBASIC METABOLIC [id number] 10:24:00 Test Item Value Reference Range Interpretation Comments SODIUM (BEAKER) 136 meq/L 136-145 (test code = 381) POTASSIUM (BEAKER) 4.6 meq/L 3.5-5.1 Specimen slightly (test code = 379) hemolyzed CHLORIDE (BEAKER) 105 meq/L 98-107 (test code = 382) CO2 (BEAKER) (test 21 meq/L 22-29 L code = 355) BLOOD UREA NITROGEN 18 mg/dL 7-21 (BEAKER) (test code = 354) CREATININE (BEAKER) 0.90 mg/dL 0.57-1.25 Specimen slightly (test code = 358) hemolyzed GLUCOSE RANDOM 105 mg/dL 70-105 (BEAKER) (test code = 652) CALCIUM (BEAKER) 9.2 mg/dL 8.4-10.2 (test code = 697) EGFR (BEAKER) (test 62 mL/min/1.73 ESTIMA TAINA GFR IS code = 1092) sq m NOT ACCURATE CREATININE CLEARANCE IN PREDICTING GLOMERULAR FILTRATION RATE . ESTIMATED GFR I S NOT APPLICABLE FOR DIALYSIS PATIEN TS. Urology Surgeon ID - PIAYA LCBC (Hemogram only)2020-02-03 07:27:00 Test Item Value Reference Range Interpretation Comments WBC (test code = 6690-2) 13.4 3.5- 10.5 K/L H RBC (test code = 789-8) 2.94 3.93- 5.22 M/L L MCHC (test code = 786-4) 31.8 32.2- 35.5 GM/DL L Hematocrit (test code = 4544-3) 28.9 % 34.1-44.9 L MCV (test code = 787-2) 98.3 fL 79.4-94.8 H MCH (test code = 785-6) 31.3 pg 25.6-32.2 RDW (test code = 788-0) 13.2 % 11.7-14.4 Platelets (test code = 777-3) 236 150- 450 K/CU MM MPV (test code = 84521-4) 11.3 fL 9.4-12.3 nRBC (test code = 413) 0 0- 0 /100 WBC Lab Interpretation (test code = Abnormal 65656-9) [facility] (HEMOGRAM ONLY)2020-02-03 07:27:00 Test Item Value Reference Range Interpretation Comments WHITE BLOOD CELL COUNT (BEAKER) 13.4 K/ L 3.5-10.5 H (test code = 775) RED BLOOD CELL COUNT (BEAKER) 2.94 M/ L 3.93-5.22 L (test code = 761) HEMOGLOBIN (BEAKER) (test code = 9.2 GM/DL 11.2-15.7 L 410) HEMATOCRIT (BEAKER) (test code = 28.9 % 34.1-44.9 L 411) MEAN CORPUSCULAR VOLUME (BEAKER) 98.3 fL 79.4-94.8 H (test code = 753) MEAN CORPUSCULAR HEMOGLOBIN 31.3 pg 25.6-32.2 (BEAKER) (test code = 751) MEAN CORPUSCULAR HEMOGLOBIN CONC 31.8 GM/DL 32.2-35.5 L (BEAKER) (test code = 752) RED CELL DISTRIBUTION WIDTH 13.2 % 11.7-14.4 (BEAKER) (test code = 412) PLATELET COUNT (BEAKER) (test 236 K/CU MM 150-450 code = 756) MEAN PLATELET VOLUME (BEAKER) 11.3 fL 9.4-12.3 (test code = 754) NUCLEATED RED BLOOD CELLS 0 /100 WBC 0-0 (BEAKER) (test code = 413) SPIN/CONCENTRATION [id number] 03:49:00 Test Item Value Reference Range Interpretation Comments CONCENTRATION CHARGED (BEAKER) (test Done code = 2657) SPIN/CONCENTRATION [id number] 03:48:00 Test Item Value Reference Range Interpretation Comments Concentration charged (test code = Done 2657) [facility] [id number] 03:48:00 Test Item Value Reference Range Interpretation Comments CONCENTRATION CHARGED (BEAKER) (test Done code = 2657) RAD, PELVIS, 1 OR 2 [id number] 01:50:00Reason for exam:->right hip revisionFINAL REPORT CLINICAL HISTORY: Right hip revision COMPARISON: 01/31/2020 FINDINGS: A single intraoperative view of the right hip is submitted. 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 The femoral head prosthesis is not yet in place. There is soft tissue gas overlying the right hip related to operative changes. Please see the procedure report for full results. Signed: Cassandra Schafer MDReport Verified Date/Time: 02/03/2020 01:50:25 Hemoglobin and [id number] 22:24:00 Test Item Value Reference Range Interpretation Comments Hemoglobin (test code = 10.0 11.2- 15.7 GM/DL L 786-4) Hematocrit (test code = 31.5 % 34.1-44.9 L 4544-3) CLARICE (test code = CLARICE) Urology Surgeon ID - [id number] Lab Interpretation (test Abnormal code = 36383-9) [facility]HEMOGLOB[facility] [id number] 22:24:00 Test Item Value Reference Range Interpretation Comments HEMOGLOBIN (BEAKER) (test code = 10.0 GM/DL 11.2-15.7 L 410) HEMATOCRIT (BEAKER) (test code = 31.5 % 34.1-44.9 L 411) Urology Surgeon ID - [id number], CHEST, 1 VIEW, NON [id number] 22:03:00Reason for exam:->right IJ placementShould this be performed at the bedside?->Yes FINAL REPORT X-ray chest AP portable HISTORY: Right IJ catheter placement COMPARISON: None. FINDINGS: Right IJ route central venous catheter is seen with the tip terminating at the level below the olga. There is no pneumothorax. There is significant patient rotation on this exam making interpretation difficult. There is suspected cardiomegaly, atherosclerotic aorta, possible right middle lobe pneumonia, left middle and lower lung zone interstitial and airspace disease. A 12 mm nodule and a 9 mm nodule in the right upper and mid lung zones respectively. There is no acute bony or upper abdominal abnormality. Surgical lenard are seen in the left axilla. IMPRESSION: Right IJ central line and a good position. Multiple pulmonary abnormalities as described above. These can be best evaluated on a repeat study with better patient positioning. The pulmonary nodules should be compared with the prior exam. A CT chest may be considered also. Signed: Ok Mosquera MDReport VerifiedDate/Time: 02/02/2020 22:03:36 Reading Location: [address] Consult Reading Room RAD, PELVIS, 1 OR 2 [id number] 20:40:00STAT for PACUReason for exam:->Post op FINAL REPORT RAD, PELVIS, 1 OR 2 VIEWS CLINICAL HISTORY:Post op TECHNIQUE: RAD, PELVIS, 1 OR 2 VIEWS COMPARISON: February 01 2022 hours prior.IMPRESSION:Right hip total arthroplasty revision changes. Postoperative subcutaneous emphysema is reduced. Hardware appears stable without acute complication. Osseous alignment is anatomic. Mild gaseous distention of small bowel loops mayrepresent postoperative ileus but mechanical obstruction not excluded. Signed: Nino Aldana MDReport Verified Date/Time: 02/02/2020 20:40:20 XR pelvis 1 or 2 [id number] 20:40:00Interface, External Ris In - 02/02/2020 8:42 PM CDTFINAL REPORT RAD, PELVIS,1 OR 2 VIEWS CLINICAL HISTORY:Post op TECHNIQUE: RAD, PELVIS, 1 OR 2 VIEWS COMPARISON: February 01 2022 hours prior.IMPRESSION:Right hip total arthroplasty revision changes. Postoperative subcutaneous emphysema is reduced. Hardware appears stable without acute complication. Osseous alignment is anatomic. Mild gaseous distention of small bowel loops may represent postoperative ileus but mechanical obstruction not excluded. Signed: Nino Aldana MDReport Verified Date/Time: 02/02/2020 20:40:20 [facility] [id number] 17:44:00 Test Item Value Reference Range Interpretation Comments Unit ABO (test code = A Pos 3750328) UNIT NUMBER (test code = [id number] 934-0) Status (test code = RETURNED FROM ISSUE 3877210) Blood Bank Product (test FFP code = 2263) PRODUCT CODE (test code = F0180D01 933-2) [facility] HospitalAntibody [id number] 17:01:00 Test Item Value Reference Range Interpretation Comments ANTIBODY ID (BEAKER) UNID IgG (test code = 2253) Antibody Consult SIGNED OUT Nonspecific IgG (test code = 2479) reactivit y detected; this is likely of limited clinica l significance. F or transfusion pur poses, crossmatch comp atible RBCs will be se lected. Electronic Sign ature: Jazzy rico MD [facility] HospitalBlood gas, [id number] 15:22:00 Test Item Value Reference Range Interpretation Comments pH, Arterial (test code = 7.39 7.35-7.45 4-1) pCO2, Arterial (test code 41 35- 45 mmHg = 2018-12) pO2, Arterial (test code = 236 80- 90 mmHg H 3-7) O2 Sat, Arterial (test 99.5 % 96-97 H code = 2708-6) HCO3, Arterial (test code 24 mmol/L 21-29 = 1959-) Base Excess, Arterial -0.9 mmol/L -2-3 (test code = 1925-7) Patient Temperature (test 36.3 C code = 8310-5) FIO2 (test code = 1819) 50 % CLARICE (test code = CLARICE) FiO2: 50%, Temp 36.3CFiO2: 50%, Temp 36.3CFiO2: 50%, Temp 36.3CFiO2: 50%, Temp 36.3CFiO2: 50%, Temp 36.3C Lab Interpretation (test Abnormal code = 33282-8) [facility] HospitalCalcium, [id number] 15:22:00 Test Item Value Reference Range Interpretation Comments Calcium, Ion (test code = 1.09 mmol/L 1.12-1.27 L 1994-3) pH, Blood (test code = 7.38 21344-0) CLARICE (test code = CLARICE) FiO2: 50%, Temp 36.3C Lab Interpretation (test Abnormal code = 76830-8) [facility] HospitalHGB/HCT (H&H)-Stat [id number] 15:22:00 Test Item Value Reference Range Interpretation Comments Hemoglobin (test code = 9.6 g/dL 12-15 L 786-4) Hematocrit (test code = 28.0 % 36-45 L 4544-3) CLARICE (test code = CLARICE) FiO2: 50%, Temp 36.3CFiO2: 50%, Temp 36.3CFiO2: 50%, Temp 36.3CFiO2: 50%, Temp 36.3CFiO2: 50%, Temp 36.3C Lab Interpretation (test Abnormal code = 10236-6) [facility] HospitalGlucose-Stat [id number] 15:22:00 Test Item Value Reference Range Interpretation Comments Glucose (test code = 133 mg/dL 70-110 H 2345-7) CLARICE (test code = CLARICE) FiO2: 50%, Temp 36.3CFiO2: 50%, Temp 36.3CFiO2: 50%, Temp 36.3CFiO2: 50%, Temp 36.3CFiO2: 50%, Temp 36.3C Lab Interpretation (test Abnormal code = 16135-8) [facility] Na-Stat [id number] 15:22:00 Test Item Value Reference Range Interpretation Comments Sodium (test code = 134 meq/L 136-145 L 2951-2) CLARICE (test code = CLARICE) FiO2: 50%, Temp 36.3CFiO2: 50%, Temp 36.3CFiO2: 50%, Temp 36.3CFiO2: 50%, Temp 36.3CFiO2: 50%, Temp 36.3C Lab Interpretation (test Abnormal code = 61044-2) [facility] HospitalCALCIUM, [id number] 15:22:00 Test Item Value Reference Range Interpretation Comments CALCIUM IONIZED (BEAKER) (test 1.09 mmol/L 1.12-1.27 L code = 698) PH, BLOOD (BEAKER) (test code = 7.38 1810) FiO2: 50%, Temp 36.3CBLOOD GAS, [id number] 15:22:00 Test Item Value Reference Range Interpretation Comments PH ARTERIAL (BEAKER) (test code = 7.39 7.35-7.45 383) PCO2 ARTERIAL (BEAKER) (test code 41 mmHg 35-45 = 384) PO2 ARTERIAL (BEAKER) (test code 236 mmHg 80-90 H = 385) O2 SATURATION ARTERIAL (BEAKER) 99.5 % 96.0-97.0 H (test code = 386) HCO3 ARTERIAL (BEAKER) (test code 24 mmol/L 21-29 = 388) BASE EXCESS ARTERIAL (BEAKER) -0.9 mmol/L -2.0-3.0 (test code = 387) PATIENT TEMPERATURE (BEAKER) 36.3 C (test code = 1818) FIO2 (BEAKER) (test code = 1819) 50.0 % FiO2: 50%, Temp 36.3CFiO2: 50%, Temp 36.3CFiO2: 50%, Temp 36.3CFiO2: 50%, Temp 36.3CFiO2: 50%, Temp 36.3CSODIUM NA-STAT [id number] 15:22:00 Test Item Value Reference Range Interpretation Comments SODIUM (BEAKER) (test code = 381) 134 meq/L 136-145 L FiO2: 50%, Temp 36.3CFiO2: 50%, Temp 36.3CFiO2: 50%, Temp 36.3CFiO2: 50%, Temp 36.3CFiO2: 50%, Temp 36.3CGLUCOSE-STAT [id number] 15:22:00 Test Item Value Reference Range Interpretation Comments GLUCOSE RANDOM (BEAKER) (test code 133 mg/dL 70-110 H = 652) FiO2: 50%, Temp 36.3CFiO2: 50%, Temp 36.3CFiO2: 50%, Temp 36.3CFiO2: 50%, Temp 36.3CFiO2: 50%, Temp 36.3CHGB/HCT (H&H) - STAT [id number] 15:22:00 Test Item Value Reference Range Interpretation Comments HEMOGLOBIN (BEAKER) (test code = 9.6 g/dL 12.0-15.0 L 410) HEMATOCRIT (BEAKER) (test code = 28.0 % 36.0-45.0 L 411) FiO2: 50%, Temp 36.3CFiO2: 50%, Temp 36.3CFiO2: 50%, Temp 36.3CFiO2: 50%, Temp 36.3CFiO2: 50%, Temp 36.3CPotassium-Stat [id number] 15:18:00 Test Item Value Reference Range Interpretation Comments Potassium (test code = 3.8 meq/L 3.6-5.5 2823-3) CLARICE (test code = CLARICE) FiO2: 50%, Temp 36.3CFiO2: 50%, Temp 36.3CFiO2: 50%, Temp 36.3CFiO2: 50%, Temp 36.3CFiO2: 50%, Temp 36.3C Lab Interpretation (test Normal code = 96250-3) [facility] HospitalPOTASSIUM-STAT [id number] 15:18:00 Test Item Value Reference Range Interpretation Comments POTASSIUM (BEAKER) (test code = 3.8 meq/L 3.6-5.5 379) FiO2: 50%, Temp 36.3CFiO2: 50%, Temp 36.3CFiO2: 50%, Temp 36.3CFiO2: 50%, Temp 36.3CFiO2: 50%, Temp 36.3CGLUCOSE-STAT [id number] 14:34:00 Test Item Value Reference Range Interpretation Comments GLUCOSE RANDOM (BEAKER) (test code 107 mg/dL 70-110 = 652) Temp 35fio2 56%Temp 35fio2 56%Temp 35fio2 56%Temp 35fio2 56%Temp 35fio2 56% POTASSIUM-STAT [id number] 14:34:00 Test Item Value Reference Range Interpretation Comments POTASSIUM (BEAKER) (test code = 4.1 meq/L 3.6-5.5 379) Temp 35fio2 56%Temp 35fio2 56%Temp 35fio2 56%Temp 35fio2 56%Temp 35fio2 56%BLOOD GAS, [id number] 14:34:00 Test Item Value Reference Range Interpretation Comments PH ARTERIAL (BEAKER) (test code = 7.47 7.35-7.45 H 383) PCO2 ARTERIAL (BEAKER) (test code 38 mmHg 35-45 = 384) PO2 ARTERIAL (BEAKER) (test code = 158 mmHg 80-90 H 385) O2 SATURATION ARTERIAL (BEAKER) 99.2 % 96.0-97.0 H (test code = 386) HCO3 ARTERIAL (BEAKER) (test code 27 mmol/L 21-29 = 388) BASE EXCESS ARTERIAL (BEAKER) 2.6 mmol/L -2.0-3.0 (test code = 387) PATIENT TEMPERATURE (BEAKER) (test 35.0 C code = 1818) FIO2 (BEAKER) (test code = 1819) 56.0 % Temp 35fio2 56%Temp 35fio2 56%Temp 35fio2 56%Temp 35fio2 56%Temp 35fio2 56% SODIUM NA-STAT [id number] 14:34:00 Test Item Value Reference Range Interpretation Comments SODIUM (BEAKER) (test code = 381) 134 meq/L 136-145 L Temp 35fio2 56%Temp 35fio2 56%Temp 35fio2 56%Temp 35fio2 56%Temp 35fio2 56% HGB/HCT (H&H) - STAT [id number] 14:34:00 Test Item Value Reference Range Interpretation Comments HEMOGLOBIN (BEAKER) (test code = 8.2 g/dL 12.0-15.0 L 410) HEMATOCRIT (BEAKER) (test code = 24.0 % 36.0-45.0 L 411) Temp 35fio2 56%Temp 35fio2 56%Temp 35fio2 56%Temp 35fio2 56%Temp 35fio2 56%STAT- LAB IONIZED [id number] 14:33:00 Test Item Value Reference Range Interpretation Comments Filter Ionized Calcium 1.17 mmol/L (test code = 1994-0) CLARICE (test code = CLARICE) Reference Range: No Normals [facility] [id number] 14:33:00 Test Item Value Reference Range Interpretation Comments FILTER IONIZED CALCIUM (BEAKER) 1.17 mmol/L (test code = 1854) Reference Range: No [id number] 11:28:00 Test Item Value Reference Range Interpretation Comments MAGNESIUM (BEAKER) (test code = 2.0 mg/dL 1.6-2.6 627) Urology Surgeon ID - ROSALIO CBASIC METABOLIC [id number] 11:28:00 Test Item Value Reference Range Interpretation Comments SODIUM (BEAKER) 138 meq/L 136-145 (test code = 381) POTASSIUM (BEAKER) 4.5 meq/L 3.5-5.1 (test code = 379) CHLORIDE (BEAKER) 102 meq/L 98-107 (test code = 382) CO2 (BEAKER) (test 28 meq/L 22-29 code = 355) BLOOD UREA NITROGEN 17 mg/dL 7-21 (BEAKER) (test code = 354) CREATININE (BEAKER) 0.88 mg/dL 0.57-1.25 (test code = 358) GLUCOSE RANDOM 107 mg/dL 70-105 H (BEAKER) (test code = 652) CALCIUM (BEAKER) 9.7 mg/dL 8.4-10.2 (test code = 697) EGFR (BEAKER) (test 63 mL/min/1.73 ESTIMA TAINA GFR IS code = 1092) sq m NOT ACCURATE CREATININE CLEARANCE IN PREDICTING GLOMERULAR FILTRATION RATE . ESTIMATED GFR I S NOT APPLICABLE FOR DIALYSIS PATIEN TS. Urology Surgeon ID - ROSALIO CProthrombin time/[id number] 06:58:00 Test Item Value Reference Range Interpretation Comments Protime (test code = 14.3 11.9- 14.2 H 5902-2) seconds INR (test code = 1.14 <=5.90 6301-6) CLARICE (test code = CLARICE) Effective 10/22/2018: PT Reference Range ChangeNew: 11.9-14.2 Previous: 11.7-14.7 RECOMMENDED COUMADIN/WARFARIN INR THERAPY RANGESSTANDARD DOSE: 2.0-3.0 Includes: PROPHYLAXIS for venous thrombosis, systemic embolization; TREATMENT for venous thrombosis and/or pulmonary embolus.HIGH RISK: Target INR is 2.5-3.5 for patients wiht mechanical heart valves. Lab Interpretation Abnormal (test code = 39742-2) [facility]PTT[facility] 06:58:00 Test Item Value Reference Range Interpretation Comments PTT (test code = 54713-7) 36.4 22.5- 36.0 seconds H Lab Interpretation (test code = Abnormal 79468-0) [facility] HospitalPROTHROMBIN TIME/[id number] 06:58:00 Test Item Value Reference Range Interpretation Comments PROTIME (BEAKER) (test code = 14.3 seconds 11.9-14.2 H 759) INR (BEAKER) (test code = 370) 1.14 <=5.90 Effective 10/22/2018: PT Reference Range ChangeNew: 11.9-14.2 Previous: 11.7- 14.7RECOMMENDED COUMADIN/WARFARIN INR THERAPY RANGESSTANDARD DOSE: 2.0-3.0 Includes: PROPHYLAXIS for venous thrombosis, systemic embolization; TREATMENT for venous thrombosis and/or pulmonary embolus.HIGH RISK: Target INR is2.5-3.5 for patients wiht mechanical heart valves.[id number] 06:58:00 Test Item Value Reference Range Interpretation Comments PARTIAL THROMBOPLASTIN TIME 36.4 seconds 22.5-36.0 H (BEAKER) (test code = 760) CBC (HEMOGRAM ONLY)2020-02-02 06:46:00 Test Item Value Reference Range Interpretation Comments WHITE BLOOD CELL COUNT (BEAKER) 8.2 K/ L 3.5-10.5 (test code = 775) RED BLOOD CELL COUNT (BEAKER) 2.97 M/ L 3.93-5.22 L (test code = 761) HEMOGLOBIN (BEAKER) (test code = 9.1 GM/DL 11.2-15.7 L 410) HEMATOCRIT (BEAKER) (test code = 29.7 % 34.1-44.9 L 411) MEAN CORPUSCULAR VOLUME (BEAKER) 100.0 fL 79.4-94.8 H (test code = 753) MEAN CORPUSCULAR HEMOGLOBIN 30.6 pg 25.6-32.2 (BEAKER) (test code = 751) MEAN CORPUSCULAR HEMOGLOBIN CONC 30.6 GM/DL 32.2-35.5 L (BEAKER) (test code = 752) RED CELL DISTRIBUTION WIDTH 12.8 % 11.7-14.4 (BEAKER) (test code = 412) PLATELET COUNT (BEAKER) (test 211 K/CU MM 150-450 code = 756) MEAN PLATELET VOLUME (BEAKER) 10.8 fL 9.4-12.3 (test code = 754) NUCLEATED RED BLOOD CELLS 0 /100 WBC 0-0 (BEAKER) (test code = 413) [id number] 11:22:00 Test Item Value Reference Range Interpretation Comments MAGNESIUM (BEAKER) (test code = 2.0 mg/dL 1.6-2.6 627) Urology Surgeon ID - YOKASTA MBASIC METABOLIC [id number] 11:22:00 Test Item Value Reference Range Interpretation Comments SODIUM (BEAKER) 138 meq/L 136-145 (test code = 381) POTASSIUM (BEAKER) 4.2 meq/L 3.5-5.1 (test code = 379) CHLORIDE (BEAKER) 103 meq/L 98-107 (test code = 382) CO2 (BEAKER) (test 28 meq/L 22-29 code = 355) BLOOD UREA NITROGEN 20 mg/dL 7-21 (BEAKER) (test code = 354) CREATININE (BEAKER) 1.02 mg/dL 0.57-1.25 (test code = 358) GLUCOSE RANDOM 115 mg/dL 70-105 H (BEAKER) (test code = 652) CALCIUM (BEAKER) 9.8 mg/dL 8.4-10.2 (test code = 697) EGFR (BEAKER) (test 53 mL/min/1.73 ESTIMA TAINA GFR IS code = 1092) sq m NOT ACCURATE CREATININE CLEARANCE IN PREDICTING GLOMERULAR FILTRATION RATE . ESTIMATED GFR I S NOT APPLICABLE FOR DIALYSIS PATIEN TS. Urology Surgeon ID Christ TEMPLETON MPT/[id number] 07:29:00 Test Item Value Reference Range Interpretation Comments Protime (test code = 15.0 11.9- 14.2 H 5902-2) seconds INR (test code = 1.21 <=5.90 6301-6) PTT (test code = 45.4 22.5- 36.0 H 48048-3) seconds CLARICE (test code = CLARICE) Effective 10/22/2018: PT Reference Range ChangeNew: 11.9-14.2 Previous: 11.7-14.7 RECOMMENDED COUMADIN/WARFARIN INR THERAPY RANGESSTANDARD DOSE: 2.0-3.0 Includes: PROPHYLAXIS for venous thrombosis, systemic embolization; TREATMENT for venous thrombosis and/or pulmonary embolus.HIGH RISK: Target INR is 2.5-3.5 for patients wiht mechanical heart valves. Lab Interpretation Abnormal (test code = 95241-2) [facility] HospitalPT/[id number] 07:29:00 Test Item Value Reference Range Interpretation Comments PROTIME (BEAKER) (test code = 15.0 seconds 11.9-14.2 H 759) INR (BEAKER) (test code = 370) 1.21 <=5.90 PARTIAL THROMBOPLASTIN TIME 45.4 seconds 22.5-36.0 H (BEAKER) (test code = 760) Effective 10/22/2018: PT Reference Range ChangeNew: 11.9-14.2 Previous: 11.7- 14.7RECOMMENDED COUMADIN/WARFARIN INR THERAPY RANGESSTANDARD DOSE: 2.0-3.0 Includes: PROPHYLAXIS for venous thrombosis, systemic embolization; TREATMENT for venous thrombosis and/or pulmonary embolus.HIGH RISK: Target INR is2.5-3.5 for patients wiht mechanical heart valves.CBC (HEMOGRAM ONLY)2020-02-01 07:21:00 Test Item Value Reference Range Interpretation Comments WHITE BLOOD CELL COUNT (BEAKER) 9.4 K/ L 3.5-10.5 (test code = 775) RED BLOOD CELL COUNT (BEAKER) 2.89 M/ L 3.93-5.22 L (test code = 761) HEMOGLOBIN (BEAKER) (test code = 9.3 GM/DL 11.2-15.7 L 410) HEMATOCRIT (BEAKER) (test code = 29.1 % 34.1-44.9 L 411) MEAN CORPUSCULAR VOLUME (BEAKER) 100.7 fL 79.4-94.8 H (test code = 753) MEAN CORPUSCULAR HEMOGLOBIN 32.2 pg 25.6-32.2 (BEAKER) (test code = 751) MEAN CORPUSCULAR HEMOGLOBIN CONC 32.0 GM/DL 32.2-35.5 L (BEAKER) (test code = 752) RED CELL DISTRIBUTION WIDTH 12.8 % 11.7-14.4 (BEAKER) (test code = 412) PLATELET COUNT (BEAKER) (test 220 K/CU MM 150-450 code = 756) MEAN PLATELET VOLUME (BEAKER) 10.9 fL 9.4-12.3 (test code = 754) NUCLEATED RED BLOOD CELLS 0 /100 WBC 0-0 (BEAKER) (test code = 413) FL, ASPIRATION, HIP, [id number] 15:48:00Send cell count, gram stain, cultureReason for exam:->R hip dislocation s/p MARY, rule out hip infection per orthoFINAL REPORT Fluoroscopic guided right hip aspiration History: Patient with recent dislocation of right total hip arthroplasty. Technique: Written informed consent was obtained after discussing risks, benefits, and alternatives of the procedure with the patient. Patient was brought to the fluoroscopy suite and placed in supine position. Fluoroscopic imaging demonstrates posterior, superior dislocation of the right hip joint. The patient is status post right total hip arthroplasty, with inverted acetabular cup. A suitable percutaneous access site was chosen overlying the inferolateral aspect of the acetabular cup, as requested by the referring clinician. Overlying skin wasprepared and draped in the usual sterile fashion. Overlying tissues were anesthetized with dilute Lidocaine for local anesthesia. Using fluoroscopic guidance, an 22 gauge spinal needle was advanced onto the inferolateral aspect of the acetabular cup. [employer] images saved in the patient's medical record. Aspiration was attempted. No fluid was obtained from the hip joint. Needle was removed. Hemostasis achieved at puncture site by direct compression. The patient tolerated the procedure well. There were no complications. Impression: Fluoroscopic guided intra-articular needle placement within the right hip joint. Aspiration was attempted, yielding no fluid. Fluoroscopy time: 0.8 minutes Number of fluoroscopic images obtained: 4 Signed: Yonatan Lagos MDReport Verified Date/Time: 01/31/2020 15:48:19 Reading Location: [address] Transitional Reading Room [place] aspiration hip [id number] 15:48:00Interface, External Ris In - 01/31/2020 3:50 PM CDTFINAL REPORT Fluoroscopicguided right hip aspiration History: Patient with recent dislocation of right total hip arthroplasty. Technique: Written informed consent was obtained after discussing risks, benefits, and alternatives of the procedure with the patient. Patient was brought to the fluoroscopy suite and placed in supine position. Fluoroscopic imaging demonstrates posterior, superior dislocation of the right hip joint. The patient is status post right total hip arthroplasty, with inverted acetabular cup. A suitable percutaneous access site was chosen overlying the inferolateral aspect of the acetabular cup, as reque sted by the referring clinician. Overlying skin was prepared and draped in the usual sterile fashion. Overlying tissues were anesthetized with dilute Lidocaine for local anesthesia. Using fluoroscopic guidance, an 22 gauge spinal needle was advanced onto the inferolateral aspect of the acetabular cup. [employer] images saved in the patient's medical record. Aspiration was attempted. No fluid was obtained from the hip joint. Needle was removed. Hemostasis achieved at puncture site by direct compression. The patient tolerated the procedure well. There were no complications. Impression: Fluoro scopic guided intra-articular needle placement within the right hip joint. Aspiration was attempted,yielding no fluid. Fluoroscopy time: 0.8 minutes Number of fluoroscopic images obtained: 4 Signed: Yonatan Lagos MDReport Verified Date/Time: 01/31/2020 15:48:19 Reading Location: [address] Reading [facility], WO [id number] 15:42:00 Unlisted Reason for Exam - Click Yes and Enter Reason Below->YesUnlisted Reason for Exam->Evaluate right periprosthetic hip dislocation for surgical planningFINAL REPORT CT pelvis without contrast HISTORY: Periprosthetic hip dislocation, surgical planning COMPARISON: X-rays of same date Technique: serial axial imaging was performed without intravenous contrast as per departmental protocol. Multiplanar images are reconstructed and reviewed when indicated. This CT examination is performed using one or more of the following dose reduction techniques: Automated exposure control, adjustment of the mA and /or kV according to patient size, and/or use of iterative reconstruction technique. FINDINGS: The patient is status post right total hip arthroplasty the femoral component of the arthroplasty appears well situated within the medullary space of the proximal femur. The right femoral head component is dislocated posteriorly and superiorly with respect to the right acetabulum. The acetabular component of the arthroplasty is significantly displaced, with the cup opening posteriorly and superiorly. No acute fracture is identified. Mild diffuse osteopenia is noted. Mild degenerative changes of the symphysis pubis. Moderate L4-L5 and L5-S1 degenerative disc disease is noted. A lateral soft tissue fluid collection is noted, which likely represents a postoperative seroma or evolving hematoma. This measures 12.5 x 11.4 x 7.7 cm in size. Within the pelvis, small amount of nonspecific free fluid is seen. The uterus appears absent. IMPRESSION:1. Posterosuperior dislocation of the right hip.2. The acetabular component of the right total hip arthroplasty is significantly displaced within the right acetabular fossa. The cup now opens posteriorly and superiorly.3. 12.5 x 11.4 x 7.7 cm complex collection within the subcutaneous fat lateralto the right hip, likely a postoperative seroma or evolving hematoma. Signed: Yonatan Lagos MDReport Verified Date/Time: 01/31/2020 15:42:10 Reading Location: [address] Transitional Reading Room CT pelvis without IV [id number] 15:42:00Interface, External Ris In - 01/31/2020 3:[address] pelvis without contrast HISTORY: Periprosthetic hip dislocation, surgical planning COMPARISON: X-rays of same date Technique: serial axial imaging was performed without intravenous contrast as per departmental protocol. Multiplanar images are reconstructed and reviewed when indicated. This CT examination is performed using one or more of the following dose reduction techniques: Automated exposure control, adjustment of the mA and /or kV according to patient size, and/or use of iterative reconstruction technique. FINDINGS: The patient is status post right total hip arthroplasty the femoral component of thearthroplasty appears well situated within the medullary space of the proximal femur. The right femoral head component is dislocated posteriorly and superiorly with respect to the right acetabulum. The acetabular component of the arthroplasty is significantly displaced, with the cup opening posteriorlyand superiorly. No acute fracture is identified. Mild diffuse osteopenia is noted. Mild degenerativechanges of the symphysis pubis. Moderate L4-L5 and L5-S1 degenerative disc disease is noted. A lateral soft tissue fluid collection is noted, which likely represents a postoperative seroma or evolving hematoma. This measures 12.5 x 11.4 x 7.7 cm in size. Within the pelvis, small amount of nonspecific free fluid is seen. The uterus appears absent. IMPRESSION:1. Posterosuperior dislocation of the right hip.2. The acetabular component of the right total hip arthroplasty is significantly displaced within the right acetabular fossa. The cup now opens posteriorly and superiorly.3. 12.5 x 11.4 x 7.7 cm complex collection within the subcutaneous fat lateral to the right hip, likely a postoperative seroma or evolving hematoma. Signed: Yonatan Lagos MDReport Verified Date/Time: 01/31/2020 15:42:10 Reading Location: [address] Transitional Reading Room Electronically signed by: Eulalio RICO 01/31/2020 03:42 [facility], [id number] 14:14:00 Test Item Value Reference Range Interpretation Comments ABO/RH AUTOMATED (BEAKER) A POSITIVE (test code = 2260) Ab Scrn (test code = 890-4) POSITIVE done on echo [facility], [id number] 13:22:00 Test Item Value Reference Range Interpretation Comments Rh Factor (test code = 2589) POS ABO Grouping (test code = 2588) A [facility] 12 [id number] 12:31:58Interface, External Ris In - 01/31/2020 12:32 PM CDTVentricular Rate 72 BPMAtrial Rate 72 BPMP-R Interval 182 msQRS Duration 82 msQ-T Interval 378 msQTC Calculation(Kaela) 413 msP [place] 44 degreesR [place] -12 degreesT [place] 39 degreesNormal sinus rhythmNormal ECGWhen compared with ECG of 29-OCT-2001 21:37,No significant change was foundConfirmed by MD NELSON, MANDA ([id number]) on 01/31/2020 12:31:57 PMCUSC [facility]Reactive [id number] 12:26:00 Test Item Value Reference Range Interpretation Comments CRP (test code = 676) 2.11 mg/dL 0-0.5 H CLARICE (test code = CLARICE) Urology Surgeon ID - CHRISS F Lab Interpretation (test Abnormal code = 27980-9) [facility]ACTIVE [id number] 12:26:00 Test Item Value Reference Range Interpretation Comments C-REACTIVE PROTEIN (BEAKER) (test 2.11 mg/dL 0.00-0.50 H code = 676) Urology Surgeon ID - CHRISS CAREYD, PELVIS, 1 OR 2 [id number] 10:03:00Reason for exam:->right hip dislocationFINAL REPORT Pelvis, one view History:Right hip dislocation Comparison:01/30/2020 Findings: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 The acetabular c omponent appears vertically oriented. The study is limited by large patient body habitus. No additional significant bone or joint space abnormality is appreciated. Signed: Yonatan Lagos MDReport Verified Date/Time: 01/31/2020 10:03:40 Reading Location: [address] Transitional Reading Room El ectronically signed by: YONATAN LAGOS MD on 01/31/2020 10:03 AMPTH, intact 2020-01-31 04:30:00 Test Item Value Reference Range Interpretation Comments PTH (test code = 2731-8) 138.2 pg/mL 8.5-72.5 H CLARICE (test code = CLARICE) Urology Surgeon ID - ALFRED M Lab Interpretation (test Abnormal code = 86562-9) [facility] 04:30:00 Test Item Value Reference Range Interpretation Comments Phosphorus (test code = 3.3 mg/dL 2.3-4.7 2777-1) CLARICE (test code = CLARICE) Urology Surgeon ID Christ SIMON M Lab Interpretation (test Normal code = 63732-4) [facility], [id number] 04:30:00 Test Item Value Reference Range Interpretation Comments PARATHYROID HORMONE INTACT 138.2 pg/mL 8.5-72.5 H (BEAKER) (test code = 577) Urology Surgeon ID - ALFRED [id number] 04:30:00 Test Item Value Reference Range Interpretation Comments PHOSPHORUS (BEAKER) (test code = 3.3 mg/dL 2.3-4.7 604) Urology Surgeon ID - ALFRED [id number] 04:30:00 Test Item Value Reference Range Interpretation Comments MAGNESIUM (BEAKER) (test code = 2.0 mg/dL 1.6-2.6 627) Urology Surgeon ID - ALFRED MBASIC METABOLIC [id number] 04:30:00 Test Item Value Reference Range Interpretation Comments SODIUM (BEAKER) 137 meq/L 136-145 (test code = 381) POTASSIUM (BEAKER) 4.1 meq/L 3.5-5.1 (test code = 379) CHLORIDE (BEAKER) 103 meq/L 98-107 (test code = 382) CO2 (BEAKER) (test 27 meq/L 22-29 code = 355) BLOOD UREA NITROGEN 18 mg/dL 7-21 (BEAKER) (test code = 354) CREATININE (BEAKER) 1.00 mg/dL 0.57-1.25 (test code = 358) GLUCOSE RANDOM 102 mg/dL 70-105 (BEAKER) (test code = 652) CALCIUM (BEAKER) 9.8 mg/dL 8.4-10.2 (test code = 697) EGFR (BEAKER) (test 55 mL/min/1.73 ESTIMA TAINA GFR IS code = 1092) sq m NOT ACCURATE CREATININE CLEARANCE IN PREDICTING GLOMERULAR FILTRATION RATE . ESTIMATED GFR I S NOT APPLICABLE FOR DIALYSIS PATIEN TS. Urology Surgeon ID - ALFRED MSARS-COV2/RT-PCR ([facility])2020-01-30 21:00:00 Test Item Value Reference Range Interpretation Comments SARS-COV2/RT-PCR (test Negative Not Detected, Negative, code = 0316861) See external report for linked test SARS-COV-2 PERFORMING LAB [facility] LOLITA (test code = 2659706) Negative result for this test determines that SARS-CoV-2 RNA was not present in the specimen above the Limit of Detection (LOD). However, Negative results do not preclude SARS-CoV-2 infection and should not be used as the sole basis for treatment or patient management decisions. Negative results mustbe combined with clinical observations, patient history, and epidemiological information. A false negative result may occur if a specimen is improperly collected, transported or handled. A false negative result should be considered if patient's recent exposures or clinical presentation indicate that COVID-19 (SARS-CoV-2) is likely and diagnostic tests for other causes of illness are negative. Re-testing should be considered in cases of suspected false negatives.The limit of detection for this assay is 800 copies/mL.This SARS CoV-2 test is a real-time RT-PCR test intended for the qualitative detection of nucleic acid from SARS-CoV-2 in a nasopharyngeal swab specimen collected from individuals susp ected of COVID-19 by their healthcare provider.This test has not been Food and Drug Administration (FDA) cleared or approved. This is a modified version of an approved [...] is revoked under Section 564(g) of the Act.Fact Sheet for Healthcare Providers:https://www.[employer]/sites/default/files/product/documents/Fact_Shee d_PZ_Fagtgylod_Syzr_XZYO-MhH-0.pdfFact Sheet for Healthcare Patients:https://www.[employer]/sites/default/files/product/ documents/Yynn_Nmpdy_Vlaoahdf_Zxkq_XNMJ-XsO-9.pdfPerforming Laboratory:[facility] [place], [place] [address]more Jose.[place], [place] [address]CBZ/Free T4 If [id number] 17:58:00 Test Item Value Reference Range Interpretation Comments TSH (test code = 96416-8) 2.609 0.350- 4.940 uIU/mL CLARICE (test code = CLARICE) Urology Surgeon ID - DB Lab Interpretation (test Normal code = 37890-6) [facility]/FREE T4 IF [id number] 17:58:00 Test Item Value Reference Range Interpretation Comments THYROID STIMULATING HORMONE 2.609 uIU/mL 0.350-4.940 (BEAKER) (test code = 772) Urology Surgeon ID - DBComprehensive metabolic [id number] 17:35:00 Test Item Value Reference Range Interpretation Comments Protein, Total (test 7.0 6.0- 8.3 gm/dL Speci men slightly code = 2885-2) hemolyzed Albumin (test code = 3.8 g/dL 3.5-5 Specime n slightly 00440-5) hemolyzed Alkaline Phosphatase 100 U/L 40-150 (test code = 6768-6) Total Bilirubin (test 0.5 mg/dL 0.2-1.2 Specim en slightly code = 1975-2) hemolyzed Sodium (test code = 137 meq/L 144-630 6373-2) Potassium (test code = 4.4 meq/L 3.5-5.1 Speci men slightly 2823-3) hemolyzed Chloride (test code = 104 meq/L 98-107 2075-0) CO2 (test code = 24 meq/L 22-29 2028-9) BUN (test code = 22 mg/dL 7-21 H 3094-0) Creatinine (test code 1.17 mg/dL 0.57-1.25 Specim en slightly = 2160-0) hemolyzed Glucose (test code = 103 mg/dL 70-105 2345-7) Calcium (test code = 9.7 mg/dL 8.4-10.2 09077-2) AST (test code = 19 U/L 5-34 Specimen sl ightly 1920-8) hemolyzed ALT (test code = 11 U/L 6-55 Specimen sl ightly 1742-6) hemolyzed EGFR (test code = 45 mL/min/1.73 [place] [address]-5) NOT ACCURATE CREATININE CLEARANCE IN PREDICTING GLOMERULAR FILTRATION RATE . ESTIMATED GFR I S NOT APPLICABLE FOR DIALYSIS PATIENTS. CLARICE (test code = CLARICE) Urology Surgeon ID - DB Lab Interpretation Abnormal (test code = 01962-3) [facility]2020-[facility] 17:35:00 Test Item Value Reference Range Interpretation Comments MAGNESIUM (BEAKER) 2.1 mg/dL 1.6-2.6 Specimen slightly (test code = 627) hemolyzed Urology Surgeon ID - DBCOMPREHENSIVE METABOLIC [id number] 17:35:00 Test Item Value Reference Range Interpretation Comments TOTAL PROTEIN 7.0 gm/dL 6.0-8.3 Specimen sligh tly (BEAKER) (test code = hemoly zed 770) ALBUMIN (BEAKER) 3.8 g/dL 3.5-5.0 Specimen sl ightly (test code = 1145) hemolyzed ALKALINE PHOSPHATASE 100 U/L 40-150 (BEAKER) (test code = 346) BILIRUBIN TOTAL 0.5 mg/dL 0.2-1.2 Specimen sli ghtly (BEAKER) (test code = hemoly zed 377) SODIUM (BEAKER) (test 137 meq/L 136-145 code = 381) POTASSIUM (BEAKER) 4.4 meq/L 3.5-5.1 Specimen slightly (test code = 379) hemolyzed CHLORIDE (BEAKER) 104 meq/L 98-107 (test code = 382) CO2 (BEAKER) (test 24 meq/L 22-29 code = 355) BLOOD UREA NITROGEN 22 mg/dL 7-21 H (BEAKER) (test code = 354) CREATININE (BEAKER) 1.17 mg/dL 0.57-1.25 Specimen slightly (test code = 358) hemolyzed GLUCOSE RANDOM 103 mg/dL 70-105 (BEAKER) (test code = 652) CALCIUM (BEAKER) 9.7 mg/dL 8.4-10.2 (test code = 697) AST (SGOT) (BEAKER) 19 U/L 5-34 Specimen slightly (test code = 353) hemolyzed ALT (SGPT) (BEAKER) 11 U/L 6-55 Specimen slightly (test code = 347) hemolyzed EGFR (BEAKER) (test 45 mL/min/1.73 ESTIMA TAINA GFR IS code = 1092) sq m NOT ACCURATE CREATININE CLEARANCE IN PREDICTING GLOMERULAR FILTRATION RATE . ESTIMATED GFR I S NOT APPLICABLE FOR DIALYSIS PATIEN TS. Urology Surgeon ID - DBRAD, HIP, MIN 4 VIEWS, [id number] 17:21:00Reason for exam:- >recent right total hip arthroplasty, ?dislocationFINAL REPORT TECHNIQUE: Multiple views of the right hip. INDICATION: 74-year-old woman with recent right total hip arthroplasty. COMPARISON: None. FINDINGS:Suboptimal lateral views due to overlying electronic structures and body habitus. Superior dislocation of the femoral component of the right hip prosthesis in relation to the acetabular component.No acute fractures.Soft tissu es are grossly unremarkable. IMPRESSION:Superior dislocation of the femoral component of the right hip prosthesis in relation to the acetabular component. Signed: Ba White MDReport Verified Date/Time: 01/30/2020 17:21:57 Reading Location: [facility] B1 C013Y CT Body Reading Room XR Hip 4 Views, [id number] 17:21:00Interface, External Ris In - 01/30/2020 5:24 PM CDTFINAL REPORT TECHNIQUE: Multiple views of the right hip. INDICATION: 74-year-old woman with recent right total hip arthroplasty. COMPARISON: None. FINDINGS:Suboptimal lateral views due to overlying electronic structures and body habitus. Superior dislocation of the femoral component of the right hip prosthesis in relation to the acetabular component.No acute fractures.Soft tissues are grossly unremarkable. IMPRESSION:Superiordislocation of the femoral component of the right hip prosthesis in relation to the acetabular component. Signed: Ba White MDReport Verified Date/Time: 01/30/2020 17:21:57 Reading Location: [facility] C[facility] Body Reading Room [facility] [id number] 17:17:00 Test Item Value Reference Range Interpretation Comments PROTIME (BEAKER) (test code = 14.9 seconds 11.9-14.2 H 759) INR (BEAKER) (test code = 370) 1.20 <=5.90 PARTIAL THROMBOPLASTIN TIME 25.7 seconds 22.5-36.0 (BEAKER) (test code = 760) Effective 10/22/2018: PT Reference Range ChangeNew: 11.9-14.2 Previous: 11.7- 14.7RECOMMENDED COUMADIN/WARFARIN INR THERAPY RANGESSTANDARD DOSE: 2.0-3.0 Includes: PROPHYLAXIS for venous thrombosis, systemic embolization; TREATMENT for venous thrombosis and/or pulmonary embolus.HIGH RISK: Target INR is2.5-3.5 for patients wiht mechanical heart valves.CBC (HEMOGRAM ONLY)2020-01-30 17:09:00 Test Item Value Reference Range Interpretation Comments WHITE BLOOD CELL COUNT (BEAKER) 8.9 K/ L 3.5-10.5 (test code = 775) RED BLOOD CELL COUNT (BEAKER) 3.82 M/ L 3.93-5.22 L (test code = 761) HEMOGLOBIN (BEAKER) (test code = 11.9 GM/DL 11.2-15.7 410) HEMATOCRIT (BEAKER) (test code = 38.9 % 34.1-44.9 411) MEAN CORPUSCULAR VOLUME (BEAKER) 101.8 fL 79.4-94.8 H (test code = 753) MEAN CORPUSCULAR HEMOGLOBIN 31.2 pg 25.6-32.2 (BEAKER) (test code = 751) MEAN CORPUSCULAR HEMOGLOBIN CONC 30.6 GM/DL 32.2-35.5 L (BEAKER) (test code = 752) RED CELL DISTRIBUTION WIDTH 12.6 % 11.7-14.4 (BEAKER) (test code = 412) PLATELET COUNT (BEAKER) (test 197 K/CU MM 150-450 code = 756) MEAN PLATELET VOLUME (BEAKER) 10.6 fL 9.4-12.3 (test code = 754) NUCLEATED RED BLOOD CELLS 0 /100 WBC 0-0 (BEAKER) (test code = 413)
[2020-02-08] MEDS: LIDOCAINE 4% PATCH TOP SCH (17:41)
[2020-02-08] MEDS: ENOXAPARIN 30 MG/0.3 ML SQ SCH (18:48)
[2020-02-08] MEDS ORDERED: VANCOMYCIN 1.75 GM in NA CHLORIDE 0.9% 500 ML IVPB SCH (20:00)
[2020-02-08] MEDS: PROPRANOLOL HCL 10 MG TAB PO SCH (20:18)
[2020-02-08] MEDS ORDERED: AMITRIPTYLINE 50 MG TAB PO SCH (21:00)
[2020-02-08] MEDS ORDERED: DOCUSATE NA/SENNA CONC 1 TAB PO PRN (22:41)
[2020-02-08] MEDS: ACETAMINOPHEN 500 MG TAB PO PRN (23:18)
[2020-02-09 00:20] LABS: Urine Appearance CLEAR; Urine Blood NEGATIVE (NEG); Urine Color ORANGE; Urine Glucose NEGATIVE (NEG); Urine Protein NEGATIVE (NEG); Urine Specific Gravity 1.025 (1.005-1.030); Urine pH 5.5 (5.0-7.0)
[2020-02-09 00:24] LABS: Urine Bilirubin NEGATIVE (NEG)
[2020-02-09 01:31] LABS: Urine Culture Reflex Order NOT NEEDED
[2020-02-09 01:32] LABS: Calcium Oxalate Crystals- Ur MANY (NONE SEEN); Urine RBC NONE SEEN /HPF (NONE SEEN)
[2020-02-09 01:33] LABS: Urine Bacteria <20 /HPF (<20)
[2020-02-09 06:03] LABS: Absolute Lymphocytes (CBC) 1.3 K/uL (0.7-4.9); Hematocrit 25.8 % (36.0-45.0); Lymphocytes % 21.2 % (15.3-44.8); MPV 8.6 fL (7.6-11.3); RBC Red Blood Cell Count 2.72 M/uL (3.86-4.86)
[2020-02-09 06:28] LABS: Albumin 2.8 g/dL (3.4-5.0); Magnesium 2.2 mg/dL (1.8-2.4); Potassium 3.8 mmol/L (3.5-5.1); Prealbumin 13.2 mg/dL (20-40)
[2020-02-09] MEDS ORDERED: LEVOTHYROXINE SOD 0.025 MG TAB PO SCH (06:30)
[2020-02-09] MEDS ORDERED: LEVOTHYROXINE SOD 0.112 MG TAB PO SCH (06:30)
[2020-02-09] MEDS: ENOXAPARIN 30 MG/0.3 ML SQ SCH (07:04)
[2020-02-09] MEDS: LIDOCAINE 4% PATCH TOP SCH (07:45)
[2020-02-09] MEDS: AMLODIPINE 10 MG TAB PO SCH (07:46)
[2020-02-09] MEDS: PROPRANOLOL HCL 10 MG TAB PO SCH ×2 (09:06→14:51)
[2020-02-09] MEDS: ACETAMINOPHEN 500 MG TAB PO PRN ×2 (09:06→20:35)
--- NOTE | 2020-02-09 12:30 | HP ---
Date of Admission: 02/09/2020 Chief Complaint: For rehab after hip surgery. History Of Present Illness: This is a 74-year-old female patient who had surgery done for right hip replacement due to osteoarthritis by Dr. Chawla in approximately 2 weeks after surgery while she was at home walking with her walker. The patient says that all of a sudden she heard and felt something popped in her right hip area and she started to go down to the floor. She did not have a free fall, she slowly managed to sit down on the floor, and ambulance was called and she was brought to the emergency room. In the ER, she was noted to have superior dislocation of the right hip prosthesis and she was transferred to [place]. Dr. Chawla was out of town at that time, so the patient was to [place]. While she was in [place], she had surgery done for this and intraoperatively the cultures collected from this right hip region has grown 3 different bacteria and it is Enterococcus, Staph aureus, Staph epidermidis, so the patient was diagnosed as having prosthetic joint infection and was started on vancomycin and rifampicin on 02/05/2020 and plan is to provide 6 weeks of IV antibiotics. PICC line was placed and she was transferred to our rehab floor yesterday. I have reviewed available records from [place] and she was having some encephalopathy problem due to narcotic pain medication, so she was managed with Tylenol and Celebrex. Her chest x-ray had shown some bilateral pulmonary nodules which will require further investigation. I have reviewed multiple prior chest x-rays at our hospital and there was no mention of any pulmonary nodules. 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 We have not seen that reported in our chest x-ray at our hospital. Allergies: NO KNOWN ALLERGIES. Medications: At home she takes amitriptyline 100 mg at bedtime, amlodipine 5 mg daily in morning, anastrozole 1 mg daily, levothyroxine 75 mcg p.o. daily, losartan 100 mg p.o. daily, naproxen 500 mg 2 times a day as needed for arthritis, and propranolol XL 80 mg 1 capsule by mouth daily. Review of Systems: Musculoskeletal: As mentioned above, significant for hip pain. All other systems reviewed and negative. Past Medical History: Significant for hypothyroidism, impaired fasting glucose, hypertension, hyperlipidemia, left breast cancer, osteoarthritis at multiple sites, fibromyalgia, osteoporosis. Past Surgical History: Left breast mastectomy, hysterectomy, left knee arthroplasty surgery and right hip arthroplasty surgery done last month in December 2019. Family History: Father had a stroke. Mother had stomach cancer. Brother had Alzheimer disease. Social History: Negative for alcohol use. Prior history of smoking but not at present time. The patient quit smoking long time ago. Physical Examination: Vital Signs: Last blood pressure this morning 180/77, pulse 77, height 5 feet 4 inches, weight 232 pounds. Temperature 98.3, respiratory rate 16, oxygen saturation 96%. General: Awake, alert, oriented, not in distress. HEENT: Head atraumatic, normocephalic. Conjunctivae nonerythematous. Sclerae white. Mouth, no thrush or edema noted. Ears/Nose, no mass, lesion, discharge noted. Neck: Supple. No JVD, lymph nodes, bruit, thyromegaly noted. Lungs: Bilateral good equal air entry. Clear to auscultation. No rhonchi. No rales. Heart: Normal heart sounds, no murmur or gallop. Abdomen: Soft, bowel sounds normal. No guarding, rigidity, tenderness, mass, hepatosplenomegaly, distention, or bruit noted. Extremities: No leg edema. No calf tenderness. Right hip exam; the patient has a long surgical scar with presence of sutures, right lateral hip. No evidence of discharge or bleeding or redness. Skin: No rash, ulcer, cellulitis. Lymphatics: No lymph node enlargement in neck, supraclavicular, infraclavicular region. Neuro: No focal neurological deficit. Chest: Unremarkable. External Genitalia: Deferred. Rectal: Deferred. Laboratory Data: White count 6.1, hemoglobin 8.8, platelets 215. Sodium 146, potassium 3.8, chloride 112, bicarb 31, BUN 13, creatinine 0.93, glucose 110, prealbumin 13.2, albumin 2.8, magnesium 2.2. Urinalysis; 2+ esterase, wbc 5-10, bacteria less than 20. COVID-19 test came back negative. Impression: 1. Prosthetic joint infection, right hip. 2. Anemia, due to acute blood loss. 3. Hypertension. 4. Hyperlipidemia. 5. Hypothyroidism. 6. Impaired fasting glucose. 7. Left breast cancer. 8. Pulmonary nodules. 9. Osteoarthritis, multiple sites. 10. Fibromyalgia. 11. Osteoporosis. Plan: Admit the patient to the hospital for further evaluation and management of this problem. We will consult Dr. Ross from rehab floor to manage the patient's physical therapy aspect. We will continue home medications per order. Monitor blood pressure, adjust blood pressure medication if it becomes necessary. Give iron supplement. We will give her some stool softener. DVT prophylaxis with Lovenox will be given per order. I have ordered a repeat chest x-ray to be done here and also we will do CAT scan of the chest without contrast. Continue pain medications per order and the patient informed me that she does not want to have any followup visit with Dr. Chawla, so we will not put any consultation request for him. We will continue her current antibiotics, vancomycin, and rifampicin seen, and consult pharmacy to manage vancomycin dosing. The patient has a PICC line in place in the right arm. PICC line site appears normal. KALEE/SHASHANK Voice ID: [id number] MTDD
--- NOTE | 2020-02-09 13:40 | RAD REPORT ---
EXAM DESCRIPTION: CT - Thorax Wo Con - 02/09/2020 12:33 pm CLINICAL HISTORY: Pulmonary nodule TECHNIQUE: Computed axial tomography of the chest was obtained. Contrast was not requested. All CT scans are performed using dose optimization technique as appropriate and may include automated exposure control or mA/KV adjustment according to patient size. FINDINGS: The evaluation of mediastinum, desean and vessels is limited secondary to lack of IV contras t administration. Several calcified granulomas right lung. Mild tree-in-bud opacities right lung. Left lung is clear. T iny subpleural pulmonary nodules likely benign Calcified mediastinal and calcified hilar lymph nodes. Coronary arterial calcifications A pleural effusion is not present. No pericardial effusion Hepatic and splenic granulomata. Left mastectomy IMPRESSION: Calcified right lung granuloma is, calcified lymph nodes, hepatic and splenic granulomat a indicative of prior granulomatous disease Mild tree-in-bud opacities may indicate a mild atypical pneumonia
[2020-02-09] MEDS ORDERED: ENOXAPARIN 40 MG/0.4 ML SQ SCH (17:00)
--- NOTE | 2020-02-09 19:30 | R.HP ---
HISTORY AND PHYSICAL FACILITY: [facility] ENCOUNTER DATE AND TIME: 02/09/2020 19:23 (CDT) MR#: [id number] NAME AMIRAH MAYNARD ADDRESS: [address] [place] [address] CITY: [place]IP [id number] PHONE: DATE OF : 1945 AGE: 74 SSN# [id number] GENDER: Female DEXTERITY Right-handed MARITAL STATUS RACE Unknown race PRE-HOSPITAL LIVING SETTING 01 - Home (private home/apt. board/care, assisted living, halfway, transitional living) PRE-HOSPITAL LIVING WITH Alone ENCOUNTER PHYSICIAN: Dr. Charly Ross M.D. REFERRING DOCTOR: KORINA BAIRD DATE OF ADMISSION: 02/08/2020 14:07 (CDT) REFERRING FACILITY [facility] PRIMARY CARE PHYSICIAN [place] HOME TYPE AND DETAILS: Type of home: single family house # of levels in the residence: 1 # of steps within the residence: 0 # of steps to enter the residence: 0 ONSET DATE: 01/30/2020 PRIMARY DIAGNOSIS-RELATED SURGERIES: Emergency Unilateral Hip Fracture - performed by KORINA BAIRD on 01/30/2020 HISTORY OF PRESENT ILLNESS (HPI): Currently, she has deficits of Locomotion, Balance, Transfers Control, Self-Care, and Endurance. On 01/30/2020 she was admitted to [facility] and underwent emergency surgery for RI GHT HIP FRACTURE (Unilateral Hip Fracture) by KORINA BAIRD. Pre-morbidly, Pt. was independent/mod-I in Locomotion, Balance, Safety Awareness, Sphincter Control, Self-Care, and Communication; and she had good Social Cognition and Endurance. Pt. is now referred to [facility] for acute in-patient rehabilitation in order to maximize patient's functional independence in activities of daily living, strength, ROM, and mobi lity. Pt. is a 74 yo Right-handed female of unknown race. Patient has realistic goal of being discharged at assistance level 7-Ind to reside at Home with Pt s elf. Amirah Maynard is a 74 year -old female that lives independently at home in her one story home. She has no stairs to get into his house. She was able to do daily activated on her own prior. Mrs. Maynard has a history of HTN, hypothyroidism, L breast cancer in remission, s/p L TKA who presents with acute R hip dislocation after a R MARY on 01/06/2020 and is now s/p L hip revision on 02/03/[address] Flores. Pt WBAT with posterior hip precautions. To f u/p in clinical in 2-3 weeks for suture removal. She has done all of her own caring, Cooking and laundry. She performs all her own ADLs and IADLs. Prior to COVID she was seeing her PCP regularly. The patient would most definitely benefit from acute inpatient rehab and has become severely debilitated and unable to live at her prior level of activity at home Getting her stronger and better to be back living at home independently is our goal. It is reasonable and necessary for the patient to come to acute inpatient rehab for approximately 7-10 days in order to return to her prior level of care. She now being transferre d to [facility] rehabilitation and is medically stable with relatively stable labs. She is now medically stable but in need of 24 hour nursing, doctor supervision and oversight while receiving active and ongoing participate in 3 hours of therapy a day/15 hours per week and receive care with intensive interdisciplinary approach. COVID-19 screening performed; spoke with patient via phone. Patient denies new onset of fever, cough, difficulty breathing, sore throat, body aches and non-allergy nasal congestion in the past 24 hours. Patient denies travel outside of [place] in the past 14 days. Patient denies any contact with someone who has a confirmed diagnosis of or is under investigation for COVID-19 in the past 14 days. Patient has been tested negative for COVID- 19. MEDICATION ALLERGIES: No Known Drug Allergies (NKDA) ENVIRONMENTAL ALLERGIES: - Substance Allergies None Known - Other Allergies None Known PAST MEDICAL HISTORY: HTN Hypothyroidism, unspecified (E03.9) L BREAST CANCER IN REMISSION R HIP DISLOCATION PAST SURGICAL HISTORY: PLACEMENT WOUND VAC RIGHT HIP REVISION 02/02/20 TOTAL HIP ARTHROPLASTY 01/06/20 SOCIAL HISTORY: - Home Living Alone REVIEW OF SYSTEMS: - Gen No Chills Fatigue No Fever - Eyes No Double Vision No itchiness - ENMT No Difficulty Swallowing - CVS No Chest Discomfort No Chest Pain Fatigue No Weight Gain - Resp No Cough No Shortness of Breath - GI Continent No Abdominal Pain Constipation No Diarrhea - Continent No Kidney Pain No Painful Urination No Urinary Urgency - MSK Joint Pain No Muscle Cramps Stiffness - Skin No Itching No Rash No Suspicious Lesions - Neuro Coordination Difficulty No Difficulty with Concentration No Memory Loss No Seizures Weakness - Psych No Anxiety No Depression No HIV Exposure No Persistent Infections No Seasonal Allergies - Endo No Cold/Heat Intolerance No Excessive Hunger No Excessive Thirst No Excessive Urination PHYSICAL EXAM - Gen Alert and awake Lying in bed No apparent distress Oriented to: person, time, and place - Skin No skin breakdown. No abnormalities - Eyes No abnormalities - ENMT No abnormalities - Neck No abnormalities - CVS RRR - Chest No abnormalities - Abd Soft - GI Non distended Deferred - No abnormalities - Ext Right hip surgical site has good hemostasis. - MSK 4+/5 weakness in right lower extremity - Neuro 4/5 strength right lower extremity. - Psych No abnormalities VITAL SIGNS Temperature: 97.9 SBP/DBP: 150/65 Pulse: 77 Resp: 16 NURSING: - Shower allowing shower - Skin care per protocol PRECAUTIONS: - Anterior Hip Precaution No abduction No active extension No adduction across midline No external rotation No hip flexion >90 degrees No internal rotation - Posterior Hip Precaution No adduction across midline No external rotation No hip flexion >90 degrees No internal rotation No wheel chair propulsion - Weight Bearing Precaution WBAT right LE ACTIVITIES OOB only with supervision QI SCORES: - Self-Care A. Eating 03-Partial/moderate assistance B. Oral hygiene 03-Partial/moderate assistance C. Toileting hygiene 03-Partial/moderate assistance E. Shower/bathe self 03-Partial/moderate assistance G. Lower body dressing 88-Not attempted due to medical condition or safety concerns H. Putting on/taking off footwear 88-Not attempted due to medical condition or safety concerns - Mobility M. 1 step (curb) 88-Not attempted due to medical condition or safety concerns N. 4 steps 88-Not attempted due to medical condition or safety concerns O. 12 steps 88-Not attempted due to medical condition or safety concerns P. Picking up object 88-Not attempted due to medical condition or safety concerns R. Wheel 50 feet with two turns 88-Not attempted due to medical condition or safety concerns A. Roll left and right 03-Partial/moderate assistance B. Sit to lying 03-Partial/moderate assistance C. Lying to sitting on side of bed 03-Partial/moderate assistance D. Sit to stand 04-Supervision or touching assistance E. Chair/jmo-jt-[id number] transfer 03-Partial/moderate assistance F. Toilet transfer 03-Partial/moderate assistance G. Car transfer 88-Not attempted due to medical condition or safety concerns I. Walk 10 feet 88-Not attempted due to medical condition or safety concerns J. Walk 50 feet with two turns 88-Not attempted due to medical condition or safety concerns K. Walk 150 feet 88-Not attempted due to medical condition or safety concerns L. Walking 10 feet on uneven surfaces 88-Not attempted due to medical condition or safety concerns S. Wheel 150 feet 88-Not attempted due to medical condition or safety concerns - Bladder and Bowel Bladder continence Bowel continence - Endurance Fair - Balance Fair - Safety Awareness Fair CURRENT FUNC. DEFICITS: Self-Care, Mobility, Endurance, Balance, and Safety Awareness MEDICATIONS: - Other See attached MAR (Medication Administration Record) ASSESSMENT: Pt. is a 74 yo Right-handed female of unknown race.Currently, she has deficits of Locomotion, Balance , Transfers Control, Self-Care, and Endurance.On 01/30/2020 she was admitted to [facility] and underwent emergency surgery for RIGHT HIP FRACTURE (Unilateral Hip Fracture) by Shahid BAIRD.Pre-morbidly, Pt. was independent/mod-I in Locomotion, Balance, Safety Awareness, Sphincter Co ntrol, Self-Care, and Communication; and she had good Social Cognition and Endurance.Pt. is now refer red to [facility] for acute in-patient rehabilitation in order to maximize pat ient's functional independence in activities of daily living, strength, ROM, and mobility.- Rehab Goa l Patient has realistic goal of being discharged at assistance level 7-Ind to reside at Home with Pt s elf. Amirah Maynard is a 74 year -old female that lives independently at home in her one story home. She has no stairs to get into his house. She was able to do daily activated on her own prior. Mrs. Maynard has a history of HTN, hypothyroidism, L breast cancer in remission, s/p L TKA who presents with acute R hip dislocation after a R MARY on 01/06/2020 and is now s/p L hip revision on 02/03/[address] Flores. Pt WBAT with posterior hip precautions. To f u/p in clinical in 2-3 weeks for suture removal. She has done all of her own caring, Cooking and laundry. She performs all her own ADLs and IADLs. Prior to COVID she was seeing her PCP regularly. The patient would most definitely benefit from acute inpatient rehab and has become severely debilitated and unable to live at her prior level of activity at home Getting her stronger and better to be back living at home independently is our goal. It is reasonable and necessary for the patient to come to acute inpatient rehab for approximately 7-10 days in order to return to her prior level of care. She now being transferre d to [facility] rehabilitation and is medically stable with relatively stable labs. She is now medically stable but in need of 24 hour nursing, doctor supervision and oversight while receiving active and ongoing participate in 3 hours of therapy a day/15 hours per week and receive care with intensive interdisciplinary approach. COVID-19 screening performed; spoke with patient via phone. Patient denies new onset of fever, cough, difficulty breathing, sore throat, body aches and non-allergy nasal congestion in the past 24 hours. Patient denies travel outside of [place] in the past 14 days. Patient denies any contact with someone who has a confirmed diagnosis of or is under investigation for COVID-19 in the past 14 days. Patient has been tested negative for COVID- 19.REHAB PLAN: - Physical Therapy Decreased range of motion - to improve, our physical therapists will perform initial evaluation of pt 's status upon admission and devise an individualized program for increasing patient's Range of Motio n. Gait dysfunction - to improve, our physical therapists will perform initial evaluation of pt's status upon admission and devise an individualized program for Gait Training, and Wheel Chair mobility Inability to transfer - to improve, our physical therapists will perform initial evaluation of pt's s tatus upon admission and devise an individualized program for Bed mobility Need for home safety evaluation - to improve, our physical therapists will perform initial evaluation of pt's status upon admission and devise an individualized program for Home Evaluation Need in caregiver upon discharge - to improve, our physical therapists will perform initial evaluatio n of pt's status upon admission and devise an individualized program for Caregiver Training New precaution - to improve, our physical therapists will perform initial evaluation of pt's status u juan jose admission and devise an individualized program for Patient precaution education Poor balance - to improve, our physical therapists will perform initial evaluation of pt's status upo n admission and devise an individualized program for Balance Training Poor endurance - to improve, our physical therapists will perform initial evaluation of pt's status u juan jose admission and devise an individualized program for Endurance Training Weakness - to improve, our physical therapists will perform initial evaluation of pt's status upon ad mission and devise an individualized program for Aquatic Therapy, Neuromuscular Reeducation, and Stre ngthening Achieving independence - to improve, our physical therapists will perform initial evaluation of pt's status upon admission and devise an individualized program for Community Reintegration Activities - Occupational Therapy ADL deficits - to improve, our occupation therapists will perform initial evaluation of pt's status u juan jose admission and devise an individualized program for Bathing, Bed mobility, Community Reintegration , Cooking, Dressing, Eating, Fine Motor Skills, Grooming, Homemaking, Kitchen Mobility, Laundry, Eloisa ent Education, Safety Awareness, Splinting - Positioning, Transfers(Toilet, Tub, Shower), and Wheel C hair Management Need for intensive care unit registered nurse - to improve, our occupation therapists will perform initial evaluation of pt's s tatus upon admission and devise an individualized program for Caregiver Training Weakness - to improve, our occupation therapists will perform initial evaluation of pt's status upon admission and devise an individualized program for Aquatic Therapy, Balance, Endurance, UE ROM, and U E strengthening MEDICAL PLAN: - Anterior Hip Precaution No abduction No active extension No adduction across midline No external rotation No hip flexion >90 degrees No internal rotation - Diet - Liquid Texture Start Regular - Tube Feed Start N/A - Diet Type Start Regular - Posterior Hip Precaution No adduction across midline No external rotation No hip flexion >90 degrees No internal rotation No wheel chair propulsion - Weight Bearing Precaution WBAT right LE - Skin care per protocol - Other See attached MAR (Medication Administration Record) - Diet - Solid Texture Regular - Shower shower DISCHARGE PLAN: - Estimated Length of Stay (days) 14. - Consensus on plan Discharge plan has been discussed with primary caregiver. Patient/Family is in agreement with the meagan n. Primary caregiver is in agreement with the plan. - Patient/Family Goals Return home independently. - Planned Living Setting Upon Discharge Home, to live alone. Transitional Living. Primary caregiver: Pt self. SIGNATURE PANEL: (CDT)
--- NOTE | 2020-02-09 19:33 | PAPE ---
POST ADMISSION PHYSICIAN EVALUATION PATIENT: [facility] MR# [id number] REFERRING DOCTOR KORINA BAIRD PRIMARY CARE PHYSICIAN [place] EVALUATION DATE AND TIME 02/09/2020 19:29 (CDT) NAME RUSSEL MAYNARD DATE OF 1945 AGE 74 PHONE SSN# [id number] GENDER female EVALUATING PHYSICIAN Dr. Charly Ross M.D. ADMISSION DIAGNOSIS: RIGHT HIP FRACTURE ONSET DATE 01/30/2020 POST-ADMISSION FUNCTIONAL/MEDICAL STATUS: - Bladder Same accident frequency: Ind - No accidents in the past 7 days - Bowel Same accident frequency: Ind - No accidents in the past 7 days - Walking Same score based on distance walked: 0(N/A) - Wheelchair Same score based on distance traveled: 0(N/A) STATUS CHANGE EVALUATION: No change in Functional or Medical Status is identified compared with Pre-Admission screening. PATIENT NEEDS CLOSE MEDICAL SUPERVISION BY A REHABILITATION PHYSICIAN FOR: Coordination of Treatment Team Post-Op Complications PATIENT REQUIRES 24X7 REHAB NURSING FOR MEDICAL AND FUNCTIONAL MGT. OF THE FOLLOWING DEFICITS: Disease Management Medication Management Patient/Family Education Providing Safe Environment PATIENT REQUIRES INTENSIVE, COORDINATED INTERDISCIPLINARY APPROACH TO REHAB: Arranging Home Equipment/Services Discharge Planning Family Intervention/Training Sports Instructor/Case Management LIST OF IDENTIFIED AND POTENTIAL PROBLEMS: Alteration in leisure activities Bladder, Incontinence Bowel, Incontinence Infection, Actual or Potential Mobility Impaired Pain, Alteration in Comfort Self Care Deficit Skin Integrity, Actual or Potential Urinary Tract Infection (UTI), Actual or Potential PATIENT COULD BE AT RISK FOR COMPLICATIONS FROM ADVERSE MEDICAL CONDITIONS DUE TO HIS/HER COMORBIDITI ES AND THE RIGORS OF THE INTENSIVE REHABILLITATION PROGRAM. METHODS OR INTERVENTIONS TO AVOID COMPLIC ATIONS INCLUDE: - Infection Clinical staff to assess and manage the signs and symptoms of infection including fever, redness, war mth, etc. - Urinary Tract Infection - Falls Patient will be evaluated for Fall Precautions and will be placed on Fall Precautions as indicated pe r protocol. - Skin Breakdown Nursing will assess skin daily using assessment tool and will place on Skin Breakdown Precautions as indicated per protocol. - Pain Clinical staff may employ non-medication methods such as massage, distraction, decrease stimulus, etc . as needed. Clinical staff will assess patient's pain level every shift per protocol to assess and e nsure pain management effectiveness. Medications will be given and the pain level re-assessed. PRELIMINARY PLAN OF CARE: - Physical Therapy Patient needs Physical Therapy for a daily minimum of 1.5 hours at least 5 out of 7 days, to improve: Mobility, Strengthening, Transfers, Stretching, ROM, Endurance, Ability to manage stairs, Gait, and Balance. - Speech Therapy Patient needs Speech Therapy for a daily minimum of 0.5 hours at least 5 out of 7 days, to improve: S wallowing, Cognition, Language Skills, and Compensatory Strategies. - Rehabilitation Nursing Patient requires 24x7 Rehabilitation Nursing for: Pain Issues, Identifying and preventing risk factor s, Monitoring and reporting current medical conditions, Assisting with ambulation and transfer, Lyndsay ting with all ADL-s, Teaching patients about disease process and medications, Family teaching, Provid ing safe environment, Bowel and Bladder Issues, Skin Integrity, and Medication Management. Patient needs Sports Instructor and/or Case Management for: Discharge Planning, Arranging Home Equipmen t or Services, and Family Interventions. - Dietary and Nutrition Services Patient needs Dietary and Nutrition Services for: Adequate Nutrition, Nutritional Supplements, and Nu tritional Education. - Occupational Therapy Patient needs Occupational Therapy for a daily minimum of 1.5 hours at least 5 out of 7 days, to impr ove Activities of Daily Living, including: Eating, Grooming, Bathing, Dressing, Toileting, Toilet Tra nsfers, Community Reintegration, Higher functional activities, Adaptive Equipment, Splinting, Househo ld Tasks, and Other activities as determined. QI SCORES: - Self-Care A. Eating 03-Partial/moderate assistance B. Oral hygiene 03-Partial/moderate assistance C. Toileting hygiene 03-Partial/moderate assistance E. Shower/bathe self 03-Partial/moderate assistance G. Lower body dressing 88-Not attempted due to medical condition or safety concerns H. Putting on/taking off footwear 88-Not attempted due to medical condition or safety concerns - Mobility M. 1 step (curb) 88-Not attempted due to medical condition or safety concerns N. 4 steps 88-Not attempted due to medical condition or safety concerns O. 12 steps 88-Not attempted due to medical condition or safety concerns P. Picking up object 88-Not attempted due to medical condition or safety concerns R. Wheel 50 feet with two turns 88-Not attempted due to medical condition or safety concerns A. Roll left and right 03-Partial/moderate assistance B. Sit to lying 03-Partial/moderate assistance C. Lying to sitting on side of bed 03-Partial/moderate assistance D. Sit to stand 04-Supervision or touching assistance E. Chair/zfv-kc-byzgt transfer 03-Partial/moderate assistance F. Toilet transfer 03-Partial/moderate assistance G. Car transfer 88-Not attempted due to medical condition or safety concerns I. Walk 10 feet 88-Not attempted due to medical condition or safety concerns J. Walk 50 feet with two turns 88-Not attempted due to medical condition or safety concerns K. Walk 150 feet 88-Not attempted due to medical condition or safety concerns L. Walking 10 feet on uneven surfaces 88-Not attempted due to medical condition or safety concerns S. Wheel 150 feet 88-Not attempted due to medical condition or safety concerns - Bladder and Bowel Bladder continence Bowel continence - Endurance Fair - Balance Fair - Safety Awareness Fair POTENTIAL FUNCTIONAL GOALS FOR PATIENT TO ACHIEVE BY DISCHARGE: - Safety Precaution Patient will remain free from falls or injury at time of discharge. - Bed Mobility Patient will perform bed mobility at 4-Chava level of assistance. - Transfers Patient will complete transfers from bed to chair at 4-Chava level of assistance. - Mobility Patient will ambulate 150 ft with 4-Chava level of assistance with RW. PATIENT REHAB POTENTIAL Ten MAYNARD is able and expected to receive 3 hours of individualized therapy daily on at least 5 of ever y 7 days Ten MAYNARD's prognosis for significant practical improvement within a reasonable period of time appears Good Expected level of measurable improvement will be of a practical value to Ten MAYNARD's functional capacit y or adaptations to impairments Has a viable Discharge Plan Medically appropriate; condition is sufficiently stable to participate in intensive rehab program DISCHARGE PLAN: - Estimated Length of Stay (days) 14. - Consensus on plan Discharge plan has been discussed with primary caregiver. Patient/Family is in agreement with the meagan n. Primary caregiver is in agreement with the plan. - Patient/Family Goals Return home independently. - Planned Living Setting Upon Discharge Home, to live alone. Transitional Living. Primary caregiver: Pt self. CONCLUSION ON REHABILITATION NECESSITY: I have evaluated patient's pre-admission functional status and, comparing it to the patient's post-ad mission functional status now, I conclude that the pre-admission assessment was accurate. Patient's c ondition on admission supports the medical necessity of admission to IRF. It is safe to proceed with patient's therapy program. SIGNATURE PANEL: (CDT)
[2020-02-09] MEDS: VANCOMYCIN 1.75 GM in NA CHLORIDE 0.9% 500 ML IVPB SCH (20:35)
[2020-02-09] MEDS: ENSURE HIGH PROTEIN 237 ML CAN PO SCH (20:36)
[2020-02-09] MEDS: AMITRIPTYLINE 50 MG TAB PO SCH (20:36)
[2020-02-09] MEDS: DOCUSATE NA/SENNA CONC 1 TAB PO SCH (20:36)
[2020-02-10] MEDS: LEVOTHYROXINE SOD 0.075 MG TAB PO SCH (06:24)
[2020-02-10] MEDS: LIDOCAINE 4% PATCH TOP SCH (06:31)
[2020-02-10] MEDS: ENOXAPARIN 40 MG/0.4 ML SQ SCH (06:31)
[2020-02-10] MEDS: ENSURE HIGH PROTEIN 237 ML CAN PO SCH ×2 (08:45→20:34)
[2020-02-10] MEDS: PROPRANOLOL HCL 80 MG SA CAP PO SCH (08:46)
[2020-02-10] MEDS: ACETAMINOPHEN 500 MG TAB PO PRN (08:46)
[2020-02-10] MEDS: FERROUS SULFATE 325 MG TAB PO SCH ×2 (08:47→20:34)
[2020-02-10] MEDS: AMLODIPINE 10 MG TAB PO SCH (08:47)
[2020-02-10] MEDS: LOSARTAN POTASSIUM 50 MG TABLET PO SCH (08:47)
[2020-02-10] MEDS: DOCUSATE NA/SENNA CONC 1 TAB PO SCH ×2 (08:48→20:33)
[2020-02-10] MEDS: CRANBERRY FRUIT EXTRACT 200 MG CAP PO SCH ×2 (14:52→20:34)
--- NOTE | 2020-02-10 15:27 | RAD REPORT ---
EXAM DESCRIPTION: Sanchez Pa And Lat (2 Views)02/10/2020 3:14 pm CLINICAL HISTORY: Pulmonary nodule COMPARISON: 02/09/2020 FINDINGS: PICC line has its tip in the proximal superior vena cava Calcified lung granulomas are present The heart is normal size IMPRESSION: No acute abnormalities displayed
--- NOTE | 2020-02-10 17:38 | R.PN ---
PROGRESS NOTES ENCOUNTER DATE AND TIME: 02/10/2020 17:30 (CDT) NAME RUSSEL MAYNARD DATE OF : 1945 DATE OF ADMISSION: 02/08/2020 14:07 (CDT) RIGHT HIP FRACTURECHIEF COMPLAINT: Right hip fracture SUBJECTIVE: Pt denied any depression. Pt denied any Shortness of Breath. WBC 6.1, Hgb 8.8, prealbumin 13.2, Na 146. UA shows nitrite positive, esterae 2+, bacteria > 20. Ambulated 650' with standby assistance. Up and down 10 steps with contact guard assistance. VITAL SIGNS Temperature: 98.1 F SBP/DBP: 154/80 Pulse: 84 Resp: 14 MEDICATION ALLERGIES: No Known Drug Allergies (NKDA) ENVIRONMENTAL ALLERGIES: - Substance Allergies None Known - Other Allergies None Known NURSING: - Shower allowing shower - Skin care per protocol PRECAUTIONS: - Anterior Hip Precaution No abduction No active extension No adduction across midline No external rotation No hip flexion >90 degrees No internal rotation - Posterior Hip Precaution No adduction across midline No external rotation No hip flexion >90 degrees No internal rotation No wheel chair propulsion - Weight Bearing Precaution WBAT right LE ACTIVITIES OOB only with supervision THERAPIES: - Dietary and Nutrition Adequate Nutrition. Nutritional Education. Nutritional Supplements. PHYSICAL EXAM - Gen Alert and awake Lying in bed No apparent distress Oriented to: person, time, and place - Skin No skin breakdown. No abnormalities - Eyes No abnormalities - ENMT No abnormalities - Neck No abnormalities - CVS RRR - Chest No abnormalities - Abd Soft - GI Non distended Deferred - No abnormalities - Ext Right hip surgical site has good hemostasis. - MSK 4+/5 weakness in right lower extremity - Neuro 4/5 strength right lower extremity. - Psych No abnormalities ASSESSMENT: Currently, she has deficits of Locomotion, Balance, Transfers Control, Self-Care, and Endurance.On she was admitted to [facility] and underwent emergency surgery for RIGHT H IP FRACTURE (Unilateral Hip Fracture) by KORINA BAIRD.Pre-morbidly, Pt. was independent/mod-I in L ocomotion, Balance, Safety Awareness, Sphincter Control, Self-Care, and Communication; and she had go od Social Cognition and Endurance.Pt. is now referred to [facility] for acute in-patient rehabilitation in order to maximize patient's functional independence in activities of farhad ly living, strength, ROM, and mobility.Pt. is a 74 yo Right-handed female of unknown race.- Rehab Goa l Patient has realistic goal of being discharged at assistance level 7-Ind to reside at Home with Pt s elf. MDM/PLAN: - Physical Therapy Achieving independence - to improve, our physical therapists will perform initial evaluation of pt's status upon admission and devise an individualized program for Community Reintegration Activities Decreased range of motion - to improve, our physical therapists will perform initial evaluation of p t's status upon admission and devise an individualized program for increasing patient's Range of Evert on. Gait dysfunction - to improve, our physical therapists will perform initial evaluation of pt's statu s upon admission and devise an individualized program for Gait Training, and Wheel Chair mobility Inability to transfer - to improve, our physical therapists will perform initial evaluation of pt's status upon admission and devise an individualized program for Bed mobility Need for home safety evaluation - to improve, our physical therapists will perform initial evaluatio n of pt's status upon admission and devise an individualized program for Home Evaluation Need in caregiver upon discharge - to improve, our physical therapists will perform initial evaluati on of pt's status upon admission and devise an individualized program for Caregiver Training New precaution - to improve, our physical therapists will perform initial evaluation of pt's status upon admission and devise an individualized program for Patient precaution education Poor balance - to improve, our physical therapists will perform initial evaluation of pt's status up on admission and devise an individualized program for Balance Training Poor endurance - to improve, our physical therapists will perform initial evaluation of pt's status upon admission and devise an individualized program for Endurance Training Weakness - to improve, our physical therapists will perform initial evaluation of pt's status upon a dmission and devise an individualized program for Aquatic Therapy, Neuromuscular Reeducation, and Str engthening - Occupational Therapy ADL deficits - to improve, our occupation therapists will perform initial evaluation of pt's status upon admission and devise an individualized program for Bathing, Bed mobility, Community Reintegratio n, Cooking, Dressing, Eating, Fine Motor Skills, Grooming, Homemaking, Kitchen Mobility, Laundry, Pat ient Education, Safety Awareness, Splinting - Positioning, Transfers(Toilet, Tub, Shower), and Wheel Chair Management Need for nursing care partner - to improve, our occupation therapists will perform initial evaluation of pt's status upon admission and devise an individualized program for Caregiver Training Weakness - to improve, our occupation therapists will perform initial evaluation of pt's status upon admission and devise an individualized program for Aquatic Therapy, Balance, Endurance, UE ROM, and UE strengthening - Other See attached MAR (Medication Administration Record) - Anterior Hip Precaution No abduction No active extension No adduction across midline No external rotation No hip flexion >90 degrees No internal rotation - Diet - Liquid Texture Continue Regular - Tube Feed Continue N/A - Diet Type Continue Regular - Posterior Hip Precaution No adduction across midline No external rotation No hip flexion >90 degrees No internal rotation No wheel chair propulsion - Weight Bearing Precaution WBAT right LE - Skin care per protocol - Diet - Solid Texture Continue Regular - Shower allowing shower FUNCTIONAL STATUS: UPDATED AT WEEKLY TEAM CONFERENCE - Bladder Same accident frequency: 7-Ind - No accidents in the past 7 days - Bowel Same accident frequency: 7-Ind - No accidents in the past 7 days - Walking Same score based on distance walked: 0(N/A) - Wheelchair Same score based on distance traveled: 0(N/A) FUNCTIONAL STATUS: - Self-Care A. Eating Ind B. Grooming Alanna C. Bathing sup D. Dressing - Upper sup E. Dressing - Lower Chava F. Toileting Chava - Sphincter Control G. Bladder control Chava H. Bowel control Chava - Transfers Control I. Bed/Chair/Wheelchair Chava J. Toilet Chava K. Tub/Shower modA - Locomotion L. Walk/Wheelchair (B) sup M. Stairs sup - Communication N. Comprehension (B) Alanna O. Expression (B) Alanna - Social Cognition P. Social Interaction Alanna Q. Problem Solving Alanna R. Memory Alanna - Endurance Good - Balance Fair - Safety Awareness Good QI SCORES: - Self-Care A. Eating 03-Partial/moderate assistance B. Oral hygiene 03-Partial/moderate assistance C. Toileting hygiene 03-Partial/moderate assistance E. Shower/bathe self 03-Partial/moderate assistance G. Lower body dressing 88-Not attempted due to medical condition or safety concerns H. Putting on/taking off footwear 88-Not attempted due to medical condition or safety concerns - Mobility M. 1 step (curb) 88-Not attempted due to medical condition or safety concerns N. 4 steps 88-Not attempted due to medical condition or safety concerns O. 12 steps 88-Not attempted due to medical condition or safety concerns P. Picking up object 88-Not attempted due to medical condition or safety concerns R. Wheel 50 feet with two turns 88-Not attempted due to medical condition or safety concerns A. Roll left and right 03-Partial/moderate assistance B. Sit to lying 03-Partial/moderate assistance C. Lying to sitting on side of bed 03-Partial/moderate assistance D. Sit to stand 04-Supervision or touching assistance E. Chair/tcs-vj-[id number] transfer 03-Partial/moderate assistance F. Toilet transfer 03-Partial/moderate assistance G. Car transfer 88-Not attempted due to medical condition or safety concerns I. Walk 10 feet 88-Not attempted due to medical condition or safety concerns J. Walk 50 feet with two turns 88-Not attempted due to medical condition or safety concerns K. Walk 150 feet 88-Not attempted due to medical condition or safety concerns L. Walking 10 feet on uneven surfaces 88-Not attempted due to medical condition or safety concerns S. Wheel 150 feet 88-Not attempted due to medical condition or safety concerns - Bladder and Bowel Bladder continence Bowel continence - Endurance Fair - Balance Fair - Safety Awareness Fair [facility] DEFICITS: Self-Care, Mobility, Endurance, Balance, and Safety Awareness SIGNATURE PANEL: (CDT)
[2020-02-10] MEDS ORDERED: MAGNES/ALUMIN/SIMET 30ML UCUP PO PRN (19:00)
[2020-02-10 19:06] LABS: Absolute Lymphocytes (CBC) 1.7 K/uL (0.7-4.9); Basophils % 1.3 % (0-1.3); Hematocrit 28.6 % (36.0-45.0); Lymphocytes % 20.3 % (15.3-44.8); MPV 8.7 fL (7.6-11.3); RBC Red Blood Cell Count 3.01 M/uL (3.86-4.86)
[2020-02-10 19:34] LABS: Albumin 3.2 g/dL (3.4-5.0); Magnesium 2.1 mg/dL (1.8-2.4); Potassium 3.7 mmol/L (3.5-5.1); Prealbumin 12.9 mg/dL (20-40)
[2020-02-10] MEDS: VANCOMYCIN 1.75 GM in NA CHLORIDE 0.9% 500 ML IVPB SCH (20:31)
[2020-02-10] MEDS: AMITRIPTYLINE 50 MG TAB PO SCH (20:33)
[2020-02-10] MEDS: GABAPENTIN 300 MG CAP PO SCH (20:34)
[2020-02-10] MEDS: TRAMADOL HCL 50 MG TAB PO PRN (20:34)
--- NOTE | 2020-02-10 21:28 | PN ---
Date of Progress Note: 02/10/2020 Subjective: The patient was seen this morning for followup. No new complaints or problems reported by patient. Lying in bed, not in distress. Objective: Vital Signs: Reviewed. HEENT: Unremarkable. Lungs: Clear to auscultation. Heart: Sounds normal. Abdomen: Soft. Bowel sounds normal. No guarding, rigidity, tenderness, or distention. Extremities: No leg edema. Impression: 1.Right hip prosthetic joint infection. 2.Anemia due to acute blood loss. 3.Hypertension. 4.Osteoarthritis, multiple sites. 5.Hypothyroidism. Plan: We will continue home medications per order. Continue iron supplement. Pain medications will be continued per order. DVT prophylaxis will be given per order. I will see her tomorrow for germán marsh. KALEE/MODL Voice ID: [id number] Report ID: [id number]
[2020-02-11] MEDS: PANTOPRAZOLE 40MG TABLET PO SCH (06:18)
[2020-02-11] MEDS: LEVOTHYROXINE SOD 0.075 MG TAB PO SCH (06:18)
[2020-02-11] MEDS: ENOXAPARIN 40 MG/0.4 ML SQ SCH (07:22)
[2020-02-11] MEDS: LIDOCAINE 4% PATCH TOP SCH (07:23)
[2020-02-11] MEDS: ENSURE HIGH PROTEIN 237 ML CAN PO SCH ×2 (09:11→21:06)
[2020-02-11] MEDS: TRAMADOL HCL 50 MG TAB PO PRN ×2 (09:12→20:10)
[2020-02-11] MEDS: PROPRANOLOL HCL 80 MG SA CAP PO SCH (09:13)
[2020-02-11] MEDS: LOSARTAN POTASSIUM 50 MG TABLET PO SCH (09:14)
[2020-02-11] MEDS: CRANBERRY FRUIT EXTRACT 200 MG CAP PO SCH ×2 (09:14→20:15)
[2020-02-11] MEDS: AMLODIPINE 10 MG TAB PO SCH (09:15)
[2020-02-11] MEDS: FERROUS SULFATE 325 MG TAB PO SCH ×2 (09:16→20:15)
[2020-02-11] MEDS: DOCUSATE NA/SENNA CONC 1 TAB PO SCH ×2 (09:17→20:15)
--- NOTE | 2020-02-11 17:24 | R.PN ---
PROGRESS NOTES ENCOUNTER DATE AND TIME: 02/11/2020 17:17 (CDT) NAME RUSSEL MAYNARD DATE OF : 1945 DATE OF ADMISSION: 02/08/2020 14:07 (CDT) RIGHT HIP FRACTURECHIEF COMPLAINT: Right hip fracture SUBJECTIVE: Pt denied any depression. Pt denied any Shortness of Breath. WBC 8.4, Hgb 9.5, prealbumin 12.9, Na 142. UA shows nitrite positive, esterase 2+, bacteria > 20. Ambulated 750' with standby assistance. Up and down 10 steps with contact guard assistance. VITAL SIGNS Temperature: 97.6 F SBP/DBP: 145/70 Pulse: 78 Resp: 16 MEDICATION ALLERGIES: No Known Drug Allergies (NKDA) ENVIRONMENTAL ALLERGIES: - Substance Allergies None Known - Other Allergies None Known NURSING: - Shower allowing shower - Skin care per protocol PRECAUTIONS: - Anterior Hip Precaution No abduction No active extension No adduction across midline No external rotation No hip flexion >90 degrees No internal rotation - Posterior Hip Precaution No adduction across midline No external rotation No hip flexion >90 degrees No internal rotation No wheel chair propulsion - Weight Bearing Precaution WBAT right LE ACTIVITIES OOB only with supervision THERAPIES: - Dietary and Nutrition Adequate Nutrition. Nutritional Education. Nutritional Supplements. PHYSICAL EXAM - Gen Alert and awake Lying in bed No apparent distress Oriented to: person, time, and place - Skin No skin breakdown. No abnormalities - Eyes No abnormalities - ENMT No abnormalities - Neck No abnormalities - CVS RRR - Chest No abnormalities - Abd Soft - GI Non distended Deferred - No abnormalities - Ext Right hip surgical site has good hemostasis. - MSK 4+/5 weakness in right lower extremity - Neuro 4/5 strength right lower extremity. - Psych No abnormalities ASSESSMENT: Currently, she has deficits of Locomotion, Balance, Transfers Control, Self-Care, and Endurance.On she was admitted to [facility] and underwent emergency surgery for RIGHT H IP FRACTURE (Unilateral Hip Fracture) by KORINA BAIRD.Pre-morbidly, Pt. was independent/mod-I in L ocomotion, Balance, Safety Awareness, Sphincter Control, Self-Care, and Communication; and she had go od Social Cognition and Endurance.Pt. is now referred to [facility] for acute in-patient rehabilitation in order to maximize patient's functional independence in activities of farhad ly living, strength, ROM, and mobility.Pt. is a 74 yo Right-handed female of unknown race.- Rehab Goa l Patient has realistic goal of being discharged at assistance level 7-Ind to reside at Home with Pt s elf. MDM/PLAN: - Physical Therapy Achieving independence - to improve, our physical therapists will perform initial evaluation of pt's status upon admission and devise an individualized program for Community Reintegration Activities Decreased range of motion - to improve, our physical therapists will perform initial evaluation of p t's status upon admission and devise an individualized program for increasing patient's Range of Evert on. Gait dysfunction - to improve, our physical therapists will perform initial evaluation of pt's statu s upon admission and devise an individualized program for Gait Training, and Wheel Chair mobility Inability to transfer - to improve, our physical therapists will perform initial evaluation of pt's status upon admission and devise an individualized program for Bed mobility Need for home safety evaluation - to improve, our physical therapists will perform initial evaluatio n of pt's status upon admission and devise an individualized program for Home Evaluation Need in caregiver upon discharge - to improve, our physical therapists will perform initial evaluati on of pt's status upon admission and devise an individualized program for Caregiver Training New precaution - to improve, our physical therapists will perform initial evaluation of pt's status upon admission and devise an individualized program for Patient precaution education Poor balance - to improve, our physical therapists will perform initial evaluation of pt's status up on admission and devise an individualized program for Balance Training Poor endurance - to improve, our physical therapists will perform initial evaluation of pt's status upon admission and devise an individualized program for Endurance Training Weakness - to improve, our physical therapists will perform initial evaluation of pt's status upon a dmission and devise an individualized program for Aquatic Therapy, Neuromuscular Reeducation, and Str engthening - Occupational Therapy ADL deficits - to improve, our occupation therapists will perform initial evaluation of pt's status upon admission and devise an individualized program for Bathing, Bed mobility, Community Reintegratio n, Cooking, Dressing, Eating, Fine Motor Skills, Grooming, Homemaking, Kitchen Mobility, Laundry, Pat ient Education, Safety Awareness, Splinting - Positioning, Transfers(Toilet, Tub, Shower), and Wheel Chair Management Need for healthcare management consultant - to improve, our occupation therapists will perform initial evaluation of pt's status upon admission and devise an individualized program for Caregiver Training Weakness - to improve, our occupation therapists will perform initial evaluation of pt's status upon admission and devise an individualized program for Aquatic Therapy, Balance, Endurance, UE ROM, and UE strengthening - Other See attached MAR (Medication Administration Record) - Anterior Hip Precaution No abduction No active extension No adduction across midline No external rotation No hip flexion >90 degrees No internal rotation - Diet - Liquid Texture Continue Regular - Tube Feed Continue N/A - Diet Type Continue Regular - Posterior Hip Precaution No adduction across midline No external rotation No hip flexion >90 degrees No internal rotation No wheel chair propulsion - Weight Bearing Precaution WBAT right LE - Skin care per protocol - Diet - Solid Texture Continue Regular - Shower allowing shower FUNCTIONAL STATUS: UPDATED AT WEEKLY TEAM CONFERENCE - Bladder Same accident frequency: 7-Ind - No accidents in the past 7 days - Bowel Same accident frequency: 7-Ind - No accidents in the past 7 days - Walking Same score based on distance walked: 0(N/A) - Wheelchair Same score based on distance traveled: 0(N/A) FUNCTIONAL STATUS: - Self-Care A. Eating Ind B. Grooming Alanna C. Bathing sup D. Dressing - Upper sup E. Dressing - Lower Chava F. Toileting Chava - Sphincter Control G. Bladder control Chava H. Bowel control Chava - Transfers Control I. Bed/Chair/Wheelchair Chava J. Toilet Chava K. Tub/Shower modA - Locomotion L. Walk/Wheelchair (B) sup M. Stairs sup - Communication N. Comprehension (B) Alanna O. Expression (B) Alanna - Social Cognition P. Social Interaction Alanna Q. Problem Solving Alanna R. Memory Alanna - Endurance Good - Balance Fair - Safety Awareness Good QI SCORES: - Self-Care A. Eating 03-Partial/moderate assistance B. Oral hygiene 03-Partial/moderate assistance C. Toileting hygiene 03-Partial/moderate assistance E. Shower/bathe self 03-Partial/moderate assistance G. Lower body dressing 88-Not attempted due to medical condition or safety concerns H. Putting on/taking off footwear 88-Not attempted due to medical condition or safety concerns - Mobility M. 1 step (curb) 88-Not attempted due to medical condition or safety concerns N. 4 steps 88-Not attempted due to medical condition or safety concerns O. 12 steps 88-Not attempted due to medical condition or safety concerns P. Picking up object 88-Not attempted due to medical condition or safety concerns R. Wheel 50 feet with two turns 88-Not attempted due to medical condition or safety concerns A. Roll left and right 03-Partial/moderate assistance B. Sit to lying 03-Partial/moderate assistance C. Lying to sitting on side of bed 03-Partial/moderate assistance D. Sit to stand 04-Supervision or touching assistance E. Chair/afc-[id number] transfer 03-Partial/moderate assistance F. Toilet transfer 03-Partial/moderate assistance G. Car transfer 88-Not attempted due to medical condition or safety concerns I. Walk 10 feet 88-Not attempted due to medical condition or safety concerns J. Walk 50 feet with two turns 88-Not attempted due to medical condition or safety concerns K. Walk 150 feet 88-Not attempted due to medical condition or safety concerns L. Walking 10 feet on uneven surfaces 88-Not attempted due to medical condition or safety concerns S. Wheel 150 feet 88-Not attempted due to medical condition or safety concerns - Bladder and Bowel Bladder continence Bowel continence - Endurance Fair - Balance Fair - Safety Awareness Fair CURRENT [facility]. DEFICITS: Self-Care, Mobility, Endurance, Balance, and Safety Awareness SIGNATURE PANEL: (CDT)
[2020-02-11] MEDS: AMITRIPTYLINE 50 MG TAB PO SCH (20:15)
[2020-02-11] MEDS: GABAPENTIN 300 MG CAP PO SCH (20:15)
[2020-02-11] MEDS: VANCOMYCIN 1.5 GM in NA CHLORIDE 0.9% 500 ML IVPB SCH (21:05)
--- NOTE | 2020-02-11 23:25 | PN ---
Date of Progress Note: 02/11/2020 Subjective: The patient was seen this morning for followup. No new complaints or problems reported by her. She was sleeping, arousable, not in distress, and she started telling me that she is ready t o go home this morning. I informed her that she just got here 2-3 days ago. She has not even receiv ed her adequate rehab therapy, and if she wants to go home, she will have to sign against medical adv ice because in my opinion she is not ready for discharge. Objective: Vital Signs: Reviewed. HEENT: Unremarkable. Lungs: Clear to auscultation. Heart: Sounds normal. Abdomen: Soft. Bowel sounds normal. No guarding, rigidity, tenderness, or distention. Extremities: No leg edema. Impression: 1.Prosthetic joint infection, right hip. 2.Osteoarthritis, multiple sites. 3.Hypertension. 4.Anemia due to acute blood loss. 5.Constipation. Plan: We will continue current stool softener. Continue current antibiotics and iron supplement, cu rrent antihypertensive medication. We will continue Lovenox for DVT prophylaxis. I will see her iona ruiz. KALEE/MODL Voice ID: [id number] Report ID: [id number]
[2020-02-12] MEDS: PANTOPRAZOLE 40MG TABLET PO SCH (06:34)
[2020-02-12] MEDS: LEVOTHYROXINE SOD 0.075 MG TAB PO SCH (06:34)
[2020-02-12] MEDS: PROPRANOLOL HCL 80 MG SA CAP PO SCH (08:00)
[2020-02-12] MEDS: CRANBERRY FRUIT EXTRACT 200 MG CAP PO SCH ×2 (09:10→21:04)
[2020-02-12] MEDS: DOCUSATE NA/SENNA CONC 1 TAB PO SCH ×2 (09:10→21:03)
[2020-02-12] MEDS: LOSARTAN POTASSIUM 50 MG TABLET PO SCH (09:11)
[2020-02-12] MEDS: AMLODIPINE 10 MG TAB PO SCH (09:11)
[2020-02-12] MEDS: ENOXAPARIN 40 MG/0.4 ML SQ SCH (09:12)
[2020-02-12] MEDS: FERROUS SULFATE 325 MG TAB PO SCH ×2 (09:12→21:04)
[2020-02-12] MEDS: ENSURE HIGH PROTEIN 237 ML CAN PO SCH ×2 (09:38→20:00)
[2020-02-12] MEDS: LIDOCAINE 4% PATCH TOP SCH (09:38)
--- NOTE | 2020-02-12 09:40 | P.RH.PN ---
Estimated Length of Stay: 10 Expected Discharge Date: 02/17/20 Discharge Disposition Plan: Home Family Support: Yes Residential Goal: Mobility, Transfers, Self Care Vital Signs: Last Vital Signs Temp 98.1 F 02/12/20 07:59 Pulse 81 02/12/20 09:11 Resp 16 02/12/20 07:59 BP 152/79 H 02/12/20 09:11 Pulse Ox 81 L 02/12/20 07:59 Laboratory: Laboratory Last Values WBC 8.4 K/uL (4.3-10.9) D 02/10/20 18:52 RBC 3.01 M/uL (3.86-4.86) L 02/10/20 18:52 Hgb 9.5 g/dL (12.0-15.0) L 02/10/20 18:52 Hct 28.6 % (36.0-45.0) L 02/10/20 18:52 MCV 95.1 fL (80-100) 02/10/20 18:52 MCH 31.6 pg (27.0-35.0) 02/10/20 18:52 MCHC 33.3 g/dL (32.0-36.0) 02/10/20 18:52 RDW 14.3 % (12.1-15.2) 02/10/20 18:52 Plt Count 234 K/uL (152-406) 02/10/20 18:52 MPV 8.7 fL (7.6-11.3) 02/10/20 18:52 Neutrophils % 55.1 % (41.7-73.7) 02/10/20 18:52 Lymphocytes % 20.3 % (15.3-44.8) 02/10/20 18:52 Monocytes % 9.7 % (3.3-12.3) 02/10/20 18:52 Eosinophils % 13.6 % (0-4.4) H 02/10/20 18:52 Basophils % 1.3 % (0-1.3) 02/10/20 18:52 Absolute Neutrophils 4.6 K/uL (1.8-8.0) 02/10/20 18:52 Absolute Lymphocytes 1.7 K/uL (0.7-4.9) 02/10/20 18:52 Absolute Monocytes 0.8 K/uL (0.1-1.3) 02/10/20 18:52 Absolute Eosinophils 1.1 K/uL (0-0.5) H 02/10/20 18:52 Absolute Basophils 0.1 K/uL (0-0.5) 02/10/20 18:52 Sodium 142 mmol/L (136-145) 02/10/20 18:52 Potassium 3.7 mmol/L (3.5-5.1) 02/10/20 18:52 Chloride 108 mmol/L (98-107) H 02/10/20 18:52 Carbon Dioxide 29 mmol/L (21-32) 02/10/20 18:52 BUN 11 mg/dL (7-18) 02/10/20 18:52 Creatinine 0.97 mg/dL (0.55-1.3) 02/10/20 18:52 Estimated GFR 56 mL/min (=/>90) L 02/10/20 18:52 Glucose 162 mg/dL (74-106) H 02/10/20 18:52 Calcium 9.6 mg/dL (8.5-10.1) 02/10/20 18:52 Magnesium 2.1 mg/dL (1.8-2.4) 02/10/20 18:52 Albumin 3.2 g/dL (3.4-5.0) L 02/10/20 18:52 Prealbumin 12.9 mg/dL (20-40) L 02/10/20 18:52 Urine Color [place] 02/08/20 23:50 Urine Appearance Clear 02/08/20 23:50 Urine pH 5.5 (5.0-7.0) 02/08/20 23:50 Ur Specific [place] 1.025 (1.005-1.030) 02/08/20 23:50 Glucose (UA)(Auto) Negative (NEG) 02/08/20 23:50 Urine Ketones Trace (NEG) 02/08/20 23:50 Urine Blood Negative (NEG) 02/08/20 23:50 Urine Nitrite Positive (NEG) H 02/08/20 23:50 Urine Bilirubin Negative (NEG) 02/08/20 23:50 Urine Urobilinogen 4.0 mg/dL (0.2-1.0) H 02/08/20 23:50 Ur Leukocyte Esterase 2+ (NEG) H 02/08/20 23:50 Urine RBC None seen /HPF (NONE SEEN) 02/08/20 23:50 Urine WBC 5-10 /HPF (<5) H 02/08/20 23:50 Ur Squamous Epith Cells <5 /HPF (NONE SEEN) 02/08/20 23:50 Calcium Oxalate Crystal Many (NONE SEEN) H 02/08/20 23:50 Urine Bacteria <20 /HPF (<20) 02/08/20 23:50 Urine Culture Reflexed Not needed 02/08/20 23:50 Urine Total Protein Negative (NEG) 02/08/20 23:50 Vancomycin Trough 18.0 ug/mL (5.0-20.0) 02/10/20 18:52 SARS-CoV-2 RNA (RT-PCR) Negative (NEGATIVE) 02/08/20 17:30 Weight: 232 lb Wound Present: No Negative Pressure Wound Therapy Present: No Physician Update: Labs are reviewed and are stable. She is walking 250' and stairs with contact guard assistance. She is independent with most ADLs. She is standby assistance for lower body dressing. Her grand son at 27 years old is living with her and will help when she goes home. Comment: S/P right hip revision.dressing dry and intact Summary: Patient's care plan and fdc goals have been reviewed and revised as necessary. Please see the Rehabilitation Signature page for all necessary signatures.
--- NOTE | 2020-02-12 12:18 | PN ---
Date of Progress Note: 02/12/2020 Subjective: The patient was seen this morning for followup. No new complaints or problems reported by her. She was sleeping, easily arousable, not in distress. She informs me that after my discussio n with her yesterday she decided to stay here in the hospital on the rehab floor to continue to get h er rehab therapy. Denies any new problems. No constipation. Objective: Vital Signs: Reviewed. HEENT: Unremarkable. Lungs: Clear to auscultation. Heart: Sounds normal. Abdomen: Soft. Bowel sounds normal. No guarding, rigidity, tenderness, distention. Extremities: Bilateral grade 1 edema. Impression: 1.Hypertension. 2.Leg edema. 3.Right hip prosthetic joint infection. 4.Anemia due to acute blood loss. Plan: We will continue current medications. Continue iron supplement. DVT prophylaxis, antibiotics , and I will see her tomorrow for followup. KALEE/MODL Voice ID: [id number] Report ID: [id number]
[2020-02-12] MEDS: VANCOMYCIN 1.5 GM in NA CHLORIDE 0.9% 500 ML IVPB SCH (21:02)
[2020-02-12] MEDS: AMITRIPTYLINE 50 MG TAB PO SCH (21:04)
[2020-02-12] MEDS: GABAPENTIN 300 MG CAP PO SCH (21:05)
[2020-02-12] MEDS: ACETAMINOPHEN 500 MG TAB PO PRN (21:06)
[2020-02-13] MEDS: TRAMADOL HCL 50 MG TAB PO PRN ×2 (00:14→19:47)
[2020-02-13 05:40] VITALS: BMI 39.7
[2020-02-13] MEDS: LEVOTHYROXINE SOD 0.075 MG TAB PO SCH (07:30)
[2020-02-13] MEDS: PANTOPRAZOLE 40MG TABLET PO SCH (07:31)
[2020-02-13] MEDS: LIDOCAINE 4% PATCH TOP SCH (09:34)
[2020-02-13] MEDS: ENOXAPARIN 40 MG/0.4 ML SQ SCH (09:35)
[2020-02-13] MEDS: LOSARTAN POTASSIUM 50 MG TABLET PO SCH (09:36)
[2020-02-13] MEDS: CRANBERRY FRUIT EXTRACT 200 MG CAP PO SCH ×2 (09:36→19:45)
[2020-02-13] MEDS: FERROUS SULFATE 325 MG TAB PO SCH ×2 (09:36→19:46)
[2020-02-13] MEDS: DOCUSATE NA/SENNA CONC 1 TAB PO SCH ×2 (09:36→19:47)
[2020-02-13] MEDS: PROPRANOLOL HCL 80 MG SA CAP PO SCH (09:38)
[2020-02-13] MEDS: ENSURE HIGH PROTEIN 237 ML CAN PO SCH ×2 (09:44→19:48)
[2020-02-13] MEDS: AMLODIPINE 10 MG TAB PO SCH (12:28)
[2020-02-13] MEDS: AMITRIPTYLINE 50 MG TAB PO SCH (19:46)
[2020-02-13] MEDS: GABAPENTIN 300 MG CAP PO SCH (19:47)
[2020-02-13] MEDS: NYSTATIN PWDR 100000 UNIT/GM TOP SCH (19:50)
[2020-02-13] MEDS: VANCOMYCIN 1.5 GM in NA CHLORIDE 0.9% 500 ML IVPB SCH (20:00)
[2020-02-13] MEDS: ACETAMINOPHEN 500 MG TAB PO PRN (21:16)
--- NOTE | 2020-02-13 21:22 | PN ---
Date of Progress Note: 02/13/2020 Subjective: The patient was seen this morning for followup. She was lying in bed, sleeping, easily arousable, not in distress. Denies any new complaints. Objective: Vital Signs: Reviewed. HEENT: Unremarkable. Lungs: Clear to auscultation. No wheezing. No rales. Heart: Sounds normal. Abdomen: Soft. Bowel sounds normal. No guarding, rigidity, tenderness, or distention. Extremity: Trace leg edema. Laboratory Data: Stool guaiac negative. Impression: 1.Anemia due to acute blood loss. 2.Right hip prosthetic joint infection. 3.Hypertension. 4.Constipation. Plan: We will continue current medication. Continue stool softener. Continue current DVT prophylax is using Eliquis. We will continue current antibiotics and current antihypertensive medication. Con tinue iron supplement. I will see her tomorrow for followup. KALEE/MODL Voice ID: [id number] Report ID: [id number]
[2020-02-14] MEDS: TRAMADOL HCL 50 MG TAB PO PRN ×3 (00:10→23:33)
[2020-02-14] MEDS: LEVOTHYROXINE SOD 0.075 MG TAB PO SCH (07:25)
[2020-02-14] MEDS: LIDOCAINE 4% PATCH TOP SCH (07:25)
[2020-02-14] MEDS: PANTOPRAZOLE 40MG TABLET PO SCH (07:25)
[2020-02-14] MEDS: LOSARTAN POTASSIUM 50 MG TABLET PO SCH (07:26)
[2020-02-14] MEDS: ACETAMINOPHEN 500 MG TAB PO PRN (07:26)
[2020-02-14] MEDS: ENOXAPARIN 40 MG/0.4 ML SQ SCH (07:27)
[2020-02-14] MEDS: PROPRANOLOL HCL 80 MG SA CAP PO SCH (07:27)
[2020-02-14] MEDS: NYSTATIN PWDR 100000 UNIT/GM TOP SCH ×2 (08:00→19:44)
[2020-02-14] MEDS: AMLODIPINE 10 MG TAB PO SCH (08:10)
[2020-02-14] MEDS: CRANBERRY FRUIT EXTRACT 200 MG CAP PO SCH ×2 (08:11→19:43)
[2020-02-14] MEDS: FERROUS SULFATE 325 MG TAB PO SCH ×2 (08:11→19:44)
[2020-02-14] MEDS: DOCUSATE NA/SENNA CONC 1 TAB PO SCH ×2 (08:12→19:43)
[2020-02-14] MEDS: ENSURE HIGH PROTEIN 237 ML CAN PO SCH ×2 (09:56→19:42)
--- NOTE | 2020-02-14 14:16 | PN ---
Date of Progress Note: 02/14/2020 Subjective: The patient was seen this morning for followup. No new complaints or problems reported by the patient. Lying in bed, sleeping, easily arousable. Objective: Vital Signs: Reviewed. HEENT: Unremarkable. Lungs: Clear to auscultation. No rhonchi or rales. Heart: Sounds normal. Abdomen: Soft. Bowel sounds normal. No guarding, rigidity, tenderness, or distention. Extremities: Trace leg edema. Right lateral thigh surgical dressing present. Has some stains on th e dressing. Surrounding skin has a very minimal area of pink discoloration, but it is better today t [place] couple of days ago. Impression: 1.Joint infection, right hip. 2.Hypertension. 3.Anemia due to acute blood loss. 4.Hypothyroidism. Plan: We will continue current medication. Continue current antibiotics that the patient is on and we will continue antihypertensive medication and anticoagulation therapy per order. I will see her t omorrow for followup. KALEE/MODL Voice ID: [id number] Report ID: [id number]
[2020-02-14] MEDS: AMITRIPTYLINE 50 MG TAB PO SCH (19:44)
[2020-02-14] MEDS: GABAPENTIN 300 MG CAP PO SCH (19:45)
[2020-02-14] MEDS: VANCOMYCIN 1.5 GM in NA CHLORIDE 0.9% 500 ML IVPB SCH (20:00)
[2020-02-15] MEDS: PANTOPRAZOLE 40MG TABLET PO SCH (06:23)
[2020-02-15] MEDS: LEVOTHYROXINE SOD 0.075 MG TAB PO SCH (06:23)
[2020-02-15] MEDS: ENOXAPARIN 40 MG/0.4 ML SQ SCH (06:59)
[2020-02-15] MEDS: AMLODIPINE 10 MG TAB PO SCH (07:01)
[2020-02-15] MEDS: LOSARTAN POTASSIUM 50 MG TABLET PO SCH (07:02)
[2020-02-15] MEDS: PROPRANOLOL HCL 80 MG SA CAP PO SCH (07:03)
[2020-02-15] MEDS: ACETAMINOPHEN 500 MG TAB PO PRN (07:12)
[2020-02-15] MEDS: TRAMADOL HCL 50 MG TAB PO PRN ×3 (08:25→22:32)
[2020-02-15] MEDS: ENSURE HIGH PROTEIN 237 ML CAN PO SCH ×2 (08:27→19:23)
--- NOTE | 2020-02-15 08:32 | P.CNS ---
Date of Consult: 02/15/20 Reason for Consult: painful toenails Requesting Physician: Charly Ross Chief Complaint: Painful nails Allergies No Known Allergies Allergy (Verified 03/13/17 11:40) Home Medications: Acetaminophen [Acetaminophen Extra Strength] 1,000 mg PO Q8H PRN 02/08/20 Amitriptyline [Elavil*] 50 mg PO BEDTIME 02/08/20 Amlodipine [Norvasc*] 10 mg PO DAILY 02/08/20 Enoxaparin Sodium [Lovenox 40 MG INJ*] 40 mg SQ DAILY 02/08/20 Levothyroxine 137 Mcg 137 mcg PO DAILY 02/08/20 Propranolol [Inderal*] 10 mg PO TID 02/08/20 Rifampin [Rifadin] 300 mg PO BID 02/08/20 Vancomycin/0.9 % Sod Chloride [Vanco 1 Gram/250 ml-0.9% NaCl] 1 gm IV Q12H 02/08/20 Lidocaine 4% Patch [Lidoderm 5% Patch*] 1 patch TOP DAILY 02/10/20 - Past Medical/Surgical History Diabetic: No -: htn -: depression -: hypothyroidism -: HYSTERECTOMY - Social History Smoking Status: Unknown if ever smoked Alcohol use: No CD- Drugs: No Caffeine use: No Place of Residence: Home Review of Systems 10-point ROS is otherwise unremarkable Physical Examination Temp Pulse Resp BP Pulse Ox 98.8 F 75 18 179/82 H 91 02/14/20 20:00 02/15/20 07:03 02/15/20 08:25 02/15/20 07:03 02/15/20 08:25 General: Alert, In no apparent distress, Oriented x3 Cardiovascular: Edema, Abnormal pulses Capillary refill: <2 Seconds Musculoskeletal: No clubbing, No swelling, No contractures, No erythema, No tenderness, No warmth Integumentary: Other (thickened hypertrophic nails with subungual debris x 10. skin is warm to cool proximal to distal) Neurological: Sensation intact - Problems (1) Tinea unguium Current Visit: Yes Status: Acute (2) Generalized atherosclerosis Current Visit: Yes Status: Acute Conclusions/Impression: Mechanical debridement of nails x 10 at bedside Physician Review: Patient Assessed, Agree with Above Assessment and Plan
[2020-02-15] MEDS: CRANBERRY FRUIT EXTRACT 200 MG CAP PO SCH ×2 (08:40→19:23)
[2020-02-15] MEDS: FERROUS SULFATE 325 MG TAB PO SCH ×2 (08:40→19:23)
[2020-02-15] MEDS: DOCUSATE NA/SENNA CONC 1 TAB PO SCH ×2 (08:41→19:24)
--- NOTE | 2020-02-15 10:30 | RAD REPORT ---
EXAM DESCRIPTION: RAD - C Spine W Obliques - 02/15/2020 9:57 am CLINICAL HISTORY: neck pain Headache, radiculopathy COMPARISON: SPINE CERVICAL W OBLIQUES dated 07/20/2011 FINDINGS: Cervical bodies are normal in height.2 mm degenerative anterolisthesis C4 on 5 noted.No fr acture or acute bony process seen.Prominent disc thinning with large posterior osteophyte noted at C5 -6, C6-7. No prevertebral soft tissue thickening or other suspicious soft tissue finding. Odontoid is normal lateral masses are symmetric. Oblique view show no significant exit foraminal encroachment. IMPRESSION: Moderate lower cervical degenerative changes are noted, mildly progressive since 2011 co mparative study.
[2020-02-15] MEDS: DICLOFENAC SOD D.R. 75 MG TAB PO SCH (10:33)
[2020-02-15] MEDS: NYSTATIN PWDR 100000 UNIT/GM TOP SCH ×2 (11:21→20:00)
[2020-02-15] MEDS: LIDOCAINE 4% PATCH TOP SCH (11:21)
--- NOTE | 2020-02-15 17:31 | R.PN ---
PROGRESS NOTES ENCOUNTER DATE AND TIME: 02/15/2020 17:28 (CDT) NAME RUSSEL MAYNARD DATE OF : 1945 DATE OF ADMISSION: 02/08/2020 14:07 (CDT) RIGHT HIP FRACTURECHIEF COMPLAINT: Right hip fracture SUBJECTIVE: Pt denied any depression. Pt denied any Shortness of Breath. WBC 8.4, Hgb 9.5, prealbumin 12.9, Na 142. UA shows nitrite positive, esterase 2+, bacteria > 20. Ambulated 500' with standby assistance using a rolling walker. Up and down 10 steps with contact guar d assistance. VITAL SIGNS Temperature: 97.7 F SBP/DBP: 197/82 Pulse: 75 Resp: 15 MEDICATION ALLERGIES: No Known Drug Allergies (NKDA) ENVIRONMENTAL ALLERGIES: - Substance Allergies None Known - Other Allergies None Known NURSING: - Shower allowing shower - Skin care per protocol PRECAUTIONS: - Anterior Hip Precaution No abduction No active extension No adduction across midline No external rotation No hip flexion >90 degrees No internal rotation - Posterior Hip Precaution No adduction across midline No external rotation No hip flexion >90 degrees No internal rotation No wheel chair propulsion - Weight Bearing Precaution WBAT right LE ACTIVITIES OOB only with supervision THERAPIES: - Dietary and Nutrition Adequate Nutrition. Nutritional Education. Nutritional Supplements. PHYSICAL EXAM - Gen Alert and awake Lying in bed No apparent distress Oriented to: person, time, and place - Skin No skin breakdown. No abnormalities - Eyes No abnormalities - ENMT No abnormalities - Neck No abnormalities - CVS RRR - Chest No abnormalities - Abd Soft - GI Non distended Deferred - No abnormalities - Ext Right hip surgical site has good hemostasis. - MSK 4+/5 weakness in right lower extremity - Neuro 4/5 strength right lower extremity. - Psych No abnormalities ASSESSMENT: Currently, she has deficits of Locomotion, Balance, Transfers Control, Self-Care, and Endurance.On she was admitted to [facility] and underwent emergency surgery for RIGHT H IP FRACTURE (Unilateral Hip Fracture) by KORINA BAIRD.Pre-morbidly, Pt. was independent/mod-I in L ocomotion, Balance, Safety Awareness, Sphincter Control, Self-Care, and Communication; and she had go od Social Cognition and Endurance.Pt. is now referred to [facility] for acute in-patient rehabilitation in order to maximize patient's functional independence in activities of farhad ly living, strength, ROM, and mobility.Pt. is a 74 yo Right-handed female of unknown race.- Rehab Goa l Patient has realistic goal of being discharged at assistance level 7-Ind to reside at Home with Pt s elf. MDM/PLAN: - Physical Therapy Achieving independence - to improve, our physical therapists will perform initial evaluation of pt's status upon admission and devise an individualized program for Community Reintegration Activities Decreased range of motion - to improve, our physical therapists will perform initial evaluation of p t's status upon admission and devise an individualized program for increasing patient's Range of Evert on. Gait dysfunction - to improve, our physical therapists will perform initial evaluation of pt's statu s upon admission and devise an individualized program for Gait Training, and Wheel Chair mobility Inability to transfer - to improve, our physical therapists will perform initial evaluation of pt's status upon admission and devise an individualized program for Bed mobility Need for home safety evaluation - to improve, our physical therapists will perform initial evaluatio n of pt's status upon admission and devise an individualized program for Home Evaluation Need in caregiver upon discharge - to improve, our physical therapists will perform initial evaluati on of pt's status upon admission and devise an individualized program for Caregiver Training New precaution - to improve, our physical therapists will perform initial evaluation of pt's status upon admission and devise an individualized program for Patient precaution education Poor balance - to improve, our physical therapists will perform initial evaluation of pt's status up on admission and devise an individualized program for Balance Training Poor endurance - to improve, our physical therapists will perform initial evaluation of pt's status upon admission and devise an individualized program for Endurance Training Weakness - to improve, our physical therapists will perform initial evaluation of pt's status upon a dmission and devise an individualized program for Aquatic Therapy, Neuromuscular Reeducation, and Str engthening - Occupational Therapy ADL deficits - to improve, our occupation therapists will perform initial evaluation of pt's status upon admission and devise an individualized program for Bathing, Bed mobility, Community Reintegratio n, Cooking, Dressing, Eating, Fine Motor Skills, Grooming, Homemaking, Kitchen Mobility, Laundry, Pat ient Education, Safety Awareness, Splinting - Positioning, Transfers(Toilet, Tub, Shower), and Wheel Chair Management Need for health care marketing manager - to improve, our occupation therapists will perform initial evaluation of pt's status upon admission and devise an individualized program for Caregiver Training Weakness - to improve, our occupation therapists will perform initial evaluation of pt's status upon admission and devise an individualized program for Aquatic Therapy, Balance, Endurance, UE ROM, and UE strengthening - Other See attached MAR (Medication Administration Record) - Anterior Hip Precaution No abduction No active extension No adduction across midline No external rotation No hip flexion >90 degrees No internal rotation - Diet - Liquid Texture Continue Regular - Tube Feed Continue N/A - Diet Type Continue Regular - Posterior Hip Precaution No adduction across midline No external rotation No hip flexion >90 degrees No internal rotation No wheel chair propulsion - Weight Bearing Precaution WBAT right LE - Skin care per protocol - Diet - Solid Texture Continue Regular - Shower allowing shower FUNCTIONAL STATUS: UPDATED AT WEEKLY TEAM CONFERENCE - Bladder Same accident frequency: 7-Ind - No accidents in the past 7 days - Bowel Same accident frequency: 7-Ind - No accidents in the past 7 days - Walking Same score based on distance walked: 0(N/A) - Wheelchair Same score based on distance traveled: 0(N/A) FUNCTIONAL STATUS: - Self-Care A. Eating Ind B. Grooming Alanna C. Bathing sup D. Dressing - Upper sup E. Dressing - Lower Chaav F. Toileting Chava - Sphincter Control G. Bladder control Chava H. Bowel control Chava - Transfers Control I. Bed/Chair/Wheelchair Chava J. Toilet Chava K. Tub/Shower modA - Locomotion L. Walk/Wheelchair (B) sup M. Stairs sup - Communication N. Comprehension (B) Alanna O. Expression (B) Alanna - Social Cognition P. Social Interaction Alanna Q. Problem Solving Alanna R. Memory Alanna - Endurance Good - Balance Fair - Safety Awareness Good QI SCORES: - Self-Care A. Eating 03-Partial/moderate assistance B. Oral hygiene 03-Partial/moderate assistance C. Toileting hygiene 03-Partial/moderate assistance E. Shower/bathe self 03-Partial/moderate assistance G. Lower body dressing 88-Not attempted due to medical condition or safety concerns H. Putting on/taking off footwear 88-Not attempted due to medical condition or safety concerns - Mobility M. 1 step (curb) 88-Not attempted due to medical condition or safety concerns N. 4 steps 88-Not attempted due to medical condition or safety concerns O. 12 steps 88-Not attempted due to medical condition or safety concerns P. Picking up object 88-Not attempted due to medical condition or safety concerns R. Wheel 50 feet with two turns 88-Not attempted due to medical condition or safety concerns A. Roll left and right 03-Partial/moderate assistance B. Sit to lying 03-Partial/moderate assistance C. Lying to sitting on side of bed 03-Partial/moderate assistance D. Sit to stand 04-Supervision or touching assistance E. Chair/jod-an-wbudv transfer 03-Partial/moderate assistance F. Toilet transfer 03-Partial/moderate assistance G. Car transfer 88-Not attempted due to medical condition or safety concerns I. Walk 10 feet 88-Not attempted due to medical condition or safety concerns J. Walk 50 feet with two turns 88-Not attempted due to medical condition or safety concerns K. Walk 150 feet 88-Not attempted due to medical condition or safety concerns L. Walking 10 feet on uneven surfaces 88-Not attempted due to medical condition or safety concerns S. Wheel 150 feet 88-Not attempted due to medical condition or safety concerns - Bladder and Bowel Bladder continence Bowel continence - Endurance Fair - Balance Fair - Safety Awareness Fair [facility] DEFICITS: Self-Care, Mobility, Endurance, Balance, and Safety Awareness SIGNATURE PANEL: (CDT)
[2020-02-15] MEDS: VANCOMYCIN 1.5 GM in NA CHLORIDE 0.9% 500 ML IVPB SCH (19:24)
[2020-02-15] MEDS: AMITRIPTYLINE 50 MG TAB PO SCH (20:43)
[2020-02-15] MEDS: GABAPENTIN 300 MG CAP PO SCH (20:43)
--- NOTE | 2020-02-16 00:54 | PN ---
Date of Progress Note: 02/15/2020 Subjective: The patient was seen this morning for followup. No new complaints or problems reported by the patient. Objective: General: Sleeping, easily arousable, not in distress. Vital Signs: Reviewed. HEENT: Unremarkable. Lungs: Clear to auscultation. Heart: Sounds normal. Abdomen: Soft. Bowel sounds normal. No guarding, rigidity, tenderness, or distention. Extremities: No leg edema. Right lateral hip exam shows improvement in area of some pink discolorat ion of skin around the surgical site. Dressing present with some stains on the dressing. Impression: 1.Prosthetic joint infection, right hip. 2.Hypertension. 3.Cervical spondylosis. Plan: The patient is complaining of pain in her right posterolateral neck area and she says that she has been having this pain ever since her hip surgery in [place] and she thinks that somehow she got traumatized during her last surgery in [place]. Her pain is localized, does not radiate into her upp er extremity. Cervical spine x-ray was ordered today, results reviewed, and she was started on diclo fenac. We will continue other current medications, blood pressure medications, and anticoagulation t herapy for DVT prophylaxis. I will see her tomorrow for followup. Continue current antibiotics. KALEE/MODL Voice ID: [id number] Report ID: [id number]
[2020-02-16] MEDS: PANTOPRAZOLE 40MG TABLET PO SCH (07:54)
[2020-02-16] MEDS: LEVOTHYROXINE SOD 0.075 MG TAB PO SCH (07:54)
[2020-02-16] MEDS: ENOXAPARIN 40 MG/0.4 ML SQ SCH (07:55)
[2020-02-16] MEDS: DOCUSATE NA/SENNA CONC 1 TAB PO SCH ×3 (07:55→20:00)
[2020-02-16] MEDS: FERROUS SULFATE 325 MG TAB PO SCH ×3 (07:55→20:00)
[2020-02-16] MEDS: LOSARTAN POTASSIUM 50 MG TABLET PO SCH (07:55)
[2020-02-16] MEDS: AMLODIPINE 10 MG TAB PO SCH (07:55)
[2020-02-16] MEDS: DICLOFENAC SOD D.R. 75 MG TAB PO SCH (07:56)
[2020-02-16] MEDS: hydroCHLOROthiazide 25 MG TAB PO SCH (07:56)
[2020-02-16] MEDS: NYSTATIN PWDR 100000 UNIT/GM TOP SCH ×2 (07:57→19:49)
[2020-02-16] MEDS: LIDOCAINE 4% PATCH TOP SCH (07:57)
[2020-02-16] MEDS: CRANBERRY FRUIT EXTRACT 200 MG CAP PO SCH ×3 (07:59→20:00)
[2020-02-16] MEDS: PROPRANOLOL HCL 80 MG SA CAP PO SCH (07:59)
[2020-02-16] MEDS: ENSURE HIGH PROTEIN 237 ML CAN PO SCH ×2 (08:00→19:50)
--- NOTE | 2020-02-16 18:45 | R.PN ---
PROGRESS NOTES ENCOUNTER DATE AND TIME: 02/16/2020 18:41 (CDT) NAME RUSSEL MAYNARD DATE OF : 1945 DATE OF ADMISSION: 02/08/2020 14:07 (CDT) RIGHT HIP FRACTURECHIEF COMPLAINT: Right hip fracture SUBJECTIVE: Pt denied any depression. Pt denied any Shortness of Breath. WBC 8.4, Hgb 9.5, prealbumin 12.9, Na 142. UA shows nitrite positive, esterase 2+, bacteria > 20. Ambulated 1000' with standby assistance using a rolling walker. Up and down 10 steps with contact gua rd assistance. Dr. Cortés is managing the patient's blood pressure and IV antibiotics. Vanc level is 17.4. VITAL SIGNS Temperature: 98.9 F SBP/DBP: 197/82 Pulse: 82 Resp: 15 MEDICATION ALLERGIES: No Known Drug Allergies (NKDA) ENVIRONMENTAL ALLERGIES: - Substance Allergies None Known - Other Allergies None Known NURSING: - Shower allowing shower - Skin care per protocol PRECAUTIONS: - Anterior Hip Precaution No abduction No active extension No adduction across midline No external rotation No hip flexion >90 degrees No internal rotation - Posterior Hip Precaution No adduction across midline No external rotation No hip flexion >90 degrees No internal rotation No wheel chair propulsion - Weight Bearing Precaution WBAT right LE ACTIVITIES OOB only with supervision THERAPIES: - Dietary and Nutrition Adequate Nutrition. Nutritional Education. Nutritional Supplements. PHYSICAL EXAM - Gen Alert and awake Lying in bed No apparent distress Oriented to: person, time, and place - Skin No skin breakdown. No abnormalities - Eyes No abnormalities - ENMT No abnormalities - Neck No abnormalities - CVS RRR - Chest No abnormalities - Abd Soft - GI Non distended Deferred - No abnormalities - Ext Right hip surgical site has good hemostasis. - MSK 4+/5 weakness in right lower extremity - Neuro 4/5 strength right lower extremity. - Psych No abnormalities ASSESSMENT: Currently, she has deficits of Locomotion, Balance, Transfers Control, Self-Care, and Endurance.On she was admitted to [facility] and underwent emergency surgery for RIGHT H IP FRACTURE (Unilateral Hip Fracture) by KORINA BAIRD.Pre-morbidly, Pt. was independent/mod-I in L ocomotion, Balance, Safety Awareness, Sphincter Control, Self-Care, and Communication; and she had go od Social Cognition and Endurance.Pt. is now referred to [facility] for acute in-patient rehabilitation in order to maximize patient's functional independence in activities of farhad ly living, strength, ROM, and mobility.Pt. is a 74 yo Right-handed female of unknown race.- Rehab Goa l Patient has realistic goal of being discharged at assistance level 7-Ind to reside at Home with Pt s elf. MDM/PLAN: - Physical Therapy Achieving independence - to improve, our physical therapists will perform initial evaluation of pt's status upon admission and devise an individualized program for Community Reintegration Activities Decreased range of motion - to improve, our physical therapists will perform initial evaluation of p t's status upon admission and devise an individualized program for increasing patient's Range of Evert on. Gait dysfunction - to improve, our physical therapists will perform initial evaluation of pt's statu s upon admission and devise an individualized program for Gait Training, and Wheel Chair mobility Inability to transfer - to improve, our physical therapists will perform initial evaluation of pt's status upon admission and devise an individualized program for Bed mobility Need for home safety evaluation - to improve, our physical therapists will perform initial evaluatio n of pt's status upon admission and devise an individualized program for Home Evaluation Need in caregiver upon discharge - to improve, our physical therapists will perform initial evaluati on of pt's status upon admission and devise an individualized program for Caregiver Training New precaution - to improve, our physical therapists will perform initial evaluation of pt's status upon admission and devise an individualized program for Patient precaution education Poor balance - to improve, our physical therapists will perform initial evaluation of pt's status up on admission and devise an individualized program for Balance Training Poor endurance - to improve, our physical therapists will perform initial evaluation of pt's status upon admission and devise an individualized program for Endurance Training Weakness - to improve, our physical therapists will perform initial evaluation of pt's status upon a dmission and devise an individualized program for Aquatic Therapy, Neuromuscular Reeducation, and Str engthening - Occupational Therapy ADL deficits - to improve, our occupation therapists will perform initial evaluation of pt's status upon admission and devise an individualized program for Bathing, Bed mobility, Community Reintegratio n, Cooking, Dressing, Eating, Fine Motor Skills, Grooming, Homemaking, Kitchen Mobility, Laundry, Pat ient Education, Safety Awareness, Splinting - Positioning, Transfers(Toilet, Tub, Shower), and Wheel Chair Management Need for director of critical care - to improve, our occupation therapists will perform initial evaluation of pt's status upon admission and devise an individualized program for Caregiver Training Weakness - to improve, our occupation therapists will perform initial evaluation of pt's status upon admission and devise an individualized program for Aquatic Therapy, Balance, Endurance, UE ROM, and UE strengthening - Other See attached MAR (Medication Administration Record) - Anterior Hip Precaution No abduction No active extension No adduction across midline No external rotation No hip flexion >90 degrees No internal rotation - Diet - Liquid Texture Continue Regular - Tube Feed Continue N/A - Diet Type Continue Regular - Posterior Hip Precaution No adduction across midline No external rotation No hip flexion >90 degrees No internal rotation No wheel chair propulsion - Weight Bearing Precaution WBAT right LE - Skin care per protocol - Diet - Solid Texture Continue Regular - Shower allowing shower FUNCTIONAL STATUS: UPDATED AT WEEKLY TEAM CONFERENCE - Bladder Same accident frequency: 7-Ind - No accidents in the past 7 days - Bowel Same accident frequency: 7-Ind - No accidents in the past 7 days - Walking Same score based on distance walked: 0(N/A) - Wheelchair Same score based on distance traveled: 0(N/A) FUNCTIONAL STATUS: - Self-Care A. Eating Ind B. Grooming Alanna C. Bathing sup D. Dressing - Upper sup E. Dressing - Lower Chava F. Toileting Chava - Sphincter Control G. Bladder control Chava H. Bowel control Chava - Transfers Control I. Bed/Chair/Wheelchair Chava J. Toilet Chava K. Tub/Shower modA - Locomotion L. Walk/Wheelchair (B) sup M. Stairs sup - Communication N. Comprehension (B) Alanna O. Expression (B) Alanna - Social Cognition P. Social Interaction Alanna Q. Problem Solving Alanna R. Memory Alanna - Endurance Good - Balance Fair - Safety Awareness Good QI SCORES: - Self-Care A. Eating 03-Partial/moderate assistance B. Oral hygiene 03-Partial/moderate assistance C. Toileting hygiene 03-Partial/moderate assistance E. Shower/bathe self 03-Partial/moderate assistance G. Lower body dressing 88-Not attempted due to medical condition or safety concerns H. Putting on/taking off footwear 88-Not attempted due to medical condition or safety concerns - Mobility M. 1 step (curb) 88-Not attempted due to medical condition or safety concerns N. 4 steps 88-Not attempted due to medical condition or safety concerns O. 12 steps 88-Not attempted due to medical condition or safety concerns P. Picking up object 88-Not attempted due to medical condition or safety concerns R. Wheel 50 feet with two turns 88-Not attempted due to medical condition or safety concerns A. Roll left and right 03-Partial/moderate assistance B. Sit to lying 03-Partial/moderate assistance C. Lying to sitting on side of bed 03-Partial/moderate assistance D. Sit to stand 04-Supervision or touching assistance E. Chair/fow-kn-lphjf transfer 03-Partial/moderate assistance F. Toilet transfer 03-Partial/moderate assistance G. Car transfer 88-Not attempted due to medical condition or safety concerns I. Walk 10 feet 88-Not attempted due to medical condition or safety concerns J. Walk 50 feet with two turns 88-Not attempted due to medical condition or safety concerns K. Walk 150 feet 88-Not attempted due to medical condition or safety concerns L. Walking 10 feet on uneven surfaces 88-Not attempted due to medical condition or safety concerns S. Wheel 150 feet 88-Not attempted due to medical condition or safety concerns - Bladder and Bowel Bladder continence Bowel continence - Endurance Fair - Balance Fair - Safety Awareness Fair [facility]RENT [facility]. DEFICITS: Self-Care, Mobility, Endurance, Balance, and Safety Awareness SIGNATURE PANEL: (CDT)
[2020-02-16] MEDS: VANCOMYCIN 1.5 GM in NA CHLORIDE 0.9% 500 ML IVPB SCH (19:18)
[2020-02-16] MEDS: TRAMADOL HCL 50 MG TAB PO PRN (19:48)
[2020-02-16] MEDS: AMITRIPTYLINE 50 MG TAB PO SCH (19:59)
[2020-02-16] MEDS: GABAPENTIN 300 MG CAP PO SCH (19:59)
--- NOTE | 2020-02-16 21:16 | PN ---
Date of Progress Note: 02/16/2020 Subjective: The patient was seen this morning for followup, sleeping, easily arousable, not in distr ess. Vital signs reviewed. She reports that her neck pain is much better today compared to yesterda y after diclofenac. Objective: Vital Signs: Reviewed. HEENT: Unremarkable. Lungs: Clear to auscultation. Heart: Sounds normal. Abdomen: Soft. Bowel sounds normal. No guarding, rigidity, tenderness, or distention. Extremities: Trace leg edema. Right lateral thigh area of redness from area surrounding the surgica l site is much better, almost resolved now. Impression: 1.Prosthetic joint infection, right hip. 2.Hypertension. 3.Leg edema. 4.Anemia. 5.Constipation. 6.Cervical spondylosis. Plan: We will continue current medication. Continue diclofenac. Continue DVT prophylaxis, current antibiotics. Nurse from rehab floor contacted me, informed me that the patient was scheduled to go h [facility] tomorrow and I did inform her to make sure to have high school social studies tutor look into the patient's discharg e to make sure that she is safe to go home and has adequate help at home as my understanding is that she lives at home by herself, but lately her grandson has moved in to live with her and we need to ma ke sure he is able to assist her, not only that, but the patient will also need arrangements complete d for IV antibiotics to be continued at home, total of 6 weeks of IV antibiotic that she needs, which is vancomycin that she is currently taking along with oral rifampin. If this cannot be arranged at home, then [facility] will need [facility]. The other thing also was that nurse was advised to make sure the patient has a followup appointment to have a visit with Orthopedic specialis t. When she first came into rehab floor, she informed me very clearly she did not want to use local keyboard specialist and she wanted to go back to [place] for followup purpose. So, this morning leonardo caban I visited her, we did talk about this followup visit and the patient did not know exactly when she was supposed to go back, but she was going to discuss with the nursing staff about this and then lat er on when nurse called and informed me, nurse was telling me that the patient told nursing staff josefina ward she did not want to go to [place] and she wanted to stay locally here, so I am getting different in formation from the patient's and the patient will need to make one particular decision and nurse will assist her with followup appointment as I have instructed. KALEE/MODL Voice ID: [id number] Report ID: [id number]
[2020-02-17 05:51] LABS: Absolute Lymphocytes (CBC) 1.4 K/uL (0.7-4.9); Basophils % 1.2 % (0-1.3); Hematocrit 28.9 % (36.0-45.0); Lymphocytes % 17.1 % (15.3-44.8); MPV 9.3 fL (7.6-11.3); RBC Red Blood Cell Count 3.04 M/uL (3.86-4.86)
[2020-02-17 06:07] LABS: Bilirubin Total 0.3 mg/dL (0.2-1.0); Magnesium 2.1 mg/dL (1.8-2.4); Potassium 3.4 mmol/L (3.5-5.1); Protein, Total 6.6 g/dL (6.4-8.2)
[2020-02-17] MEDS: ENOXAPARIN 40 MG/0.4 ML SQ SCH (07:04)
[2020-02-17] MEDS: PANTOPRAZOLE 40MG TABLET PO SCH (07:04)
[2020-02-17] MEDS: LEVOTHYROXINE SOD 0.075 MG TAB PO SCH (07:04)
[2020-02-17 07:13] VITALS: BP 172/72; TEMP 96.8
[2020-02-17] MEDS: LIDOCAINE 4% PATCH TOP SCH (08:00)
[2020-02-17] MEDS: NYSTATIN PWDR 100000 UNIT/GM TOP SCH (08:00)
[2020-02-17] MEDS: ENSURE HIGH PROTEIN 237 ML CAN PO SCH (08:00)
[2020-02-17] MEDS: CRANBERRY FRUIT EXTRACT 200 MG CAP PO SCH (08:46)
[2020-02-17] MEDS: AMLODIPINE 10 MG TAB PO SCH (08:47)
[2020-02-17] MEDS: FERROUS SULFATE 325 MG TAB PO SCH (08:47)
[2020-02-17] MEDS: hydroCHLOROthiazide 25 MG TAB PO SCH (08:47)
[2020-02-17] MEDS: DOCUSATE NA/SENNA CONC 1 TAB PO SCH (08:49)
[2020-02-17] MEDS: LOSARTAN POTASSIUM 50 MG TABLET PO SCH (09:26)
[2020-02-17] MEDS: DICLOFENAC SOD D.R. 75 MG TAB PO SCH (09:27)
[2020-02-17] MEDS: PROPRANOLOL HCL 80 MG SA CAP PO SCH (09:27)
--- NOTE | 2020-02-17 12:12 | FAST ---
[employer] FORM SHIFT START DATE/TIME: 02/17/2020 07:00 (CDT) SHIFT END DATE/TIME: 02/17/2020 19:00 (CDT) NAME RUSSEL MAYNARD DATE OF : 1945 DATE OF ADMISSION: 02/08/2020 14:07 (CDT) PHONE: AGE: 74 N# [id number] GENDER: Female ENCOUNTER PHYSICIAN: Dr. Charly Ross M.D. ADMISSION DIAGNOSIS: - Orthopaedic Disorders 08 - Unilateral Hip Fracture (08.11) RIGHT HIP FRACTURE. EATING: EATING - STEP 1: Does the patient complete the activity by him/herself with no assistance (physical, verbal/nonverbal cueing, setup/clean-up)? No. EATING - STEP 2: Does the patient need only setup/clean-up assistance from one helper? Yes. 1. [id number] ADMISSION PERFORMANCE: Setup or clean-up assistance CODE: 05 ORAL HYGIENE: ORAL HYGIENE - STEP 1: Does the patient complete the activity by him/herself with no assistance (physical, verbal/nonverbal cueing, setup/clean-up)? No. ORAL HYGIENE - STEP 2: Does the patient need only setup/clean-up assistance from one helper? Yes. 1. [id number] ADMISSION PERFORMANCE: Setup or clean-up assistance CODE: 05 TOILETING HYGIENE: TOILETING HYGIENE - STEP 1: Does the patient complete the activity by him/herself with no assistance (physical, verbal/nonverbal cueing, setup/clean-up)? No. TOILETING HYGIENE - STEP 2: Does the patient need only setup/clean-up assistance from one helper? Yes. 1. [id number] ADMISSION PERFORMANCE: Setup or clean-up assistance CODE: 05 BATHING: Not assessed/no information CODE: - DRESSING - UPPER BODY: DRESSING - UPPER BODY - STEP 1: Does the patient complete the activity by him/herself with no assistance (physical, verbal/nonverbal cueing, setup/clean-up)? No. DRESSING - UPPER BODY - STEP 2: Does the patient need only setup/clean-up assistance from one helper? No. DRESSING - UPPER BODY - STEP 3: Does the patient need only verbal/nonverbal cueing or touching/steadying/contact guard assistance fro m one helper? Yes. 1. [id number] ADMISSION PERFORMANCE: Supervision or touching assistance CODE: 04 DRESSING - LOWER BODY: DRESSING - LOWER BODY - STEP 1: Does the patient complete the activity by him/herself with no assistance (physical, verbal/nonverbal cueing, setup/clean-up)? No. DRESSING - LOWER BODY - STEP 2: Does the patient need only setup/clean-up assistance from one helper? No. DRESSING - LOWER BODY - STEP 3: Does the patient need only verbal/nonverbal cueing or touching/steadying/contact guard assistance fro m one helper? Yes. 1. [id number] ADMISSION PERFORMANCE: Supervision or touching assistance CODE: 04 PUTTING ON/TAKING OFF FOOTWEAR: FOOTWEAR - STEP 1: Does the patient complete the activity by him/herself with no assistance (physical, verbal/nonverbal cueing, setup/clean-up)? No. FOOTWEAR - STEP 2: Does the patient need only setup/clean-up assistance from one helper? No. FOOTWEAR - STEP 3: Does the patient need only verbal/nonverbal cueing or touching/steadying/contact guard assistance fro m one helper? Yes. 1. [id number] ADMISSION PERFORMANCE: Supervision or touching assistance CODE: 04 ROLL LEFT AND RIGHT: ROLL LEFT AND RIGHT - STEP 1: Does the patient complete the activity by him/herself with no assistance (physical, verbal/nonverbal cueing, setup/clean-up)? Yes. 1. [id number] ADMISSION PERFORMANCE: Independent CODE: 06 SIT TO LYING: SIT TO LYING - STEP 1: Does the patient complete the activity by him/herself with no assistance (physical, verbal/nonverbal cueing, setup/clean-up)? Yes. 1. [id number] ADMISSION PERFORMANCE: Independent CODE: 06 LYING TO SITTING: LYING TO SITTING ON SIDE OF BED - STEP 1: Does the patient complete the activity by him/herself with no assistance (physical, verbal/nonverbal cueing, setup/clean-up)? Yes. 1. [id number] ADMISSION PERFORMANCE: Independent CODE: 06 SIT TO STAND: SIT TO STAND - STEP 1: Does the patient complete the activity by him/herself with no assistance (physical, verbal/nonverbal cueing, setup/clean-up)? Yes. 1. [id number] ADMISSION PERFORMANCE: Independent CODE: 06 TRANSFERS: BED, CHAIR: CHAIR/[id number] TRANSFER - STEP 1: Does the patient complete the activity by him/herself with no assistance (physical, verbal/nonverbal cueing, setup/clean-up)? Yes. 1. [id number] ADMISSION PERFORMANCE: Independent CODE: 06 TRANSFER TOILET: TOILET TRANSFER - STEP 1: Does the patient complete the activity by him/herself with no assistance (physical, verbal/nonverbal cueing, setup/clean-up)? Yes. 1. [id number] ADMISSION PERFORMANCE: Independent CODE: 06 TRANSFERS: CAR: Not assessed/no information CODE: - WALK 10 FEET: Not assessed/no information CODE: - 1 STEP (CURB): Not assessed/no information CODE: - PICKING UP OBJECT: Not assessed/no information CODE: - DOES THE PATIENT USE A WHEELCHAIR/SCOOTER? Q1. DOES THE PATIENT USE A WHEELCHAIR/SCOOTER?: Yes CODE: 1 WHEEL 50 FEET WITH TWO TURNS: WHEEL 50 FEET WITH TWO TURNS - STEP 1: Does the patient complete the activity by him/herself with no assistance (physical, verbal/nonverbal cueing, setup/clean-up)? Yes. 1. [id number] ADMISSION PERFORMANCE: Independent CODE: 06 INDICATE THE TYPE OF WHEELCHAIR/SCOOTER USED: RR1. INDICATE THE TYPE OF WHEELCHAIR/SCOOTER USED.: Manual CODE: 1 WHEEL 150 FEET: WHEEL 150 FEET - STEP 1: Does the patient complete the activity by him/herself with no assistance (physical, verbal/nonverbal cueing, setup/clean-up)? Yes. 1. [id number] ADMISSION PERFORMANCE: Independent CODE: 06 INDICATE THE TYPE OF WHEELCHAIR/SCOOTER USED: CODE: EXPR BLADDER AND BOWEL: H350. BLADDER CONTINENCE (3-DAY ASSESSMENT PERIOD): Always continent (no documented incontinence) CODE: 0 H400. BOWEL CONTINENCE (3-DAY ASSESSMENT PERIOD): Always continent CODE: 0 SIGNATURE PANEL: The following modified sections: 1. [id number] Admission Performance, 1. [id number] Admission Performance, 1. IM4037C Admission Performance, 1. CY6444v Admission Performance, 1. OI1384n Admission Performance, 1. VR0005b Admission Performance, 1. BP2708C Admission Performance, 1. DL1284K Admission Performance , 1. [id number] Admission Performance, 1. DD4022D Admission Performance, 1. HM4879G Admission Performanc e, 1. CY6464D Admission Performance, Q1. Does the patient use a wheelchair/scooter?, 1. [id number] Admis dann Performance, RR1. Indicate the type of wheelchair/scooter used., 1. [id number] Admission Performanc e, Code, H350. Bladder Continence (3-day assessment period), H400. Bowel Continence (3-day assessment period) were [electronically] signed by Patricia Kay C.N.AFabio on SatFeb 17 2020 12:12:12 T-0500 (C entrms Daylight Time)
--- NOTE | 2020-02-17 17:51 | R.PN ---
PROGRESS NOTES ENCOUNTER DATE AND TIME: 02/17/2020 17:48 (CDT) NAME RUSSEL MAYNARD DATE OF : 1945 DATE OF ADMISSION: 02/08/2020 14:07 (CDT) RIGHT HIP FRACTURECHIEF COMPLAINT: Right hip fracture SUBJECTIVE: Pt denied any depression. Pt denied any Shortness of Breath. WBC 8.4, Hgb 9.5, prealbumin 12.9, Na 142. UA shows nitrite positive, esterase 2+, bacteria > 20. Ambulated 750' with standby assistance using a rolling walker. Up and down 10 steps with contact guar d assistance. Dr. Cortés is managing the patient's blood pressure and IV antibiotics. Vanc level is 17.4. VITAL SIGNS Temperature: 97.6 F SBP/DBP: 172/72 Pulse: 80 Resp: 16 MEDICATION ALLERGIES: No Known Drug Allergies (NKDA) ENVIRONMENTAL ALLERGIES: - Substance Allergies None Known - Other Allergies None Known NURSING: - Shower allowing shower - Skin care per protocol PRECAUTIONS: - Anterior Hip Precaution No abduction No active extension No adduction across midline No external rotation No hip flexion >90 degrees No internal rotation - Posterior Hip Precaution No adduction across midline No external rotation No hip flexion >90 degrees No internal rotation No wheel chair propulsion - Weight Bearing Precaution WBAT right LE ACTIVITIES OOB only with supervision THERAPIES: - Dietary and Nutrition Adequate Nutrition. Nutritional Education. Nutritional Supplements. PHYSICAL EXAM - Gen Alert and awake Lying in bed No apparent distress Oriented to: person, time, and place - Skin No skin breakdown. No abnormalities - Eyes No abnormalities - ENMT No abnormalities - Neck No abnormalities - CVS RRR - Chest No abnormalities - Abd Soft - GI Non distended Deferred - No abnormalities - Ext Right hip surgical site has good hemostasis. - MSK 4+/5 weakness in right lower extremity - Neuro 4/5 strength right lower extremity. - Psych No abnormalities ASSESSMENT: Currently, she has deficits of Locomotion, Balance, Transfers Control, Self-Care, and Endurance.On she was admitted to [facility] and underwent emergency surgery for RIGHT H IP FRACTURE (Unilateral Hip Fracture) by KORINA BAIRD.Pre-morbidly, Pt. was independent/mod-I in L ocomotion, Balance, Safety Awareness, Sphincter Control, Self-Care, and Communication; and she had go od Social Cognition and Endurance.Pt. is now referred to [facility] for acute in-patient rehabilitation in order to maximize patient's functional independence in activities of farhad ly living, strength, ROM, and mobility.Pt. is a 74 yo Right-handed female of unknown race.- Rehab Goa l Patient has realistic goal of being discharged at assistance level 7-Ind to reside at Home with Pt s elf. MDM/PLAN: - Physical Therapy Achieving independence - to improve, our physical therapists will perform initial evaluation of pt's status upon admission and devise an individualized program for Community Reintegration Activities Decreased range of motion - to improve, our physical therapists will perform initial evaluation of p t's status upon admission and devise an individualized program for increasing patient's Range of Evert on. Gait dysfunction - to improve, our physical therapists will perform initial evaluation of pt's statu s upon admission and devise an individualized program for Gait Training, and Wheel Chair mobility Inability to transfer - to improve, our physical therapists will perform initial evaluation of pt's status upon admission and devise an individualized program for Bed mobility Need for home safety evaluation - to improve, our physical therapists will perform initial evaluatio n of pt's status upon admission and devise an individualized program for Home Evaluation Need in caregiver upon discharge - to improve, our physical therapists will perform initial evaluati on of pt's status upon admission and devise an individualized program for Caregiver Training New precaution - to improve, our physical therapists will perform initial evaluation of pt's status upon admission and devise an individualized program for Patient precaution education Poor balance - to improve, our physical therapists will perform initial evaluation of pt's status up on admission and devise an individualized program for Balance Training Poor endurance - to improve, our physical therapists will perform initial evaluation of pt's status upon admission and devise an individualized program for Endurance Training Weakness - to improve, our physical therapists will perform initial evaluation of pt's status upon a dmission and devise an individualized program for Aquatic Therapy, Neuromuscular Reeducation, and Str engthening - Occupational Therapy ADL deficits - to improve, our occupation therapists will perform initial evaluation of pt's status upon admission and devise an individualized program for Bathing, Bed mobility, Community Reintegratio n, Cooking, Dressing, Eating, Fine Motor Skills, Grooming, Homemaking, Kitchen Mobility, Laundry, Pat ient Education, Safety Awareness, Splinting - Positioning, Transfers(Toilet, Tub, Shower), and Wheel Chair Management Need for care program resident - to improve, our occupation therapists will perform initial evaluation of pt's status upon admission and devise an individualized program for Caregiver Training Weakness - to improve, our occupation therapists will perform initial evaluation of pt's status upon admission and devise an individualized program for Aquatic Therapy, Balance, Endurance, UE ROM, and UE strengthening - Other See attached MAR (Medication Administration Record) - Anterior Hip Precaution No abduction No active extension No adduction across midline No external rotation No hip flexion >90 degrees No internal rotation - Diet - Liquid Texture Continue Regular - Tube Feed Continue N/A - Diet Type Continue Regular - Posterior Hip Precaution No adduction across midline No external rotation No hip flexion >90 degrees No internal rotation No wheel chair propulsion - Weight Bearing Precaution WBAT right LE - Skin care per protocol - Diet - Solid Texture Continue Regular - Shower allowing shower FUNCTIONAL STATUS: UPDATED AT WEEKLY TEAM CONFERENCE - Bladder Same accident frequency: 7-Ind - No accidents in the past 7 days - Bowel Same accident frequency: 7-Ind - No accidents in the past 7 days - Walking Same score based on distance walked: 0(N/A) - Wheelchair Same score based on distance traveled: 0(N/A) FUNCTIONAL STATUS: - Self-Care A. Eating Ind B. Grooming Alanna C. Bathing sup D. Dressing - Upper sup E. Dressing - Lower Chava F. Toileting Chava - Sphincter Control G. Bladder control Chava H. Bowel control Chava - Transfers Control I. Bed/Chair/Wheelchair Chava J. Toilet Chava K. Tub/Shower modA - Locomotion L. Walk/Wheelchair (B) sup M. Stairs sup - Communication N. Comprehension (B) Alanna O. Expression (B) Alanna - Social Cognition P. Social Interaction Alanna Q. Problem Solving Alanna R. Memory Alanna - Endurance Good - Balance Fair - Safety Awareness Good QI SCORES: - Self-Care A. Eating 03-Partial/moderate assistance B. Oral hygiene 03-Partial/moderate assistance C. Toileting hygiene 03-Partial/moderate assistance E. Shower/bathe self 03-Partial/moderate assistance G. Lower body dressing 88-Not attempted due to medical condition or safety concerns H. Putting on/taking off footwear 88-Not attempted due to medical condition or safety concerns - Mobility M. 1 step (curb) 88-Not attempted due to medical condition or safety concerns N. 4 steps 88-Not attempted due to medical condition or safety concerns O. 12 steps 88-Not attempted due to medical condition or safety concerns P. Picking up object 88-Not attempted due to medical condition or safety concerns R. Wheel 50 feet with two turns 88-Not attempted due to medical condition or safety concerns A. Roll left and right 03-Partial/moderate assistance B. Sit to lying 03-Partial/moderate assistance C. Lying to sitting on side of bed 03-Partial/moderate assistance D. Sit to stand 04-Supervision or touching assistance E. Chair/sgo-bw-anusw transfer 03-Partial/moderate assistance F. Toilet transfer 03-Partial/moderate assistance G. Car transfer 88-Not attempted due to medical condition or safety concerns I. Walk 10 feet 88-Not attempted due to medical condition or safety concerns J. Walk 50 feet with two turns 88-Not attempted due to medical condition or safety concerns K. Walk 150 feet 88-Not attempted due to medical condition or safety concerns L. Walking 10 feet on uneven surfaces 88-Not attempted due to medical condition or safety concerns S. Wheel 150 feet 88-Not attempted due to medical condition or safety concerns - Bladder and Bowel Bladder continence Bowel continence - Endurance Fair - Balance Fair - Safety Awareness Fair [facility] DEFICITS: Self-Care, Mobility, Endurance, Balance, and Safety Awareness SIGNATURE PANEL: (CDT)
--- NOTE | 2020-02-18 06:17 | DS ---
Date of Discharge: 02/17/2020 Disposition: Discharged to go home. Physical Examination: HEENT: Unremarkable. Lungs: Clear to auscultation. Heart: Sounds normal. Abdomen: Soft. Bowel sounds normal. No guarding, rigidity, tenderness, or distention. Extremities: No leg edema. Discharge Diagnoses: 1.Prosthetic joint infection, right hip. 2.Anemia due to acute blood loss. 3.Hypertension. 4.Hyperlipidemia. 5.Hypothyroidism. 6.Impaired fasting glucose. 7.Left breast cancer. 8.Pulmonary nodule. 9.Osteoarthritis, multiple sites. 10.Fibromyalgia. 11.Osteoporosis. Discharge Medications And Instructions: 1.Continue all prior home medications. 2.Follow up at my office next week on Saturday. 3.Follow up with coverage specialist rn in [place] on Saturday of next week and the patient will have her suture removal on that particular day by orthopedic doctor's office. 4.Home health and home physical therapy. 5.Rifampicin 300 mg p.o. 2 times a day for 30 days. 6.Xarelto 10 mg p.o. daily in the evening time for 30 days, take it with evening meal. 7.Ferrous sulfate 325 mg p.o. daily. 8.Vancomycin 1.5 g IV piggyback every 24 hours to be given for 30 days. The patient will come to trace on outpatient basis to same-day surgery during week days at 9 a.m. and over the weekend she wi ll come to emergency room at 9 a.m. for this IV vancomycin therapy. 9.Remove PICC line after IV vancomycin therapy completed. 10.Flush PICC line per protocol and change PICC line dressing per protocol by home health nurse. Laboratory Data: On 02/09/2020 white count 6.1, hemoglobin 8.8, platelets 215. This morning white c ount 8.2, hemoglobin 9, platelets 196. Last chemistry today sodium 142, potassium 3.4, chloride 105, bicarb 33, BUN 8, creatinine 1.19, glucose 108. Liver function tests unremarkable. Her last vancom ycin trough level on 02/15/2020 was 17.4. Hospital Course: A 74-year-old female patient admitted to the hospital to rehab floor after she had surgery done in [place], where she had surgery for dislocated hip and she was also diagnosed as havin g prosthetic joint infection. The patient had right hip replacement surgery about 2 weeks or so prio r to this hip dislocation. Her wound culture that was collected at the time of surgery grew 3 differ ent bacteria and she was started on vancomycin and rifampicin on 02/05/2020 and recommendation was to give her 6 weeks of antibiotic therapy. She continued to receive both IV vancomycin and oral rifamp icin in the hospital and she received physical therapy under guidance of Dr. Ross. Overall, her condition has improved and today she was stable for discharge from medical point of view and rehab de termine her stable for discharge home today. The patient has a grandson who lives with her, but he w ill not be able to assist her with antibiotic infusion management as I was told and in fact, nurse to ld me and they were not even able to contact him on any viable phone number where they could communic ate with, so that arrangements was not possible as I was told. The patient does not want to go to [facility]. So, this particular arrangements was made by rehab floor for her to continue to receive her antibiotic therapy. KALEE/MODL Voice ID: [id number] Report ID: [id number]
== END 2020-02-17 13:00 | disposition home health service (06) | DRG 560 ==
LOC: 5TH 02-08 16:07
PROVIDERS: ADMIT Internal Medicine; ATTEND Internal Medicine
PROC: 0HBQXZZ Excision of Finger Nail, External Approach (ICD-10-PCS; principal; 2020-02-15)
DX: S72.001D Fracture of unspecified part of neck of right femur, subsequent encounter for closed fracture with routine healing (principal); D62 Acute posthemorrhagic anemia; M97.01XD Periprosthetic fracture around internal prosthetic right hip joint, subsequent encounter; I10 Essential (primary) hypertension; E78.5 Hyperlipidemia, unspecified; E03.9 Hypothyroidism, unspecified; R73.01 Impaired fasting glucose; M19.90 Unspecified osteoarthritis, unspecified site; M79.7 Fibromyalgia; M81.0 Age-related osteoporosis without current pathological fracture; R60.0 Localized edema; K59.00 Constipation, unspecified; M47.892 Other spondylosis, cervical region; Z90.710 Acquired absence of both cervix and uterus; B35.1 Tinea unguium; I70.91 Generalized atherosclerosis; Z85.3 Personal history of malignant neoplasm of breast; Z20.828 Contact with and (suspected) exposure to other viral communicable diseases
CPT/HCPCS: 36415; 71046; 71250; 72050; 80048; 80053; 80202; 81001; 82040; 82274; 82565; 83735; 84134; 85025; 87086; 87088; 92523; 97110; 97112; 97116; 97127; 97161; 97530; 97542; J1650; J3370; J7040; U0002; U0003

== ENCOUNTER 2020-02-21 10:33 | Emergency (ER) | payer MEDICARE ==
--- OUTSIDE RECORDS SUMMARY | 2020-02-21 10:38 | XMS REPORT | Clinical Summary ---
:1945 Author Organization [facility] Address [address] [place] [address] Care Team Providers Name Role Phone Samm Cortés MD Primary Care Provider Allergies No Known Allergies Medications Medication Sig Dispensed Refills Start Date End Date Status amitriptyline Take 1 tablet (50 mg 30 [...] NS 100 ML MBP 12 (twelve) hours. acetaminophen Take 2 tablets 30 tablet 0 02/08/2020 (TYLENOL) 500 MG (1,000 mg total) by 0 tablet mouth every 8 (eight) hours as needed for Pain for up to 10 days. Active Problems Problem Noted Date Dislocated hip, right, initial encounter 01/30/2020 Hypothyroidism 01/30/2020 Left breast cancer in remission 01/30/2020 History of total right hip arthroplasty 01/30/2020 Encounters Date Type Specialty Care Team Description 02/02/2020 Anesthesia Event Gino Ball, MARÍA 02/02/2020 Surgery Marisol Galindo REVISION,TOT AL HIP MD Edin 01/30/2020 - Hospital Encounter General Internal [place], Dislo cated hip, right, initial encounter ([facility]); 02/08/2020 Medicine MD Nancy Impaired mobility and ADLs; Toño Allred MD Metabolic encephalopathy; Yahaira Galvan History of total right hip arthroplasty; MD Juan J Hypothyroidi sm, unspecified type; Infection of pr osthetic joint, initial encounter ([facility]) 01/30/2020 Orders Only General Internal Medicine 01/30/2020 Documentation Internal Medicine Nancy Coleman MD after 02/20/2019 Social History Tobacco Use Types Packs/Day Years [...] VACCINE (#1) 2020 Implants Implanted Type Area Service Center Technician Device Shelf Model / Identifier Expiration Serial / Date Lot Scr Acet St Tril 6.5x30mm - [id number] TOTAL JOINT Right: TALITA:TALITA [id number] 11/30/2029 / Implanted: Qty: 1 on 02/02/2020 by Marisol Galindo MD CONSTRUCT Hip US / [id number] Scr Acet St Tril 6.5x30mm - [id number] TOTAL JOINT Right: TALITA:TALITA [id number] 05/26/2029 / Implanted: Qty: 1 on 02/02/2020 by Marisol Galindo MD CONSTRUCT Hip US / [id number] Liner G7 Dual Mobility 44mm F [id number] - [id number] TOTAL JOINT Right: BIOMET ORTHO [id number] 10/26/2029 [id number] / Implanted: Qty: 1 on 02/02/2020 by Marisol Galindo MD CONSTRUCT Hip / [id number] Head Ceramic Biolx 28mm Delta 650-1055 - [id number] TOTAL JOINT Ri ght: BIOMET [id number] 09/13/2029 650-1055 / Implanted: Qty: 1 on 02/02/2020 by Marisol Galindo MD CONSTRUCT Hip / [id number] Sleeve Taper Ceramic 650-1068 - [id number] TOTAL JOINT Right: BIOMET [id number] 11/25/2028 650-1068 / Implanted: Qty: 1 on 02/02/2020 by Marisol Galindo MD CONSTRUCT Hip / [id number] [place] Acetabular Shell Right: BIOMET [id number] 07/20/2029 [id number] / Implanted: Qty: 1 on 02/02/2020 by Marisol Galindo MD Hip / [id number] 6.5 Mm Self Tapping Bone Screw Right: BIOMET [id number] 10/21/2029 [id number] / Implanted: Qty: 1 on 02/02/2020 by Marisol Galindo MD Hip / [id number] 6.5x20mm Bone Screw Right: Talita [id number] 07/27 [id number] / Implanted: Qty: 1 on 02/02/2020 by Marisol Galindo MD Hip / [id number] Dual Mobility Bearing Right: Talita [id number] / Implanted: Qty: 1 on 02/02/2020 by Marisol Galindo MD Hip / [id number] Procedures Procedure Name Priority Date/Time Associated Comments Diagnosis REPORT OF PROCEDURE - 02/10/2020 11:00 ENDOSCOPY SCAN AM CDT RHYTHM STRIP - SCAN 02/10/2020 11:00 AM CDT CBC W/PLT COUNT & AUTO Routine 02/08/2020 [...] are i n the results section. SARS-COV2/RT-PCR ([facility] STAT 02/07/2020 12:43 R esults for this [...] procedure are i n the results section. CREATINE Routine 02/02/2020 10:05 Results for this PM CDT procedure are [...] results section. ANAEROBIC CULTURE Routine 02/02/2020 2:19 Result s for this PM CDT procedure are i n the results section. HGB/HCT (H&H) - STAT STAT 02/02/2020 2:17 [...] PM CDT ANAEROBIC CULTURE Routine 02/02/2020 2:14 Result s for this PM CDT procedure are i n the results section. AFB CULTURE + SMEAR Routine 02/02/2020 2:14 [...] results section. ANAEROBIC CULTURE Routine 02/02/2020 1:53 Result s for this PM CDT procedure are i n the results section. SPIN/CONCENTRATION Routine 02/02/2020 1:53 Resul ts for [...] BIOMET, DR. GALINDO'S SPECIAL HIP RETRACTOR (FROM [facility]) , ADAPTIC WOUND VAC SUPPLIES, HAVE AVAILABLE CANCELLOUS BONE GRAFT REVISION,TOTAL HIP 02/02/2020 12:00 PM CDT Dislocated hip, right, initial encounter ([facility]) Special Needs REQ: RADIOLUCENT FLAT TOP TA BLE, PEG BOARD, CELL SAVER, AQUA MANTIS, LUZ REVISION SET (FLEXIBLE OSTEO TOMES) HOOK CUREWETTES, BIOMET, DR. GALINDO[facility]S SPECIAL HIP RETRACTOR (FROM [facility]) , ADAPTIC WOUND VAC SUPPLIES, [...] 378 ms QTC Calculation(Bazett) 413 ms P Morrison 44 degrees R Morrison -12 degrees T Morrison 39 degrees Normal sinus rhythm Normal ECG [...] i n the results section . SARS-COV2/RT-PCR (HS & REF STAT 01/30/2020 3:44 PM CDT Results for this LABS) procedure are i n the results section . XR HIP 4 VIEWS, RIGHT STAT 01/30/2020 2:44 PM CDT Results for this procedure are i n the results section . after 02/20/2019 Results EKG-SCANNED (02/10/2020 11:00 AM CDT) Narrative Performed At This result has an attachment that is no t available. RHYTHM STRIP - SCAN (02/10/2020 11:00 AM CDT) Narrative Performed At This result has an attachment that is no t available. CBC with platelet count + automated diff (02/08/2020 5:44 AM CDT)Only the most recent of3 resultswithin the time period is included. WBC 6.8 3.5 - 10.5 K/L [facility] RBC 2.82 (L) 3.93 - 5.22 M/L [facility] Hemoglobin 8.6 (L) 11.2 - 15.7 GM/DL [facility] Hematocrit 28.6 (L) 34.1 - 44.9 % [facility] MCV 101.4 (H) 79.4 - 94.8 fL [facility] MCH 30.5 25.6 - 32.2 pg [facility] MCHC 30.1 (L) 32.2 - 35.5 GM/DL [facility] RDW 13.9 11.7 - 14.4 % [facility] Platelets 233 150 - 450 K/CU MM [facility] MPV 10.4 9.4 - 12.3 fL [facility] nRBC 0 0 - 0 /[address] [facility] % Neutros 50 % [facility] % Lymphs 21 % [facility] % Monos 13 % [facility] % Eos 15 % [facility] % Baso 1 % [facility] # Neutros 3.41 1.56 - 6.13 K/L [facility] # Lymphs 1.40 1.18 - 3.74 K/L [facility] # Monos 0.88 (H) 0.24 - 0.36 K/L [facility] # Eos 1.03 (H) 0.04 - 0.36 K/L [facility] # Baso 0.06 0.01 - 0.08 K/L [facility] Immature 1 0 - 1 % [facility] Granulocytes-Relative MEDICAL CE NTER Specimen Blood Performing Organization Address City/[facility]/Zipcode Phone Number [address] [address] CENTER Magnesium (02/08/2020 5:44 AM CDT)Only the most recent of10 resultswithin the time period is included. Magnesium 1.9 1.6 - 2.6 mg/dL [facility] Specimen Blood Narrative Performed At Door Machine Operator ID - AAHAMID [facility] Performing Organization Address City/State/Zipcode Phone Number [address] [address] [place] Basic Metabolic Panel (02/08/2020 5:44 AM CDT)Only the most recent of9 results within the time period is included. Sodium 139 136 - 145 meq/L [facility] Potassium 3.9 3.5 - 5.1 meq/L [facility] Chloride 105 98 - 107 meq/L [facility] CO2 28 22 - 29 meq/L [facility] BUN 12 7 - 21 mg/dL [facility] Creatinine 0.79 0.57 - 1.25 mg/dL [facility] Glucose 109 (H) 70 - 105 mg/dL [facility] Calcium 9.6 8.4 - 10.2 mg/dL [facility] EGFR 72Comment: ESTIMATED GFR IS mL/min/1.73 sq m [facility] NOT ACCURATE CREATININE [place] DICAL [place] CLEARANCE IN PREDICTING GLOMERULAR FILTRATION RATE. ESTIMATED GFR IS NOT APPLICABLE FOR DIALYSIS PATIENTS. Specimen Blood Narrative Performed At Door Machine Operator ID - AAHAMID [facility] Performing Organization Address City/State/Zipcode Phone Number [facility] [address] [place] [address] CENTER SARS-CoV2/RT-PCR (Asymptomatic ONLY) (02/07/2020 12:43 PM CDT)Only the most recent of2 resultswithin the time period is included. SARS-COV2/RT-PCR Negative Not Detected, Negative, [facility] See external report for MEDICAL CENTER linked test SARS-COV-[address] [facility] LOLITA [facility] Specimen Other Narrative Performed At Negative result for this test determines that [facility] SARS-CoV-2 RNA was not present in the [...] the Act. Fact Sheet for Healthcare Providers: https://www.Invrep/sites/default/files/pro duct/documents/Fact_Sheet_HC_Providers_Lyra_SA RS-CoV-2.pdf Fact Sheet for Healthcare Patients: https://www.Invrep/sites/default/files/pro duct/documents/Fact_Sheet_Patients_Lyra_SARS-C oV-2.pdf Performing Laboratory: [address] [place] [address] Performing Organization Address City/State/Zipcode Phone Number [facility] [address] [place], [place] [phone] CENTER Vancomycin level, trough (02/07/2020 4:08 AM CDT) Vancomycin Tr 15.1 10.0 - 20.0 ug/mL [facility] Specimen Blood Narrative Performed At Door Machine Operator ID - ADMIN [id number] Performing Organization Address City/State/Zipcode Phone Number [phone] [address] [place], [place] [address] XR chest 1 view [...] MD Report Verified Date/Time:02/06/2020 10:07:30 Reading Location: [address] Reading Room Procedure Note Interface, External [...] Verified Date/Time: 02/06/2020 1 0:07:30 Reading Location: [facility] B1 [id number] [facility] Reading Room Performing Organization Address City/[facility] Cent[facility]ode Phone Number GE RIS TRANSFUSION SERVICE REPORT - SCAN (02/05/2020 6:00 PM CDT)Only the most recent of5 resultswithin the time period is included. Narrative Performed At This result has an attachment that is no t available. Prepare RBC (02/04/2020 12:09 AM CDT)Only the most recent of3 resultswithin the time period is included. Unit ABO A Pos SAFETRACE [place] UNIT NUMBER [id number] SAFETRACE [place] Status WORK IN PROGRESS SAFETRACE [place] Blood Bank Product RED BLOOD CELLS [place]AF[place]ACE [place] PRODUCT CODE [id number] SAFETRACE TX Unit ABO A Pos SAFETRACE TX UNIT NUMBER [id number] SAFETRACE TX Status WORK IN PROGRESS SAFETRACE TX Blood Bank Product RED BLOOD CELLS SAFETRACE TX PRODUCT CODE [id number] SAFETRACE TX Unit ABO A Pos SAFETRACE TX UNIT NUMBER [id number] SAFETRACE TX Status WORK IN PROGRESS SAFETRACE TX Blood Bank Product RED BLOOD CELLS SAFETRACE TX PRODUCT CODE [id number] SAFETRACE TX Unit ABO A Pos SAFETRACE TX UNIT NUMBER [id number] SAFETRACE TX Status WORK IN PROGRESS SAFETRACE TX Blood Bank Product RED BLOOD CELLS SAFETRACE TX PRODUCT CODE [id number] SAFETRACE TX CROSSMATCH COMPATIBLE SAFETRACE TX CROSSMATCH COMPATIBLE SAFETRACE TX CROSSMATCH COMPATIBLE SAFETRACE TX CROSSMATCH COMPATIBLE SAFETRACE TX Performing Organization Address City/[facility] Centercoia Phone Number SAF[place] CBC (Hemogram only) (02/03/2020 6:58 AM CDT)Only the most recent of4 results within the time period is included. WBC 13.4 (H) 3.5 - 10.5 K/L [facility] RBC 2.94 (L) 3.93 - 5.22 M/L [facility] Hemoglobin 9.2 (L) 11.2 - 15.7 GM/DL [facility] Hematocrit 28.9 (L) 34.1 - 44.9 % [facility] MCV 98.3 (H) 79.4 - 94.8 fL [facility] MCH 31.3 25.6 - 32.2 pg [facility] MCHC 31.8 (L) 32.2 - 35.5 GM/DL [facility] RDW 13.2 11.7 - 14.4 % [facility] Platelets 236 150 - 450 K/CU MM [facility] MPV 11.3 9.4 - 12.3 fL [facility] nRBC 0 0 - 0 /100 WBC [facility] Specimen Blood Performing Organization Address [facility] Health Centercode Phone Number [address] [address] CENTER Hemoglobin and hematocrit (02/02/2020 10:05 PM CDT) Hemoglobin 10.0 (L) 11.2 - 15.7 GM/DL [facility] Hematocrit 31.5 (L) 34.1 - 44.9 % [facility] Specimen Blood Narrative Performed At Door Machine Operator ID - [id number] [facility] Performing Organization Address [facility] Center[facility] Phone Number [address] [address] CENTER Creatine (02/02/2020 10:05 PM CDT) Creatine, Serum 0.7 <1.3 mg/dL [facility] Comment: INCORPORATED This test was developed and its analytical perfo rmance characteristics have been determined by [facility] [place], [place]. It has not been cleared or approved by the U.S. Food an d Drug Administration. This assay has been validated pu rsuant to the CLIA regulations and is used for clinical purposes. Specimen Blood Narrative Performed At Performing Lab [facility] [address] [facility] [address] [place], [address] [facility] [address] [place] [address] Blue Lord MD, PhD Performing Organization Address City/State/Zipcode Phone Number [facility], [place], [place] [address] INCORPORATED [address] [address] [employer] Prepare plasma (02/02/2020 5:44 PM CDT) Unit ABO A Pos SAFETRACE TX UNIT NUMBER [id number] SAFETRACE [place] Status RETURNED FROM ISSUE SAFETRACE [place] Blood Bank Product FFP SAFETRACE [place] PRODUCT CODE [id number] SAFETRACE [place] Performing Organization Address City/State/Zipcode Phone Number SAFETRACE [place] XR pelvis 1 or 2 views (02/02/2020 5:28 PM CDT)Only the most recent of3 results within the time period is included. Specimen Narrative Performed At FINAL REPORT GE RIS RAD, PELVIS, 1 OR 2 VIEWS CLINICAL HISTORY:Post op TECHNIQUE: RAD, PELVIS, 1 OR 2 VIEWS COMPARISON: February 01 2022 hours prior . IMPRESSION: Right hip total arthroplasty revision ch anges. Postoperative subcutaneous emphysema is reduced. Hardw are [...] . IMPRESSION: Right hip total arthroplasty revision ch anges. Postoperative subcutaneous emphysema is reduced. Hardw are appears stable without acute complication. Osseous alignment is anatomic. Mild gaseous distention of small bowel l oops may represent postoperative ileus but mechanical obstr uction not excluded. Signed: Nino Aldana MD Report Verified Date/Time: 02/02/2020 2 0:40:20 Performing Organization Address City/[facility]/Zipcode Phone Number GE RIS Antibody identification (02/02/2020 5:01 PM CDT) ANTIBODY ID (PEMA) UNID IgG SAFETRACE T X Antibody Consult SIGNED OUTComment: Nonspecific IgG [place]ACE [place] reactivity detected; this is likely of limited clinical significance. For transfusion purposes, crossmatch compatible RBCs will be selected. Electronic Signature: Jazzy Vasquez MD Specimen Performing Organization Address City/[facility] Centercode Phone Number [place] [place] Tissue Exam (02/02/2020 3:53 PM CDT) Case Report Surgical Pathology Report Case: [id number] [facility] Authorizing Provider:Marisol Davis MDCollected: 02/02/2020 03:53 PM [facility] Ordering Location: [facility] PERIOPERATIVE Received:02/03/2020 09:39 AM SERVICES Pathologist: Lauren Putnam MD Specimen:Explant, Liu rdware from previous surgery for ID: cup/head from right hip replacement DIAGNOSIS [facility] EL[facility] ALTH A. HARDWARE, RIGHT HIP REPLACEMENT, GROSS EXAMIN ATION ONLY: [facility] - HARDWARE IDENTIFIED (SEE GROSS DESCRIPTION) . Signing Pathologist Direct Phone Line: [phone] CPT Code(s) 50823 [facility] ELMER[facility] CLINICAL HISTORY Dislocated right total [facility] hip. [facility] SPECIMEN SOURCE Explant [facility]MERKristal[facility] GROSS DESCRIPTION Received fresh labeled with the patient's name, accession number and "explant" are three metallic narayan to narayan-white pieces of orthopedic hardware ranging from 2.3 to 5.0 cm in greatest dimension, which [facility] are grossly consistent with an acetabulum, ball and socket. The following inscription is identified: [facility] "[id number]" "[id number]" "B 28 MM X STD" "[id number]" A gross photograph is taken. No sections are submitted. This case is for gross examination only. PA/ew Gross assessment was [facility] performed at Center, Department of [facility] Pathology, [address] [place] [address], Technical component was [facility] performed at [place], Department of [facility] Pathology, [address] [place] [address], Professional component was [facility] performed at [place], Department of [facility] Pathology, [address] [place] [id number], Specimen Tissue - Explant Performing Organization Address [facility] Phone Number [address] [address] [place] Transfuse Leuko-Red RBC (02/02/2020 3:08 PM CDT)Potassium-Stat Lab (02/02/2020 3:05 PM CDT)Only the most recent of2 resultswithin the time period is included. Potassium 3.8 3.6 - 5.5 meq/L [facility] Specimen Blood, Arterial Narrative Performed At FiO2: 50%, Temp 36.3C [facility] FiO2: 50%, Temp 36.3C FiO2: 50%, Temp 36.3C FiO2: 50%, Temp 36.3C FiO2: 50%, Temp 36.3C Performing Organization Address [facility] Phone Number [address] [address] [place] Sodium Na-Stat Lab (02/02/2020 3:05 PM CDT)Only the most recent of2 results within the time period is included. Sodium 134 (L) 136 - 145 meq/L [facility] Specimen Blood, Arterial Narrative Performed At FiO2: 50%, Temp 36.3C [facility] FiO2: 50%, Temp 36.3C FiO2: 50%, Temp 36.3C FiO2: 50%, Temp 36.3C FiO2: 50%, Temp 36.3C Performing Organization Address [facility]/State/Zipcode Phone Number [address] [address] CENTER Glucose-Stat Lab (02/02/2020 3:05 PM CDT)Only the most recent of2 resultswithin the time period is included. Glucose 133 (H) 70 - 110 mg/dL [facility] Specimen Blood, Arterial Narrative Performed At FiO2: 50%, Temp 36.3C [facility] FiO2: 50%, Temp 36.3C FiO2: 50%, Temp 36.3C FiO2: 50%, Temp 36.3C FiO2: 50%, Temp 36.3C Performing Organization Address [facility] Centercoia Phone Number [address] [address] CENTER HGB/HCT (H&H)-Stat Lab (02/02/2020 3:05 PM CDT)Only the most recent of2 resultswithin the time period is included. Hemoglobin 9.6 (L) 12.0 - 15.0 g/dL [facility] Hematocrit 28.0 (L) 36.0 - 45.0 % [facility] Specimen Blood, Arterial Narrative Performed At FiO2: 50%, Temp 36.3C [facility] FiO2: 50%, Temp 36.3C FiO2: 50%, Temp 36.3C FiO2: 50%, Temp 36.3C FiO2: 50%, Temp 36.3C Performing Organization Address City/[facility]/Zipcode Phone Number [address] [address] [place] Calcium, Ionized (02/02/2020 3:05 PM CDT) Calcium, Ion 1.09 (L) 1.12 - 1.27 mmol/L [facility] pH, Blood 7.38 [facility] Specimen Blood Narrative Performed At FiO2: 50%, Temp 36.3C [facility] Performing Organization Address [facility] Centercode Phone Number [address] [address] [place] Blood gas, arterial (02/02/2020 3:05 PM CDT)Only the most recent of2 results within the time period is included. pH, Arterial 7.39 7.35 - 7.45 [facility] pCO2, Arterial 41 35 - 45 mmHg [facility] pO2, Arterial 236 (H) 80 - 90 mmHg [facility] O2 Sat, Arterial 99.5 (H) 96.0 - 97.0 % [facility] HCO3, Arterial 24 21 - 29 mmol/L [facility] Base Excess, Arterial -0.9 -2.0 - 3.0 mmol/L [facility] Patient Temperature 36.3 C [facility] FIO2 50.0 % [facility] Specimen Blood, Arterial Narrative Performed At FiO2: 50%, Temp 36.3C [facility] FiO2: 50%, Temp 36.3C FiO2: 50%, Temp 36.3C FiO2: 50%, Temp 36.3C FiO2: 50%, Temp 36.3C Performing Organization Address [facility] Centercode Phone Number [address] [address] [place] Anaerobic culture (02/02/2020 2:19 PM CDT)Only the most recent of3 results within the time period is included. Result No anaerobes isolated [facility] Specimen Other - Other Performing Organization Address City/[facility]/Zipcode Phone Number [address] [address] [place] Surgically obtained culture + gram stain (02/02/2020 2:19 PM CDT)Only the most recent of3 resultswithin the time period is included. Result <1+ Methicillin resistant [facility] Staphylococcus aureus (A) [facility] Result <1+ Enterococcus species (A) [facility] Result <1+ Staphylococcus epidermidis C [facility] (A) [facility]ENTER Gram Stain Result 1+ White blood cells seen [facility] Gram Stain Result No organisms seen [facility] Specimen Tissue - Other Organism Antibiotic Method [...] Vancomycin 2: [place] sceptible Performing Organization Address City/[facility]/Zipcode Phone Number [address] [address] [place] STAT-LAB IONIZED CALCIUM (02/02/2020 2:17 PM CDT) Filter Ionized Calcium 1.17 mmol/L [facility] Specimen Blood Narrative Performed At Reference Range: No Normals [facility] Performing Organization Address [facility]/Zipcode Phone Number [address] [address] [place] SPIN/CONCENTRATION CHARGE (02/02/2020 2:14 PM CDT)Only the most recent of2 resultswithin the time period is included. Concentration charged Done [facility] Specimen Tissue Performing Organization Address [facility] Centercode Phone Number [facility] [address] [place], [place] [phone] [place] aPTT (02/02/2020 6:05 AM CDT) PTT 36.4 (H) 22.5 - 36.0 seconds [facility] Specimen Blood Performing Organization Address [facility] Centercode Phone Number [place] [phone] [place] [address] [place] Prothrombin time/INR (02/02/2020 6:05 AM CDT) Protime 14.3 (H) 11.9 - 14.2 seconds [facility] INR 1.14 <=5.90 [facility] Specimen Blood Narrative Performed At Effective 10/22/2018: PT Reference Range [facility] Change New: 11.9-14.2Previous: 11.7-14.7 RECOMMENDED COUMADIN/WARFARIN INR THERAPY RANGES STANDARD DOSE: 2.0-3.0Includes: PROPHYLAXIS for venous thrombosis, systemic embolization; TREATMENT for venous thrombosis and/or pulmonary embolus. HIGH RISK: Target INR is 2.5-3.5 for patients wiht mechanical heart valves. Performing Organization Address [facility] Phone Number [address] [phone] [place] PT/aPTT (02/01/2020 6:46 AM CDT)Only the most recent of2 resultswithin the time period is included. Protime 15.0 (H) 11.9 - 14.2 seconds [facility] INR 1.21 <=5.90 [facility] PTT 45.4 (H) 22.5 - 36.0 seconds [facility] Specimen Blood Narrative Performed At Effective 10/22/2018: PT Reference Range [facility] Change New: 11.9-14.2Previous: 11.7-14.7 RECOMMENDED COUMADIN/WARFARIN INR THERAPY RANGES STANDARD DOSE: 2.0-3.0Includes: PROPHYLAXIS for venous thrombosis, systemic embolization; TREATMENT for venous thrombosis and/or pulmonary embolus. HIGH RISK: Target INR is 2.5-3.5 for patients wiht mechanical heart valves. Performing Organization Address City/State/Zipcode Phone Number [facility] [address] [place] [address] CENTER [place] aspiration hip right (01/31/2020 3:18 PM CDT) Specimen Narrative Performed At FINAL REPORT RIS Fluoroscopic guided right hip aspiration History: Patient [...] e inferolateral aspect of the acetabular cup. Livestock Yard Attendant images [place] in the patient's medical [...] MD Report Verified Date/Time:01/31/2020 15:48:19 Reading Location: [facility] B1 C013T [facility] Reading Room Procedure Note Interface, External Ris [...] e inferolateral aspect of the acetabular cup. Livestock Yard Attendant images [place] in the patient's medical [...] Verified Date/Time: 01/31/2020 1 5:48:19 Reading Location: [address] Reading Room Performing Organization Address City/State/Zipcode Phone Number [facility] CT pelvis without IV contrast (01/31/2020 2:46 PM CDT) Specimen Narrative Performed At FINAL REPORT [facility] CT pelvis without contrast HISTORY: Periprosthetic hip [...] MD Report Verified Date/Time:01/31/2020 15:42:10 Reading Location: [address] Reading Room Procedure Note Interface, External [...] hematoma. Signed: Yonatan Lagos MD Report Verified Date/Time: 01/31/2020 1 5:42:10 Reading Location: [address] Reading Room Performing Organization Address City/State/Zipcode Phone Number GE RIS ABORH, manual (01/31/2020 12:52 PM CDT) Rh Factor POS [facility] ABO Grouping A [facility] Specimen Blood Performing Organization Address City/[facility]/Zipcode Phone Number [address] [address] Type and screen, automated (01/31/2020 12:14 PM CDT) ABO/RH AUTOMATED (BEAKER) A POSITIVE [facility] Ab Scrn POSITIVEComment: done on [facility] Specimen Blood Performing Organization Address [facility]/Zipcode Phone Number [address] [address] C-Reactive Protein (01/31/2020 11:23 AM CDT) CRP 2.11 (H) 0.00 - 0.50 mg/dL [facility] Specimen Blood Narrative Performed At Door Machine Operator ID - CHRISS Bonds [facility] Performing Organization Address City/[facility] Phone Number [address] [address] CENTER Phosphorus (01/31/2020 2:40 AM CDT) Phosphorus 3.3 2.3 - 4.7 mg/dL [facility] Specimen Blood Narrative Performed At Door Machine Operator ID - ALFRED Galvan [facility] Performing Organization Address City/[facility] Phone Number [address] [address] CENTER PTH, intact (01/31/2020 2:40 AM CDT) PTH 138.2 (H) 8.5 - 72.5 pg/mL [facility] Specimen Blood Narrative Performed At Door Machine Operator ID - ALFRED Galvan [facility] Performing Organization Address City/[facility] Phone Number [address] [address] CENTER ECG 12 lead (01/30/2020 7:06 PM CDT) Specimen Narrative Performed At Ventricular Rate 72 BPM GE MUSE Atrial Rate 72 BPM P-R Interval 182 ms QRS Duration 82 ms Q-T Interval 378 ms QTC Calculation(Bazett) 413 ms P Morrison 44 degrees R Morrison -12 degrees T Morrison 39 degrees Normal sinus rhythm Normal ECG [...] 378 ms QTC Calculation(Bazett) 413 ms P Morrison 44 degrees R Morrison -12 degrees T Morrison 39 degrees Normal sinus rhythm Normal ECG When compared with ECG of 29-OCT-2001 21 :37, No significant change was found Confirmed by MD NELSON, MANDA ( 190) on 01/31/2020 12:31:57 PM Performing Organization Address City/State/Zipcode Phone Number GE LUCIO Comprehensive metabolic panel (01/30/2020 4:43 PM CDT) Protein, Total 7.0Comment: Specimen 6.0 - 8.3 gm/dL [facility] slightly hemolyzed [facility] Albumin 3.8Comment: Specimen 3.5 - 5.0 g/dL [facility] slightly hemolyzed [facility] Alkaline Phosphatase 100 40 - 150 U/L [facility] Total Bilirubin 0.5Comment: Specimen 0.2 - 1.2 mg/dL [facility] slightly hemolyzed [facility] Sodium 137 136 - 145 meq/L [facility] Potassium 4.4Comment: Specimen 3.5 - 5.1 meq/L [facility] slightly hemolyzed [facility] Chloride 104 98 - 107 meq/L [facility] CO2 24 22 - 29 meq/L [facility] BUN 22 (H) 7 - 21 mg/dL [facility] Creatinine 1.17Comment: Specimen 0.57 - 1.25 mg/dL [facility] slightly hemolyzed [facility] Glucose 103 70 - 105 mg/dL [facility] Calcium 9.7 8.4 - 10.2 mg/dL [facility] AST 19Comment: Specimen 5 - 34 U/L [facility] slightly hemolyzed [facility] ALT 11Comment: Specimen 6 - 55 U/L [facility] slightly hemolyzed [facility] EGFR 45Comment: ESTIMATED GFR mL/min/1.73 sq m [facility] IS NOT ACCURATE [facility] CREATININE CLEARANCE IN PREDICTING GLOMERULAR FILTRATION RATE. ESTIMATED GFR IS NOT APPLICABLE FOR DIALYSIS PATIENTS. Specimen Blood Narrative Performed At Door Machine Operator ID - DB [facility] Performing Organization Address [facility]/Zipcode Phone Number [address] [phone] CENTER TSH/Free T4 If Indicated (01/30/2020 4:32 PM CDT) TSH 2.609 0.350 - 4.940 uIU/mL [facility] Specimen Blood Narrative Performed At Door Machine Operator ID - DB [facility] Performing Organization Address [facility] Phone Number [address] [address] CENTER XR Hip 4 Views, Right (01/30/2020 [...] MD Report Verified Date/Time:01/30/2020 17:21:57 Reading Location: [facility] B1 C013Y CT Body R eading Room [...] Verified Date/Time: 01/30/2020 1 7:21:57 Reading Location: [facility] B1 C013Y CT Body R eading Room Performing Organization Address City/State/Zipcode Phone Number GE RIS after 02/20/2019 Insurance Payer Benefit Plan / Group Subscriber ID Type Phone A ddress [facility] - [employer]/MEDICARE xxxxxxxxx MEDICARE MGD CARE COMPLETE CDC REVIEW CDC REVIEW xxxxxxxx [address] [place] [address] Advance Directives For more information, please contact:[address] [phone] Code Status Date Activated Date Inactivated Comments Full Code 01/30/2020 1:42 PM 02/08/2020 5:43 PM This code status was determined by: Patient
--- OUTSIDE RECORDS SUMMARY | 2020-02-21 10:40 | XMS REPORT | Continuity of Care Document ---
:1945 Author Organization [facility] t Address [address] [place] [address] Care Team Providers Name Role Phone David Cortés MD Primary Care Physician NHI Attending Clinician Unavailable Nhi KHOURY Attending Clinician Brigida KHOURY In Attending Clinician Juan J Galvan MD Attending Clinician Kishor Ball CRNA Attending Clinician Edin Flores MD Attending Clinician Franchesca HERNANDEZ, Karen Attending Clinician Unavailable Robert Chawla MD Attending Clinician Jeanna DANIEL Attending Clinician Herrera KHOURY Attending Clinician Nils HERNANDEZ, T Attending Clinician Unavailable Doctor Unassigned, Name Attending Clinician Unavailable Pob, Lab Main Attending Clinician Unavailable ZACK ALLRED Admitting Clinician Unavailable Robert Chawla MD Admitting Clinician Payers Payer Name Policy Type Policy Number Effective Expiration Source Date Date [facility] - xxxxxxxxx [facility] MGD [facility] Medical COMPLETExxxxxxxxx [facility] REVIEWCDC xxxxxxxx [facility] REVIEW[place] Medical [address] Center Problems Condition Condition Condition Status Onset Resolution Last Treating Co mments Source Name Details Category Date Date Treatment Clinician Date Dislocated Dislocated Disease Active [facility] hip, hip, 01-29 [facility] - right, right, 00:00: Medical initial initial 00 Center encounter encounter Hypothyroi Hypothyroi Disease Active [facility] dism dism [facility] Left Left Disease Active [facility] breast breast 01-29 - cancer in cancer in 00:00: Medi jan remission remission 00 Cent er History of 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 00:00: Medi jan arthroplas arthroplas 00 Ce nter ty ty Kidney Kidney Problem Active [facility] stones stones [facility] 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 Social History Social Habit Start Date Stop Date Quantity Comments Source Sex Assigned At [facility] Medications Ordered Filled Start Stop Current Ordering Indication Dosage Frequency Signature Comments Components Source Medication Medication Date Date Medication? Clinician (SIG) Name Name amLODIPine 2020- Yes 10mg QD Take [address] [facility] [address] (NORVASC) 02-08 tablet (10 [place] [facility] - 10 MG 00:00: 23:59 mg total) Medica l tablet 00 :00 by mouth Center daily. levothyroxi 2020- Yes 137ug Take [address] ne 02-08 tablet [facility] - (SYNTHROID, 00:00: 23:59 (137 mcg M edical LEVOTHROID) 00 :00 total) by [address] 137 MCG mouth tablet Every morning on an empty stomach. enoxaparin 2019- Yes 40mg Q24H Inject 0.[address] (LOVENOX) 02-08 10-05 mLs (40 mg [facility] - 40 mg/0.4 00:00: 23:59 total) Medic al mL Syrg 00 :00 subcutaneo Center usly daily for 20 days. vancomycin Yes 1000mg Inject [facility] (VANCOCIN) 9-14 1,000 mg [facility] - 1000 mg IV [...] directed by . propranoloL 2019- Yes 10mg Q.[id number] Take [address] (INDERAL) 02-07 [id number] tablet (10 [facility] - 10 MG 00:00: 23:59 3D mg total) Medica l tablet 00 :00 by mouth 3 Center (three) times daily for 30 days. acetaminoph 2019- No 1000mg Take [address] en 02-07 tablets [facility] - (TYLENOL) 00:00: 23:59 (1,000 mg Me dical 500 MG 00 :00 total) by Center tablet mouth every 8 (eight) hours as needed for Pain for up to 10 days. Amlodipine Amlodipine Yes Clemente [address] [address] Besylate Besylate Kendrick [facility] Amitriptyli Amitriptyli Yes Clemente [address] [facility] ne HCl ne HCl Kendrick [facility] Propranolol Propranolol Yes Clemente [address] [facility] [address] HCl HCl Kendrick [facility] Vitamin D Vitamin D Yes Clemente [address] [facility] Kendrick [facility] Naproxen Naproxen Yes Clemente [address] [facility] Kendrick with food [facility] - or milk as Memoria needed l [facility] Anastrozole Anastrozole Yes Clemente [address] [facility] Kendrick [facility] Levothyroxi Levothyroxi Yes Clemente [address] [facility] ne Sodium ne Sodium Kendrick on an [facility] s - empty Memoria stomach in l the [facility] morning ent Clinics Propranolol Propranolol Yes Clemente not [facility] HCl ER HCl ER Kendrick defined [facility] Amitriptyli Amitriptyli Yes Clemente not [facility] ne HCl ne HCl Kendrick defined [facility] Losartan Losartan Yes Clemente [address] Potassium Potassium Kendrick [facility] Vital Signs Vital Name Observation Time Observation Value Comments Source Systolic blood 2020-02-08 11:16:00 136 mm[Hg] [facility] Diastolic blood 2020-02-08 11:16:00 78 mm[Hg] [facility] Heart rate 2020-02-08 11:16:00 84 /min [facility] Body temperature 2020-02-08 11:16:00 36.22 Sara [facility] Respiratory rate 2020-02-08 11:16:00 18 /min [facility] Oxygen saturation in 2020-02-08 11:16:00 99 /min [facility] Arterial blood by Medical Ce nter Pulse oximetry Body weight Measured 2020-01-30 17:00:00 103.874 kg [facility] BMI 2020-01-30 17:00:00 39.31 kg/m2 [facility] Body height 2020-01-30 15:34:00 162.6 cm [facility] Procedures Procedure Date / Time Performing Clinician Source Performed REPORT OF PROCEDURE - 2020-02-10 11:00:45 Provider, Default [facility] ENDOSCOPY SCAN Scanning [facility] RHYTHM STRIP - SCAN 2020-02-10 11:00:43 Provider, Default [facility] BASIC METABOLIC PANEL (7) 2020-02-08 05:44:00 Toño Allred In I [facility] MAGNESIUM 2020-02-08 05:44:00 Toño Allred In [facility] CBC W/PLT COUNT & AUTO 2020-02-08 05:44:00 [place]y [place] [facility] SARS-COV2/RT-PCR ([facility] & 2020-02-07 12:43:00 Toño Allred In [facility] BASIC METABOLIC PANEL (7) 2020-02-07 04:08:00 Toño Allred In [facility] MAGNESIUM 2020-02-07 04:08:00 Toño Allred In [facility] VANCOMYCIN LEVEL, TROUGH 2020-02-07 04:08:00 Yahaira Galvan [facility] CBC W/PLT COUNT & AUTO 2020-02-07 04:08:00 [facility] XR CHEST 1 VIEW 2020-02-06 09:40:00 Mandy [facility] s - PORTABLE/BEDSIDE [facility] BASIC METABOLIC PANEL (7) 2020-02-06 05:29:00 Toño Allred In [facility] MAGNESIUM 2020-02-06 05:29:00 Toño Allred In [facility] CBC W/PLT COUNT & AUTO 2020-02-06 05:29:00 Leny [place] [facility] TRANSFUSION SERVICE 2020-02-05 18:00:59 Provider, Default [facility] BASIC METABOLIC PANEL (7) 2020-02-05 06:39:00 Toño Allred In [facility] MAGNESIUM 2020-02-05 06:39:00 Toño Allred In [facility] TRANSFUSION SERVICE 2020-02-04 18:01:18 Provider, Default [facility] BASIC METABOLIC PANEL (7) 2020-02-04 06:09:00 Toño Allred In [facility] MAGNESIUM 2020-02-04 06:09:00 Toño Allred In [facility] PREPARE RBC 2020-02-04 00:09:00 Toño Allred In [facility] PREPARE RBC 2020-02-03 23:54:00 Brigida Toño In [facility] TRANSFUSION SERVICE 2020-02-03 18:00:51 Provider, Default [facility] SCAN [facility] BASIC METABOLIC PANEL (7) 2020-02-03 06:58:00 BrigidaVanessacarli In [facility] MAGNESIUM 2020-02-03 06:58:00 Toño Allred In [facility] CBC (HEMOGRAM ONLY) 2020-02-03 06:58:00 Toño Allred In [facility] HEMOGLOBIN AND HEMATOCRIT 2020-02-02 22:05:00 Kyrie Husain [facility] CREATINE 2020-02-02 22:05:[address] [facility] TRANSFUSION SERVICE 2020-02-02 18:20:15 Provider, Default [facility] PREPARE PLASMA 2020-02-02 17:44:00 Marisol Flores [facility] XR PELVIS 1 OR 2 VIEWS 2020-02-02 17:28:[address] [facility] XR CHEST 1 VIEW 2020-02-02 17:28:00 Jacqueline Granger [facility] ANTIBODY IDENTIFICATION 2020-02-02 17:01:00 Sonia Floreslonepineomari [facility] TISSUE EXAM 2020-02-02 15:53:00 Sonia Floreslonepineomari [facility] XR PELVIS 1 OR 2 VIEWS 2020-02-02 15:15:00 Marisol Flores [facility] TRANSFUSE LEUKO-REDUCED 2020-02-02 15:08:47 Gino Ball [facility] RED BLOOD CELLS [facility] CALCIUM, IONIZED 2020-02-02 15:05:30 Marisol Flores [facility] BLOOD GAS, ARTERIAL 2020-02-02 15:05:30 Marisol Flores [facility] SODIUM NA-STAT LAB 2020-02-02 15:05:30 [facility] POT[facility]SI[facility] 2020-02-02 15:05:30 Marisol Flores [facility] GLUCOSE-STAT LAB 2020-02-02 15:05:30 Marisol Flores [facility] HGB/HCT (H&H) - STAT LAB 2020-02-02 15:05:30 Marisol Flores [facility] ANAEROBIC CULTURE 2020-02-02 14:19:31 Marisol Flores [facility] SURGICALLY OBTAINED 2020-02-02 14:19:31 Marisol Flores [facility] - CULTURE + GRAM STAIN Medical [employer] CULTURE + SMEAR 2020-02-02 14:19:[address] [facility] (NON-SPUTUM) [facility] FUNGUS CULTURE + SMEAR 2020-02-02 14:19:31 Marisol Flores [facility] STAT-LAB IONIZED CALCIUM 2020-02-02 14:17:59 BrigidaZe [facility] BLOOD GAS, ARTERIAL 2020-02-02 14:17:59 BrigidaZe [facility] SODIUM NA-STAT LAB 2020-02-02 14:17:59 BrigidaZe [facility] POTASSIUM-STAT LAB 2020-02-02 14:17:59 BrigidaZe [facility] GLUCOSE-STAT LAB 2020-02-02 14:17:59 BrigidaZe [facility] HGB/HCT (H&H) - STAT LAB 2020-02-02 14:17:59 BrigidaZe [facility] SURGICALLY OBTAINED 2020-02-02 14:14:17 Marisol Flores [facility] - CULTURE + GRAM STAIN Medical [employer] CULTURE + SMEAR 2020-02-02 14:14:[address] [facility] (NON-SPUTUM) [facility] ANAEROBIC CULTURE 2020-02-02 14:14:17 [facility] FUNGUS CULTURE + SMEAR 2020-02-02 14:14:17 Marisol Flores [facility] SPIN/CONCENTRATION CHARGE 2020-02-02 14:14:00 Marisol Flores [facility] ANAEROBIC CULTURE 2020-02-02 13:53:38 Marisol Flores [facility] SURGICALLY OBTAINED 2020-02-02 13:53:38 [facility] GRAM STAIN [facility] [employer] CULTURE + SMEAR 2020-02-02 13:53:[address] [facility] (NON-SPUTUM) [facility] FUNGUS CULTURE + SMEAR 2020-02-02 13:53:38 Sonia Floreslonepineomari [facility] SPIN/CONCENTRATION CHARGE 2020-02-02 13:53:00 Marisol Flores [facility] PREPARE RBC 2020-02-02 12:29:00 Sonia Floreslonepineomari [facility] REVISION,TOTAL HIP 2020-02-02 12:00:00 Marisol Flores [facility] PLACEMENT,WOUND VAC 2020-02-02 12:00:00 Marisol Flores [facility] BASIC METABOLIC PANEL (7) 2020-02-02 06:05:00 Toño Allred In [facility] MAGNESIUM 2020-02-02 06:05:00 Toño Allred In [facility] PROTHROMBIN TIME/INR 2020-02-02 06:05:00 Brendon Means [facility] APTT 2020-02-02 06:05:00 Brendon Means [facility] CBC (HEMOGRAM ONLY) 2020-02-02 06:05:00 Toño Allred In [facility] TRANSFUSION SERVICE 2020-02-01 18:00:13 Provider, Default [facility] REPORT - SCAN [facility] BASIC METABOLIC PANEL (7) 2020-02-01 06:46:00 Toño Allred In [facility] MAGNESIUM 2020-02-01 06:46:00 Toño Allred In [facility] CBC (HEMOGRAM ONLY) 2020-02-01 06:46:00 Toño Allred In [facility] PT/APTT 2020-02-01 06:46:00 Toño Allred In [facility] FL ASPIRATION HIP RIGHT 2020-01-31 15:18:00 Toño Allred In [facility] CT PELVIS WITHOUT IV 2020-01-31 14:46:00 Brendon Means [facility] ABORH, MANUAL 2020-01-31 12:52:00 Marleen Mnotague [facility] TYPE AND SCREEN, 2020-01-31 12:14:00 Brendon Means [facility] C-REACTIVE PROTEIN 2020-01-31 11:23:00 Brendon Means [facility] XR PELVIS 1 OR 2 VIEWS 2020-01-31 09:37:00 Brendon Means [facility] BASIC METABOLIC PANEL (7) 2020-01-31 02:40:00 Toño Allred In [facility] MAGNESIUM 2020-01-31 02:40:00 Toño Allred In [facility] PHOSPHORUS 2020-01-31 02:40:00 Toño Allred In [facility] PTH, INTACT 2020-01-31 02:40:00 Toño Allred In [facility] ECG 12-LEAD 2020-01-30 19:06:28 Unknown, Hl7 Doctor [facility] CBC (HEMOGRAM ONLY) 2020-01-30 16:43:00 Toño Allred In [facility] COMPREHENSIVE METABOLIC 2020-01-30 16:43:00 Toño Allred In [facility] MAGNESIUM 2020-01-30 16:43:00 Toño Allred In [facility] PT/APTT 2020-01-30 16:43:00 Toño Allred In [facility] TSH/FREE T4 IF INDICATED 2020-01-30 16:32:00 Toño Allred In [facility] SARS-COV2/RT-PCR ([facility] & 2020-01-30 15:44:00 Toño Allred In [facility] REF LABS) [facility] XR HIP 4 VIEWS, RIGHT 2020-01-30 14:44:00 Toño Allred In [facility] Plan of Care Planned Activity Planned Date Details Comments Source Future Scheduled 2020-01-26 INFLUENZA VACCINE (#1) [facility] 00:00:00 [code = INFLUENZA Medical Ce nter VACCINE (#1)] Future Scheduled 2019-05-27 Medicare IPPE (WELCOME [facility] Test 00:00:00 TO MEDICARE) [code = [facility] Center Medicare IPPE (WELCOME TO MEDICARE)] Future Scheduled 2012 PNEUMOCOCCAL [address] Test 00:00:00 LOW[facility]MEDI[facility]) [code = PNEUMOCOCCAL 65+ LOW/MEDIUM RISK (1 of 2 - PCV13)] Future Scheduled 1945 Scre[facility] - Test 00:00:00 malignant neoplasm of [facility] breast (procedure) [code = 350790050] Future Scheduled [address] [facility] - Test 00:00:00 malignant neoplasm of [facility] colon (procedure) [code = 494141013] Encounters Start End Encounter Admission Attending Care Care Encounter Source Date/Time Date/Time Type Type Clinicians Facility Department ID 2020-01-20 2020-01-20 Nurse TOYA Sorensen [id number] 00:00:00 00:00:00 Triage Honey AGUILAR [id number] [place] [id number] 2020-01-20 2020-01-20 Telephone TOYA Chawla [id number] 00:00:00 00:00:00 Esteban AGUILAR [id number] [id number] [id number] 2020-01-13 2020-01-15 [facility] DOMENIC Chawla [id number] 10:03:00 15:30:00 Encounter Esteban Finney [id number] [place] 4.2.7.2.686 [place] [id number] 2020-01-13 2020-01-13 Anesthesia Lucioandre Josef [facility] [id number] 13:46:00 16:42:00 Memo Silverman [id number] [place] [id number] Surgical [id number] [place] 020 2020-01-13 2020-01-13 Letter TOYA Wray [id number] 00:00:00 00:00:00 (Out) Magali Avendano LAUREN [id number] [id number] [id number] 2020-01-13 2020-01-13 Orders Doctor TOYA [id number] 00:00:00 00:00:00 Only Unassigned, LAUREN [id number] [place] [address]686 [id number] 2020-01-12 2020-01-12 [facility] [id number] 15:35:03 23:59:00 Encounter Esteban Robert Reg [id number] [place] 4.2.7.2.686 [place] [id number] 2020-01-12 2020-01-12 Debt And Budget Counselor Sasha Raman [facility] [id number] 15:29:06 17:51:05 Visit Lab Main Reg [id number] [place] 4.2.7.2.686 Professio [id number] [address] 2019-10-07 2019-10-07 [facility] [id number] 15:44:00 15:44:00 [facility] ent [facility] 2019-10-06 2019-10-06 [facility] [id number] 14:00:00 14:00:00 t [facility] ent Clinics 2018-08-01 2018-08-01 [facility] [id number] 14:15:00 14:15:00 t Specialty/U Kizzy kes - Specialty rology Memori a /Urology Clinic l Clinic Outpati ent Clinics 2018-02-05 2018-02-05 Outpatient Akua [facility] [id number] 13:30:00 13:30:00 t Specialty/U Kizzy kes - Specialty rology Memori a /Urology Clinic l Clinic Outpati ent Clinics 2018-01-23 2018-01-23 [facility] [id number] 13:00:00 13:00:00 t Specialty/U Kizzy kes - Specialty rology Memori a /Urology Clinic l Clinic Outpati ent Clinics 2018-01-09 2018-01-09 Outpatient [facility] [id number] 15:04:00 15:04:00 t Specialty/U Kizzy kes - Specialty rology Memori a /Urology Clinic l Clinic Outpati ent Clinics 2017-12-26 2017-12-26 [facility] [id number] 16:01:00 16:01:00 t Specialty/U Kizzy kes - Specialty rology Memori a /Urology Clinic l Clinic Outpati ent Clinics 2017-12-19 2017-12-19 Outpatient [facility] [id number] 11:30:00 11:30:00 t Specialty/U Kizzy kes - Specialty rology Memori a /Urology Clinic l Clinic Outpati ent Clinics Results Test Description Test Time Test Comments Results Result Comments Source ANAEROBIC CULTURE 2020-02-10 18:11:00 Test Item Value Reference Range Interpretation Comme nts CULTURE (BEAKER) (test code = 1095) No anaerobes isolated Anaerobic [id number] 18:10:00 Test Item Value Reference Range Interpretation Comments Result (test code = No anaerobes isolated 6463-4) [facility] [id number] 18:10:00 Test Item Value Reference Range Interpretation Comments CULTURE (BEAKER) (test No anaerobes isolated code = 1095) ANAEROBIC [id number] 18:07:00 Test Item Value Reference Range Interpretation Comments CULTURE (BEAKER) (test No anaerobes isolated code = 1095) [id number] 14:27:00 Test Item Value Reference Interpretation Comments Range Creatine, 0.7 mg/dL <1.3 This test was developed and Serum its analytical (test code performancechar acteristics = 6842286) have been deter mined by [employer] [place], [place]. It hasnot been diamante ared or approved by the U.S. Food and DrugAdministrat ion. This assay has been valida mery bhardwaj the SEAN regulkaren valadez and is used for [facility] [place]. CLARICE (test Performing Lab code = 15 [facility] CLARICE) Diagnostics [facility], [address] [place] Blue Lord MD, PhD [facility] (Asymptomatic ONLY)2020-02-08 11:39:00 Test Item Value Reference Range Interpretation Comments SARS-COV2/RT-PCR Negative Not Detected, (test code = Negative, See 35277-2) external report for linked test SARS-COV-2 [facility] LOLITA PERFORMING LAB (test code = 21626-0) CLARICE (test code = Negative result for this CLARICE) test determines that SARS-CoV-2 RNA was not [...] of the Act. Fact Sheet for Healthcare Providers:https://www.[employer]/sites/default/f lyyl/product/documents/F act_Sheet_HC_Providers_L xna_HLFC-BfL-4.pdf Fact Sheet for Healthcare Patients:https://www.[employer]/sites/default/fi les/product/documents/Fa ct_Sheet_Patients_Lyra_S ARS-CoV-2.pdf Performing Laboratory:[facility], [place] [address] [place], [place] [address]ARS-COV2/RT-PCR ([facility] & REF LABS)2020-02-08 11:39:00 Test Item Value Reference Range Interpretation Comments SARS-COV2/RT-PCR (test Negative Not Detected, Negative, code = 1173965) See external report for linked test SARS-COV-[address] [facility] LOLITA (test code = 7810037) Negative result for this test determines that [...] 564(g) of the Act.Fact Sheet for Healthcare Providers:https://www.[employer]/sites/default/files/product/documents/Fact_Shee i_DP_Dpkchsmwq_Bdjo_WXWW-KzB-5.pdfFact Sheet for Healthcare Patients:https://www.[employer]/sites/default/files/product/ documents/Lenx_Qucqg_Xeogcxvo_Gfqr_VHIN-WrO-4.pdfPerforming Laboratory:[facility], [place] [address]Ukqwk Metabolic Panel 2020-02-08 09:58:00 Test Item Value Reference Range Interpretation Comments Sodium (test code = 139 meq/L 856-896 8534-2) Potassium (test code = 3.9 meq/L 3.5-5.1 2823-3) Chloride (test code = 105 meq/L 98-107 2075-0) CO2 (test code = 28 meq/L 22-29 2028-9) BUN (test code = 12 mg/dL 7-21 3094-0) Creatinine (test code 0.79 mg/dL 0.57-1.25 = 2160-0) Glucose (test code = 109 mg/dL 70-105 H 2345-7) Calcium (test code = 9.6 mg/dL 8.4-10.2 13848-5) EGFR (test code = 72 mL/min/1.73 [place] [address]-7) NOT ACCURATE CREATININE CLEARANCE IN PREDICTING GLOMERULAR FILTRATION RATE . ESTIMATED GFR I S NOT APPLICABLE FOR DIALYSIS PATIENTS. CLARICE (test code = CLARICE) Chief Service Dispatcher ID - AAHAMID Lab Interpretation Abnormal (test code = 89489-7) [facility] 09:58[facility]00 Test Item Value Reference Range Interpretation Comments Magnesium (test code = 1.9 mg/dL 1.6-2.6 26553-3) CLARICE (test code = CLARICE) Chief Service Dispatcher ID - AAHAMID Lab Interpretation (test Normal code = 34263-2) [facility] 09:58:00 Test Item Value Reference Range Interpretation Comments MAGNESIUM (BEAKER) (test code = 1.9 mg/dL 1.6-2.6 627) Chief Service Dispatcher ID - AAHAMIDBASIC METABOLIC [id number] 09:58:00 Test Item Value Reference Range Interpretation [...] 697) EGFR (BEAKER) (test 72 mL/min/1.73 ESTIMA MERY GFR IS code = 1092) sq m NOT ACCURATE CREATININE CLEARANCE IN PREDICTING GLOMERULAR FILTRATION RATE . ESTIMATED GFR I S NOT APPLICABLE FOR DIALYSIS PATIEN TS. Chief Service Dispatcher ID - AAHAMIDCBC with platelet count + automated [id number] 06:38:00 Test Item Value Reference Range Interpretation [...] 450 K/CU MM MPV (test code = 47667-3) 10.4 fL 9.4-12.3 nRBC (test code = [...] 2801) Lab Interpretation (test code = Abnormal 39907-1) [facility] W/PLT COUNT & AUTO [id number] 06:38:00 Test Item Value Reference Range Interpretation [...] (BEAKER) (test code = 2801) BASIC METABOLIC [id number] 15:29:00 Test Item Value Reference Range Interpretation [...] 697) EGFR (BEAKER) (test 67 mL/min/1.73 ESTIMA MERY GFR IS code = 1092) sq m NOT ACCURATE CREATININE CLEARANCE IN PREDICTING GLOMERULAR FILTRATION RATE . ESTIMATED GFR I S NOT APPLICABLE FOR DIALYSIS PATIEN TS. [place] [employer] CH.[id number] 15:29:00 Test Item Value Reference Range Interpretation Comments MAGNESIUM (BEAKER) (test code = 1.9 mg/dL 1.6-2.6 627) Vancomycin level, [id number] 11:33:00 Test Item Value Reference Range Interpretation Comments Vancomycin Tr (test code = 15.1 ug/mL 10-20 4092-3) CLARICE (test code = CLARICE) Chief Service Dispatcher ID - ADMIN Lab Interpretation (test Normal code = 55642-4) [facility]EL, [id number] 11:33:00 Test Item Value Reference Range Interpretation Comments VANCOMYCIN TROUGH (BEAKER) (test 15.1 ug/mL 10.0-20.0 code = 522) Chief Service Dispatcher ID - ADMINCBC W/PLT COUNT & AUTO [id number] 04:53:00 Test Item Value Reference Range Interpretation [...] = 2801) RAD, CHEST, 1 VIEW, NON [id number] 10:07:00Reason for exam:->PICC LINE PLACEMENTShould this be [...] [place] Verified Date/Time: 02/06/2020 10:07:30 Reading Location: [address] Transitional Reading Room XR chest 1 view portable / [id number] 10:07:00Interface, External Ris In - 02/06/2020 10:09 [...] Stovall Verified Date/Time: 02/06/2020 10:07:30 Reading Location: [address] Transitional [facility] 08:29:00 Test Item Value Reference Range Interpretation Comments MAGNESIUM (BEAKER) (test code = 1.9 mg/dL 1.6-2.6 627) Chief Service Dispatcher ID - ALFRED MBASIC METABOLIC [id number] 08:29:00 Test Item Value Reference Range Interpretation [...] 697) EGFR (BEAKER) (test 61 mL/min/1.73 ESTIMA MERY GFR IS code = 1092) sq m NOT ACCURATE CREATININE CLEARANCE IN PREDICTING GLOMERULAR FILTRATION RATE . ESTIMATED GFR I S NOT APPLICABLE FOR DIALYSIS PATIEN TS. Chief Service Dispatcher ID - ALFRED MCBC W/PLT COUNT & AUTO [id number] 06:23:00 Test Item Value Reference Range Interpretation [...] = 2801) SURGICALLY OBTAINED CULTURE + GRAM [id number] 11:08:00 Test Item Value Reference Range Interpretation Comments CULTURE A <1+ Same organi sm has (BEAKER) (test been isolated from code = 1095) cultures(s) of the same body site and collection date . Repeat identifi cation and susceptibil ity testing perform ed only after consultat ion with the [facility] microbiology laboratory.Ente rococcu s species GRAM STAIN <1+ White blood RESULT (BEAKER) cells seen (test code = 1123) GRAM STAIN No organisms seen RESULT (BEAKER) (test code = 441437) SURGICALLY OBTAINED CULTURE + GRAM [id number] 11:07:00 Test Item Value Reference Interpretation Comments [...] No organisms seen (BEAKER) (test code = 738014) SURGICALLY OBTAINED CULTURE + GRAM [id number] 11:07:00 Test Item Value Reference Range Interpretation Comments CULTURE (BEAKER) ENTEROCOCCUS A <1+ Enteroc occus (test code = FAECALIS faecalis 1095) Ampicillin (test S code = 26) Linezolid (test S code = 40) Vancomycin (test S code = 13) GRAM STAIN RESULT <1+ White blood (BEAKER) (test cells seen code = 1123) GRAM STAIN RESULT No organisms seen (BEAKER) (test code = 665693) [id number] 09:46:00 Test Item Value Reference Range Interpretation Comments MAGNESIUM (BEAKER) (test code = 1.9 mg/dL 1.6-2.6 627) Chief Service Dispatcher [facility] FBASIC METABOLIC [id number] 09:46:00 Test Item Value Reference Range Interpretation [...] 697) EGFR (BEAKER) (test 66 mL/min/1.73 ESTIMA MERY GFR IS code = 1092) sq m NOT ACCURATE CREATININE CLEARANCE IN PREDICTING GLOMERULAR FILTRATION RATE . ESTIMATED GFR I S NOT APPLICABLE FOR DIALYSIS PATIEN TS. Chief Service Dispatcher ID - CHRISS [id number] 11:06:00 Test Item Value Reference Range Interpretation Comments MAGNESIUM (BEAKER) (test code = 1.9 mg/dL 1.6-2.6 627) Chief Service Dispatcher ID - TITOBASIC METABOLIC [id number] 11:06:00 Test Item Value Reference Range Interpretation [...] 697) EGFR (BEAKER) (test 56 mL/min/1.73 ESTIMA MERY GFR IS code = 1092) sq m NOT ACCURATE CREATININE CLEARANCE IN PREDICTING GLOMERULAR FILTRATION RATE . ESTIMATED GFR I S NOT APPLICABLE FOR DIALYSIS PATIEN TS. Chief Service Dispatcher ID - Bairon [id number] 00:09:00 Test Item Value Reference Range Interpretation Comments Unit ABO (test code = A Pos 7118609) UNIT NUMBER (test code = [id number] 934-0) Status (test code = 4047408) WORK IN PROGRESS Blood Bank Product (test RED BLOOD CELLS code = 2263) PRODUCT CODE (test code = P6393O41 933-2) CROSSMATCH (test code = COMPATIBLE 2264) [facility] [id number] 15:53:00 Test Item Value Reference Range Interpretation Comments Case Report (test code Surgical Pathology = 104) Report Case: [id number] Authorizing Provider: Marisol Flores MD Collected: 02/02/2020 03:53 PM Ordering Location: [facility] Received: 02/03/2020 09:39 AM SERVICES Pathologist: Lauren Putnam MD Specimen: Explant, Hardware from previous surgery for ID: cup/head from right hip replacement DIAGNOSIS (test code = d5nzpUNnTJLdz9ieIMOxkPV 3220) uZzEwMzNcZnRuYmpcdWMxIH isliIyAVawb1KqO1AxPdAuY FxhbnNpXGRlZmxhbmcxMDMz VYT7vpXnPVLcIYgdLKRiCCc cJo9rkRZrcGcrNdJjUAGvl6 iioxSIoirgdHj3q7noWFBsB yG8uIFuHMdaG3hvbfFimCRv CEXiRFm0fG71QALahQ4zbOM sIDtccmVkMFxncmVlbjBcYm f6HLWxF1loFXKfUJJhY5RjQ J7lSTKeRah4THR6DTL8wQeq e2Z6yHZyzHLjeTbgZdIzYcY hCJXNb6EsGEe8xRfaX9KbFD WtPwA0yZBmXLFlTTpeDVAlE PBhjsH3uI47GHpeydB3bUTw j8Lhp80iv747jK1hsWLhRRF 2HZUhVOHvwGWyOEUlCRR3ML FiuNSgB0c2OfJoaSSyM6X2M dOrcMUnR1C3QiHvwTSaE7B4 UxPvkKKzUYIopXWpGd0iiNP fvGOxtu7jtb69TOH4j5ItbA utMPZ7UHQ0GfSgXd7muLQaF LGnYA1zPiQodLGsUKQefg59 zQrxCJdgsoEgaF3cMuXsKXT afEBzHIVeBD0lwXGlITXdvR 5ucmxjXHBnYnJkcmhlYWRcc WlxubHkZu5ncOkoIOT9QIqi A9nsuF5vNhI4AVmnT6isvR4 qRDi0MPpsvAM1MZGsvZ3dQD 7ckpejj1wqTjSlIW8gebeqg 7vhHrSvZY7umxb1g4myQdBk EW2vtsrxz9giPzQuCVkhUXA rgvysWQTgo5JctsrzFTVan2 PpE7AxzIyiJ10vcQduH92yY MUngDtxfF8eyIbxoZ2fAsQe ZnMyMFxxbFxwbGFpblxmMFx mczIwXHBsYWluXGYwXGZzMj LotMIgKKOqtzHkdRremW7gW jBcZnMyMFxwbGFpblxmMVxm czIwIEEuIEhBUkRXQVJFLCB SSUdIVCBISVAgUkVQTEFDRU 9RKlZzVZhVZ8LSNCVXXA6VU jXYLK2VPG3WHYk6OMEvvivi bFxwbGFpblxmMFxmczIwXHB sYWluXGYxXGZzMjAgICAgLS JMBZOGB7JUGVNHGCTQSCrXB EFAYWaRSIHdX8HHW4HvWJBB L6KJJZIPA90wRulscMVfrpb dJGejdaMkYYQxtn22VFY4Rc Ybc4W8ERK8TACdLSPod1ivG GVmbGFuZzEwMzNcZnRuYmpc jBUoVZHlUyQsf1fim187wHQ ut8jtHFQkPvZ3gJDpEJRgqH KtO692LAPxEXrfe5svz5LzX HXjvITvs5W4XFLFjhqjcEg4 gTsxE77vz3T6CgefQ0txHHQ pNKLtE5PrKO9nXXYdEeb4HR L8QSH2ORXzSAZaE6VjSM0jZ MMheVZlUAo0q5jmcAzuFAYf NOJ8y5hhVOchycNdHG2hdb4 mfJc8w2kcaqGcLJOlQQPwiP SHUODmP3HdmDriOp5rlBa5r VtrYkkbFQM3Bpu8MY0udi68 ygr4yFebVSCunpxhLjK2LXu lQEKceclyRIl6EYfpTNSccE F5XWDjuLGaM0JyBKFdHK4pu cu3NSS9LEdsBQKwSsD1NPKo wQZoGDYfbLdiAXnqa850YEA 0ZlWwPP1sB8Ufb3N6vK4uzN AtAKAtwAQcRiCvLWAlfr7xl SGyFGahm1HwDWZ1zcM0qJXq pZQiFFDgNwE1VThpJP1lko3 8DJAjMQA9mf8kbIHgmNigtq XmkPTmMNcfO4HqEIQlq290C BTuA7BrZNBzo1I8tjIyIvPu IXPwoZF4qtL7ZBInQF6furz ic2qkSVcpUWkbUDMrpxS7wq N6CJSaoWPwO4ZvvF9wZVVyM K8qzhvan5gyYMD0AXybFUKk LXR7LvUfWFWly0Vkpof6SyT ke8DpdSUuETntW23hu190AF FnziCkQ5szyCXyjaaemTCdk bamWHjvpcJ2RNKgCJvrthjr ZELgHGmwV1jyUaFaCHIsqAt dEBcqc1KjEJYaSUMdDkXafK SkMFMiLln3HIYkxJYiEDWqP cIeI1dnncigRwUXMJEcs8ik K5nxkLIJuGQwQ0XfQHacqpY nDWmrSKhoQvKoVVj5UD10OR thKSIhxr78 CPT Code(s) (test code z2sorYLsFNUngKAwIsCsGSB = 3357) rKAGba3bvGEWneCHvEoTjXl NcZnRuYmpcdWMxXGRlZmYwe 7npg196nWXsd9zrNTTyTxH4 yHQwYFMrqSZaN739w1ecd5f giiEzhHQ9HEFwFMH5EEuusf YavwT1PXxocSSqGiX3KThsv wMfYExmquUrkpEaFdv7QAKf T355TMY3dZyki6muCDE7ALN kPNBaXoZcXm7rbENwS912NP DrHKCEDLAqfJs8TEGtcgSwp uTrzXAFn465L429d1vvEZQe zdJiwOfExtzae2qbT530ZOA hcGVydzEyMjQwXHBhcGVyaD E6MMJiCU7epbxjPcRbUL2oc kjyTgGtNI1syut0DwVrGX1q cmdiNzIwXGhlYWRlcnkwXGZ xp2QrykpbSL7dF5Rqr7Q2jZ 9maXRcZGVmdGFiNzIwXGZvc t9rhETwUNulg8NmCBO9zjP5 hOSceZToBNQeRE90Bqplz8I cKunuVLX5SXFseyUdt3Wei3 xfYyEhosUzR3vzM4MhWMZzQ QFhMNAxIiQgsuRri6Pys8Al qHFqzQb1n6slRGOqMCZyoAo ep5coJJM2IIMmY2T6uLGgw1 diNAilYUWtcYD1stssDReaZ AMdosH8zylwMPuyLQUjpTM7 ioxyPTabDPOiYzV7wmuwNMw nVIBbWME4IIdbf931XXC1IU xzYmtwYWdlXHBnbmNvbnRcc GduZGVjXHBsYWluXHBsYWlu XGYwXGZzMjRccWxccGxhaW5 xGtSmKxNuPSbuSR6wNYUqE3 hzoTXzRFOkXNYyW2btPaEyx N0ptSgpCExakvIwRSj5MtUu XHBhcn0= CLINICAL HISTORY (test v2uvrSDcWLFasLQjXjHtSJA code = 3356) nRPGah3fzCOEgnFScWfOeTn NcZnRuYmpcdWMxXGRlZmYwe 3rxv770lWAky8gfMYNeOeZ4 sHOxCIHkyBHsR980r4bbj8n cngKstQF0TORuYPE6XEjvpp DcbbY9XScdwEZtNcI7NBqyt oVdVSgvuiOojlWvRly5SFCe W316ZWY4iChsq6bhAGJ1JRS bVYDiWjEcTr1hrOUrQ479QC XsFFXBGAJxkWb2DLBohhRqs kUgyRNEr895S117t0qvKNJa aaTkhFhArmsgk9mmM411TYJ hcGVydzEyMjQwXHBhcGVyaD H1UDIbLE4wvoxrCiKuLX3pz pksZhXrYT7yhzk1VnGyPU6t cmdiNzIwXGhlYWRlcnkwXGZ fp2NgpcfsIK7kQ0Nje7F0gX 9maXRcZGVmdGFiNzIwXGZvc u3cgSIqCGtby7MyVRF2gdT4 zWAyiCFuYQCjOU73Rskre9N gCptoKDW5EZJpiiYoc0Auh6 rxWlOgchQzY5mzI3DqDYFdY KSvYGUqTjXihiVsy9Rdi3Lx lJKahOu0e9snZSEqMJZaqBf yr3euHNT4NJKxJ6A2hCYaf6 daEYojAVGbbWP5ycywPOuwP BMimbU8wtxcCYxcTRZyyPV5 qmkrNNlgMWBiTzA1akagECd tFJEsJSG7BNmeh587IKN4RP xzYmtwYWdlXHBnbmNvbnRcc GduZGVjXHBsYWluXHBsYWlu XGYwXGZzMjRccWxccGxhaW5 oPnAeWuBbIVjoQL0zMXMsZ4 rfjLNzNMDlDYThB4ccPbGpu W8jgPnoEYqlejVeNRRrw1nt E3Q8WUQjjxmkeHCnrB40DBg gaGlwLlxwYXJ9 SPECIMEN SOURCE (test v3fltRRpARAstBOtEvMkSAN code = 3377) pCUJbm0jtHVHfwMBiDjGjZe NcZnRuYmpcdWMxXGRlZmYwe 8cat570kNDhd9cqQPSjMdS2 hFMwNQFlkYEbY869e3njl8g bmzNmsOQ2CIAhSUO5YTkumv UuqnW1LZalrVEzXwM8FHlhs bEzIKroobImbvIuXey5IRKi Q192NTD2aXlom3wfELY8NWJ nLLCyZgSwXi9buNRoE644DO PhEQPRYASoyFb7EAPtblByk wFlaYFDr573C246w3wbRJAd qsDqtWpCzxxze9whR960UJR hcGVydzEyMjQwXHBhcGVyaD Z6EWCnKW8fvvwhYzPxTJ9ul lwaGrOlDP7wiyk9AkZqON1d cmdiNzIwXGhlYWRlcnkwXGZ pc2VqenvdDP1oE0Mcd8Y6aZ 9maXRcZGVmdGFiNzIwXGZvc o7zyVSrOOlsk0RwCBS1wkN4 mPPjbKWdHZDhQG60Rujlv6J iDhuoOZG1MIEzaiNqr8Gdh4 coTxBbnuZqH3zhK2GoZWKvI AYaLUAyOuPhybLvl9Kbk9Tj xNCvhVc2f5fdSOJbNCJqwKd rl8ntETW3RMArZ0L2hGEsx3 fkXBxwEBEqoIM5taxjCEltW LOiedM1slpzDMpcLRHrkRY6 pgweZLdbFVDtBsE8qitwHRb fGRHpXCT1DJlqo779MTG4HS xzYmtwYWdlXHBnbmNvbnRcc GduZGVjXHBsYWluXHBsYWlu XGYwXGZzMjRccWxccGxhaW5 xKqSiGaHhWJddXF4kPDAbJ9 qruOOcWNFvKQSrG2lvOpVwi N1xaXbnIXjzvlZkJLN0cOfr bnQgXHBhcn0= GROSS DESCRIPTION d8qjrXNkJBEunMUcJqRdUHB (test code = 3366) nODBpg1oyLNSlqEXvYxJgBb NcZnRuYmpcdWMxXGRlZmYwe 4vic033yNZzd5koJQCwRpJ9 uXBmWUPulEAqC436f1udi2c lilHwvWB1MBVmEMO0GLkhqm EklxS9GVskbJOcUrK2KVsoq yLlSKjjknSrleUsOqs5LQKz W479BEU3lCufx9smCOP8BQX xIIDaWdYyAx7pjWZxQ222ZX RySRNOZFIwbGr8BWEbkvMio bWuvWIGp465E048l5mqDWXx fmIzaDvEcegoz5ksF840TVB hcGVydzEyMjQwXHBhcGVyaD Z5MMSjBE4osjeoAnAgLN0az hnmRcRxIS9bdoh5RnTkPN2r cmdiNzIwXGhlYWRlcnkwXGZ fm8VhhgtyGI2aI7Jet6J3mX 9maXRcZGVmdGFiNzIwXGZvc c1kdHPtTIqcg5PxSBS0osU1 rPKmwEPrZVMgCT76Eaohq3O uPqqnEYX6GJCeceHhb4Kze8 bsUvYmsvQuD9wyO6RbCBJnZ NUrKIEqMeOqytPiw8Gcn8Tf yJPrsFl5c3scPMTkWPCkcUz kn0oxMMT4JVQlA3L7yUIni5 fnRJcvGPGdcQW5wlnuZFhvI KAdnnK1nsswIYznSVMwdXQ2 yqcbLVefFHAmKwZ5ajjmZOx oPUKkQWD1SFlya428HVD8QB xzYmtwYWdlXHBnbmNvbnRcc GduZGVjXHBsYWluXHBsYWlu XGYwXGZzMjRccWxccGxhaW5 rJmDjVyZoBIzoAT9lXEChW0 djqGOjUIDcUSOzP9mcDfTmz D0kjKfuDPvbdaStIPPqS4Qk dmVkIGZyZXNoIGxhYmVsZWQ gq3h0qJC8pLVojPW6fGBmeW fsHE8liELuDHXrU0Wrl8cqc fQvqW2iNBHkLO3jCPTtmXIn VH82WrImkkYxhJpaOJMavXN 1MJlooAWuZ0YiiEM7xsHvql H4SGxtzYLlHAWnUHIjklPmT pZlgxIkm8OlWFasRQvkjsZ1 YXJlIHJhbmdpbmcgZnJvbSA pWuYqpC6mTE8dZDYhHAkoVJ wvVRW6WKH5XJTrfQYmn7hag fvoy5yuQ9jyTXSuVDrpv6Gb xUxjQ15lb2agpGGrwHF4mQD wQHCxKQCpVJViYiOnnV9tCW AhwQeiXL2wRBXnP3ngjP4qI RfgJNTgbQhqn9mmQmCiswFp cmlwdGlvbiBpcyBpZGVudGl maWVkOlxwYXJccGFyICIwMT PcVJP9SqGxMFYjjzAhIkQ0P RtjOiAejRVmLEOBTOC6RZ1K HTjuO0ZTAqpnDDHwYoC9XIL 6XJLeeIAjCSLdmiJTHFzfw1 WdEVXal3GrT4FjpRezlADiv YFbYU7bPC0zVGMjO1Sly76a PGBxEONegNLwvHG2ZLMyEQJ hmVOfN6AaZDFfpgCem1HhL4 Cdd3CgJFvyoIhjDYPul87ec 73ygE9hRHBaFSgsZGNpzk2= Gross assessment was [facility] code = 2777[facility] Department of Pathology, [address] [place] [address], Technical component [facility] performed at ([facility], code = 2778) Department of Pathology, [address] [place], [place] [id number], Professional component [facility] at ([facility], code = 2779) Department of Pathology, [address] [place] [address], [facility] HospitalTISSUE [id number] 15:53:00Surgical Pathology Report Case: [id number] Authorizing Provider: Marisol Flores MD Collected: 02/02/2020 03:53 PM Ordering Location: [facility] Received: 02/03/2020 09:39 AM SERVICES Pathologist: Lauren Putnam MD Specimen: Explant, Hardware from previous surgery for ID: cup/head from right hip replacement A. HARDWARE, RIGHT HIP REPLACEMENT, GROSS EXAMINATION ONLY: - HARDWARE IDENTIFIED (SEE GROSS DESCRIPTION). Signing Pathologist Direct Phone Line: [phone] signed by Lauren Putnam MD on 02/03/2020 at 3:53 [id number] right total hip.Explant Received fresh labeled with the patient's name, accession number and "explant" are three metallic narayan to narayan- white pieces of orthopedic hardware ranging from 2.3 to 5.0 cm in greatest dimension, which are grossly consistent with an acetabulum, ball andsocket. The following inscription is identified:"[id number]""[id number]""B 28 MM X STD""[id number]"A gross photograph is taken. No sections are submitted. This case is for gross examination only. PA/ew [facility], Department of Pathology, [address] [place] [address], [facility], [facility] of Path[facility], [address] [place] [address], [facility], Department of Pathology, [address] [place] [address], REJNVHXPH 2020-02-03 10:24:00 Test Item Value Reference Range Interpretation Comments MAGNESIUM (BEAKER) 1.8 mg/dL 1.6-2.6 Specimen slightly (test code = 627) hemolyzed Chief Service Dispatcher ID - PIAYA LBASIC METABOLIC [id number] 10:24:00 Test Item Value Reference Range Interpretation [...] 697) EGFR (BEAKER) (test 62 mL/min/1.73 ESTIMA MERY GFR IS code = 1092) sq m NOT ACCURATE CREATININE CLEARANCE IN PREDICTING GLOMERULAR FILTRATION RATE . ESTIMATED GFR I S NOT APPLICABLE FOR DIALYSIS PATIEN TS. Chief Service Dispatcher ID - PIAYA LCBC (Hemogram only)2020-02-03 07:27:00 [...] 450 K/CU MM MPV (test code = 24567-3) 11.3 fL 9.4-12.3 nRBC (test code = 413) 0 0- 0 /100 WBC Lab Interpretation (test code = Abnormal 70756-3) [facility] (HEMOGRAM ONLY)2020-02-03 07:27:00 Test Item Value [...] 0-0 (BEAKER) (test code = 413) SPIN/CONCENTRATION [id number] 03:49:00 Test Item Value Reference Range Interpretation Comments CONCENTRATION CHARGED (BEAKER) (test Done code = 2657) SPIN/CONCENTRATION [id number] 03:48:00 Test Item Value Reference Range Interpretation Comments Concentration charged (test code = Done 2657) [facility] [id number] 03:48:00 Test Item Value Reference Range Interpretation Comments CONCENTRATION CHARGED (BEAKER) (test Done code = 2657) RAD, PELVIS, 1 OR 2 [id number] 01:50:00Reason for exam:->right hip revisionFINAL REPORT CLINICAL [...] MDReport Verified Date/Time: 02/03/2020 01:50:25 Hemoglobin and [id number] 22:24:00 Test Item Value Reference Range Interpretation Comments Hemoglobin (test code = 10.0 11.2- 15.7 GM/DL L 786-4) Hematocrit (test code = 31.5 % 34.1-44.9 L 4544-3) CLARICE (test code = CLARICE) Chief Service Dispatcher ID - [id number] Lab Interpretation (test Abnormal code = 40696-4) [facility] HospitalHEMOGLOBIN AND [id number] 22:24:00 Test Item Value Reference Range Interpretation Comments HEMOGLOBIN (BEAKER) (test code = 10.0 GM/DL 11.2-15.7 L 410) HEMATOCRIT (BEAKER) (test code = 31.5 % 34.1-44.9 L 411) Chief Service Dispatcher ID - [id number], CHEST, 1 VIEW, NON [id number] 22:03:00Reason for exam:->right IJ placementShould this be [...] may be considered also. Signed: Ok Mosquera VerifiedDate/Time: 02/02/2020 22:03:36 Reading Location: [address] Consult Reading Room RAD, PELVIS, 1 OR 2 [id number] 20:40:00STAT for PACUReason for exam:->Post op FINAL [...] 02/02/2020 20:40:20 XR pelvis 1 or 2 [id number] 20:40:00Interface, External Ris In - 02/02/2020 8:42 [...] Nino Aldana MDReport Verified Date/Time: 02/02/2020 20:40:20 [facility] [id number] 17:44:00 Test Item Value Reference Range Interpretation Comments Unit ABO (test code = A Pos 8892455) UNIT NUMBER (test code = [id number] 934-0) Status (test code = RETURNED FROM ISSUE 5552750) Blood Bank Product (test FFP code = 2263) PRODUCT CODE (test code = L6095T31 933-2) [facility] HospitalAntibody [id number] 17:01:00 Test Item Value Reference Range Interpretation Comments ANTIBODY ID (BEAKER) UNID IgG (test code = 2253) Antibody Consult SIGNED OUT Nonspecific IgG (test code = 2479) reactivit y detected; this is likely of limited clinica l significance. F or transfusion pur poses, crossmatch comp atible RBCs will be se lected. Electronic Sign ature: Jazzy rico MD [facility] HospitalBlood gas, [id number] 15:22:00 Test Item Value Reference Range Interpretation Comments pH, Arterial (test code = 7.39 7.35-7.45 2743-1) pCO2, Arterial (test code 41 35- 45 mmHg = 2018-) pO2, Arterial (test code = 236 80- [...] 36.3C Lab Interpretation (test Abnormal code = 16929-7) [facility] HospitalCalcium, [id number] 15:22:00 Test Item Value Reference Range Interpretation Comments Calcium, Ion (test code = 1.09 mmol/L 1.12-1.27 L 1994-3) pH, Blood (test code = 7.38 50806-3) CLARICE (test code = CLARICE) FiO2: 50%, Temp 36.3C Lab Interpretation (test Abnormal code = 23727-9) [facility] HospitalHGB/HCT (H&H)-Stat [id number] 15:22:00 Test Item Value Reference Range Interpretation Comments Hemoglobin (test code = 9.6 g/dL 12-15 L 786-4) Hematocrit (test code = 28.0 % 36-45 L 4544-3) CLARICE (test code = CLARICE) FiO2: 50%, Temp 36.3CFiO2: 50%, Temp 36.3CFiO2: 50%, Temp 36.3CFiO2: 50%, Temp 36.3CFiO2: 50%, Temp 36.3C Lab Interpretation (test Abnormal code = 52780-2) [facility] [id number] 15:22:00 Test Item Value Reference Range Interpretation Comments Glucose (test code = 133 mg/dL 70-110 H 2345-7) CLARICE (test code = CLARICE) FiO2: 50%, Temp 36.3CFiO2: 50%, Temp 36.3CFiO2: 50%, Temp 36.3CFiO2: 50%, Temp 36.3CFiO2: 50%, Temp 36.3C Lab Interpretation (test Abnormal code = 12834-0) [facility] [id number] 15:22:00 Test Item Value Reference Range Interpretation Comments Sodium (test code = 134 meq/L 136-145 L 2951-2) CLARICE (test code = CLARICE) FiO2: 50%, Temp 36.3CFiO2: 50%, Temp 36.3CFiO2: 50%, Temp 36.3CFiO2: 50%, Temp 36.3CFiO2: 50%, Temp 36.3C Lab Interpretation (test Abnormal code = 38655-7) [facility], [id number] 15:22:00 Test Item Value Reference Range Interpretation Comments CALCIUM IONIZED (BEAKER) (test 1.09 mmol/L 1.12-1.27 L code = 698) PH, BLOOD (BEAKER) (test code = 7.38 1810) FiO2: 50%, Temp 36.3CBLOOD GAS, [id number] 15:22:00 Test Item Value Reference Range Interpretation [...] 50%, Temp 36.3CFiO2: 50%, Temp 36.3CSODIUM NA-STAT [id number] 15:22:00 Test Item Value Reference Range Interpretation Comments SODIUM (BEAKER) (test code = 381) 134 meq/L 136-145 L FiO2: 50%, Temp 36.3CFiO2: 50%, Temp 36.3CFiO2: 50%, Temp 36.3CFiO2: 50%, Temp 36.3CFiO2: 50%, Temp 36.3CGLUCOSE-STAT [id number] 15:22:00 Test Item Value Reference Range Interpretation Comments GLUCOSE RANDOM (BEAKER) (test code 133 mg/dL 70-110 H = 652) FiO2: 50%, Temp 36.3CFiO2: 50%, Temp 36.3CFiO2: 50%, Temp 36.3CFiO2: 50%, Temp 36.3CFiO2: 50%, Temp 36.3CHGB/HCT (H&H) - STAT [id number] 15:22:00 Test Item Value Reference Range Interpretation Comments HEMOGLOBIN (BEAKER) (test code = 9.6 g/dL 12.0-15.0 L 410) HEMATOCRIT (BEAKER) (test code = 28.0 % 36.0-45.0 L 411) FiO2: 50%, Temp 36.3CFiO2: 50%, Temp 36.3CFiO2: 50%, Temp 36.3CFiO2: 50%, Temp 36.3CFiO2: 50%, Temp 36.3CPotassium-Stat [id number] 15:18:00 Test Item Value Reference Range Interpretation Comments Potassium (test code = 3.8 meq/L 3.6-5.5 2823-3) CLARICE (test code = CLARICE) FiO2: 50%, Temp 36.3CFiO2: 50%, Temp 36.3CFiO2: 50%, Temp 36.3CFiO2: 50%, Temp 36.3CFiO2: 50%, Temp 36.3C Lab Interpretation (test Normal code = 13424-0) [facility]OT[facility] [id number] 15:18:00 Test Item Value Reference Range Interpretation Comments POTASSIUM (BEAKER) (test code = 3.8 meq/L 3.6-5.5 379) FiO2: 50%, Temp 36.3CFiO2: 50%, Temp 36.3CFiO2: 50%, Temp 36.3CFiO2: 50%, Temp 36.3CFiO2: 50%, Temp 36.3CGLUCOSE-STAT [id number] 14:34:00 Test Item Value Reference Range Interpretation Comments GLUCOSE RANDOM (BEAKER) (test code 107 mg/dL 70-110 = 652) Temp 35fio2 56%Temp 35fio2 56%Temp 35fio2 56%Temp 35fio2 56%Temp 35fio2 56% POTASSIUM-STAT [id number] 14:34:00 Test Item Value Reference Range Interpretation Comments POTASSIUM (BEAKER) (test code = 4.1 meq/L 3.6-5.5 379) Temp 35fio2 56%Temp 35fio2 56%Temp 35fio2 56%Temp 35fio2 56%Temp 35fio2 56%BLOOD GAS, [id number] 14:34:00 Test Item Value Reference Range Interpretation [...] 56%Temp 35fio2 56%Temp 35fio2 56% SODIUM NA-STAT [id number] 14:34:00 Test Item Value Reference Range Interpretation Comments SODIUM (BEAKER) (test code = 381) 134 meq/L 136-145 L Temp 35fio2 56%Temp 35fio2 56%Temp 35fio2 56%Temp 35fio2 56%Temp 35fio2 56% HGB/HCT (H&H) - STAT [id number] 14:34:00 Test Item Value Reference Range Interpretation Comments HEMOGLOBIN (BEAKER) (test code = 8.2 g/dL 12.0-15.0 L 410) HEMATOCRIT (BEAKER) (test code = 24.0 % 36.0-45.0 L 411) Temp 35fio2 56%Temp 35fio2 56%Temp 35fio2 56%Temp 35fio2 56%Temp 35fio2 56%STAT- LAB IONIZED [id number] 14:33:00 Test Item Value Reference Range Interpretation Comments Filter Ionized Calcium 1.17 mmol/L (test code = 1994-0) CLARICE (test code = CLARICE) Reference Range: No Normals [facility] [id number] 14:33:00 Test Item Value Reference Range Interpretation Comments FILTER IONIZED CALCIUM (BEAKER) 1.17 mmol/L (test code = 1854) Reference Range: No [id number] 11:28:00 Test Item Value Reference Range Interpretation Comments MAGNESIUM (BEAKER) (test code = 2.0 mg/dL 1.6-2.6 627) Chief Service Dispatcher ID - ROSALIO CBASIC METABOLIC [id number] 11:28:00 Test Item Value Reference Range Interpretation [...] 697) EGFR (BEAKER) (test 63 mL/min/1.73 ESTIMA MERY GFR IS code = 1092) sq m NOT ACCURATE CREATININE CLEARANCE IN PREDICTING GLOMERULAR FILTRATION RATE . ESTIMATED GFR I S NOT APPLICABLE FOR DIALYSIS PATIEN TS. Chief Service Dispatcher ID - ROSALIO CProthrombin time/[id number] 06:58:00 Test Item Value Reference Range Interpretation [...] valves. Lab Interpretation Abnormal (test code = 66151-6) [id number] 06:58:00 Test Item Value Reference Range Interpretation Comments PTT (test code = 34645-6) 36.4 22.5- 36.0 seconds H Lab Interpretation (test code = Abnormal 34437-1) [facility]PROTHROMBIN [facility]/[id number] 06:58:00 Test Item Value Reference Range Interpretation [...] INR is2.5-3.5 for patients wiht mechanical heart valves.[id number] 06:58:00 Test Item Value Reference Range Interpretation [...] WBC 0-0 (BEAKER) (test code = 413) [id number] 11:22:00 Test Item Value Reference Range Interpretation Comments MAGNESIUM (BEAKER) (test code = 2.0 mg/dL 1.6-2.6 627) Chief Service Dispatcher DENNIS TEMPLETON MBASIC METABOLIC [id number] 11:22:00 Test Item Value Reference Range Interpretation [...] 697) EGFR (BEAKER) (test 53 mL/min/1.73 ESTIMA MERY GFR IS code = 1092) sq m NOT ACCURATE CREATININE CLEARANCE IN PREDICTING GLOMERULAR FILTRATION RATE . ESTIMATED GFR I S NOT APPLICABLE FOR DIALYSIS PATIEN TS. Chief Service Dispatcher ID Christ TEMPLETON MPT/[id number] 07:29:00 Test Item Value Reference Range Interpretation Comments Protime (test code = 15.0 11.9- 14.2 H 5902-2) seconds INR (test code = 1.21 <=5.90 6301-6) PTT (test code = 45.4 22.5- 36.0 H 65724-2) seconds CLARICE (test code = CLARICE) Effective 10/22/2018: PT Reference Range ChangeNew: 11.9-14.2 Previous: 11.7-14.7 RECOMMENDED COUMADIN/WARFARIN INR THERAPY RANGESSTANDARD DOSE: 2.0-3.0 Includes: PROPHYLAXIS for venous thrombosis, systemic embolization; TREATMENT for venous thrombosis and/or pulmonary embolus.HIGH RISK: Target INR is 2.5-3.5 for patients wiht mechanical heart valves. Lab Interpretation Abnormal (test code = 03917-6) [id number] 07:29:00 Test Item Value Reference Range Interpretation [...] (test code = 413) [place], ASPIRATION, HIP, [id number] 15:48:00Send cell count, gram stain, cultureReason for [...] the inferolateral aspect of the acetabular cup. Hat Brim Curler images saved in the patient's medical record. [...] of fluoroscopic images obtained: 4 Signed: Yonatan Lagosort Verified Date/Time: 01/31/2020 15:48:19 Reading Location: [facility] B1 C013T Transitional Reading Room [place] aspiration hip [id number] 15:48:00Interface, External Ris In - 01/31/2020 3:50 [...] the inferolateral aspect of the acetabular cup. Hat Brim Curler images saved in the patient's medical record. [...] MDReport Verified Date/Time: 01/31/2020 15:48:19 Reading Location: [facility] B1 C013T Transitional [facility] [place] [place] WO [id number] 15:42:00 Unlisted Reason for Exam - Click [...] MDReport Verified Date/Time: 01/31/2020 15:42:10 Reading Location: [address] [place] pelvis without IV [id number] 15:42:00Interface, External Ris In - 01/31/2020 3:45 [...] MDReport Verified Date/Time: 01/31/2020 15:42:10 Reading Location: [address] Transitional Reading Room Electronically signed by: Eulalio RICO 01/31/2020 03:42 [facility], [id number] 14:14:00 Test Item Value Reference Range Interpretation Comments ABO/RH AUTOMATED (BEAKER) A POSITIVE (test code = 2260) Ab Scrn (test code = 890-4) POSITIVE done on echo [facility] HospitalABORH, [id number] 13:22:00 Test Item Value Reference Range Interpretation Comments Rh Factor (test code = 2589) POS ABO Grouping (test code = 2588) A [facility]ECG 12 [id number] 12:31:58Interface, External Ris In - 01/31/2020 12:32 PM CDTVentricular Rate 72 BPMAtrial Rate 72 BPMP-R Interval 182 msQRS Duration 82 msQ-T Interval 378 msQTC Calculation(Bazett) 413 msP [place] 44 degreesR [place] -12 degreesT [place] 39 degreesNormal sinus rhythmNormal ECGWhen compared with ECG of 29-OCT-2001 21:37,No significant change was foundConfirmed by MD NELSON, MAJID ([id number]) on 01/31/2020 12:31:57 [facility]-Reactive [id number] 12:26:00 Test Item Value Reference Range Interpretation Comments CRP (test code = 676) 2.11 mg/dL 0-0.5 H CLARICE (test code = CLARICE) Chief Service Dispatcher ID - CHRISS F Lab Interpretation (test Abnormal code = 84692-2) [facility] HospitalC-REACTIVE [id number] 12:26:00 Test Item Value Reference Range Interpretation Comments C-REACTIVE PROTEIN (BEAKER) (test 2.11 mg/dL 0.00-0.50 H code = 676) Chief Service Dispatcher ID - CHRISS FRAD, PELVIS, 1 OR 2 [id number] 10:03:00Reason for exam:->right hip dislocationFINAL REPORT Pelvis, one view History:Right hip dislocation Comparison:01/30/2020 Findings: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 The acetabular c omponent appears vertically oriented. The study is limited by large patient body habitus. No additional significant bone or joint space abnormality is appreciated. Signed: Yonatan Lagos MDReport Verified Date/Time: 01/31/2020 10:03:40 Reading Location: [address] Transitional Reading Room El ectronically signed by: YONATAN LAGOS MD on 01/31/2020 10:03 AMPTH, intact 2020-01-31 04:30:00 Test Item Value Reference Range Interpretation Comments PTH (test code = 2731-8) 138.2 pg/mL 8.5-72.5 H CLARICE (test code = CLARICE) Chief Service Dispatcher ID Christ Galvan Lab Interpretation (test Abnormal code = 09296-9) [facility] HospitalPhosphorus2020-09-[facility] 04:30:00 Test Item Value Reference Range Interpretation Comments Phosphorus (test code = 3.3 mg/dL 2.3-4.7 2777-1) CLARICE (test code = CLARICE) Chief Service Dispatcher ID Christ SIMON M Lab Interpretation (test Normal code = 72075-6) [facility] HospitalPTH, [id number] 04:30:00 Test Item Value Reference Range Interpretation Comments PARATHYROID HORMONE INTACT 138.2 pg/mL 8.5-72.5 H (BEAKER) (test code = 577) Chief Service Dispatcher ID - ALFRED [id number] 04:30:00 Test Item Value Reference Range Interpretation Comments PHOSPHORUS (BEAKER) (test code = 3.3 mg/dL 2.3-4.7 604) Chief Service Dispatcher ID - ALFRED [id number] 04:30:00 Test Item Value Reference Range Interpretation Comments MAGNESIUM (BEAKER) (test code = 2.0 mg/dL 1.6-2.6 627) Chief Service Dispatcher ID - ALFRED MBASIC METABOLIC [id number] 04:30:00 Test Item Value Reference Range Interpretation [...] 697) EGFR (BEAKER) (test 55 mL/min/1.73 ESTIMA MERY GFR IS code = 1092) sq m NOT ACCURATE CREATININE CLEARANCE IN PREDICTING GLOMERULAR FILTRATION RATE . ESTIMATED GFR I S NOT APPLICABLE FOR DIALYSIS PATIEN TS. Chief Service Dispatcher ID - ALFRED MSARS-COV2/RT-PCR ([facility])2020-01-30 21:00:00 Test Item Value Reference Range Interpretation Comments SARS-COV2/RT-PCR (test Negative Not Detected, Negative, code = 4334629) See external report for linked test SARS-COV-[address] [facility] LOLITA (test code = 7767849) Negative result for this test determines that [...] 564(g) of the Act.Fact Sheet for Healthcare Providers:https://www.[employer]/sites/default/files/product/documents/Fact_Shee g_FQ_Bolrfaghx_Zttz_QSJM-AeN-6.pdfFact Sheet for Healthcare Patients:https://www.[employer].[place]/sites/default/files/product/ documents/Sbdt_Jeosi_Klgsxwjo_Zrdj_MDQI-FoW-4.pdfPerforming Laboratory:[facility], [place] [address]ALS/Free T4 If [id number] 17:58:00 Test Item Value Reference Range Interpretation Comments TSH (test code = 09971-3) 2.609 0.350- 4.940 uIU/mL CLARICE (test code = CLARICE) Chief Service Dispatcher ID - DB Lab Interpretation (test Normal code = 06998-6) [facility] HospitalTSH/FREE T4 IF [id number] 17:58:00 Test Item Value Reference Range Interpretation Comments THYROID STIMULATING HORMONE 2.609 uIU/mL 0.350-4.940 (BEAKER) (test code = 772) Chief Service Dispatcher ID - DBComprehensive metabolic [id number] 17:35:00 Test Item Value Reference Range Interpretation Comments Protein, Total (test 7.0 6.0- 8.3 gm/dL Speci men slightly code = 2885-2) hemolyzed Albumin (test code = 3.8 g/dL 3.5-5 Specime n slightly 84097-6) hemolyzed Alkaline Phosphatase 100 U/L 40-150 (test code = 6768-6) Total Bilirubin (test 0.5 mg/dL 0.2-1.2 Specim en slightly code = 1975-2) hemolyzed Sodium (test code = 137 meq/L 892-682 1482-2) Potassium (test code = 4.4 meq/L 3.5-5.1 [...] Calcium (test code = 9.7 mg/dL 8.4-10.2 04307-8) AST (test code = 19 U/L 5-34 Specimen sl ightly 1920-8) hemolyzed ALT (test code = 11 U/L 6-55 Specimen sl ightly 1742-6) hemolyzed EGFR (test code = 45 mL/min/1.73 [place] [address]-0) NOT ACCURATE CREATININE CLEARANCE IN PREDICTING GLOMERULAR FILTRATION RATE . ESTIMATED GFR I S NOT APPLICABLE FOR DIALYSIS PATIENTS. CLARICE (test code = CLARICE) Chief Service Dispatcher ID - DB Lab Interpretation Abnormal (test code = 40141-3) [facility] HospitalMAGNESIUM2020-09-05 17:35:00 Test Item Value Reference Range Interpretation Comments MAGNESIUM (BEAKER) 2.1 mg/dL 1.6-2.6 Specimen slightly (test code = 627) hemolyzed Chief Service Dispatcher ID - DBCOMPREHENSIVE METABOLIC [id number] 17:35:00 Test Item Value Reference Range Interpretation [...] hemolyzed EGFR (BEAKER) (test 45 mL/min/1.73 ESTIMA MERY GFR IS code = 1092) sq m NOT ACCURATE CREATININE CLEARANCE IN PREDICTING GLOMERULAR FILTRATION RATE . ESTIMATED GFR I S NOT APPLICABLE FOR DIALYSIS PATIEN TS. Chief Service Dispatcher ID - DBRAD, HIP, MIN 4 VIEWS, [id number] 17:21:00Reason for exam:- >recent right total hip [...] MDReport Verified Date/Time: 01/30/2020 17:21:57 Reading Location: [facility] C013Y CT Body Reading Room XR Hip 4 Views, [id number] 17:21:00Interface, External Ris In - 01/30/2020 5:24 [...] MDReport Verified Date/Time: 01/30/2020 17:21:57 Reading Location: [facility] C013Y CT Body Reading [facility] [place] PT/[id number] 17:17:00 Test Item Value Reference Range Interpretation [...]
--- NOTE | 2020-02-21 13:59 | ER ---
Nurse's Notes [facility] Name: Amirah Arroyo Age: 74 yrs Sex: Female : 1945 Arrival Date: 02/21/2020 Time: 10:35 Bed 24 Private MD: Diagnosis: Weakness Presentation: 02/20 10:35 Chief complaint: Patient states: Dr. 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 Coronavirus screen: At this time, the client does not indicate any symptoms associated with coronavirus-19. Ebola Screen: Patient negative for fever greater than or equal to 101.5 degrees Fahrenheit, and additional compatible Ebola Virus Disease symptoms Patient denies exposure to infectious person. Patient denies travel to an Ebola-affected area in the 21 days before illness onset. No symptoms or risks identified at this time. 10:35 Method Of Arrival: Wheelchair iw 10:39 Initial Sepsis Screen: Does the patient meet any 2 criteria? No. Patient's initial iw sepsis screen is negative. Does the patient have a suspected source of infection? No. Patient's initial sepsis screen is negative. Risk Assessment: Do you want to hurt yourself or someone else? Patient reports no desire to harm self or others. Onset of symptoms was February 21, 2020. 10:39 Acuity: SHONNA 3 iw Historical: - Allergies: 10:40 No Known Allergies; iw - PMHx: 10:40 Colitis; Hypertension; iw - PSHx: 10:40 Joint replacement; iw - Immunization history:: Adult Immunizations up to date. - Social history:: Smoking status: Patient denies any tobacco usage or history of. Screenin:36 Abuse screen: Denies threats or abuse. Denies injuries from another. Nutritional iw screening: No deficits noted. Tuberculosis screening: No symptoms or risk factors identified. Fall Risk None identified. Assessment: 10:50 General: Appears in no apparent distress. comfortable, Behavior is calm, cooperative. iw Pain: Denies pain. Neuro: Level of Consciousness is awake, alert, obeys commands, Oriented to person, place, time, situation, Moves all extremities. Cardiovascular: Patient's skin is warm and dry. Respiratory: Airway is patent Respiratory effort is even, unlabored, Ventilator assessment:. Derm: Skin is fragile, is thin. Musculoskeletal: Range of motion: intact in all extremities. 12:00 Reassessment: Dr. Bowles at beside to assess surgical site, mild erythema noted to iw site but no signs of infection noted, small amount of serosanguinous fluid noted, site was redressed with 4X4 gauze and tegaderm. 12:32 Reassessment: Patient appears in no apparent distress at this time. pt assisted to iw bathroom, ambulated to bathroom. 13:35 Reassessment: Patient appears in no apparent distress at this time. Patient and/or iw family updated on plan of care and expected duration. Pain level reassessed. Patient is alert, oriented x 3, equal unlabored respirations, skin warm/dry/pink. Vital Signs: 10:50 BP 158 / 110; Pulse 81; Resp 16; Temp 98.4(TE); Pulse Ox 98% on R/A; iw ED Course: 10:35 Patient arrived in ED. iw 10:37 Elías Bowles MD is Attending Physician. kdr 10:39 Triage completed. iw 10:50 Patient has correct armband on for positive identification. iw 11:18 Emily Em, RN is Primary Nurse. iw 11:34 Arm band placed on. iw 11:36 Accessed PICC line. Good blood return. iw 14:16 No provider procedures requiring assistance completed. iw 14:16 PICC line flushed, new caps applied. iw Administered Medications: No medications were administered Outcome: 13:59 Discharge ordered by . kdr 14:16 Discharged to home via wheelchair, with family. iw 14:16 Condition: good 14:16 Discharge instructions given to patient, Instructed on discharge instructions, follow up and referral plans. Demonstrated understanding of instructions, follow-up care. 14:17 Patient left the ED. iw Signatures: Elías Bowles MD MD kdr Emily Em, RN RN iw
--- NOTE | 2020-02-21 13:59 | EDPHYS ---
Physician Documentation [facility] Name: Amirah Arroyo Age: 74 yrs Sex: Female : 1945 Arrival Date: 02/21/2020 Time: 10:35 Bed 24 Private MD: ED Physician Elías Bowles HPI: 02/20 10:40 This 74 yrs old Female presents to ER via Wheelchair with complaints of kdr General Weakness. 10:40 Onset: The symptoms/episode began/occurred gradually, Last few days. Associated signs kdr and symptoms: Pertinent positives: The patient does not have any pertinent positive signs or symptoms associated with pediatric illness. Generally low energy and weak - no pain, myalgias or arthralgias. Modifying factors: The patient symptoms are alleviated by nothing, the patient symptoms are aggravated by activity. The patient has not experienced similar symptoms in the past. The patient has been recently seen by a physician: Dr. Cortés. The patient has been getting outpatient IV therapy since last Saturday. She missed her appointment yesterday because she was tired and didn't have energy to come in. She denies any fever, chills or rigors. Historical: - Allergies: 10:40 No Known Allergies; iw - PMHx: 10:40 Colitis; Hypertension; iw - PSHx: 10:40 Joint replacement; iw - Immunization history:: Adult Immunizations up to date. - Social history:: Smoking status: Patient denies any tobacco usage or history of. ROS: 10:40 Constitutional: Negative for fever, chills, and weight loss, Eyes: Negative for injury, kdr pain, redness, and discharge, Neck: Negative for injury, pain, and swelling, Cardiovascular: Negative for chest pain, palpitations, and edema, Respiratory: Negative for shortness of breath, cough, wheezing, and pleuritic chest pain, Abdomen/GI: Negative for abdominal pain, nausea, vomiting, diarrhea, and constipation, Back: Negative for injury and pain, : Negative for injury, bleeding, discharge, and swelling, MS/Extremity: Negative for injury and deformity, Skin: Negative for injury, rash, and discoloration, Neuro: Negative for headache, weakness, numbness, tingling, and seizure activity. Psych: Negative for depression, anxiety, suicide ideation, homicidal ideation, and hallucinations, Allergy/Immunology: Negative for hives, rash, and allergies, Endocrine: Negative for neck swelling, polydipsia, polyuria, polyphagia, and marked weight changes, Hematologic/Lymphatic: Negative for swollen nodes, abnormal bleeding, and unusual bruising. 10:40 Abdomen/GI: Positive for Exam: 10:40 Constitutional: This is a well developed, well nourished patient who is awake, alert, kdr and in no acute distress. Head/Face: Normocephalic, atraumatic. Eyes: Pupils equal round and reactive to light, extra-ocular motions intact. Lids and lashes normal. Conjunctiva and sclera are non-icteric and not injected. Cornea within normal limits. Periorbital areas with no swelling, redness, or edema. Neck: Trachea midline, no thyromegaly or masses palpated, and no cervical lymphadenopathy. Supple, full range of motion without nuchal rigidity, or vertebral point tenderness. No Meningismus. Chest/axilla: Normal chest wall appearance and motion. Nontender with no deformity. No lesions are appreciated. Cardiovascular: Regular rate and rhythm with a normal S1 and S2. No gallops, murmurs, or rubs. Normal PMI, no JVD. No pulse deficits. Respiratory: Lungs have equal breath sounds bilaterally, clear to auscultation and percussion. No rales, rhonchi or wheezes noted. No increased work of breathing, no retractions or nasal flaring. Back: No spinal tenderness. No costovertebral tenderness. Full range of motion. MS/ Extremity: Pulses equal, no cyanosis. Neurovascular intact. Full, normal range of motion. Neuro: Awake and alert, GCS 15, oriented to person, place, time, and situation. Cranial nerves II-XII grossly intact. Motor strength 5/5 in all extremities. Sensory grossly intact. Cerebellar exam normal. Normal gait. Psych: Awake, alert, with orientation to person, place and time. Behavior, mood, and affect are within normal limits. 10:40 Abdomen/GI: Inspection: obese Vital Signs: 10:50 BP 158 / 110; Pulse 81; Resp 16; Temp 98.4(TE); Pulse Ox 98% on R/A; iw MDM: 13:59 Patient medically screened. kdr 14:52 Data reviewed: vital signs, nurses notes. Counseling: I had a detailed discussion with kdr the patient and/or guardian regarding: the historical points, exam findings, and any diagnostic results supporting the discharge/admit diagnosis, the need for outpatient follow up. 02/20 10:39 Order name: Blood Culture Adult (2) kdr 02/20 10:39 Order name: CMP kdr 02/20 10:40 Order name: CBC with Diff kdr Administered Medications: No medications were administered Disposition: 02/21/20 13:59 Discharged to Home. Impression: Weakness. - Condition is Stable. - Discharge Instructions: Weakness, [id number]. - Medication Reconciliation Form, Thank You Letter form. - Follow up: Private Physician; When: 1 - 2 days; Reason: Wound Recheck, If symptoms return, Further diagnostic work-up, Recheck today's complaints, Continuance of care, Re-evaluation by your physician. - Problem is an ongoing problem. - Symptoms have improved. - Notes: DO NOT MISS YOURIV ANTIBIOTIC APPOINTMENTS! Signatures: Dispatcher [employer] EDMS Elías Bowles MD MD kdr Emily Em RN RN iw Corrections: (The following items were deleted from the chart) 14:17 13:59 02/21/2020 13:59 Discharged to Home. Impression: Weakness. Condition is Stable. iw Forms are Medication Reconciliation Form, Thank You Letter, Antibiotic Education, Prescription Opioid Use. Follow up: Private Physician; When: 1 - 2 days; Reason: Wound Recheck, If symptoms return, Further diagnostic work-up, Recheck today's complaints, Continuance of care, Re-evaluation by your physician. Problem is an ongoing problem. Symptoms have improved. kdr
[2020-02-21 14:22] VITALS: BP 158/110; TEMP 98.4; O2SAT 98
== END 2020-02-21 14:17 | disposition home or self-care (01) ==
LOC: ER 10:33
DX: R53.1 Weakness (principal); I10 Essential (primary) hypertension
CPT/HCPCS: 99284

== ENCOUNTER 2021-01-05 12:17 | Emergency (ER) | payer OTHER ==
--- OUTSIDE RECORDS SUMMARY | 2021-01-05 12:23 | XMS REPORT | Continuity of Care Document ---
:1945 Author Organization [facility] t Address [address] [place] [address] Care Team Providers Name Role Phone David Cortés MD Primary Care Physician Doctor Unassigned, Name Attending Clinician Unavailable Sandra KHOURY Attending Clinician Nhi KHOURY Attending Clinician Brigida KHOURY In Attending Clinician Juan J Galvan MD Attending Clinician NHI Attending Clinician Unavailable Alexa Allred MD Attending Clinician Kishor Ball CRNA Attending Clinician Edin Flores MD Attending Clinician Franchesca HERNANDEZ, A Attending Clinician Unavailable Robert Chawla MD Attending Clinician Jeanna DANIEL Attending Clinician Herrera KHOURY Attending Clinician Nils RN, T Attending Clinician Unavailable Pob, Lab Main Attending Clinician Unavailable ZACK ALLRED Admitting Clinician Unavailable Robert Chawla MD Admitting Clinician Payers Payer Name Policy Type Policy Effective Date Expiration Date Sour ce Number [facility] [id number] 2019 [facility] - MEDICARE MGD 00:00:00 - Medical CAREAARP/MEDICARE Center [id number] 2019-Present Problems Condition Condition Condition Status Onset Resolution Last Treating Co mments Source Name Details Category Date Date Treatment Clinician Date Dislocated Dislocated Disease Active [facility] hip, hip, 01-29 [facility] - right, right, 00:00: Medical initial initial 00 Center encounter encounter Hypothyroi Hypothyroi Disease Active [facility] dism dism [facility] Left Left Disease Active [facility] breast breast 01-29 [facility] - cancer in cancer in 00:00: Medi jan remission remission 00 Cent er History of 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 Social History Social Habit Start Date Stop Date Quantity Comments Source Sex Assigned At [facility] Medications Ordered Filled Start Stop Current Ordering Indication Dosage Frequency Signature Comments Components Source Medication Medication Date Date Medication? Clinician (SIG) Name Name amLODIPine No 10mg QD Take [address] [facility] (NORVASC) 02-08 tablet (10 [facility] - 10 MG 00:00: 23:59 mg total) Medica l tablet 00 :00 by mouth Center daily. levothyroxi No 137ug Take [address] ne 02-08 tablet [facility] - (SYNTHROID, 00:00: 23:59 (137 mcg M edical LEVOTHROID) 00 :00 total) by [address] [facility] 137 MCG mouth tablet Every morning on an empty stomach. enoxaparin 2019- No 40mg Q24H Inject 0.[address] [facility] (LOVENOX) [...] r ML MBP 12 (twelve) hours. amitriptyli No 50mg QD Take [address] [facility] [address] ne (ELAVIL) 02-07 tablet (50 L ukes - 50 MG 00:00: 23:59 mg total) Medica l tablet 00 :00 by mouth Center nightly. rifAMPin No 300mg Take 1 [facility] (RIFADIN) 02-07 capsule [facility] - 300 MG 00:00: 23:59 (300 mg Medical capsule 00 :00 total) by Center mouth every 12 (twelve) hours for 42 days. lidocaine No 1{patch Q24H Place [address] (LIDODERM) 02-07 } patch onto [facility] k[facility] - 5 % patch 00:00: 23:59 the skin Med ical 00 :00 daily for Center 30 days Remove & Discard patch within 12 hours or as directed by . propranoloL No 10mg [id number] Take [address] [facility] (INDERAL) 02-07 [id number] tablet (10 [facility] - 10 MG 00:00: 23:59 3D mg total) Medica l tablet 00 :00 by mouth 3 Center (three) times daily for 30 days. acetaminoph No 1000mg Take [address] en 02-07 tablets [facility] - (TYLENOL) 00:00: 23:59 (1,000 mg Me dical 500 MG 00 :00 total) by Center tablet mouth every 8 (eight) hours as needed for Pain for up to 10 days. Amlodipine Amlodipine Yes Clemente [address] [facility] [address] Besylate Besylate Kendrick kes - [facility] Amitriptyli Amitriptyli Yes Clemente [address] [address] [facility] Propranolol Propranolol Yes Cleemnte [address] HCl HCl [facility] Vitamin D Vitamin D Yes Clemente [address] Kendrick [facility] ent Clinics Naproxen Naproxen Yes Clemente [address] [address] Kendrick with food [facility] - or milk as Memoria needed l [facility] Anastrozole Anastrozole Yes Clemente [address] Kendrick [facility] Levothyroxi Levothyroxi Yes Clemente [address] [facility] ne Sodium ne Sodium Kendrick on an Luke s - empty Memoria stomach in l the [facility] morning ent Clinics Propranolol Propranolol Yes Clemente not [facility] HCl ER HCl ER Kendrick defined [facility] Amitriptyli Amitriptyli Yes Clemente not [facility] ne HCl ne HCl Kendrick defined [facility] - [facility] Losartan Losartan Yes Clemente [address] Potassium Potassium Kendrick [facility] Vital Signs Vital Name Observation Time Observation Value Comments Source Systolic blood 2020-02-08 11:16:00 136 mm[Hg] [facility] Diastolic blood 2020-02-08 11:16:00 78 mm[Hg] [facility] Heart rate 2020-02-08 11:16:00 84 /min [facility] Body temperature 2020-02-08 11:16:00 36.22 Sara [facility] Respiratory rate 2020-02-08 11:16:00 18 /min [facility] Oxygen saturation in 2020-02-08 11:16:00 99 /min [facility] Arterial blood by Medical Ce nter Pulse oximetry Body weight 2020-01-30 17:00:00 103.874 kg [facility] BMI 2020-01-30 17:00:00 39.31 kg/m2 [facility] Body height 2020-01-30 15:34:00 162.6 cm [facility] Procedures Procedure Date / Time Performing Clinician Source Performed REPORT OF PROCEDURE - 2020-02-10 11:00:45 Provider, Default [facility] ENDOSCOPY SCAN Scanning [facility] RHYTHM STRIP - SCAN 2020-02-10 11:00:43 Provider, Default [facility] BASIC METABOLIC PANEL (7) 2020-02-08 05:44:00 Toño Allred In I [facility] MAGNESIUM 2020-02-08 05:44:00 Toño Allred In [facility] CBC W/PLT COUNT & AUTO 2020-02-08 05:44:00 Yahaira Galvan [facility] SARS-COV2/RT-PCR ([facility] & 2020-02-07 12:43:[address] In [facility] REF LABS) [facility] CBC W/PLT COUNT & AUTO 2020-02-07 04:08:00 Yahaira Galvan [facility] VANCOMYCIN LEVEL, TROUGH 2020-02-07 04:08:00 Yahaira Galvan [facility] BASIC METABOLIC PANEL (7) 2020-02-07 04:08:00 Toño Allred In [facility] MAGNESIUM 2020-02-07 04:08:00 Toño Allred In [facility] XR CHEST 1 VIEW PORTABLE 2020-02-06 09:40:00 Yahaira Galvan [facility] - / BEDSIDE [facility] CBC W/PLT COUNT & AUTO 2020-02-06 05:29:00 Yahaira Galvan [facility] BASIC METABOLIC PANEL (7) 2020-02-06 05:29:00 Toño Allred In [facility] MAGNESIUM 2020-02-06 05:29:00 Toño Allred In [facility] TRANSFUSION SERVICE 2020-02-05 18:00:59 Provider, Default [facility] BASIC METABOLIC PANEL (7) 2020-02-05 06:39:00 Toño Allred In [facility] MAGNESIUM 2020-02-05 06:39:00 Toño Allred In [facility] TRANSFUSION SERVICE 2020-02-04 18:01:18 Provider, Default [facility] BASIC METABOLIC PANEL (7) 2020-02-04 06:09:00 Toño Allred In [facility] MAGNESIUM 2020-02-04 06:09:00 Toño Allred In [facility] PREPARE RBC 2020-02-04 00:09:00 Toño Allred In [facility] PREPARE RBC 2020-02-03 23:54:00 Brigida Toño In [facility] TRANSFUSION SERVICE 2020-02-03 18:00:51 Provider, Default [facility] BASIC METABOLIC PANEL (7) 2020-02-03 06:58:00 Brigida Toño In I [facility] MAGNESIUM 2020-02-03 06:58:00 Toño Allred In [facility] CBC (HEMOGRAM ONLY) 2020-02-03 06:58:00 Toño Allred In [facility] HEMOGLOBIN AND HEMATOCRIT 2020-02-02 22:05:[address] [facility] CREATINE 2020-02-02 22:05:00 Hakan Husain [facility] TRANSFUSION SERVICE 2020-02-02 18:20:15 Provider, Default [facility] PREPARE PLASMA 2020-02-02 17:44:00 Sandra [facility] XR PELVIS 1 OR 2 VIEWS 2020-02-02 17:28:00 Hakan Husain [facility] XR CHEST 1 VIEW PORTABLE 2020-02-02 17:28:[address] [facility] / BEDSIDE [facility] Center ANTIBODY IDENTIFICATION 2020-02-02 17:01:00 Sandra [facility] TISSUE EXAM 2020-02-02 15:53:00 Sonia Floresdel reyomari [facility] XR PELVIS 1 OR 2 VIEWS 2020-02-02 15:15:00 [facility] TRANSFUSE LEUKO-REDUCED 2020-02-02 15:08:47 Gino Ball [facility] RED BLOOD CELLS [facility] RRL CRITICAL LABS 2020-02-02 15:05:30 Sonia Floresdel reyomari [facility] (ABG,NA,K,H&H,GLUCOSE) Medical C enter CALCIUM, IONIZED 2020-02-02 15:05:[address] [facility] SODIUM NA-STAT LAB 2020-02-02 15:05:30 [facility]OT[facility] 2020-02-02 15:05:30 [facility] GLU[facility]SE-STAT LAB 2020-02-02 15:05:[address] [facility] HGB/HCT (H&H) - STAT LAB 2020-02-02 15:05:30 Marisol Flores [facility] ANAEROBIC CULTURE 2020-02-02 14:19:31 Marisol Flores [facility] SURGICALLY OBTAINED 2020-02-02 14:19:31 [facility] GRAM STAIN Medical [employer] CULTURE + SMEAR 2020-02-02 14:19:31 Marisol Flores [facility] (NON-SPUTUM) [facility] FUNGUS CULTURE + SMEAR 2020-02-02 14:19:31 Marisol Flores [facility] RRL CRITICAL LABS 2020-02-02 14:17:[address] [facility] - (ABG,NA,K,H&H,GLUCOSE) Medical C enter STAT-LAB IONIZED CALCIUM 2020-02-02 14:17:59 Brigida Ze [facility] SODIUM NA-STAT LAB 2020-02-02 14:17:59 Brigida Ze Liu [facility] POTASSIUM-STAT LAB 2020-02-02 14:17:59 Brigida Ze Alexa [facility] GLUCOSE-STAT LAB 2020-02-02 14:17:59 Brigida Ze Liu [facility] HGB/HCT (H&H) - STAT LAB 2020-02-02 14:17:59 Ze Allred Alexa [facility] SURGICALLY OBTAINED 2020-02-02 14:14:17 Marisol Flores [facility] - CULTURE + GRAM STAIN Medical [employer] CULTURE + SMEAR 2020-02-02 14:14:17 Marisol Flores [facility] (NON-SPUTUM) [facility] ANAEROBIC CULTURE 2020-02-02 14:14:17 Marisol Flores [facility] FUNGUS CULTURE + SMEAR 2020-02-02 14:14:17 Sonia Floresdel reyomari [facility] SPIN/CONCENTRATION CHARGE 2020-02-02 14:14:00 Marisol Flores [facility] ANAEROBIC CULTURE 2020-02-02 13:53:38 Marisol Flores [facility] SURGICALLY OBTAINED 2020-02-02 13:53:38 Marisol Flores [facility] - CULTURE + GRAM STAIN Medical [employer] CULTURE + SMEAR 2020-02-02 13:53:38 Marisol Flores [facility] (NON-SPUTUM) [facility] FUNGUS CULTURE + SMEAR 2020-02-02 13:53:38 Sandra [facility] SPIN/CONCENTRATION CHARGE 2020-02-02 13:53:00 Marisol Flores [facility] PREPARE RBC 2020-02-02 12:29:00 Sandra [facility] REVISION,TOTAL HIP 2020-02-02 12:06:00 Sonia Floresdel reyomari [facility] PLACEMENT,WOUND VAC 2020-02-02 12:06:00 Sonia Floresdel reyomari [facility] BASIC METABOLIC PANEL (7) 2020-02-02 06:05:00 Toño Allred In [facility] MAGNESIUM 2020-02-02 06:05:00 Toño Allred In [facility] PROTHROMBIN TIME/INR 2020-02-02 06:05:00 Brendon Means [facility] APTT 2020-02-02 06:05:00 Brendon Means [facility] CBC (HEMOGRAM ONLY) 2020-02-02 06:05:00 Toño Allred In [facility] TRANSFUSION SERVICE 2020-02-01 18:00:13 Provider, Default [facility] REPORT - SCAN Scanning [facility] BASIC METABOLIC PANEL (7) 2020-02-01 06:46:00 Toño Allred In [facility] MAGNESIUM 2020-02-01 06:46:00 Toño Allred In [facility] CBC (HEMOGRAM ONLY) 2020-02-01 06:46:00 Toño Allred In [facility] PT/APTT 2020-02-01 06:46:00 Toño Allred In [facility] FL ASPIRATION HIP RIGHT 2020-01-31 15:18:00 Toño Allred In [facility] CT PELVIS WITHOUT IV 2020-01-31 14:46:[address] [facility] ABORH, MANUAL 2020-01-31 12:52:00 Marleen Montague [facility] TYPE AND SCREEN, 2020-01-31 12:14:[address] [facility] C-REACTIVE PROTEIN 2020-01-31 11:23:00 Brendon Means [facility] XR PELVIS 1 OR 2 VIEWS 2020-01-31 09:37:00 Brendon Means [facility] BASIC METABOLIC PANEL (7) 2020-01-31 02:40:00 Toño Allred In [facility] MAGNESIUM 2020-01-31 02:40:00 Toño Allred In [facility] PHOSPHORUS 2020-01-31 02:40:00 Toño Allred In [facility] PTH, INTACT 2020-01-31 02:40:00 Toño Allred In [facility] ECG 12-LEAD 2020-01-30 19:06:28 Toño Allred In [facility] CBC (HEMOGRAM ONLY) 2020-01-30 16:43:00 Toño Allred In [facility] COMPREHENSIVE METABOLIC 2020-01-30 16:43:00 Toño Allred In [facility] MAGNESIUM 2020-01-30 16:43:00 Toño Allred In [facility] PT/APTT 2020-01-30 16:43:00 Toño Allred In [facility] TSH/FREE T4 IF INDICATED 2020-01-30 16:32:00 Toño Allred In [facility] SARS-COV2/RT-PCR ([facility] & 2020-01-30 15:44:00 Toño Allred In [facility] - REF LABS) [facility] XR HIP 4 VIEWS, RIGHT 2020-01-30 14:44:00 Toño Allred In [facility] Plan of Care Planned Activity Planned Date Details Comments Source Future Scheduled 2020-05-[address] [facility] - Test 00:00:00 (12+) [code = [facility] Center DEPRESSION SCREENING (12+)] Future Scheduled 2020-01-26 INFLUENZA VACCINE (#1) [facility] Test 00:00:00 [code = INFLUENZA Medical nter VACCINE (#1)] Future Scheduled 2019-05-[address] [facility] - Test 00:00:00 WELLNESS (YEAR 2 or [facility] Center FIRST YEAR if no IPPE) [code = MEDICARE ANNUAL WELLNESS (YEAR 2 or FIRST YEAR if no IPPE)] Future Scheduled 2012 PNEUMOCOCCAL 65+ Y[facility] - Test 00:00:00 (1 of 1 - [facility] Center [id number] PCV13) [code = PNEUMOCOCCAL 65+ YRS (1 of - [id number] PCV13)] Future Scheduled [address] [facility] - Test 00:00:00 [facility] breast [facility]procedure) [code = 392639129] Future Scheduled [address] [facility] - Test 00:00:00 [facility] colon (procedure) [code = 644852104] Encounters Start End Encounter Admission Attending Care Care Encounter Source Date/Time Date/Time Type Type Clinicians Facility Department ID 2020-03-30 2020-03-30 Orders Doctor PITTMAN [id number] 00:00:00 00:00:00 Only UnassignedLAUREN [id number] [facility] 4.2.7.2.686 [id number] 2020-02-23 2020-02-23 Office GRETTA Flores [id number] 14:44:11 16:06:08 Visit Mohamad AMBULATOR [id number] Y 0.2.7.2.686 [id number] 2020-01-20 2020-01-20 Nurse TOYA Sorensen [id number] 00:00:00 00:00:00 Triage Honey AGUILAR [id number] [facility] 4.2.7.2.686 [id number] 2020-01-20 2020-01-20 Telephone TOYA Chawla [id number] 00:00:00 00:00:00 Esteban Jones LAUREN [id number]686 [id number] 2020-01-13 2020-01-15 [place] [id number] 10:03:00 15:30:00 Encounter Esteban Finney [id number] [place] 4.2.7.2.686 [place] [id number] 2020-01-13 2020-01-13 Anesthesia Josef Meeks [facility].2.840.11 [id number] 13:46:00 16:42:00 Memo Silverman [id number] [place] 4.2.7.2.686 Surgical [id number] [place] 020 2020-01-13 2020-01-13 Letter TOYA Wray [id number] 00:00:00 00:00:00 (Out) Magali Romana AGUILAR [id number] [facility] 4.2.7.2.686 [id number] 2020-01-13 2020-01-13 Orders Doctor TOYA [id number] 00:00:00 00:00:00 Only Unassigned, LAUREN [id number] [place] [facility] 4.2.7.2.686 [id number] 2020-01-12 2020-01-12 [facility] 1.2.840.114 [id number] 15:35:03 23:59:00 Encounter Esteban Finney [id number] [place] 4.2.7.2.686 [place] [id number] 2020-01-12 2020-01-12 Vehicle Service Agent Sasha Raman NJABHIJEET [id number] 15:29:06 17:51:05 Visit Lab Emeka Finney 350.1.13.10 [place] 4.2.7.2.686 [facility] [id number] [address] 2019-10-07 2019-10-07 [facility] [id number] 15:44:00 15:44:00 [facility] [place] ent Clinics 2019-10-06 2019-10-06 [facility] [id number] 14:00:00 14:00:00 t [facility] [place] ent Clinics 2018-08-01 2018-08-01 [facility] [id number] 14:15:00 14:15:00 t Specialty/U Kizzy kes - Specialty rology Memori a /Urology Clinic l [facility] ent [facility] 2018-02-05 2018-02-05 [facility] [id number] 13:30:00 13:30:00 t Specialty/U Kizzy kes - Specialty rology Memori a /Urology Clinic l [facility] ent [facility] 2018-01-23 2018-01-23 [facility] [id number] 13:00:00 13:00:00 t Specialty/U Kizzy kes - Specialty rology Memori a /Urology Clinic l Clinic [facility] ent Clinics 2018-01-09 2018-01-09 [facility] [id number] 15:04:00 15:04:00 t Specialty/U Kizzy kes - Specialty rology Memori a /Urology Clinic l [facility] ent [facility] 2017-12-26 2017-12-26 [facility] [id number] 16:01:00 16:01:00 t Specialty/U Kizzy kes - Specialty rology Memori a /Urology Clinic l [facility] ent [facility] 2017-12-19 2017-12-19 [facility] [id number] [facility] 11:30:00 11:30:00 t Specialty/U Kizzy kes - Specialty rology Memori a /Urology Clinic l Clinic [facility] ent Clinics Results Test Description Test Time Test Comments Results Result Comments Source AFB culture + smear (non-sputum) 2020-03-21 10:11:00 Test Item Value Reference Range Interpretation Comme nts Result (test code = 6463-4) No acid-fast bacilli isolated in 42 day s AFB Smear (test code = 66793-3) No acid fast bacilli seen [facility] (NON-SPUTUM)2020-03-21 10:11:00 Test Item Value Reference Range Interpretation Comments CULTURE (BEAKER) (test No acid-fast bacilli code = 1095) isolated in 42 days AFB SMEAR (BEAKER) No acid fast bacilli (test code = 994) seen AFB CULTURE + SMEAR (NON-SPUTUM)2020-03-21 10:11:00 Test Item Value Reference Range Interpretation Comments CULTURE (BEAKER) (test No acid-fast bacilli code = 1095) isolated in 42 days AFB SMEAR (BEAKER) No acid fast bacilli (test code = 994) seen AFB CULTURE + SMEAR (NON-SPUTUM)2020-03-21 10:11:00 Test Item Value Reference Range Interpretation Comments CULTURE (BEAKER) (test No acid-fast bacilli code = 1095) isolated in 42 days AFB SMEAR (BEAKER) No acid fast bacilli (test code = 994) seen Fungus culture + [id number] 17:21:00 Test Item Value Reference Range Interpretation Comments Result (test code = No fungus isolated in 6463-4) 28 days Fungus Smear (test No fungi seen code = 1406) [facility] + [id number] 17:21:00 Test Item Value Reference Range Interpretation Comments CULTURE (BEAKER) (test No fungus isolated in code = 1095) 28 days FUNGUS SMEAR (BEAKER) No fungi seen (test code = 1406) FUNGUS CULTURE + [id number] 17:21:00 Test Item Value Reference Range Interpretation Comments CULTURE (BEAKER) (test No fungus isolated in code = 1095) 28 days FUNGUS SMEAR (BEAKER) No fungi seen (test code = 1406) FUNGUS CULTURE + [id number] 17:18:00 Test Item Value Reference Range Interpretation Comments CULTURE (BEAKER) (test No fungus isolated in code = 1095) 28 days FUNGUS SMEAR (BEAKER) No fungi seen (test code = 1406) ANAEROBIC [id number] 18:11:00 Test Item Value Reference Range Interpretation Comments CULTURE (BEAKER) (test No anaerobes isolated code = 1095) Anaerobic [id number] 18:10:00 Test Item Value Reference Range Interpretation Comments Result (test code = No anaerobes isolated 6463-4) [facility] [id number] 18:10:00 Test Item Value Reference Range Interpretation Comments CULTURE (BEAKER) (test No anaerobes isolated code = 1095) ANAEROBIC [id number] 18:07:00 Test Item Value Reference Range Interpretation Comments CULTURE (BEAKER) (test No anaerobes isolated code = 1095) [id number] 14:27:00 Test Item Value Reference Interpretation Comments Range Creatine, 0.7 mg/dL <1.3 This test was developed and Serum its analytical (test code performancechar acteristics = 8135860) have been deter mined by [employer] [place], [place]. It hasnot been diamante ared or approved by the U.S. Food and DrugAdministrat ion. This assay has been valida mery bhardwaj the [facility]ula [facility] and is used for [facility]. CLARICE (test Performing Lab code = 15 [facility] CLARICE) Diagnostics [facility], [address] [facility] [address] [place] [id number] Blue Lord MD, PhD [facility]RT-PCR (Asymptomatic ONLY)2020-02-08 11:39:00 Test Item Value Reference Range Interpretation Comments SARS-COV2/RT-PCR Negative Not Detected, (test code = Negative, See 68507-4) external report for linked test SARS-COV-2 [facility] (test code = 92896-3) CLARICE (test code = Negative result for [...] of the Act. Fact Sheet for Healthcare Providers:https://www.[employer]/sites/default/f lyly/product/documents/F act_Sheet_HC_Providers_L dfa_SZFT-KuJ-5.pdf Fact Sheet for Healthcare Patients:https://www.[employer]Memrise/sites/default/fi les/product/documents/Fa ct_Sheet_Patients_Lyra_S ARS-CoV-2.pdf Performing Laboratory:[facility] [place] [address] [facility] ([facility])2020-02-08 11:39:00 Test Item Value Reference Range Interpretation Comments SARS-COV2/RT-PCR (test Negative Not Detected, Negative, code = 7809554) See external report for linked test SARS-COV-[address] [facility] (test code = 8888872) Negative result for this test determines that [...] 564(g) of the Act.Fact Sheet for Healthcare Providers:https://www.[employer].Memrise/sites/default/files/product/documents/Fact_Shee p_HY_Qbbkhtqmh_Endw_UQBW-WtN-0.pdfFact Sheet for Healthcare Patients:https://www.[employer].com/sites/default/files/product/ documents/Gzfz_Qpjgy_Liucfnva_Mite_HYUI-XzV-8.pdfPerforming Laboratory:[facility], [place] [address]Dzmgs Metabolic Panel 2020-02-08 09:58:00 Test Item Value Reference Range Interpretation Comments Sodium (test code = 139 meq/L 142-379 9382-2) Potassium (test code = 3.9 meq/L 3.5-5.1 2823-3) Chloride (test code = 105 meq/L 98-107 5-0) CO2 (test code = 28 meq/L -29 2027-9) BUN (test code = 12 mg/dL 7-21 3094-0) Creatinine (test code 0.79 mg/dL 0.57-1.25 = 2160-0) Glucose (test code = 109 mg/dL 70-105 H 2345-7) Calcium (test code = 9.6 mg/dL 8.4-10.2 51971-5) EGFR (test code = 72 mL/min/1.73 [place] [address]-2) NOT ACCURATE CREATININE CLEARANCE IN PREDICTING GLOMERULAR FILTRATION RATE . ESTIMATED GFR I S NOT APPLICABLE FOR DIALYSIS PATIENTS. CLARICE (test code = CLARICE) Dog Walker ID - AAHAMID Lab Interpretation Abnormal (test code = 29930-5) [facility] Test Item Value Reference Range Interpretation Comments Magnesium (test code = 1.9 mg/dL 1.6-2.6 41689-4) CLARICE (test code = CLARICE) Dog Walker ID - AAHAMID Lab Interpretation (test Normal code = 05866-8) [facility] Test Item Value Reference Range Interpretation Comments MAGNESIUM (BEAKER) (test code = 1.9 mg/dL 1.6-2.6 627) Dog Walker ID - AAHAMIDBASIC METABOLIC [id number] 09:58:00 Test Item Value Reference Range Interpretation Comments SODIUM (BEAKER) 139 meq/L 136-145 (test code = 381) POTASSIUM (BEAKER) 3.9 meq/L 3.5-5.1 (test code = 379) CHLORIDE (BEAKER) 105 meq/L 98-107 (test code = 382) CO2 (BEAKER) (test 28 meq/L - code = 355) BLOOD UREA NITROGEN 12 [...] S NOT APPLICABLE FOR DIALYSIS PATIEN TS. Dog Walker ID - AAHAMIDCBC with platelet count + automated [id number] 06:38:00 Test Item Value Reference Range Interpretation Comments WBC (test code = 6690-2) 6.8 See_Comment [A utomated message] The system [employer] generated this result transmitted ref erence range: 3.5 - 10 .5 K/L. The refe rence range was not u sed to interpret this result as normal/abnor mal. RBC (test code = 789-8) 2.82 See_Comment L [Au tomated message] The system [employer] generated this result transmitted ref erence range: 3.93 - 5 .22 M/L. The refe rence range was not u sed to interpret this result as normal/abnor mal. MCHC (test code = 786-4) 30.1 See_Comment L [A utomated message] The system [employer] generated this result transmitted ref erence range: 32.2 - 3 5.5 GM/DL. The refe rence range was not u sed to interpret this result as normal/abnor mal. Hematocrit (test code = 28.6 % 34.1-44.9 L 4544-3) MCV (test code = 787-2) 101.4 fL 79.4-94.8 H MCH (test code = 785-6) 30.5 pg 25.6-32.2 RDW (test code = 788-0) 13.9 % 11.7-14.4 Platelets (test code = 233 See_Comment [Aut omated message] 777-3) The system [employer] generated this result transmitted ref erence range: 150 - 45 0 K/CU MM. The referen ce range was not u sed to interpret this result as normal/abnor mal. MPV (test code = 10.4 fL 9.4-12.3 30154-5) nRBC (test code = 413) 0 See_Comment [Aut omated message] The system [employer] generated this result transmitted ref erence range: 0 - 0 /1 00 WBC. The refere nce range was not u sed to interpret this result as normal/abnor mal. % Neutros (test code = 50 % 429) % Lymphs (test code = 21 % 430) % Monos (test code = 13 % 431) % Eos (test code = 432) 15 % % Baso (test code = 437) 1 % # Neutros (test code = 3.41 See_Comment [Aut omated message] 670) The system [employer] generated this result transmitted ref erence range: 1.56 - 6 .13 K/L. The refe rence range was not u sed to interpret this result as normal/abnor mal. # Lymphs (test code = 1.40 See_Comment [Auto mated message] 414) The system [employer] generated this result transmitted ref erence range: 1.18 - 3 .74 K/L. The refe rence range was not u sed to interpret this result as normal/abnor mal. # Monos (test code = 0.88 See_Comment H [Autom ated message] 415) The system [employer] generated this result transmitted ref erence range: 0.24 - 0 .36 K/L. The refe rence range was not u sed to interpret this result as normal/abnor mal. # Eos (test code = 416) 1.03 See_Comment H [Au tomated message] The system [employer] generated this result transmitted ref erence range: 0.04 - 0 .36 K/L. The refe rence range was not u sed to interpret this result as normal/abnor mal. # Baso (test code = 417) 0.06 See_Comment [A utomated message] The system [employer] generated this result transmitted ref erence range: 0.01 - 0 .08 K/L. The refe rence range was not u sed to interpret this result as normal/abnor mal. Immature 1 % 0-1 Granulocytes-Relative (test code = 2801) Lab Interpretation (test Abnormal code = 53892-8) [facility] W/PLT COUNT & AUTO [id number] 06:38:00 Test Item Value Reference Range Interpretation [...] (BEAKER) (test code = 2801) BASIC METABOLIC [id number] 15:29:00 Test Item Value Reference Range Interpretation [...] APPLICABLE FOR DIALYSIS PATIEN TS. Run at [place] on [employer].[id number] 15:29:00 Test Item Value Reference Range Interpretation Comments MAGNESIUM (BEAKER) (test code = 1.9 mg/dL 1.6-2.6 627) Vancomycin level, [id number] 11:33:00 Test Item Value Reference Range Interpretation Comments Vancomycin Tr (test code = 15.1 ug/mL 1020 4092-3) CLARICE (test code = CLARICE) Dog Walker ID - ADMIN Lab Interpretation (test Normal code = 43325-4) [facility], [id number] 11:33:00 Test Item Value Reference Range Interpretation Comments VANCOMYCIN TROUGH (BEAKER) (test 15.1 ug/mL 10.0-20.0 code = 522) Dog Walker ID - ADMINCBC W/PLT COUNT & AUTO [id number] 04:53:00 Test Item Value Reference Range Interpretation [...] = 2801) RAD, CHEST, 1 VIEW, NON [id number] 10:07:00Reason for exam:->PICC LINE PLACEMENTShould this be [...] basis for further evaluation. Signed: Dane Stovall MDReport Verified Date/Time: 02/06/2020 10:07:30 Reading Location: [address] Transitional Reading Room XR chest 1 view portable / [id number] 10:07:00Interface, External Ris In - 02/06/2020 10:09 [...] nonurgent basis for further evaluation. Signed: Dane Stovalleport Verified Date/Time: 02/06/2020 10:07:30 Reading Location: [facility] C013T Transitional [facility]-12 08:29:00 Test Item Value Reference Range Interpretation Comments MAGNESIUM (BEAKER) (test code = 1.9 mg/dL 1.6-2.6 627) Dog Walker ID - ALFRED MBASIC METABOLIC [id number] 08:29:00 Test Item Value Reference Range Interpretation [...] S NOT APPLICABLE FOR DIALYSIS PATIEN TS. Dog Walker ID - ALFRED MCBC W/PLT COUNT & AUTO [id number] 06:23:00 Test Item Value Reference Range Interpretation [...] = 2801) SURGICALLY OBTAINED CULTURE + GRAM [id number] 11:08:00 Test Item Value Reference Range Interpretation Comments CULTURE A <1+ Same organi sm has (BEAKER) (test been isolated from code = 1095) cultures(s) of the same body site and collection date . Repeat identifi cation and susceptibil ity testing perform ed only after consultat ion with the [facility].Ente rococcu s species GRAM STAIN <1+ White blood RESULT (BEAKER) cells seen (test code = 1123) GRAM STAIN No organisms seen RESULT (BEAKER) (test code = 801045) SURGICALLY OBTAINED CULTURE + GRAM [id number] 11:07:00 Test Item Value Reference Interpretation Comments [...] No organisms seen (BEAKER) (test code = 690513) SURGICALLY OBTAINED CULTURE + GRAM [id number] 11:07:00 Test Item Value Reference Range Interpretation Comments CULTURE (BEAKER) ENTEROCOCCUS A <1+ Enteroc occus (test code = FAECALIS faecalis 1095) Ampicillin (test S code = 26) Linezolid (test S code = 40) Vancomycin (test S code = 13) GRAM STAIN RESULT <1+ White blood (BEAKER) (test cells seen code = 1123) GRAM STAIN RESULT No organisms seen (BEAKER) (test code = 832445) [id number] 09:46:00 Test Item Value Reference Range Interpretation Comments MAGNESIUM (BEAKER) (test code = 1.9 mg/dL 1.6-2.6 627) Dog Walker ID - CHRISS FBASIC METABOLIC [id number] 09:46:00 Test Item Value Reference Range Interpretation [...] S NOT APPLICABLE FOR DIALYSIS PATIEN TS. Dog Walker ID - CHRISS [id number] 11:06:00 Test Item Value Reference Range Interpretation Comments MAGNESIUM (BEAKER) (test code = 1.9 mg/dL 1.6-2.6 627) Dog Walker ID - INNASAMIDBASIC METABOLIC [id number] 11:06:00 Test Item Value Reference Range Interpretation [...] S NOT APPLICABLE FOR DIALYSIS PATIEN TS. Dog Walker ID - AAHAMIDPrepare [id number] 00:09:00 Test Item Value Reference Range Interpretation Comments Unit ABO (test code = A Pos 4994509) UNIT NUMBER (test code = [id number] 934-0) Status (test code = 2728050) WORK IN PROGRESS Blood Bank Product (test RED BLOOD CELLS code = 2263) PRODUCT CODE (test code = Q3349S84 933-2) CROSSMATCH (test code = COMPATIBLE 2264) [facility] [id number] 15:53:00 Test Item Value Reference Range Interpretation Comments Case Report (test code Surgical Pathology = 104) Report Case: [id number] Authorizing Provider: Marisol Flores MD Collected: 02/02/2020 03:53 PM Ordering Location: [facility] Received: 02/03/2020 09:39 AM SERVICES Pathologist: Lauren Putnam MD Specimen: Explant, Hardware from previous surgery for ID: cup/head from right hip replacement DIAGNOSIS (test code = h8fmjCXaXDZnv9itSCIdmCQ 3220) uZzEwMzNcZnRuYmpcdWMxIH zbazXtCUncp9FdP9TwAsQtS FxhbnNpXGRlZmxhbmcxMDMz MDU3aoXsWHLmTNkqIWEbOHz qGt0dcGJcwMhgQiKjCNHcm6 zxvoPNocbgqOs4f1hbWGXpC tB4eNVuJBetT1oetvOiuTBs IRFgSHu6yV33NXCcxA0cnWC sIDtccmVkMFxncmVlbjBcYm f3IQAaF3ivPTGgBTMfJ3DeL I0tNUDaPfz3IDA8RRQ6jLwf h4E4tAOlvPVlaCzwQeIpHkS oFOSBh1ZtTNa0fDxhA6ZhQL DqOuM4uNCbAFFqFMagURWfC TWrduK4qF82IJzqddL0yAOj k2Med01ut319eS9imFByDKK 1TYDiYKGaaWHlHZCqMWC8RS AojEIgE6d8AhQywWWpI3D1Y iSxqVZnA2T9WgEncKWmO9C2 AjKhvZXwLLJbdSNyCt8dqSP nlKHnjb1vms86FMG0y2RflX tbQPH0GUD4RhHrAq6cmDAuR MPmAF4fZvLmlCXoHTPmin93 rKgeRCwhjbUqqZ9sFvYaYJP foUToNLQxLE5otRLlXRNvzS 5ucmxjXHBnYnJkcmhlYWRcc PubdyDtNg5ptTgmZWP5OFpb P0wohT8hKnD9DVgmR6aswB7 rFMl3NXaovER7QAAhqO7fBS 4imlaws7btRiElGC9jkuzsg 5jlAkJqDT8jnda2o2fdNsYs QS1hkciff5cpPcEcYXpoBBQ ujzerFSBes7LypwyeGFKqg1 MyE7ObaAudP35hmPsxY07vV WYfjWidvZ0psQqwlJ6xWqHj ZnMyMFxxbFxwbGFpblxmMFx mczIwXHBsYWluXGYwXGZzMj FweKXpRWUaifQquGqmtI4aD jBcZnMyMFxwbGFpblxmMVxm czIwIEEuIEhBUkRXQVJFLCB SSUdIVCBISVAgUkVQTEFDRU 6XCqRmEJoYN7BZZEYYNE6BK xSQTH6AFN5HRBu6IRSitnpw bFxwbGFpblxmMFxmczIwXHB sYWluXGYxXGZzMjAgICAgLS WGBBNGH3UKGETWVGSWMZmBJ VGJSGdNTQDyT9HFP5BwNEYA J1JCCCXRN60wNmujgVQkfpc tYZuagpRqTPTeyt43QOM9Md Iie3V6TIP6EWEwCDOuz5gtF GVmbGFuZzEwMzNcZnRuYmpc cVKpZCTgHeBcv5vtg425eBR ri0nwZWZjUfM1kXZuXFHilC QqV711ZKRlYHzyn1wzc5ZqM VRiwXApl7S1OCGQuhbicSl5 oGbvF63pb5A2ZmejJ9goVZP sGQHaI4AnCL4pOEDsIou1FH U4BDS7DMSmJJStP2SiQP4zR CPxrOMmCNq8d4hizNjyOFEx FYV6y2muLFektgWzMB0dxu9 esVm7n0mxxoNtXRKmOMUzyH KGFPUfZ3EpkSskPt2zzJz8y BxoUejhVUC2Nxl5JI6gag71 esz5yBmxYAIzpzxwSaN4FHt eSQJamohgSSq6PSofTSMmfR Q4FHRqkOLjD2CzUVYtNC3ui hw0WQK3MPqoYGSnImY0LXWb tTCeUGGbeQmxOFsou770DPF 8YsCpRT8jB5Huz0X8xT0roN RlUIYmpHJwWeZtMNPbxt1go PFmDWxtq2FaKFX1gxW6lHQg rRIpOFItThT6QJvqOR3fjg5 5BHHoKBV2zb5zwFRihPqoyo SyiQPuTKkwB2ChPVViu038X JSfR4AhMFObw8H8jtMmVhNp HYUezLY4nnI4FVZvGB0iivj tr1pkTDgwSCpdICFdvgI1bw J7GCCpwKFnL1AziS0mWXAcK E6bwyjfy1plSNZ7FZhuUBZr VOZ5TaTxALWkc0Mbcsc8EiI av7PttERnZDljO45yd500QB JdsrIwF4jgkTCjwhevzDArt mnoKLkufhU2ZZBgFThgmisz GTYmJRtuJ9elJzVxZITsgPa lALkqg1YvRIXiHBXbImIqqJ OvDYHuWnl3APLceEWwXSHvD qKmC2bcfkzhDoFFQPKvs0fi C4hlxMKYvCAtC7BlJUxbinR mSCkhQPnvDzJxZDi9YB69KX ldUOWvrj55 CPT Code(s) (test code a4hdkVSiIHRwbFMaHxUcXMV = 3356) wIUYof1guIMZcqUAeQtEnYy NcZnRuYmpcdWMxXGRlZmYwe 8icu250uVWot9zuSWHlZnB8 uLFoTFZptEKiM498c6bqm5m lveFubDJ9NXOtQQY7DPyzko VvlxR3QCphnXBwXcP5LDuoh eEdYDzvgrVcrnMpFhv1GYXe Y600VIB2hSjbs4kyLSM4IXK uFFSgKyFwEp7xrCKqY846LQ LjJOERJYTolAi7DALmwsOtq lEdsACDf108M720l3roHWNy dfMsmCmBqphsn9wzV985EBC hcGVydzEyMjQwXHBhcGVyaD T4NBZeVF9guxveMzRmSX6vr qfxUfHdFC3syly4HlCtDZ0q cmdiNzIwXGhlYWRlcnkwXGZ za7QjwflgDN4yQ7Asm6S0eV 9maXRcZGVmdGFiNzIwXGZvc c3ozOGzIFajd9VmRXA0fcH5 eWWriXPmPTCiEX03Bqyyx6M eStxmQJD7NICqqfLtx8Gfu1 fwEaJaayVnT0rcS6OkUZWcI YLnXMDfOtWijbVhc7Keo8Ir mABaiQo2x6wkPNAbQHKggZi rv4srVMD1IIStS9U4rHYew9 nlVJnsFAFkqBX2sfuiVIauU XDtgnJ7mdbzUUnyQJEhbSS2 zqjyCJonHWDiTvG3pmxxBLv hTAGyWCX0WNicc826GIR5GE xzYmtwYWdlXHBnbmNvbnRcc GduZGVjXHBsYWluXHBsYWlu XGYwXGZzMjRccWxccGxhaW5 qDzWmKsPoCCgkNV3tGCNjI8 vpkBXhDKVlIHXsY6lwBjEey U8saOegJZtjfcKoORj9GiHu XHBhcn0= CLINICAL HISTORY (test a1kvgTUwQJJkfLNxOtLkCIO code = 3356) lYPVzh8ohIQSoaWCkExZkWd NcZnRuYmpcdWMxXGRlZmYwe 7yqn660oUCue0biDXZrWdD2 sSQoYNKfsFXeW009n6djk5b ceeJhnNA6NWIbPPV6VBnswy XmyhL7UZgefYWjZyT7OJcmw ySwLXytecIrooFpNah9BLSo K150KGG8gUwbq6yrZTT1AMY qJHUkLxCfKt0fmMJjR370IV MnSZBBLCXkmLi7CEVzexRhn rHrxGSHs061C593k5bvFTOz vkLisKqIphuvi6xmY289HFO hcGVydzEyMjQwXHBhcGVyaD I9MRIeKR0nlzvqJwWuSS7kt rakQvSeCB1bzer7PvKeUF1o cmdiNzIwXGhlYWRlcnkwXGZ jb6XaxtwqCK9qL1Wet0C4nY 9maXRcZGVmdGFiNzIwXGZvc t5loAJrIDeww2NnHKS9uzT9 dWKsxUFiYGOxRH26Xnoii2B xDnmoPFA0XRFkcbRpc1Qkj9 gyIrVtebKeU8zdX1DrVGClU FBmWJMtSsPalbZwd9Cgy3Ij nHGhdJi6h7sbCIAhNUQfgQy ng8quOIN9UEYpV7T5tNRxy2 usUWwyLLUpxMU3ddubSKwsT UVmzqG5ekjdFGtlXVPkuMH3 rfflKCchJWWxNcS8vcjtAYk lRPTqOZD4YGzhz552TZX8CQ xzYmtwYWdlXHBnbmNvbnRcc GduZGVjXHBsYWluXHBsYWlu XGYwXGZzMjRccWxccGxhaW5 vWkWeWgIvDRfmOO7dYMNcG4 jloIVqQVPsAGJfF3itQxVwa G1qtXiqIXscghMdMEPoy8of F8V4TNItdrotcNLxfZ57KRg gaGlwLlxwYXJ9 SPECIMEN SOURCE (test o1pmdTRsZWMkmMAsPmXaWSM code = 3377) vYMMbf0kdMDFirWOxNfBdUv NcZnRuYmpcdWMxXGRlZmYwe 3tgh879cEAdl7duKMNaHzE8 tXFjIFHimKJqN172l9deh7w xxzNeeDX5OIIuDTZ2IWvlpy HdqyF6TVgbbKYlJiF8QJakm eUnIZpspnHuqjZwXne8OBMx I223PDZ1cUmvw7cmCFW5PJG zMROsZqHoGm5euPFpI140WK GfRMGSVKXikQe8CDSloqPtw mUhzNIJs013S968m7izDJTs isSynHjXytccy6nfZ746LBE hcGVydzEyMjQwXHBhcGVyaD F8IKTwBT8txjzxGvDvTM9sv xfaJgGbXL3nric8JrVdMG7k cmdiNzIwXGhlYWRlcnkwXGZ ic0ReybrwUO1xV5Uwi8B1tT 9maXRcZGVmdGFiNzIwXGZvc y0mbVIdDAino4ZkBXV0hhU4 fXZsrHMfDBUeRN03Zjmyw7N dNxquHPM9TXAiycEgk1Nen8 niGzSpnwQoW4kbU1HaGIViC HNaBIYnQzJvmcRqb4Mtj7Hc vUDzyTl4i9ztDDFxAQMvgDx xu8cwRSU8MTBtU1O5uSOtd1 fgGKeoIERgzOJ8pimrJSpbA PTkyuA3wchfCPqrJWSpgES4 phewCNqlNTPrVdC0vxyqBKc iVTVjLHP1SXhhu804XKJ8UH xzYmtwYWdlXHBnbmNvbnRcc GduZGVjXHBsYWluXHBsYWlu XGYwXGZzMjRccWxccGxhaW5 pPhJgFzRdDGtcXM0fRGVgA6 yrnNYvNNNnIFOqK9pyDpAjf N5laHuaZYzuhyGaKLG0dHul bnQgXHBhcn0= GROSS DESCRIPTION k7lnsODeCMLrqITlMhUnAEH (test code = 3366) hYHDbn9ixJQJsmZThQeMkRz NcZnRuYmpcdWMxXGRlZmYwe 5csa062gFZfa5euRBSiXoE2 pCMvOEGnrNImK974i0asg0p ektTfmPQ2CZWaVAS2LIecwt ZcwwM6FEoguXVrQsY0PPsjj aUkUJtygmMztuUfBgn1JDNi S315QOW3bVwod8ipWTJ7QUQ wFTEuJlLnGc8vgTAvW753NP HhRMTOWQHvfCg4UDKstbAeb xZwxEJVc229D732f9znHZNs mmPgqOjKoqopx8dmK435AVT hcGVydzEyMjQwXHBhcGVyaD N3NFSaOW2kklxrAoHdFC2bf bumXeRpQI7ankd4BjJzQI8v cmdiNzIwXGhlYWRlcnkwXGZ cl6WxzydcCK7cI7Rvr1I5lK 9maXRcZGVmdGFiNzIwXGZvc u3nnKSaRShmh7OwTQK2kdA8 wZExrJOfDCNaNV98Nunch5H gLncwPUD5VALbnpEoj8Wxw6 mhMaAhmuXpD5isW2ZgLFDiW BUaFLVbSkKihgAyh9Ioz1Gf fMWomOv3x6pzOQFoNIInfJt tv8tdPZZ4XQYbW5F4pBEkc2 tuQSbcOAUbrAQ5clryMOqvH AAkdoO6xujlDBeoGWTguMW3 vblmOParRULhTpF3crliZEw nAFEkQXZ2JXjwa359NML7GS xzYmtwYWdlXHBnbmNvbnRcc GduZGVjXHBsYWluXHBsYWlu XGYwXGZzMjRccWxccGxhaW5 jRwFeZvAnGXtjFE3tGDMwS0 szwEPzVGUfVTFrR8ymOrQhg C0qkDgvNMoahuNpGQEvQ0Rr dmVkIGZyZXNoIGxhYmVsZWQ xh8i9jKD8rKZysTN3rGVbkM rkHE5fyMGlKNQwS3Cas9cbm sJxkM8jURTuLG8fQCTopDAd PE18KuXjxzMojOpiXBDmlPN 6TGnoaLEkX4RcfRN0gyPqgp D4DKzdzIFoNTFaFZDabeNgU tHjbqVpy3HeUQvjXChpevQ4 YXJlIHJhbmdpbmcgZnJvbSA qVrEapD6jBV1hSMJbEAieJT zgNNP9XFI6TIRoiRZwz9ahf awrk0qaC5vkVLVjCDswf1Up bGnfA09fg1wdzWAghIE8xJU nELAlKKWlWJByQiJlzK1kZX PqqLflVA4iKHLbX4kyfI7fR RitBAYudQoma5fzAsDoaeZb cmlwdGlvbiBpcyBpZGVudGl maWVkOlxwYXJccGFyICIwMT UbCTC3LgKeKTXjitOqVzA1U OlvOnAejIViEPFCGDW8DK4D ARarS5UVFewmDUHhBhX0NHP 4HDBkjYYsQXKbncTOTAjju4 IxBHJcr8AzJ1VllVwntENmq UJaUW7vIC3wAJIlO0Qbp53m ZRWhXAEwcSWsqCO9KOPdEPQ kuQWoS8PbEOFlzlPff8UcD2 Lne1JwWOxizFicFCOxa94gn 80rdF5eQUWtCQuiUYCzxj0= Gross assessment was [facility] performed at ([facility], code = 2777) Department of Pathology, [address] [place] [address], Technical component [facility] was performed at ([facility], code = 2778) Department of Pathology, [address] [place] [address], Professional component [facility] was performed at ([facility], code = 2779) Department of Pathology, [address] [place] [address], [facility] [id number] 15:53:00Surgical Pathology Report Case: [id number] Authorizing Provider: Marisol Flores MD Collected: 02/02/2020 03:53 PM Ordering Location: [facility]IVE Received: 02/03/2020 09:39 AM SERVICES Pathologist: Lauren Putnam MD Specimen: Explant, Hardware from previous surgery for ID: cup/head from right hip replacement A. HARDWARE, RIGHT HIP REPLACEMENT, GROSS EXAMINATION ONLY: - HARDWARE IDENTIFIED (SEE GROSS DESCRIPTION). Signing Pathologist Direct Phone Line: [phone] signed by Lauren Putnam MD on 02/03/2020 at 3:53 [id number] right total hip.Explant Received fresh labeled with the patient's name, accession number and "explant" are three metallic narayan to narayan- white pieces of orthopedic hardware ranging from 2.3 to 5.0 cm in greatest dimension, which are grossly consistent with an acetabulum, ball andsocket. The following inscription is identified:"[id number]""[id number]""B 28 MM X STD""[id number]"A gross photograph is taken. No sections are submitted. This case is for gross examination only. PA/ew [facility], Department of Pathology, [address] [place] [address], [facility], [address] [place] [address], [facility], [facility], [address] [place] [address], RFJJOVANC 2020-02-03 10:24:00 Test Item Value Reference Range Interpretation Comments MAGNESIUM (BEAKER) 1.8 mg/dL 1.6-2.6 Specimen slightly (test code = 627) hemolyzed Dog Walker ID - PIAYA LBASIC METABOLIC [id number] 10:24:00 Test Item Value Reference Range Interpretation [...] S NOT APPLICABLE FOR DIALYSIS PATIEN TS. Dog Walker ID - PIAYA LCBC (Hemogram only)2020-02-03 07:27:00 Test Item Value Reference Range Interpretation Comments WBC (test code = 6690-2) 13.4 See_Comment H [A utomated message] The system [employer] generated this result transmitted ref erence range: 3.5 - 10 .5 K/L. The refe rence range was not u sed to interpret this result as normal/abnor mal. RBC (test code = 789-8) 2.94 See_Comment L [Au tomated message] The system [employer] generated this result transmitted ref erence range: 3.93 - 5 .22 M/L. The refe rence range was not u sed to interpret this result as normal/abnor mal. MCHC (test code = 786-4) 31.8 See_Comment L [A utomated message] The system [employer] generated this result transmitted ref erence range: 32.2 - 3 5.5 GM/DL. The refe rence range was not u sed to interpret this result as normal/abnor mal. Hematocrit (test code = 28.9 % 34.1-44.9 L 4544-3) MCV (test code = 787-2) 98.3 fL 79.4-94.8 H MCH (test code = 785-6) 31.3 pg 25.6-32.2 RDW (test code = 788-0) 13.2 % 11.7-14.4 Platelets (test code = 236 See_Comment [Aut omated message] 777-3) The system [employer] generated this result transmitted ref erence range: 150 - 45 0 K/CU MM. The referen ce range was not u sed to interpret this result as normal/abnor mal. MPV (test code = 11.3 fL 9.4-12.3 72007-0) nRBC (test code = 413) 0 See_Comment [Aut omated message] The system [employer] generated this result transmitted ref erence range: 0 - 0 /1 00 WBC. The refere nce range was not u sed to interpret this result as normal/abnor mal. Lab Interpretation (test Abnormal code = 77787-9) [facility] (HEMOGRAM ONLY)2020-02-03 07:27:00 Test Item Value Reference [...] 0-0 (BEAKER) (test code = 413) SPIN/CONCENTRATION [id number] 03:49:00 Test Item Value Reference Range Interpretation Comments CONCENTRATION CHARGED (BEAKER) (test Done code = 2657) SPIN/CONCENTRATION [id number] 03:48:00 Test Item Value Reference Range Interpretation Comments Concentration charged (test code = Done 2657) [facility] [id number] 03:48:00 Test Item Value Reference Range Interpretation Comments CONCENTRATION CHARGED (BEAKER) (test Done code = 2657) RAD, PELVIS, 1 OR 2 [id number] 01:50:00Reason for exam:->right hip revisionFINAL REPORT CLINICAL [...] MDReport Verified Date/Time: 02/03/2020 01:50:25 Hemoglobin and [id number] 22:24:00 Test Item Value Reference Range Interpretation Comments Hemoglobin (test code 10.0 See_Comment L [Auto mated = 786-4) message] The system which generated this result transmit mery reference range : 11.2 - 15.7 GM/ DL. The reference range was not u sed to interpret th is result as normal/abnormal . Hematocrit (test code 31.5 % 34.1-44.9 L = 4544-3) CLARICE (test code = CLARICE) Dog Walker ID - [id number] Lab Interpretation Abnormal (test code = 34812-8) [facility] CenterHEMOGLOBIN AND [id number] 22:24:00 Test Item Value Reference Range Interpretation Comments HEMOGLOBIN (BEAKER) (test code = 10.0 GM/DL 11.2-15.7 L 410) HEMATOCRIT (BEAKER) (test code = 31.5 % 34.1-44.9 L 411) Dog Walker ID - [id number], CHEST, 1 VIEW, NON [id number] 22:03:00Reason for exam:->right IJ placementShould this be [...] may be considered also. Signed: Ok Mosquera MDRyashort VerifiedDate/Time: 02/02/2020 22:03:36 Reading Location: [address] Consult Reading Room RAD, PELVIS, 1 OR 2 [id number] 20:40:00STAT for PACUReason for exam:->Post op FINAL [...] 02/02/2020 20:40:20 XR pelvis 1 or 2 [id number] 20:40:00Interface, External Ris In - 02/02/2020 8:42 [...] Nino Aldana MDReport Verified Date/Time: 02/02/2020 20:40:20 [facility] [id number] 17:44:00 Test Item Value Reference Range Interpretation Comments Unit ABO (test code = A Pos 6751963) UNIT NUMBER (test code = [id number] 934-0) Status (test code = RETURNED FROM ISSUE 5846011) Blood Bank Product (test FFP code = 2263) PRODUCT CODE (test code = D2577H14 933-2) [facility] CenterAntibody [id number] 17:01:00 Test Item Value Reference Range Interpretation Comments ANTIBODY ID (BEAKER) UNID IgG (test code = 2253) Antibody Consult SIGNED OUT Nonspecific IgG (test code = 2479) reactivit y detected; this is likely of limited clinica l significance. F or transfusion pur poses, crossmatch comp atible RBCs will be se lected. Electronic Sign ature: Jazzy rico MD [facility] CenterBlood gas, [id number] 15:22:00 Test Item Value Reference Range Interpretation Comments pH, Arterial (test 7.39 7.35-7.45 code = 2744-1) pCO2, Arterial (test 41 See_Comment [Autom ated code = 2018-12) message] The system which generated this result transmit mery reference range : 35 - 45 mmHg. T he reference range was not used to interpret this result as normal/abnormal . pO2, Arterial (test 236 See_Comment H [Automa mery code = 2703-7) message] The system which generated this result transmit mery reference range : 80 - 90 mmHg. T he reference range was not used to interpret this result as normal/abnormal . O2 Sat, Arterial 99.5 % 96-97 H (test code = 2708-6) HCO3, Arterial (test 24 mmol/L 21-29 code = 1960-4) Base Excess, Arterial -0.9 mmol/L -2-3 (test code = 1925-7) Patient Temperature 36.3 C (test code = 8310-5) FIO2 (test code = 50 % 1819) CLARICE (test code = CLARICE) FiO2: 50%, Temp 36.3CFiO2: 50%, Temp 36.3CFiO2: 50%, Temp 36.3CFiO2: 50%, Temp 36.3CFiO2: 50%, Temp 36.3C Lab Interpretation Abnormal (test code = 00938-1) [facility], [id number] 15:22:00 Test Item Value Reference Range Interpretation Comments Calcium, Ion (test code = 1.09 mmol/L 1.12-1.27 L 1994-3) pH, Blood (test code = 7.38 57423-4) CLARICE (test code = CLARICE) FiO2: 50%, Temp 36.3C Lab Interpretation (test Abnormal code = 11036-3) [facility] CenterH[facility]HCT (H&H)-Stat [id number] 15:22:00 Test Item Value Reference Range Interpretation Comments Hemoglobin (test code = 9.6 g/dL 12-15 L 786-4) Hematocrit (test code = 28.0 % 36-45 L 4544-3) CLARICE (test code = CLARICE) FiO2: 50%, Temp 36.3CFiO2: 50%, Temp 36.3CFiO2: 50%, Temp 36.3CFiO2: 50%, Temp 36.3CFiO2: 50%, Temp 36.3C Lab Interpretation (test Abnormal code = 50532-2) [facility] CenterGlucose-Stat [id number] 15:22:00 Test Item Value Reference Range Interpretation Comments Glucose (test code = 133 mg/dL 70-110 H 2345-7) CLARICE (test code = CLARICE) FiO2: 50%, Temp 36.3CFiO2: 50%, Temp 36.3CFiO2: 50%, Temp 36.3CFiO2: 50%, Temp 36.3CFiO2: 50%, Temp 36.3C Lab Interpretation (test Abnormal code = 73393-7) [facility] [id number] 15:22:00 Test Item Value Reference Range Interpretation Comments Sodium (test code = 134 meq/L 136-145 L 2951-2) CLARICE (test code = CLARICE) FiO2: 50%, Temp 36.3CFiO2: 50%, Temp 36.3CFiO2: 50%, Temp 36.3CFiO2: 50%, Temp 36.3CFiO2: 50%, Temp 36.3C Lab Interpretation (test Abnormal code = 15127-8) [facility] CenterCALCIUM, [id number] 15:22:00 Test Item Value Reference Range Interpretation Comments CALCIUM IONIZED (BEAKER) (test 1.09 mmol/L 1.12-1.27 L code = 698) PH, BLOOD (BEAKER) (test code = 7.38 1810) FiO2: 50%, Temp 36.3CBLOOD GAS, [id number] 15:22:00 Test Item Value Reference Range Interpretation [...] 50%, Temp 36.3CFiO2: 50%, Temp 36.3CSODIUM NA-STAT [id number] 15:22:00 Test Item Value Reference Range Interpretation Comments SODIUM (BEAKER) (test code = 381) 134 meq/L 136-145 L FiO2: 50%, Temp 36.3CFiO2: 50%, Temp 36.3CFiO2: 50%, Temp 36.3CFiO2: 50%, Temp 36.3CFiO2: 50%, Temp 36.3CGLUCOSE-STAT [id number] 15:22:00 Test Item Value Reference Range Interpretation Comments GLUCOSE RANDOM (BEAKER) (test code 133 mg/dL 70-110 H = 652) FiO2: 50%, Temp 36.3CFiO2: 50%, Temp 36.3CFiO2: 50%, Temp 36.3CFiO2: 50%, Temp 36.3CFiO2: 50%, Temp 36.3CHGB/HCT (H&H) - STAT [id number] 15:22:00 Test Item Value Reference Range Interpretation Comments HEMOGLOBIN (BEAKER) (test code = 9.6 g/dL 12.0-15.0 L 410) HEMATOCRIT (BEAKER) (test code = 28.0 % 36.0-45.0 L 411) FiO2: 50%, Temp 36.3CFiO2: 50%, Temp 36.3CFiO2: 50%, Temp 36.3CFiO2: 50%, Temp 36.3CFiO2: 50%, Temp 36.3CPotassium-Stat [id number] 15:18:00 Test Item Value Reference Range Interpretation Comments Potassium (test code = 3.8 meq/L 3.6-5.5 2823-3) CLARICE (test code = CLARICE) FiO2: 50%, Temp 36.3CFiO2: 50%, Temp 36.3CFiO2: 50%, Temp 36.3CFiO2: 50%, Temp 36.3CFiO2: 50%, Temp 36.3C Lab Interpretation (test Normal code = 34743-8) [facility] CenterPOTASSIUM-STAT [id number] 15:18:00 Test Item Value Reference Range Interpretation Comments POTASSIUM (BEAKER) (test code = 3.8 meq/L 3.6-5.5 379) FiO2: 50%, Temp 36.3CFiO2: 50%, Temp 36.3CFiO2: 50%, Temp 36.3CFiO2: 50%, Temp 36.3CFiO2: 50%, Temp 36.3CGLUCOSE-STAT [id number] 14:34:00 Test Item Value Reference Range Interpretation Comments GLUCOSE RANDOM (BEAKER) (test code 107 mg/dL 70-110 = 652) Temp 35fio2 56%Temp 35fio2 56%Temp 35fio2 56%Temp 35fio2 56%Temp 35fio2 56% POTASSIUM-STAT [id number] 14:34:00 Test Item Value Reference Range Interpretation Comments POTASSIUM (BEAKER) (test code = 4.1 meq/L 3.6-5.5 379) Temp 35fio2 56%Temp 35fio2 56%Temp 35fio2 56%Temp 35fio2 56%Temp 35fio2 56%BLOOD GAS, [id number] 14:34:00 Test Item Value Reference Range Interpretation [...] 56%Temp 35fio2 56%Temp 35fio2 56% SODIUM NA-STAT [id number] 14:34:00 Test Item Value Reference Range Interpretation Comments SODIUM (BEAKER) (test code = 381) 134 meq/L 136-145 L Temp 35fio2 56%Temp 35fio2 56%Temp 35fio2 56%Temp 35fio2 56%Temp 35fio2 56% HGB/HCT (H&H) - STAT [id number] 14:34:00 Test Item Value Reference Range Interpretation Comments HEMOGLOBIN (BEAKER) (test code = 8.2 g/dL 12.0-15.0 L 410) HEMATOCRIT (BEAKER) (test code = 24.0 % 36.0-45.0 L 411) Temp 35fio2 56%Temp 35fio2 56%Temp 35fio2 56%Temp 35fio2 56%Temp 35fio2 56%STAT- LAB IONIZED [id number] 14:33:00 Test Item Value Reference Range Interpretation Comments Filter Ionized Calcium 1.17 mmol/L (test code = 1994-0) CLARICE (test code = CLARICE) Reference Range: No Normals [facility] [id number] 14:33:00 Test Item Value Reference Range Interpretation Comments FILTER IONIZED CALCIUM (BEAKER) 1.17 mmol/L (test code = 1854) Reference Range: No [id number] 11:28:00 Test Item Value Reference Range Interpretation Comments MAGNESIUM (BEAKER) (test code = 2.0 mg/dL 1.6-2.6 627) Dog Walker ID - ROSALIO CBASIC METABOLIC [id number] 11:28:00 Test Item Value Reference Range Interpretation [...] S NOT APPLICABLE FOR DIALYSIS PATIEN TS. Dog Walker ID - ROSALIO CProthrombin time/[id number] 06:58:00 Test Item Value Reference Interpretation Comments Range Protime (test code = 14.3 See_Comment H [Autom ated 5902-2) message] The system which generated this result transmitted reference range : 11.9 - 14.2 seconds. The reference range was not used to interpret this result as normal/abnormal . INR (test code = 1.14 See_Comment [Automated 6301-6) message] The system which generated this result transmitted reference range : <=5.90. The reference range was not used to interpret this result as normal/abnormal . CLARICE (test code = Effective 10/22/2018: CLARICE) PT Reference Range ChangeNew: 11.9-14.2 Previous: 11.7-14.7 RECOMMENDED COUMADIN/WARFARIN INR THERAPY RANGESSTANDARD DOSE: 2.0-3.0 Includes: PROPHYLAXIS for venous thrombosis, systemic embolization; TREATMENT for venous thrombosis and/or pulmonary embolus.HIGH RISK: Target INR is 2.5-3.5 for patients wiht mechanical heart valves. Lab Interpretation Abnormal (test code = 02036-0) [facility] CenteraPTT2020-09-08 06:58:00 Test Item Value Reference Range Interpretation Comments PTT (test code = 36.4 See_Comment H [Automated message] 14083-6) The system [employer] generated this result transmitted ref erence range: 22.5 - 3 6.0 seconds. The reference range was not used to int erpret this result as normal/abnormal . Lab Interpretation (test Abnormal code = 49235-9) [facility] CenterPROTHROMBIN TIME/[id number] 06:58:00 Test Item Value Reference Range Interpretation [...] INR is2.5-3.5 for patients wiht mechanical heart valves.[id number] 06:58:00 Test Item Value Reference Range Interpretation [...] WBC 0-0 (BEAKER) (test code = 413) [id number] 11:22:00 Test Item Value Reference Range Interpretation Comments MAGNESIUM (BEAKER) (test code = 2.0 mg/dL 1.6-2.6 627) Dog Walker ID - YOKASTA MBASIC METABOLIC [id number] 11:22:00 Test Item Value Reference Range Interpretation [...] S NOT APPLICABLE FOR DIALYSIS PATIEN TS. Dog Walker ID - YOKASTA MPT/[id number] 07:29:00 Test Item Value Reference Interpretation Comments Range Protime (test code = 15.0 See_Comment H [Autom ated 7352-2) message] The system which generated this result transmitted reference range : 11.9 - 14.2 seconds. The reference range was not used to interpret this result as normal/abnormal . INR (test code = 1.21 See_Comment [Automated 7049-6) message] The system which generated this result transmitted reference range : <=5.90. The reference range was not used to interpret this result as normal/abnormal . PTT (test code = 45.4 See_Comment H [Automated 53102-7) message] The system which generated this result transmitted reference range : 22.5 - 36.0 seconds. The reference range was not used to interpret this result as normal/abnormal . CLARICE (test code = Effective 10/22/2018: CLARICE) PT Reference Range ChangeNew: 11.9-14.2 Previous: 11.7-14.7 RECOMMENDED COUMADIN/WARFARIN INR THERAPY RANGESSTANDARD DOSE: 2.0-3.0 Includes: PROPHYLAXIS for venous thrombosis, systemic embolization; TREATMENT for venous thrombosis and/or pulmonary embolus.HIGH RISK: Target INR is 2.5-3.5 for patients wiht mechanical heart valves. Lab Interpretation Abnormal (test code = 83905-6) [facility] CenterPT/[id number] 07:29:00 Test Item Value Reference Range Interpretation [...] (test code = 413) FL, ASPIRATION, HIP, [id number] 15:48:00Send cell count, gram stain, cultureReason for [...] the inferolateral aspect of the acetabular cup. [employer] images saved in the patient's medical record. [...] fluoroscopic images obtained: 4 Signed: Yonatan Lagos MDRconne[facility] Verified Date/Time: 01/31/2020 15:48:19 Reading Location: [facility] C0[facility] Transitional Reading Room FL aspiration hip [id number] 15:48:00Interface, External Ris In - 01/31/2020 3:50 [...] the inferolateral aspect of the acetabular cup. [employer] images saved in the patient's medical record. [...] MDReport Verified Date/Time: 01/31/2020 15:48:19 Reading Location: [address] Transitional [facility], WO [id number] 15:42:00 Unlisted Reason for Exam - Click [...] MDReport Verified Date/Time: 01/31/2020 15:42:10 Reading Location: [facility] B1 C013T Transitional Reading Room CT pelvis without IV [id number] 15:42:00Interface, External Ris In - 01/31/2020 3:45 [...] MDReport Verified Date/Time: 01/31/2020 15:42:10 Reading Location: [facility] B1 C013T Transitional Reading Room Electronically signed by: Eulalio RICO 01/31/2020 03:42 [facility]Type and screen, [id number] 14:14:00 Test Item Value Reference Range Interpretation Comments ABO/RH AUTOMATED (BEAKER) A POSITIVE (test code = 2260) Ab Scrn (test code = 890-4) POSITIVE done on echo [facility] CenterABORH, [id number] 13:22:00 Test Item Value Reference Range Interpretation Comments Rh Factor (test code = 2589) POS ABO Grouping (test code = 2588) A [facility] CenterECG 12 [id number] 12:31:58Interface, External Ris In - 01/31/2020 12:32 PM CDTVentricular Rate 72 BPMAtrial Rate 72 BPMP-R Interval 182 msQRS Duration 82 msQ-T Interval 378 msQTC Calculation(Bazett) 413 msP Crystal 44 degreesR Crystal -12 degreesT Crystal 39 degreesNormal sinus rhythmNormal ECGWhen compared with ECG of 29-OCT-2001 21:37,No significant change was foundConfirmed by MD NELSON, MANDA ([id number]) on 01/31/2020 12:31:57 [facility]C-Reactive [id number] 12:26:00 Test Item Value Reference Range Interpretation Comments CRP (test code = 676) 2.11 mg/dL 0-0.5 H CLARICE (test code = CLARICE) Dog Walker ID - CHRISS F Lab Interpretation (test Abnormal code = 49572-6) [facility] CenterC-REACTIVE [id number] 12:26:00 Test Item Value Reference Range Interpretation Comments C-REACTIVE PROTEIN (BEAKER) (test 2.11 mg/dL 0.00-0.50 H code = 676) Dog Walker ID - CHRISS FRAD, PELVIS, 1 OR 2 [id number] 10:03:00Reason for exam:->right hip dislocationFINAL REPORT Pelvis, one view History:Right hip dislocation Comparison:01/30/2020 Findings: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 The acetabular c omponent appears vertically oriented. The study is limited by large patient body habitus. No additional significant bone or joint space abnormality is appreciated. Signed: Yonatan Lagos MDReport Verified Date/Time: 01/31/2020 10:03:40 Reading Location: [facility] B1 C013T Transitional Reading Room El ectronically signed by: YONATAN LAGOS MD on 01/31/2020 10:03 AMPTH, intact 2020-01-31 04:30:00 Test Item Value Reference Range Interpretation Comments PTH (test code = 2731-8) 138.2 pg/mL 8.5-72.5 H CLARICE (test code = CLARICE) Dog Walker ID - ALFRED M Lab Interpretation (test Abnormal code = 40764-6) [facility] CenterPhosphorus2020-09-06 04:30:00 Test Item Value Reference Range Interpretation Comments Phosphorus (test code = 3.3 mg/dL 2.3-4.7 2777-1) CLARICE (test code = CLARICE) Dog Walker ID Christ SIMON M Lab Interpretation (test Normal code = 10786-6) [facility] CenterPTH, [id number] 04:30:00 Test Item Value Reference Range Interpretation Comments PARATHYROID HORMONE INTACT 138.2 pg/mL 8.5-72.5 H (BEAKER) (test code = 577) Dog Walker ID - ALFRED [id number] 04:30:00 Test Item Value Reference Range Interpretation Comments PHOSPHORUS (BEAKER) (test code = 3.3 mg/dL 2.3-4.7 604) Dog Walker ID - ALFRED [id number] 04:30:00 Test Item Value Reference Range Interpretation Comments MAGNESIUM (BEAKER) (test code = 2.0 mg/dL 1.6-2.6 627) Dog Walker ID - ALFRED MBASIC METABOLIC [id number] 04:30:00 Test Item Value Reference Range Interpretation [...] S NOT APPLICABLE FOR DIALYSIS PATIEN TS. Dog Walker ID - ALFRED MSARS-COV2/RT-PCR ([facility])2020-01-30 21:00:00 Test Item Value Reference Range Interpretation Comments SARS-COV2/RT-PCR (test Negative Not Detected, Negative, code = 8775904) See external report for linked test SARS-COV-2 PERFORMING LAB [facility] (test code = 6553962) Negative result for this test determines that [...] 564(g) of the Act.Fact Sheet for Healthcare Providers:https://www.Tenders.es/sites/default/files/product/documents/Fact_Shee b_DY_Tbswaxiex_Hhaw_DUHT-GmP-8.pdfFact Sheet for Healthcare Patients:https://www.[employer].es/sites/default/files/product/ documents/Ztnk_Whvvt_Vvsxcdmz_Vctp_TWZI-VhZ-6.pdfPerforming Laboratory:[address], [place] [address]NZH/Free T4 If [id number] 17:58:00 Test Item Value Reference Range Interpretation Comments TSH (test code = 2.609 See_Comment [Automated 18112-0) message] The system which generated this result transmit mery reference range : 0.350 - 4.940 uIU/mL. The reference range was not used to interpret this result as normal/abnormal . CLARICE (test code = CLARICE) Dog Walker ID - DB Lab Interpretation Normal (test code = 78833-6) [facility] CenterTSH/FREE T4 IF [id number] 17:58:00 Test Item Value Reference Range Interpretation Comments THYROID STIMULATING HORMONE 2.609 uIU/mL 0.350-4.940 (BEAKER) (test code = 772) Dog Walker ID - DBComprehensive metabolic [id number] 17:35:00 Test Item Value Reference Range Interpretation Comments Protein, Total (test 7.0 See_Comment Specime n slightly code = 2885-2) hemolyzed [Automated message] The system which generated this result transmit mery reference range : 6.0 - 8.3 gm/dL . The reference range was not u sed to interpret th is result as normal/abnormal . Albumin (test code = 3.8 g/dL 3.5-5 Specime n slightly 95790-9) hemolyzed Alkaline Phosphatase 100 U/L 40-150 (test code = 6768-6) Total Bilirubin (test 0.5 mg/dL 0.2-1.2 Specim en slightly code = 1974-2) hemolyzed Sodium (test code = 137 meq/L 001-809 7607-2) Potassium (test code 4.4 meq/L 3.5-5.1 Specime n slightly = 2823-3) hemolyzed Chloride (test code = 104 meq/L 98-107 2075-0) CO2 (test code = 24 meq/L 22-29 8-9) BUN (test code = 22 mg/dL 7-21 H 3094-0) Creatinine (test code 1.17 mg/dL 0.57-1.25 Specim en slightly = 2160-0) hemolyzed Glucose (test code = 103 mg/dL 70-105 2345-7) Calcium (test code = 9.7 mg/dL 8.4-10.2 99199-5) AST (test code = 19 U/L 5-34 Specimen sl ightly 1920-8) hemolyzed ALT (test code = 11 U/L 6-55 Specimen sl ightly 1742-6) hemolyzed EGFR (test code = 45 mL/min/1.73 [place] [address]-6) NOT ACCURATE CREATININE CLEARANCE IN PREDICTING GLOMERULAR FILTRATION RATE . ESTIMATED GFR I S NOT APPLICABLE FOR DIALYSIS PATIEN CLARICE (test code = CLARICE) Dog Walker ID - DB Lab Interpretation Abnormal (test code = 23957-1) [facility] CenterMAGNESIUM2020-09-05 17:35:00 Test Item Value Reference Range Interpretation Comments MAGNESIUM (BEAKER) 2.1 mg/dL 1.6-2.6 Specimen slightly (test code = 627) hemolyzed Dog Walker ID - DBCOMPREHENSIVE METABOLIC [id number] 17:35:00 Test Item Value Reference Range Interpretation [...] S NOT APPLICABLE FOR DIALYSIS PATIEN TS. Dog Walker ID - DBRAD, HIP, MIN 4 VIEWS, [id number] 17:21:00Reason for exam:- >recent right total hip [...] MDReport Verified Date/Time: 01/30/2020 17:21:57 Reading Location: [facility] C013Y CT Body Reading Room XR Hip 4 Views, [id number] 17:21:00Interface, External Ris In - 01/30/2020 5:24 [...] MDReport Verified Date/Time: 01/30/2020 17:21:57 Reading Location: [address] Body Reading Room [facility] PT/[id number] 17:17:00 Test Item Value Reference Range Interpretation [...]
[2021-01-05] MEDS ORDERED: HYDROCODONE/APAP 10/325 TAB ONE (14:06)
--- NOTE | 2021-01-05 14:50 | RAD REPORT ---
EXAM DESCRIPTION: RAD - Pelvis - 01/05/2021 2:33 pm CLINICAL HISTORY: Left hip pain COMPARISON: Pelvis dated 01/30/2020 TECHNIQUE: AP imaging of the pelvis was obtained. FINDINGS: No fracture of the bony pelvis identified. A very small portion of the left iliac crest is not imaged. This iliac crest site is not a common site for fracture. Minimal SI joint and pubic symp hysis degenerative changes are present. Right total hip prosthesis in place. Left femoral neck fracture is present. This is further detailed on the left hip and left femur films. No significant soft tissue finding. IMPRESSION: No fracture of the bony pelvis. Proximal left femur fracture is separately detailed.
--- NOTE | 2021-01-05 14:53 | RAD REPORT ---
EXAM DESCRIPTION: RAD - Hip Left 2 View - 01/05/2021 2:33 pm CLINICAL HISTORY: PAIN COMPARISON: Hip Left 2 View dated 11/30/2016; Femur Left dated 01/05/2021 FINDINGS: Frontal and cross-table lateral views of the left hip joint were obtained. Partially imaged left hemithorax is intact. Left femoral neck fracture is identified. Left femoral shaft has migrated superiorly and rotated. Int ertrochanteric portion of the femur overlies the fracture obscuring detail. The extent of any intertr ochanteric component of the fracture cannot be determined. Lesser trochanter remains attached to the femur. Pathologic etiology is not seen. No soft tissue abnormality. IMPRESSION: Left femoral neck fracture is present. Any intertrochanteric involvement cannot be accur ately assessed.
--- NOTE | 2021-01-05 14:54 | RAD REPORT ---
EXAM DESCRIPTION: RAD - Femur Left - 01/05/2021 2:33 pm CLINICAL HISTORY: PAIN, fall, pain COMPARISON: Left hip same date, pelvis same date FINDINGS: Left femoral neck fracture is present with the fracture plane obscured by the overlying in tertrochanteric portion of the femur. Pathologic etiology is not suspected. Lesser trochanter remains intact. No dislocation of the femoral head. Remainder of the femur shows no acute finding. Left total knee prosthesis in place without evidence f or loosening. No air or foreign body in the soft tissues. IMPRESSION: Left femoral neck fracture as detailed above and on left hip report. No acute finding in the remainder of the left femur.
--- NOTE | 2021-01-05 15:22 | EDPHYS ---
Physician Documentation [facility] Name: Amirah Arroyo Age: 75 yrs Sex: Female : 1945 Arrival Date: 01/05/2021 Time: 12:22 Bed 28 Private MD: ED Physician Elías Bowles HPI: 01/06 08:08 This 75 yrs old Female presents to ER via EMS with complaints of Left hip kdr pain. 08:08 The patient fell from standing when she lost her balance landing on her left side. She kdr only complains of pain to the left hip and upper thigh.. Onset: The symptoms/episode began/occurred suddenly, just prior to arrival. Severity of symptoms: At their worst the symptoms were moderate severe incapacitating just prior to arrival, in the emergency department the symptoms. The patient has not experienced similar symptoms in the past. The patient has not recently seen a physician. 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 - Social history:: Smoking status: Patient denies any tobacco usage or history of. ROS: 01/06 08:08 Constitutional: Negative for fever, chills, and weight loss, Eyes: Negative for injury, kdr pain, redness, and discharge, ENT: Negative for injury, pain, and discharge, Neck: Negative for injury, pain, and swelling, Cardiovascular: Negative for chest pain, palpitations, and edema, Respiratory: Negative for shortness of breath, cough, wheezing, and pleuritic chest pain, Abdomen/GI: Negative for abdominal pain, nausea, vomiting, diarrhea, and constipation, Back: Negative for injury and pain, : Negative for injury, bleeding, discharge, and swelling, Skin: Negative for injury, rash, and discoloration, Neuro: Negative for headache, weakness, numbness, tingling, and seizure activity. Psych: Negative for depression, anxiety, suicide ideation, homicidal ideation, and hallucinations, Allergy/Immunology: Negative for hives, rash, and allergies, Endocrine: Negative for neck swelling, polydipsia, polyuria, polyphagia, and marked weight changes, Hematologic/Lymphatic: Negative for swollen nodes, abnormal bleeding, and unusual bruising. MS/extremity: Positive for injury or acute deformity, decreased range of motion, pain, of the left hip. Exam: 08:08 Constitutional: This is a well developed, well nourished patient who is awake, alert, kdr and in no acute distress. Head/Face: Normocephalic, atraumatic. Eyes: Pupils equal round and reactive to light, extra-ocular motions intact. Lids and lashes normal. Conjunctiva and sclera are non-icteric and not injected. Cornea within normal limits. Periorbital areas with no swelling, redness, or edema. Neck: Trachea midline, no thyromegaly or masses palpated, and no cervical lymphadenopathy. Supple, full range of motion without nuchal rigidity, or vertebral point tenderness. No Meningismus. Chest/axilla: Normal chest wall appearance and motion. Nontender with no deformity. No lesions are appreciated. Cardiovascular: Regular rate and rhythm with a normal S1 and S2. No gallops, murmurs, or rubs. Normal PMI, no JVD. No pulse deficits. Respiratory: Lungs have equal breath sounds bilaterally, clear to auscultation and percussion. No rales, rhonchi or wheezes noted. No increased work of breathing, no retractions or nasal flaring. Abdomen/GI: Soft, non-tender, with normal bowel sounds. No distension or tympany. No guarding or rebound. No evidence of tenderness throughout. Back: No spinal tenderness. No costovertebral tenderness. Full range of motion. Skin: Warm, dry with normal turgor. Normal color with no rashes, no lesions, and no evidence of cellulitis. Neuro: Awake and alert, GCS 15, oriented to person, place, time, and situation. Cranial nerves II-XII grossly intact. Motor strength 5/5 in all extremities. Sensory grossly intact. Cerebellar exam normal. Normal gait. Psych: Awake, alert, with orientation to person, place and time. Behavior, mood, and affect are within normal limits. 08:08 Musculoskeletal/extremity: Extremities: grossly normal except: noted in the left hip, medial aspect of left thigh and left quadriceps: decreased ROM, pain. Vital Signs: 01/05 12:30 BP 164 / 78; Pulse 61; Resp 18; Temp 98.1; Pulse Ox 97% on R/A; Weight 95.25 kg; Height zb 5 ft. 4 in. (162.56 cm); Pain 8/10; 13:52 BP 162 / 98; Pulse 59; Resp 16; Pulse Ox 97% on R/A; zb 16:30 BP 162 / 98; Pulse 61; Resp 16; Pulse Ox 96% on R/A; zb 17:30 BP 170 / 76; Pulse 60; Resp 16; Pulse Ox 96% on R/A; zb 18:30 BP 145 / 100; Pulse 66; Resp 16; Pulse Ox 96% on R/A; zb 19:22 BP 161 / 84; Pulse 65; Resp 16; Pulse Ox 94% on R/A; zb 12:30 Body Mass Index 36.05 (95.25 kg, 162.56 cm) zb MDM: 15:21 Patient medically screened. kdr 01/06 08:08 Data reviewed: vital signs, nurses notes, lab test result(s), radiologic studies. kdr Counseling: I had a detailed discussion with the patient and/or guardian regarding: the historical points, exam findings, and any diagnostic results supporting the discharge/admit diagnosis, lab results, radiology results, the need to transfer to another facility. 01/05 14:46 Order name: Chem 7 kdr 01/05 13:31 Order name: Pelvis XRAY; Complete Time: 15:37 kdr 01/05 13:31 Order name: Hip Left 2 View XRAY; Complete Time: 15:37 kdr 01/05 17:19 Order name: SARS-COV-2 RT PCR EDMS 01/05 13:31 Order name: Femur Left XRAY; Complete Time: 15:37 kdr Administered Medications: 01/05 13:49 Drug: [place] (HYDROcodone-acetaminophen) 10 mg-325 mg 1 tabs {Note: RASS +1.} Route: PO; zb 16:40 Follow up: Response: No adverse reaction; No change in condition; Pain is decreased; zb RASS: Alert and Calm (0) 16:39 Drug: Zofran (Ondansetron) 4 mg Route: IVP; Site: right antecubital; zb 18:00 Follow up: Response: No adverse reaction; Marked relief of symptoms zb 16:40 Drug: morphine 4 mg {Note: RASS +1.} Route: IVP; Site: right antecubital; zb 18:00 Follow up: Response: No adverse reaction; No change in condition; Pain is decreased; zb RASS: Alert and Calm (0) 19:30 Drug: Zofran (Ondansetron) 4 mg Route: IVP; Site: right antecubital; zb 19:42 Follow up: Response: Medication administered at discharge. zb 19:30 Drug: morphine 4 mg {Note: RASS +0.} Route: IVP; Site: right antecubital; zb 19:42 Follow up: Response: Medication administered at discharge. zb Disposition Summary: 01/05/21 15:21 Transfer Ordered Transfer Location: [facility] kdr Reason: Higher level of care kdr Condition: Fair kdr Problem: new kdr Symptoms: have improved kdr Accepting Physician: Vishal(01/05/21 19:55) zb Diagnosis - Left femoral neck fracture kdr - Left hip pain kdr Forms: - Medication Reconciliation Form kdr - SBAR form kdr Signatures: Dispatcher [employer] EDMS Elías Bowles MD MD kdr Martinez, Eric em1 Fariha Kasper RN RN zb Corrections: (The following items were deleted from the chart) 15:21 15:21 G kdr kdr 15:21 15:21 Fracture of unspecified part of neck of right femur kdr kdr 16:21 15:42 CORONAVIRUS+MR.LAB.BRZ ordered. EDMS EDMS 19:28 15:21 G kdr zb 19:45 16:44 Labs - recollect needed ordered. em1 zb 19:55 19:28 G zb zb
--- NOTE | 2021-01-05 15:22 | ER ---
Nurse's Notes [facility] Name: Amirah Arroyo Age: 75 yrs Sex: Female : 1945 Arrival Date: 01/05/2021 Time: 12:22 Bed 28 Private MD: Diagnosis: Left femoral neck fracture;Left hip pain Presentation: 01/05 12:30 Chief complaint: EMS states: Patient fell from standing about an hour ago. Fell on Left zb side c/o of pain from mid-thigh area to hip. No LOC and no blood thinners. Patient stated that she feel as if "something was pushing her". Coronavirus screen: At this time, the client does not indicate any symptoms associated with coronavirus-19. Ebola Screen: No symptoms or risks identified at this time. Initial Sepsis Screen: Does the patient meet any 2 criteria? No. Patient's initial sepsis screen is negative. Does the patient have a suspected source of infection? No. Patient's initial sepsis screen is negative. Risk Assessment: Do you want to hurt yourself or someone else? Patient reports no desire to harm self or others. Onset of symptoms was January 05, 2021. 12:30 Acuity: SHONNA 3 zb 12:30 Method Of Arrival: EMS: [facility] Triage Assessment: 12:40 General: Appears uncomfortable, Behavior is cooperative, anxious. Pain: Complains of zb pain in left hip and left quadriceps Pain currently is 8 out of 10 on a pain scale. at worst was 10 out of 10 on a pain scale. Quality of pain is described as aching, sharp, tender, Pain began 1 hour ago. Is continuous. Neuro: Level of Consciousness is awake, alert, obeys commands, Oriented to person, place, time, situation. Cardiovascular: Patient's skin is warm and dry. Pulses are all present. Respiratory: Airway is patent. GI: Abdomen is obese. Derm: Skin is intact, is healthy with good turgor. Musculoskeletal: Range of motion: limited in left hip. 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 - Social history:: Smoking status: Patient denies any tobacco usage or history of. Screenin:41 Abuse screen: Denies threats or abuse. Denies injuries from another. Nutritional zb screening: No deficits noted. Tuberculosis screening: No symptoms or risk factors identified. Fall Risk Fall in past 12 months (25 points). No secondary diagnosis (0 pts). No IV (0 pts). Ambulatory Aid- Crutches/Cane/Walker (15 pts). Gait- Impaired (20 pts.). Mental Status- Oriented to own ability (0 pts). Total Sol Fall Scale indicates Low Risk Score (25-44 pts). Fall prevention measures have been instituted. Side Rails Up X 2 Placed close to Nursing Station Frequent Obs/Assesments occuring Family Present and informed to notify staff if they need to leave bedside As available Patient and Family Educated on Fall Prevention Program and strategies. Assessment: 12:42 Reassessment: See triage assessment. zb 13:51 Reassessment: Patient appears in no apparent distress at this time. Patient and/or zb family updated on plan of care and expected duration. Pain level reassessed. Patient is alert, oriented x 3, equal unlabored respirations, skin warm/dry/pink. Patient used the restroom. no c/o given diaper and cleaned up after. no c/o beside left side at this time. Grandson remains at beside. 14:30 Reassessment: Patient appears in no apparent distress at this time. Patient and/or zb family updated on plan of care and expected duration. Pain level reassessed. Patient is alert, oriented x 3, equal unlabored respirations, skin warm/dry/pink. 15:30 Reassessment: Patient appears in no apparent distress at this time. Patient and/or zb family updated on plan of care and expected duration. Pain level reassessed. Patient is alert, oriented x 3, equal unlabored respirations, skin warm/dry/pink. 16:30 Reassessment: Patient appears in no apparent distress at this time. Patient and/or zb family updated on plan of care and expected duration. Pain level reassessed. Patient is alert, oriented x 3, equal unlabored respirations, skin warm/dry/pink. 17:30 Reassessment: Patient appears in no apparent distress at this time. Patient and/or zb family updated on plan of care and expected duration. Pain level reassessed. Patient is alert, oriented x 3, equal unlabored respirations, skin warm/dry/pink. 18:30 Reassessment: Patient appears in no apparent distress at this time. Patient and/or zb family updated on plan of care and expected duration. Pain level reassessed. Patient is alert, oriented x 3, equal unlabored respirations, skin warm/dry/pink. 19:22 Reassessment: Patient appears in no apparent distress at this time. Patient and/or zb family updated on plan of care and expected duration. Pain level reassessed. Patient is alert, oriented x 3, equal unlabored respirations, skin warm/dry/pink. Vital Signs: 12:30 BP 164 / 78; Pulse 61; Resp 18; Temp 98.1; Pulse Ox 97% on R/A; Weight 95.25 kg; Height zb 5 ft. 4 in. (162.56 cm); Pain 8/10; 13:52 BP 162 / 98; Pulse 59; Resp 16; Pulse Ox 97% on R/A; zb 16:30 BP 162 / 98; Pulse 61; Resp 16; Pulse Ox 96% on R/A; zb 17:30 BP 170 / 76; Pulse 60; Resp 16; Pulse Ox 96% on R/A; zb 18:30 BP 145 / 100; Pulse 66; Resp 16; Pulse Ox 96% on R/A; zb 19:22 BP 161 / 84; Pulse 65; Resp 16; Pulse Ox 94% on R/A; zb 12:30 Body Mass Index 36.05 (95.25 kg, 162.56 cm) ED Course: 12:22 Patient arrived in ED. em1 12:30 Fariha Kasper, RN is Primary Nurse. zb 12:33 Triage completed. zb 12:42 Patient has correct armband on for positive identification. Fall risk band placed. Bed zb in low position. Adult w/ patient. Pulse ox on. NIBP on. 12:42 Arm band placed on. zb 13:04 Elías Bowles MD is Attending Physician. kdr 14:33 Pelvis XRAY In Process Unspecified. EDMS 14:33 Hip Left 2 View XRAY In Process Unspecified. EDMS 14:33 Femur Left XRAY In Process Unspecified. EDMS 15:00 Inserted saline lock: 22 gauge in right antecubital area, using aseptic technique. zb 19:27 No provider procedures requiring assistance completed. Patient transferred, IV remains zb in place. 19:40 Primary Nurse role handed off by Fariha Kasper RN zb 19:41 Fariha Kasper RN is Primary Nurse. zb Administered Medications: 13:49 Drug: [place] (HYDROcodone-acetaminophen) 10 mg-325 mg 1 tabs {Note: RASS +1.} Route: PO; zb 16:40 Follow up: Response: No adverse reaction; No change in condition; Pain is decreased; zb RASS: Alert and Calm (0) 16:39 Drug: Zofran (Ondansetron) 4 mg Route: IVP; Site: right antecubital; zb 18:00 Follow up: Response: No adverse reaction; Marked relief of symptoms zb 16:40 Drug: morphine 4 mg {Note: RASS +1.} Route: IVP; Site: right antecubital; zb 18:00 Follow up: Response: No adverse reaction; No change in condition; Pain is decreased; zb RASS: Alert and Calm (0) 19:30 Drug: Zofran (Ondansetron) 4 mg Route: IVP; Site: right antecubital; zb 19:42 Follow up: Response: Medication administered at discharge. zb 19:30 Drug: morphine 4 mg {Note: RASS +0.} Route: IVP; Site: right antecubital; zb 19:42 Follow up: Response: Medication administered at discharge. zb Outcome: 15:21 ER care complete, transfer ordered by . kdr 19:27 Transferred by ground EMS to [facility], Transfer form completed. zb 19:27 Condition: stable 19:27 Instructed on the need for transfer. 19:28 Patient left the ED. zb 19:55 Patient left the ED. cheb Signatures: Dispatcher [employer] EDElías Mota MD MD kdr Martinez, Eric em1 Brown, Zipporah, RN RN ramone
[2021-01-05 16:36] LABS: Potassium 4.4 mmol/L (3.5-5.1)
[2021-01-05] MEDS ORDERED: MORPHINE 4 MG/ML SYR ONE ×2 (16:55→19:35)
[2021-01-05] MEDS ORDERED: ONDANSETRON 4 MG/2 ML VIAL ONE ×2 (16:55→19:36)
[2021-01-05 19:35] VITALS: TEMP 98.1
[2021-01-05 19:46] VITALS: BP 161/84; O2SAT 94
== END 2021-01-05 19:55 | disposition short-term general hospital (02) ==
LOC: ER 12:17
DX: S72.002A Fracture of unspecified part of neck of left femur, initial encounter for closed fracture (principal); Z96.652 Presence of left artificial knee joint; W18.30XA Fall on same level, unspecified, initial encounter; Y93.89 Activity, other specified; Z20.822 Contact with and (suspected) exposure to COVID-19; I10 Essential (primary) hypertension
CPT/HCPCS: 80048; 72170; 73502; 73552; 96375; 96374; 99285; U0003; J2405 ×2

== ENCOUNTER 2022-04-11 16:30 | Inpatient (IN) | payer OTHER ==
--- OUTSIDE RECORDS SUMMARY | 2022-04-11 18:44 | XMS REPORT | Continuity of Care Document ---
:1945 Author Organization [facility] t Address [address] [place] [address] Care Team Providers Name Role Phone TALI BUTCHER Primary Care Physician Unavailable Jennifer Maza Attending Clinician Unavailable SAMY CHAWLA Attending Clinician Unavailable AMERICO COLEMAN Attending Clinician Unavailable Doctor Unassigned, [place] Attending Clinician Unavailable Marisol Flores MD Attending Clinician Americo Coleman MD Attending Clinician Brigida KHOURY, Elisa Sage Attending Clinician Mandy KHOURY, Yahaira Arita Attending Clinician [phone] Ze Allred MD Attending Clinician Gino Ball CRNA Attending Clinician [phone] Marisol Flores MD Attending Clinician Honey Sorensen RN Attending Clinician Unavailable Samy Chawla MD Attending Clinician [phone] Josef Meeks CRNA Attending Clinician Memo Silverman MD Attending Clinician Magali Wray RN Attending Clinician Unavailable Pob, Adc Lab Main Attending Clinician Unavailable CAPRICE REYNA Attending Clinician Unavailable SAMY CHAWLA Admitting Clinician Unavailable AMERICO COLEMAN Admitting Clinician Unavailable LACEY, DIDIER JOSH Admitting Clinician Unavailable ELISA ALLRED Admitting Clinician Unavailable Cammy KHOURY, Samy Jones Admitting Clinician [phone] Payers Payer Name Policy Type Policy Number Effective Date Expiration Date Emilie VEGA/AARP [id number] 2019 MEDICARE ADVANTAGE 00:00:00 AARP/MEDICARE [id number] 2019 COMPLETE 00:00:00 Problems Condition Condition Condition Status Onset Resolution Last Treating Co mments Source Name Details Category Date Date Treatment Clinician Date Closed Closed Disease Active [facility] fracture fracture [facility] Medica l 00 Center Dislocated Dislocated Disease Active [facility] hip, hip, 01-29 [facility] right, right, 00:00: Medical initial initial 00 Center encounter encounter Hypothyroi Hypothyroi Disease Active [facility] dism dism 01-29 [facility] 00:[facility] 00 Center Left Left Disease Active [facility] breast breast 01-29 [facility] cancer in cancer in 00:00: Medi jan remission remission 00 Cent er History of History of Disease Active [facility] 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 Pain in Pain in Diagnosis Active Commo n joint of joint of [facility] Center right hip right hip - [facility] I [facility] Allergies, Adverse Reactions, Alerts Allergy Allergy Status Severity Reaction(s) Onset Inactive Treating Comm ents Source Name Type Date Date Clinician NO KNOWN Drug Active Univers ALLERGIE Class ity of [facility] NO KNOWN Allergy [facility] Social History Social Habit Start Date Stop Date Quantity Comments Source Exposure to Not sure University of SARS-CoV-2 [place] [facility] (event) Branch History SDOH [facility] Alcohol Std Medical Cente r Drinks History SDOH [facility] Alcohol Comment Medical C enter Alcohol intake 2021-01-09 2021-01-[address] [facility] 00:00:00 00:00:00 non-drinker Medical [facility] r (finding) Tobacco use and 2021-01-06 2021-01-[address] [facility] [address] [facility] exposure 00:00:00 00:00:00 Medical Center History SDOH 2021-01-06 2021-01-[address] [facility] Alcohol Frequency 00:00:00 00:00:00 Medical Center History SDOH 2021-01-06 2021-01-[address] [facility] Alcohol Binge 00:00:00 00:00:[address] Sex Assigned At [address] 00:00:00 00:00:00 Medical Center Smoking Status Start Date Stop Date Source Unknown if ever smoked [facility] Never smoker [facility] Medications Ordered Filled Start Stop Current Ordering Indication Dosage Frequency Signature Comments Components Source Medication Medication Date Date Medication? Clinician (SIG) Name Name losartan Yes 100mg QD Take [address] (COZAAR) 8-19 mg by [facility] 100 MG 13:39: mouth Medical tablet 29 daily. Center propranoloL Yes 80mg QD Take [address] (Inderal 02-16 by mouth [facility] [place]) 80 MG 00:00: daily . Medic al 24 hr 00 Center capsule amLODIPine No 10mg QD Take [address] (NORVASC) 02-08 tablet (10 [facility] 10 MG 00:00: 23:59 mg total) Medica l tablet 00 :00 by mouth Center daily. levothyroxi No 137ug Take [address] ne 02-08 tablet [facility] (SYNTHROID, 00:00: 23:59 (137 mcg M edical LEVOTHROID) 00 :00 total) by [address] ter 137 MCG mouth tablet Every morning on an empty stomach. enoxaparin 2019- No 40mg Q24H Inject 0.[address] (LOVENOX) 02-08 10-05 mLs (40 mg [facility]ady es 40 mg/0.4 00:00: 23:59 total) Medic al mL Syrg 00 :00 [facility] usly daily for 20 days. vancomycin Yes 1000mg Inject [facility] (VANCOCIN) 02-07 1,000 mg [facility] 1000 mg IV 00:00: intravenou M edical in NS 100 00 sly every Cente r ML MBP 12 (twelve) hours. amitriptyli 2019-2020- No 50mg QD Take [address] ne (ELAVIL) 02-07 tablet (50 L ukes 50 MG 00:00: 23:59 mg total) Medica l tablet 00 :00 by mouth Center nightly. rifAMPin 2019-2019- No 300mg Take 1 [facility] t (RIFADIN) 02-07 capsule [facility] 300 MG 00:00: 23:59 (300 mg Medical capsule 00 :00 total) by Center mouth every 12 (twelve) hours for 42 days. lidocaine 2019-2019- No 1{patch Q24H Place [address] (LIDODERM) 02-07 } patch onto Kizzy kes 5 % patch 00:00: 23:59 the skin Med ical 00 :00 daily for Center 30 days Remove & Discard patch within 12 hours or as directed by . propranoloL 2019-2019- No 10mg [id number] Take [address] (INDERAL) 02-07 [id number] tablet (10 [facility] 10 MG 00:00: 23:59 3D mg total) Medica l tablet 00 :00 by mouth 3 Center (three) times daily for 30 days. acetaminoph 2019-2019- No 1000mg Take [address] en 02-07 tablets [facility] (TYLENOL) 00:00: 23:59 (1,000 mg Me dical 500 MG 00 :00 total) by Center tablet mouth every 8 (eight) hours as needed for Pain for up to 10 days. amitriptyli 2019-0 2020- No 10mg Take 10 mg Univers ne 10 mg 01-14 by mouth ity of tablet 20:31: 00:00 at [place] 30 :00 bedtime. Medical Branch Levothyroxi 2019-0 2020- No Take by Un kristian ne 88 mcg 01-14 mouth ity of capsule 20:31: 00:00 daily. [place] 30 :00 Medical Branch propranolol 2019-0 2020- No 80mg Take 80 mg Univers HCl 01-14 by mouth 2 ity of (INDERAL 20:31: 00:00 (two) [place] ORAL) 30 :00 times Medical daily. Branch naproxen 2020-0 2020- No 250mg Take 250 Uni vers 250 mg 8- 08-21 mg by ity of tablet 20:31: 00:00 mouth 2 [place] 30 :00 (two) Medical times [place] daily with meals. levothyroxi 2020-0 Yes 88ug 88 mcg, Uni vers ne 8-20 Oral, ity of (SYNTHROID) 11:00: QAM-0600, [place] tablet 88 00 First dose Medi jan mcg on [facility] 01/14/20 at 0600, Until Discontinu ed propranoloL 2020-0 2020- No 80mg 80 mg, Uni vers (INDERAL) 8- 08-20 Oral, ity of tablet 80 10:15: 09:09 ONCE, 1 [place] mg 00 :00 dose, [facility] 01/14/20 at Branch 0515, Routine hydralAZINE 2020-0 Yes 10mg 10 mg, Univ ers (APRESOLINE 8-20 Intravenou it y of ) injection 02:38: s, Q6HPRN, [place] 10 mg 00 Starting [facility] 01/13/20 at 2138, Until Discontinu ed, Routine, Hypertensi on morpHINE 2019-0 Yes 2mg 2 mg, Slow Uni vers injection 2 8-20 IV Push, ity of mg 02:37: Q3HPRN, [place] 40 Starting [facility] 01/13/20 at 2137, Until Discontinu ed, Routine, Pain (scale 7-10), Hold for SBP<110, DBP<60, RR<12, and/or drowsiness /sedation proMETHazin 2020-0 Yes 12.5mg 12.5 mg, Univers e 8-20 IV ity of (PHENERGAN) 02:37: [place] 12.5 mg in 16 Q4HPRN, Medica l NaCl 0.9% Starting Branch (NS) 50 mL [facility] IV 01/13/20 at piggyback 2136, Until Discontinu ed, Routine, N/V unresponsi ve to Ondansetro n amitriptyli 2020-0 Yes 10mg 10 mg, Univ ers ne (ELAVIL) 8-20 Oral, QHS, it y of tablet 10 02:00: [place] mg 00 on Sat Medical 01/13/20 at Branch 2100, Until Discontinu ed, Routine propranolol 2020-0 Yes 80mg 80 mg, Univ ers [place] (INDERAL 8-20 Oral, BID, it y of [place]) 24 hr 01:00: First [place] capsule 80 00 on Sat Medical mg 01/13/20 at Branch 2000, Until Discontinu ed docusate 2020-0 Yes 100mg 100 mg, Unive rs (COLACE) 8-20 Oral, ity of capsule 100 01:00: Q12H, [place] mg 00 First dose Medical on Sat Branch 01/13/20 at 2000, Until Discontinu ed, Routine enoxaparin 2020-0 Yes 30mg 30 mg, Unive rs (LOVENOX) 8-20 Subcutaneo ity of injection 01:00: us, Q12H, [place] as 30 mg 00 First dose Medical on Sat Branch 01/13/20 at 2000, Until Discontinu ed, Routine amitriptyli 2020-0 Yes 10mg Take 10 mg Univers ne 10 mg 8-20 by mouth ity of tablet 00:16: at [place] [address] bedtime. Medical Branch Levothyroxi 2020-0 Yes Take by Uni vers ne 88 mcg 8-20 mouth ity of capsule 00:16: daily. [place] [address] Medical Branch propranolol 2020-0 Yes 80mg Take 80 mg Univers HCl 8-20 by mouth 2 ity of (INDERAL 00:16: (two) [place] ORAL) 40 times Medical daily. Branch naproxen 2020-0 Yes 250mg Take 250 Univ ers 250 mg 8-20 mg by ity of tablet 00:16: mouth 2 [place] 40 (two) Medical times Branch daily with meals. rivaroxaban 2020-0 2020- No 1475 10mg Take 1 Uni vers (XARELTO) 8-20 09-10 tablet by ity of tablet 00:00: 04:59 mouth [place] 00 :00 daily for Medical 20 days. Branch Indication s: deep vein thrombosis prevention rivaroxaban 2020-0 2020- No 1475 10mg Take 1 Uni vers (XARELTO) 8-20 09-10 tablet by ity of tablet 00:00: 04:59 mouth [place] 00 :00 daily for Medical 20 days. Branch Indication s: deep vein thrombosis prevention rivaroxaban 2020-0 2020- No 1475 10mg Take 1 Uni vers (XARELTO) 01-13 09-10 tablet by ity of tablet 00:00: 04:59 mouth [place] 00 :00 daily for Medical 20 days. Branch Indication s: deep vein thrombosis prevention rivaroxaban 2020-0 2020- No 1475 10mg Take 1 Uni vers (XARELTO) 01-13 09-10 tablet by ity of tablet 00:00: 04:59 mouth [place] 00 :00 daily for Medical 20 days. Branch Indication s: deep vein thrombosis prevention diphenhydrA 2020-0 Yes 25mg 25 mg, Univ ers MINE 01-12 Oral, ity of (BENADRYL) 22:33: Q4HPRN, [place] tablet 25 14 Starting Medica l mg Wed Branch 01/13/20 at 1733, Until Discontinu ed, Routine, Itching HYDROcodone 2020-0 Yes 1{tbl} 1 tablet, Univers -acetaminop 01-12 Oral, ity of hen (NORCO 22:32: Q6HPRN, [place] 5) 5-325 mg 16 Starting Medi jan tablet 1 Wed [place] tablet 01/13/20 at 1732, Until Discontinu ed, Routine, Pain (scale 4-6) ondansetron 2020-0 Yes 4mg 4 mg, Slow Univers (ZOFRAN 01-12 IV Push, ity of (PF)) 22:31: Q6HPRN, [place] injection 4 55 Starting Medi jan mg [facility] Branch 01/13/20 at 1731, Until Discontinu ed, Routine, Nausea and Vomiting (N/V) sugammadex 2020-0 2020- No ONCE INTRA Univers (BRIDION) 01-12 PROCEDURE, ity of injection 21:13: 21:43 Starting [place] as 00 :46 [facility] Medical 01/13/20 at Branch 1613, Until 01/13/20 at 1643, Routine, Intra-op ondansetron 2020-0 2020- No ONCE INTRA Univers (ZOFRAN 01-12 PROCEDURE, ity o f (PF)) 21:06: 21:43 Starting [place] injection 00 :46 [facility] Medical 01/13/20 at Branch 1606, Until [facility] 01/13/20 at 1643, Routine, Intra-op acetaminoph 2020-0 2020- No Administer Univers en ADULT 8-19 08-19 over 15 ity of (OFIRMEV) 20:46: 21:43 Minutes, [place] injection 00 :46 ONCE INTRA Medi jan PROCEDURE, Branch Starting 01/13/20 at 1546, Until 01/13/20 at 1643, Routine, Intra-op phenylephri 2020-0 2020- No ONCE INTRA Univers ne 01-12 PROCEDURE, ity of (VAZCULEP) 20:08: 21:43 Starting [place] injection 00 :46 Wed Medical 01/13/20 at Branch 1508, Until 01/13/20 at 1643, Routine, Intra-op ePHEDrine 2020-0 2020- No ONCE INTRA U nivers 25 mg/5 mL 01-12 PROCEDURE, it y of (5 mg/mL) 20:01: 21:43 Starting [place] syringe 00 :46 Wed Medical 01/13/20 at Branch 1501, Until 01/13/20 at 1643, Routine, Intra-op HYDROmorphO 2020-0 2020- No ONCE INTRA Univers ne 01-12 PROCEDURE, ity of (DILAUDID) 19:27: 21:43 Starting [place] injection 00 :46 Wed Medical 01/13/20 at Branch 1427, Until Sat01/13/20 at 1643, Routine, Intra-op ceFAZolin 2020-0 2020- No ONCE INTRA U nivers (ANCEF) 01-12 PROCEDURE, ity o f injection 19:12: 09:59 Starting [place] 00 :51 Wed Medical 01/13/20 at Branch 1412, Until Codie 01/14/20 at 0459, CRUZ, Intra-op dexamethaso 2020-0 2020- No ONCE INTRA Univers ne 01-12 PROCEDURE, ity of (DECADRON 19:04: 21:43 Starting [place] as PHOSPHATE) 00 :46 Wed Medical injection 01/13/20 at Bran ch 1404, Until 01/13/20 at 1643, Routine, Intra-op rocuronium 2020-0 2020- No ONCE INTRA Univers (ZEMURON) 01-12 PROCEDURE, ity of injection 18:54: 21:43 Starting [place] as 00 :46 Wed Medical 01/13/20 at Branch 1354, Until Sat01/13/20 at 1643, Routine, Intra-op lidocaine 2020-0 2020- No ONCE INTRA U nivers 1% 01-12 PROCEDURE, ity of (XYLOCAINE) 18:54: 21:43 Starting [place] 100 mg/10 00 :46 [facility] Medical mL (1 %) 01/13/20 at [facility] h injection 1354, Until Sat01/13/20 at 1643, Routine, Intra-op propofoL IV 2020-0 2020- No ONCE INTRA Univers infusion 01-12 PROCEDURE, ity of 18:54: 21:43 Starting [place] 00 :46 [facility] Medical 01/13/20 at Branch 1354, Until [facility] 01/13/20 at 1643, Routine, Intra-op FENTanyl PF 2020-0 2020- No ONCE INTRA Univers (SUBLIMAZE 01-12 PROCEDURE, it y of (PF)) 18:54: 21:43 Starting [place] injection 00 :46 [facility] Medical 01/13/20 at Branch 1354, Until 01/13/20 at 1643, Routine, Intra-op sodium 2020-0 Yes PRN, Univers chloride 01-12 Starting ity of 0.9 % 18:49: Wed [place] irrigation 00 01/13/20 at [facility] ical solution 1349, [place] Until Discontinu ed, Intra-op sodium 2020-0 Yes PRN, Univers chloride 01-12 Starting ity of 0.9 % 18:49: Wed [place] irrigation 00 01/13/20 at [facility] ical solution 1349, [place] Until Discontinu ed, Intra-op lactated 2020-0 2020- No CONTINUOUS Un kristian ringers IV 01-12 PRN, ity of infusion 18:46: 21:43 Starting [place] 00 :46 [facility] Medical 01/13/20 at Branch 1346, Until [facility] 01/13/20 at 1643, Routine, Intra-op tranexamic 2020-0 2020- No 770mg 770 mg, IV Univers acid 01-12 Piggyback, ity of (CYKLOKAPRO 16:30: 19:12 ONCE, 1 [place] N) 770 mg 00 :00 dose, Wed Medic al in NaCl 01/13/20 at [place] 0.9% (NS) 1130, 250 250 mL mL, DSU piggyback Pre-op lactated 2020-0 2020- No 1000mL at 20 [facility] [place] [facility] rs ringers IV 01-12 mL/hr, ity of infusion 15:15: 16:28 1,000 mL, [place] 1,000 mL 00 :00 IV Medical Infusion, Branch ONCE, 1 dose, Sat01/13/20 at 1015, Routine, DSU Pre-op gabapentin 2019- No 300mg 300 mg, Un kristian (NEURONTIN) 01-12 Oral, O.R. i ty of capsule 300 15:04: 16:27 HOLDING [place] mg 43 :00 ONCE, 1 Medical dose, Branch Starting Sat01/13/20 at 1004, Until Discontinu ed, Routine, Surgery/Pr ocedure, DSU Pre-op oxyCODONE-a 2020- No 2{tbl} 2 tablet, Univers cetaminophe 01-12 Oral, O.R. i ty of n 15:04: 16:29 HOLDING [place] (PERCOCET) 43 :00 ONCE, 1 Medica l 5-325 mg dose, Branch per tablet Starting 2 tablet Sat01/13/20 at 1004, Until Discontinu ed, Routine, surgery, DSU Pre-op celecoxib 2019- No 400mg 400 mg, Uni vers (CELEBREX) 01-12 Oral, O.R. it y of capsule 400 15:04: 16:27 HOLDING [place] mg 43 :00 ONCE, 1 Medical dose, Branch Starting Sat01/13/20 at 1004, Until Discontinu ed, Routine, Pain, DSU Pre-op acetaminoph Yes 1000mg 1,000 mg, Univers en 01-12 Oral, O.R. ity of (TYLENOL) 15:04: HOLDING [place] tablet 42 ONCE, 1 Medical 1,000 mg dose, Branch Starting Sat01/13/20 at 1004, Until Discontinu ed, Routine, surgery, DSU Pre-op ceFAZolin 2020- No 2000mg 2 g (2,000 Univers in dextrose 01-12 mg), IV ity of (iso-os) 15:04: 08:00 [place], [place] (ANCEF) 2 42 :00 O.R. Medical gram/100 mL HOLDING Branc h Piggyback 2 ONCE, 1 g dose, Starting 8/19/20 at 1004, Until Codie 01/14/20 at 0300, 100 mL, DSU Pre-op
Reason for Anti-Infec tive: Surgical Prophylaxi s
Surgi jan Prophylaxi s: Orthopaedi c
Durat ion of therapy: within 24 hours of surgery naproxen 2020-0 Yes 250mg Take 250 Univ ers 250 mg 8-18 mg by ity of tablet 16:08: mouth 2 [place] [address] ([facility]) Medical times [place] daily with meals. Levothyroxi 2020-0 Yes Take by Uni vers ne 88 mcg 8-18 mouth ity of capsule 16:08: daily. [place] [address] Medical Branch propranolol 2020-0 Yes Take by Uni vers HCl 8-18 mouth. ity of (INDERAL 16:08: [place] ORAL) Medical Branch naproxen 2020-0 Yes 250mg Take 250 Univ ers 250 mg 8-18 mg by ity of tablet 16:08: mouth 2 [place] [address] ([facility]) Medical times [place] daily with meals. Levothyroxi 2020-0 Yes Take by Uni vers ne 88 mcg 8-18 mouth ity of capsule 16:08: daily. [place] [address] Medical Branch propranolol 2020-0 Yes Take by Uni vers HCl 8-18 mouth. ity of (INDERAL 16:08: [place] ORAL) Medical Branch naproxen 2020-0 Yes 250mg Take 250 Univ ers 250 mg 8-18 mg by ity of tablet 16:08: mouth 2 [place] [address] ([facility]) Medical times [place] daily with meals. Levothyroxi 2020-0 Yes Take by Uni vers ne 88 mcg 8-18 mouth ity of capsule 16:08: daily. [place] [address] Medical Branch propranolol 2020-0 Yes Take by Uni vers HCl 8-18 mouth. ity of (INDERAL 16:08: [place] ORAL) Medical Branch naproxen 2020-0 Yes 250mg Take 250 Univ ers 250 mg 8-18 mg by ity of tablet 16:08: mouth 2 [place] [address] ([facility]) Medical times [place] daily with meals. Levothyroxi 2020-0 Yes Take by Uni vers ne 88 mcg 8-18 mouth ity of capsule 16:08: daily. [place] [address] Medical Branch propranolol 2020-0 Yes Take by Uni vers HCl 8-18 mouth. ity of (INDERAL 16:08: [place] ORAL) Medical Branch amitriptyli 2020-0 Yes 10mg Take 10 mg Univers ne 10 mg 8-18 by mouth ity of tablet 16:08: at [place] [address] bedtime. Medical Branch amitriptyli 2020-0 Yes 10mg Take 10 mg Univers ne 10 mg 8-18 by mouth ity of tablet 16:08: at [place] [address] bedtime. Medical Branch amitriptyli 2020-0 Yes 10mg Take 10 mg Univers ne 10 mg 8-18 by mouth ity of tablet 16:08: at [place] [address] bedtime. Medical Branch amitriptyli 2020-0 Yes 10mg Take 10 mg Univers ne 10 mg 8-18 by mouth ity of tablet 16:08: at [place] [address] bedtime. Medical Branch No known No Univers medications ity of [facility] Amlodipine Amlodipine Yes Clemente 1 tablet Common Besylate Besylate [facility] Amitriptyli Amitriptyli Yes Clemente 1 tablet Common ne HCl ne HCl [facility] Propranolol Propranolol Yes Clemente 1 tablet Common HCl HCl [facility] Vitamin D Vitamin D Yes Clemente 1 tablet [facility] Naproxen Naproxen Yes Clemente 1 tablet Common Kendrick with food Spirit or milk as - [facility] needed [facility] Anastrozole Anastrozole Yes Clemente 1 tablet [facility] Levothyroxi Levothyroxi Yes Clemente 1 tablet Common ne Sodium ne Sodium Kendrick on an Spir it empty - CHI stomach in [facility] Propranolol Propranolol Yes Clemente not Common HCl ER HCl ER Kendrick defined [facility] Amitriptyli Amitriptyli Yes Clemente not Common ne HCl ne HCl Kendrick defined [facility] Losartan Losartan Yes Clemente 1 tablet Common Potassium Potassium Kendrick Spiri t [facility] Vital Signs Vital Name Observation Time Observation Value Comments Source HEIGHT 2021-01-07 20:19:00 162.6 cm WEIGHT 2021-01-07 20:19:00 103.874 kg HEIGHT 2020-01-30 00:00:00 162.6 cm WEIGHT 2020-01-30 00:00:00 103.874 kg HEIGHT 2021-01-07 20:19:00 162.6 cm WEIGHT 2021-01-07 20:19:00 103.874 kg HEIGHT 2020-01-30 00:00:00 162.6 cm WEIGHT 2020-01-30 00:00:00 103.874 kg Systolic blood 2020-01-15 15:47:00 113 mm[Hg] Univer sity of pressure [place] [facility] Diastolic blood 2020-01-15 15:47:00 59 mm[Hg] Unive rsity of pressure [place] [facility] Heart rate 2020-01-15 15:47:00 63 /min Universi ty of [place] [facility] Body temperature 2020-01-15 15:47:00 36.22 Saar Univ ersity of [place] [facility] Respiratory rate 2020-01-15 15:47:00 18 /min Univ ersity of [place] [facility] Oxygen saturation in 2020-01-15 15:47:00 91 /min University of Arterial blood by [facility] Pulse oximetry Branch Body weight 2020-01-15 09:58:00 101.47 kg Universi ty of [place] [facility] BMI 2020-01-15 09:58:00 39.64 kg/m2 Universi ty [facility] [place] [facility] Body height 2020-01-12 16:44:00 160 cm Universi ty of [place] [facility] Systolic blood 2020-01-15 15:47:00 113 mm[Hg] Univer sity of pressure [place] [facility] Diastolic blood 2020-01-15 15:47:00 59 mm[Hg] Unive rsity of pressure [place] [facility] Heart rate 2020-01-15 15:47:00 63 /min [facility]i ty [facility] [place] [facility] Body temperature 2020-01-15 15:47:00 36.22 Sara Univ ersity of [place] [facility] Respiratory rate 2020-01-15 15:47:00 18 /min Univ ersity of [place] [facility] Oxygen saturation in 2020-01-15 15:47:00 91 /min University of Arterial blood by [place] Medi jan Pulse oximetry Branch Body weight 2020-01-15 09:58:00 101.47 kg [facility]i ty [facility] [place] [facility] BMI 2020-01-15 09:58:00 39.64 kg/m2 [facility] [place] [facility] Body height 2020-01-12 16:44:00 160 cm [facility] [place] [facility] Systolic blood 2020-02-08 11:16:00 136 mm[Hg] [facility] Diastolic blood 2020-02-08 11:16:00 78 mm[Hg] [facility] Heart rate 2020-02-08 11:16:00 84 /min [facility] Body temperature 2020-02-08 11:16:00 36.22 Sara [facility] Respiratory rate 2020-02-08 11:16:00 18 /min [facility] Oxygen saturation in 2020-02-08 11:16:00 99 /min [facility] Arterial blood by Medical Ce nter Pulse oximetry Body weight 2020-01-30 17:00:00 103.874 kg [facility] BMI 2020-01-30 17:00:00 39.31 kg/m2 [facility] Body height 2020-01-30 15:34:00 162.6 cm [facility] Procedures Procedure Date / Time Performing Clinician Source Performed EXTERNAL PROVIDER RECORDS 2020-03-30 06:01:00 Doctor Unassigned, No [facility] Medical Branch REPORT OF PROCEDURE - 2020-02-10 11:00:45 Provider, Default [facility] ENDOSCOPY SCAN Scanning Center RHYTHM STRIP - SCAN 2020-02-10 11:00:43 Provider, Default [facility] Scanning [place] CBC W/PLT COUNT & AUTO 2020-02-08 05:44:00 Yahaira Galvan [facility] DIFFERENTIAL [facility] BASIC METABOLIC PANEL (7) 2020-02-08 05:44:00 Elisa Allred In [facility] MAGNESIUM 2020-02-08 05:44:00 Eilsa Allred In [facility] SARS-COV2/RT-PCR ([facility] & 2020-02-07 12:43:00 Elisa Allred In [facility] REF LABS) [place] BASIC METABOLIC PANEL (7) 2020-02-07 04:08:00 Elisa Allred In [facility] MAGNESIUM 2020-02-07 04:08:00 Elisa Allred In [facility] CBC W/PLT COUNT & AUTO 2020-02-07 04:08:00 Yahaira Galvan [facility] DIFFERENTIAL [facility] VANCOMYCIN LEVEL, TROUGH 2020-02-07 04:08:00 Yahaira Galvan [facility] XR CHEST 1 VIEW PORTABLE 2020-02-06 09:40:00 Yahaira Galvan [facility] / BEDSIDE [facility] BASIC METABOLIC PANEL (7) 2020-02-06 05:29:00 Brigida Vanessag In [facility] MAGNESIUM 2020-02-06 05:29:00 Vanessa Allredg In [facility] CBC W/PLT COUNT & AUTO 2020-02-06 05:29:00 Yahaira Galvan [facility] DIFFERENTIAL [facility] TRANSFUSION SERVICE 2020-02-05 18:00:59 Provider, Default [facility] REPORT - SCAN Scanning [place] BASIC METABOLIC PANEL (7) 2020-02-05 06:39:00 BrigidaVanessag In [place] [facility] MAGNESIUM 2020-02-05 06:39:00 Vanessa Allredg In [facility] TRANSFUSION SERVICE 2020-02-04 18:01:18 Provider, Default [facility] - SCAN Scanning [place] BASIC METABOLIC PANEL (7) 2020-02-04 06:09:00 Vanessa Allredg In [facility] MAGNESIUM 2020-02-04 06:09:00 BrigidaVanessag In [facility] PREPARE RBC 2020-02-04 00:09:00 Vanessa Allredg In [facility] PREPARE RBC 2020-02-03 23:54:00 Vanessa Allredg In [facility] TRANSFUSION SERVICE 2020-02-03 18:00:51 Provider, Default [facility] REPORT - SCAN Scanning [place] BASIC METABOLIC PANEL (7) 2020-02-03 06:58:00 BrigidaVanessag In [facility] MAGNESIUM 2020-02-03 06:58:00 BrigidaVanessag In [facility] CBC (HEMOGRAM ONLY) 2020-02-03 06:58:00 Vanessa Allredg In [facility] HEMOGLOBIN AND HEMATOCRIT 2020-02-02 22:05:00 Kyrie Husain [facility] CREATINE 2020-02-02 22:05:00 Hakan Husain [facility] TRANSFUSION SERVICE 2020-02-02 18:20:15 Provider, Default [facility] REPORT - SCAN Scanning Center PREPARE PLASMA 2020-02-02 17:44:00 [facility] 1 OR 2 VIEWS 2020-02-02 17:28:00 Hakan Husain [facility] XR CHEST 1 VIEW PORTABLE 2020-02-02 17:28:00 Jacqueline Granger [facility] / BEDSIDE Center ANTIBODY IDENTIFICATION 2020-02-02 17:01:00 Sonia Floresiotaomari [facility] TISSUE EXAM 2020-02-02 15:53:00 Sonia Floresiotaomari [facility] XR PELVIS 1 OR 2 VIEWS 2020-02-02 15:15:00 [facility] TRANSFUSE LEUKO-REDUCED 2020-02-02 15:08:47 Gino Ball [facility] RED BLOOD CELLS Center BLOOD GAS, ARTERIAL 2020-02-02 15:05:30 Sandra Soniaiotaomari [facility] CALCIUM, IONIZED 2020-02-02 15:05:30 Sandra [facility] SODIUM NA-STAT LAB 2020-02-02 15:05:30 [facility] POTASSIUM-STAT LAB 2020-02-02 15:05:30 [facility] GLUCOSE-STAT LAB 2020-02-02 15:05:30 [facility] HGB/HCT (H&H) - STAT LAB 2020-02-02 15:05:30 Marisol Flores [facility] ANAEROBIC CULTURE 2020-02-02 14:19:31 [facility] SURGICALLY OBTAINED 2020-02-02 14:19:31 Sonia Floresiotaomari [facility] CULTURE + GRAM STAIN Center AFB CULTURE + SMEAR 2020-02-02 14:19:31 [facility] FUNGUS CULTURE + SMEAR 2020-02-02 14:19:31 Sandra [facility] BLOOD GAS, ARTERIAL 2020-02-02 14:17:59 BrigidaZe [facility] STAT-LAB IONIZED CALCIUM 2020-02-02 14:17:59 Brigida Ze [facility] SODIUM NA-STAT LAB 2020-02-02 14:17:59 Ze [facility] POTASSIUM-STAT LAB 2020-02-02 14:17:59 Brigida Ze [facility] GLUCOSE-STAT LAB 2020-02-02 14:17:59 Brigida Ze [facility] HGB/HCT (H&H) - STAT LAB 2020-02-02 14:17:59 BrigidaZe [facility] SURGICALLY OBTAINED 2020-02-02 14:14:17 Jourdangila [facility] CULTURE + GRAM STAIN Center AFB CULTURE + SMEAR 2020-02-02 14:14:17 Sonia Floresiotaomari [facility] (NON-SPUTUM) Center ANAEROBIC CULTURE 2020-02-02 14:14:17 Sandra [facility] FUNGUS CULTURE + SMEAR 2020-02-02 14:14:17 [facility] SPIN/CONCENTRATION CHARGE 2020-02-02 14:14:00 Sandra [facility] ANAEROBIC CULTURE 2020-02-02 13:53:38 Sandra [facility] SURGICALLY OBTAINED 2020-02-02 13:53:38 Sonia Floresiotaomari [facility] CULTURE + GRAM STAIN Center AFB CULTURE + SMEAR 2020-02-02 13:53:38 Sonia Floresiotaomari [facility] (NON-SPUTUM) Center FUNGUS CULTURE + SMEAR 2020-02-02 13:53:38 Sandra [facility] SPIN/CONCENTRATION CHARGE 2020-02-02 13:53:00 Sandra [facility] PREPARE RBC 2020-02-02 12:29:00 Sandra [facility] REVISION,TOTAL HIP 2020-02-02 12:06:00 Marisol Flores [facility] PLACEMENT,WOUND VAC 2020-02-02 12:06:00 Marisol Flores [facility] BASIC METABOLIC PANEL (7) 2020-02-02 06:05:00 Elisa Allred In [facility] MAGNESIUM 2020-02-02 06:05:00 Elisa Allred In [facility] PROTHROMBIN TIME/INR 2020-02-02 06:05:00 Brendon Means [facility] APTT 2020-02-02 06:05:00 Brendon Means [facility] CBC (HEMOGRAM ONLY) 2020-02-02 06:05:00 Elisa Allred In [facility] TRANSFUSION SERVICE 2020-02-01 18:00:13 Provider, Default [facility] - SCAN Scanning Center BASIC METABOLIC PANEL (7) 2020-02-01 06:46:00 Elisa Allred In [facility] MAGNESIUM 2020-02-01 06:46:00 Elisa Allred In [facility] CBC (HEMOGRAM ONLY) 2020-02-01 06:46:00 Elisa Allred In [facility] PT/APTT 2020-02-01 06:46:00 Elisa Allred In [facility] FL ASPIRATION HIP RIGHT 2020-01-31 15:18:00 Elisa Allred In [facility] CT PELVIS WITHOUT IV 2020-01-31 14:46:00 Brendon Means [facility] CONTRAST [place] ABORH, MANUAL 2020-01-31 12:52:00 Marleen Montague [facility] TYPE AND SCREEN, 2020-01-31 12:14:00 Brendon Means [facility] C-REACTIVE PROTEIN 2020-01-31 11:23:00 Brendon Means [facility] XR PELVIS 1 OR 2 VIEWS 2020-01-31 09:37:00 Brendon Means [facility] BASIC METABOLIC PANEL (7) 2020-01-31 02:40:00 Elisa Allred In [facility] MAGNESIUM 2020-01-31 02:40:00 Elisa Allred In [facility] PHOSPHORUS 2020-01-31 02:40:00 Brigida Elisa In [facility] PTH, INTACT 2020-01-31 02:40:00 Brigida Vanessacarli In [facility] ECG 12-LEAD 2020-01-30 19:06:28 Unknown, Hl7 Doctor [facility] CBC (HEMOGRAM ONLY) 2020-01-30 16:43:00 Brigida Elisa In [facility] COMPREHENSIVE METABOLIC 2020-01-30 16:43:00 Elisa Allred In [facility] MAGNESIUM 2020-01-30 16:43:00 Elisa Allred In [facility] PT/APTT 2020-01-30 16:43:00 Elisa lAlred In [facility] TSH/FREE T4 IF INDICATED 2020-01-30 16:32:00 Elisa Allred In [facility] SARS-COV2/RT-PCR ([facility] & 2020-01-30 15:44:00 Elisa Allred In [facility] REF LABS) Center XR HIP 4 VIEWS, RIGHT 2020-01-30 14:44:00 Brigida Elisa In [facility] CBC WITH DIFF 2020-01-15 10:16:00 Samy Chawla [facility] CBC WITH DIFF 2020-01-14 08:32:00 Samy Chawla [facility] XR HIP 1 VW RIGHT 2020-01-13 20:45:00 Samy Chawla [facility] INTUBATION 2020-01-13 19:11:21 Jeanna [facility] TOTAL HIP ARTHROPLASTY 2020-01-13 18:34:00 Samy Chawla [facility] HB ABO GROUPING 2020-01-13 16:00:00 Samy Chawla [facility] DAY SURGERY - ADC 2020-01-13 05:01:00 Doctor Unassigned, No Univ ersity [facility] CBC WITH DIFF 2020-01-12 22:41:00 Samy Chawla [facility] XR CHEST 2 VW 2020-01-12 21:07:36 Samy Chawla [facility] NOTICE OF PRIVACY 2020-01-12 20:22:16 Doctor Unassigned, No Univ [facility] PRACTICES Name Medical Branch CONSENT/REFUSAL FOR 2020-01-12 20:21:50 Doctor Unassigned, No [facility] DI[facility]NOSIS AND TREATMENT Name Medical Branch ASSIGNMENT OF BENEFITS 2020-01-12 20:21:16 Doctor Unassigned, No [facility] Name [facility] Branch Plan of Care Planned Activity Planned Date Details Comments Source Future Scheduled 2022-01-25 INFLUENZA VACCINE (#1) [facility] [code = INFLUENZA Medical Ce nter VACCINE (#1)] Future Scheduled 2021-05-[address] [facility] 00:00:00 (12+) [code = Medical Center DEPRESSION SCREENING (12+)] Future Scheduled 2021-05-27 FALLS RISK SCREENING [facility] 00:00:00 [code = FALLS RISK Medical C enter SCREENING] Future Scheduled 2020-05-[address] [facility] [facility] 00:00:00 WELLNESS (YEAR 2 or Medical Center FIRST YEAR if no IPPE) [code = MEDICARE ANNUAL WELLNESS (YEAR 2 or FIRST YEAR if no IPPE)] Future Scheduled 2020-05-[address] [facility] 00:00:00 (12+) [code = Medical Center DEPRESSION SCREENING (12+)] Future Scheduled 2020-01-26 INFLUENZA VACCINE (#1) [facility] 00:00:00 [code = INFLUENZA Medical Ce nter VACCINE (#1)] Future Scheduled 2019-05-[address] [facility] 00:00:00 WELLNESS (YEAR 2 or Medical Center FIRST YEAR if no IPPE) [code = MEDICARE ANNUAL WELLNESS (YEAR 2 or FIRST YEAR if no IPPE)] Future Scheduled 2012 PNEUMOCOCCAL 65+ YRS ([address] [facility] 00:00:00 of 1 - [id number] [facility] Center PCV13) [code = PNEUMOCOCCAL 65+ YRS (1 of 1 - [id number] PCV13)] Future Scheduled 2012 PNEUMOCOCCAL 65+ YRS ([address] [facility] 00:00:00 - PCV) [code = Medical [facility] PNEUMOCOCCAL 65+ YRS (1 - PCV)] Future Scheduled 1997 SHINGLES VACCINES ([address] [facility] 00:00:00 2) [code = SHINGLES Medical Center VACCINES (1 of 2)] Future Scheduled 1966 DTAP/TDAP/TD VACCINES [facility] 00:00:00 (1 - Tdap) [code = Medical C enter DTAP/TDAP/TD VACCINES (1 - Tdap)] Future Scheduled 1965 HEPATITIS C SCREENING [facility] 00:00:00 [code = HEPATITIS C Medical Center SCREENING] Future Scheduled 1947 COVID-19 VACCINE (#1) [facility] 00:00:00 [code = COVID-[address] VACCINE (#1)] Future Scheduled 1947 Screening for malignant [facility] 00:00:00 neoplasm of breast Medical C enter (procedure) [code = 830651269] Future Scheduled 1947 Screening for malignant [facility] 00:00:00 neoplasm of colon Medical Ce nter (procedure) [code = 271876207] Future Scheduled 1947 CT Colonography (combo) [facility] 00:00:00 [code = CT Colonography [facility] (combo)] Future Scheduled 1947 Screening for malignant [facility] 00:00:00 neoplasm of colon Medical Ce nter (procedure) [code = 499514497] Future Scheduled 1947 Screening for malignant [facility] 00:00:00 neoplasm of colon Medical Ce nter (procedure) [code = 474586249] Future Scheduled 1945 DXA SCAN [code = DXA [facility] 00:00:00 SCAN] [facility] Center Future Scheduled 1947 Screening for malignant [facility] 00:00:00 neoplasm of colon Medical Ce nter (procedure) [code = 274828528] Future Scheduled 1947 Screening for malignant [facility] Test 00:00:00 neoplasm of colon Medical Ce nter (procedure) [code = 766949290] Future Scheduled 1945 Sigmoidoscopy [code = [facility] 00:00:00 Sigmoidoscopy] [facility] Cente r Future Scheduled ZOSTER VACCINE (1 of 2) [facility] Test [code = ZOSTER VACCINE Medic ine (1 of 2)] Future Scheduled FALL SCREEN [code = [facility] Test FALL SCREEN] Medicine Future Scheduled OSTEOPOROSIS SCREENING B [facility] Test [code = OSTEOPOROSIS Medicin e SCREENING] Future Scheduled PNEUMOVAX >=65 (PPSV23) [facility] [code = PNEUMOVAX >=65 Medic ine (PPSV23)] Future Scheduled MEDICARE IPPE (WELCOME B [facility] Test TO MEDICARE) [code = Medicin e MEDICARE IPPE (WELCOME TO MEDICARE)] Future Scheduled FLU VACCINE > [address] [facility] Test [code = FLU VACCINE > 6 Medi cine MONTHS] Future Scheduled COLON CANCER SCREENING: [facility] Test COLONOSCOPY [code = Medicine COLON CANCER SCREENING: COLONOSCOPY] Future Scheduled MAMMOGRAM ANNUAL [code B [facility] Test = MAMMOGRAM ANNUAL] Medicine Future Scheduled TETANUS SHOT (ADULT) [facility] Test [code = TETANUS SHOT Medicin e (ADULT)] Future Scheduled HEPATITIS C SCREENING Ba [facility] [code = HEPATITIS C Medicine SCREENING] Encounters Start End Encounter Admission Attending Care Care Encounter Source Date/Time Date/Time Type Type Clinicians Facility Department ID 2021-06-21 [facility] [id number] Common 11:21:33 Jennifer 90640 [facility] 2021-03-24 Inpatient R [facility] [id number] [facility] 13:11:42 [facility] 2021-03-05 Inpatient ER NHI [facility] Orthopaedic [id number] SLE 08:34:42 [facility] 2020-01-30 [facility] [id number] SLE 13:12:00 [facility] 2021-01-06 2021-01-06 Outpatient [facility] [id number] [facility] 00:00:00 23:59:00 Evens powell of Medicin e 2020-03-30 2020-03-30 Orders Doctor P[place]AN [id number] [place] [address] 00:00:00 00:00:00 Only Unassigned, LAUREN [id number] ity of [place] [facility] 4.2.7.2.686 Jordon as [id number] [facility] 009 Branch 2020-03-30 2020-03-30 Orders Doctor TOYA 1.2.840.114 [id number] 00:00:00 00:00:00 Only Unassigned, LAUREN 350.1.13.10 [place] [facility] 4.2.7.2.686 [id number] 009 2020-02-23 2020-02-23 Office SCOTT FloresMandy 1.2.840.114 [id number] [facility] 14:44:11 16:06:08 Visit Mohamad AMBULATOR 350.1.13.21 College Y 0.2.7.2.686 of [id number] [facility] 600 e 2020-02-23 2020-02-23 Office GRETTA Flores 1.2.840.114 [id number] 14:44:11 16:06:08 Visit Mohamad AMBULATOR 350.1.13.21 Y 0.2.7.2.686 [id number] 600 2020-01-20 2020-01-20 Nurse TOYA Sorensen 1.2.840.114 [id number] Univers 00:00:00 00:00:00 Triage Honey AGUILAR 350.1.13.10 i ty of [facility] 4.2.7.2.686 Jordon as [id number] [address] 2020-01-20 2020-01-20 Telephone TOYA Chawla 1.2.840.114 [id number] Univers 00:00:00 00:00:00 Samy AGUILAR 350.1.13.10 ity [facility] 4.2.7.2.686 Jordno as [phone] [address] 2020-01-20 2020-01-20 TOYA Mancilla 1.2.840.114 [id number] 00:00:00 00:00:00 Triage Honey AGUILAR 350.1.13.10 [facility] 4.2.7.2.686 [id number] 019 2020-01-20 2020-01-20 Telephone TOYA Chawla 1.2.840.114 [id number] 00:00:00 00:00:00 Samy AGUILAR 350.1.13.10 HOSPITAL 4.2.7.2.686 [id number] 019 2020-01-13 2020-01-15 Located within [facility] 1.2.840.114 [id number] [facility] 10:03:00 15:30:00 Encounter Samy [place] 350.1.13.10 ity of [place]7.2.[place] [phone] [facility] 081 Branch 2020-01-13 2020-01-15 Located within [facility] 1.2.840.114 [id number] 10:03:00 15:30:00 Encounter Samy Finney 350.1.13.10 [place] 4.2.7.2.686 [place] [id number] [facility] 2020-01-13 2020-01-13 Anesthesia Josef Meeks [facility] 1.2.840.11 [id number] [facility] 13:46:00 16:42:00 Memo Silverman 350.1.13.10 ity of [place] 4.2.7.2.686 [facility] [id number] [facility] 020 [place] 2020-01-13 2020-01-13 [facility] 1.2.840.11 [id number] 13:46:00 16:42:00 Memo Silverman 350.1.13.10 [place] 4.2.7.2.686 Surgical [id number] [place] [address] 2020-01-13 2020-01-13 Orders Doctor TOYA 1.2.840.114 [id number] Univers 00:00:00 00:00:00 Only Unassigned, LAUREN 350.1.13.10 ity of [place] [facility] 4.2.7.2.686 Jordon as [id number] [facility] 009 Branch 2020-01-13 2020-01-13 Letter TOYA Wray 1.2.840.114 [id number] Univers 00:00:00 00:00:00 (Out) Magali HERNANDEZY 350.1.13.10 it y of HOSPITAL 4.2.7.2.686 Jordon as [phone] [facility] 019 Branch 2020-01-13 2020-01-13 Letter TOYA Wray 1.2.840.114 [id number] 00:00:00 00:00:00 (Out) Magali AGUILAR 350.1.13.10 [facility] 4.2.7.2.686 [id number] 019 2020-01-13 2020-01-13 Orders Doctor TOYA 1.2.840.114 [id number] 00:00:00 00:00:00 Only Unassigned, LAUREN 350.1.13.10 [place] [address].2.7.2.686 [id number] 009 2020-01-12 2020-01-12 Located within [facility] 1.2.840.114 [id number] Univers 15:35:03 23:59:00 Encounter Samyarsh Finney 350.1.13.10 ity [facility] 4.2.7.2.686 [facility] [id number] [address] 2020-01-12 2020-01-12 Located within [facility] 1.2.840.114 [id number] 15:35:03 23:59:00 Encounter Samy Robert Finney 350.1.13.10 [place] 4.2.7.2.686 [place] [id number] [facility] 2020-01-12 2020-01-12 Hydrogen Plant Operator Sasha Raman Lab Main [facility] 1.2.8 40.114 [id number] Univers 15:29:06 17:51:05 Visit Samy Chawla Reg 350.1. 13.10 ity [facility] 4.2.7.2.686 [facility] essyeison [phone] Al dical [address] 2020-01-12 2020-01-12 Hydrogen Plant Operator Sasha Raman [facility] 1.2.840.114 [id number] 15:29:06 17:51:05 Visit Lab Main Reg 350.1.13.10 [place] 4.2.7.2.686 Professio [id number] [address] 2020-01-12 2020-01-12 Outpatient CAPRICE PARKER [facility] [id number] Univers 15:00:00 15:00:00 ity of [facility] 2019-10-07 2019-10-07 [facility] [id number] Common 15:44:00 15:44:00 t Bone Bone and Spiri t and Joint [facility] - [facility] 2019-10-06 2019-10-06 [facility] [id number] Common 14:00:00 14:00:00 t Bone Bone [facility] Spiri t and Joint Joint - [facility] 2018-08-01 2018-08-01 [facility] [id number] Common 14:15:00 14:15:00 t Specialty/U Sp rolando Specialty rology - [facility] 2018-02-05 2018-02-05 [facility] [id number] Common 13:30:00 13:30:00 t Specialty/U Sp rolando Specialty rology - [facility] 2018-01-23 2018-01-23 [facility] 15 [id number] Common 13:00:00 13:00:00 t Specialty/U Sp rolando Specialty rology - [facility] 2018-01-09 2018-01-09 [facility] [id number] Common 15:04:00 15:04:00 t Specialty/U Sp rolando Specialty rology - [facility] 2017-12-26 2017-12-26 [facility] 15 [id number] Common 16:01:00 16:01:00 t Specialty/U Sp rolando Specialty rology - [facility] 2017-12-19 2017-12-19 [facility] 14 [id number] Common 11:30:00 11:30:00 t Specialty/U Sp rolando Specialty rology - [facility] Results Test Description Test Time Test Comments Results Result [facility] e Comments TISSUE EXAM 2021-01-14 Surgical Pathology 14:11:00 Report Case: [id number] Authorizing Provider: aHkan Spangler Collected: 01/07/2021 11:44 AM MD Griffin Ordering Location: [address] Received: 01/09/2021 09:09 AM Service Pathologist: Abhishek Coker MD Specimen: Femoral Head,Left Hip BONE AND SOFT TISSUE, LEFT HIP, RESECTION: - MARROW FIBROSIS COMPATIBLE WITH FRACTURE - NEGATIVE FOR MALIGNANCY Signing Pathologist Direct Phone Line: [phone] ally signed by Abhishek Coker MD on 01/14/2021 at 2:11 [id number], [id number] femur neck fractureFemoral head, left hipReceived in formalin labeled with the patient's name accession number and "femoral head, left hip" is a 3.7 x 3.5 x 3.5 cm femoral head with an irregular, jagged surgical margin.The articular surface is narayan-white smooth and is pitted about a 2.5 x 2 cm fovea containing a ligament measure 1.5 x 0.5 cm. The medullary bone is markedly hemorrhagic and softened around the fracture site. There are no discrete masses identified.Representat temitope sections are submitted of the specimen.Section code:A1 margin following decalcificationA2 soft tissueA3 interface of hemorrhage and normal medullary bone, articular surface following decalcification.Perfor med. CBC W/PLT COUNT & AUTO DIFFERENTIAL 2021-01-08 07:00:00 Test Item Value Reference Range Interpretation Comme nts WHITE BLOOD CELL COUNT (BEAKER) (test code = 775) 12.5 K/ L 3.5- 10.5 H RED BLOOD CELL COUNT (BEAKER) (test code = 761) 3.91 M/ L 3.93-5 .22 L HEMOGLOBIN (BEAKER) (test code = 410) 11.9 GM/DL 11.2-15.7 HEMATOCRIT (BEAKER) (test code = 411) 37.9 % 34.1-44.9 MEAN CORPUSCULAR VOLUME (BEAKER) (test code = 753) 96.9 fL 79. 4-94.8 H MEAN CORPUSCULAR HEMOGLOBIN (BEAKER) (test code = 751) 30.4 pg 25.6-32.2 MEAN CORPUSCULAR HEMOGLOBIN CONC (BEAKER) (test code = 752) 31.4 GM/DL 32.2-35.5 L RED CELL DISTRIBUTION WIDTH (BEAKER) (test code = 412) 13.0 % 11.7-14.4 PLATELET COUNT (BEAKER) (test code = 756) 172 K/CU MM 150-450 MEAN PLATELET VOLUME (BEAKER) (test code = 754) 10.8 fL 9.4-12 .3 NUCLEATED RED BLOOD CELLS (BEAKER) (test code = 413) 0 /100 WBC 0 -0 NEUTROPHILS RELATIVE PERCENT (BEAKER) (test code = 429) 80 % LYMPHOCYTES RELATIVE PERCENT (BEAKER) (test code = 430) 9 % MONOCYTES RELATIVE PERCENT (BEAKER) (test code = 431) 10 % EOSINOPHILS RELATIVE PERCENT (BEAKER) (test code = 432) 1 % BASOPHILS RELATIVE PERCENT (BEAKER) (test code = 437) 0 % NEUTROPHILS ABSOLUTE COUNT (BEAKER) (test code = 670) 9.94 K/ L 1.56-6.13 H LYMPHOCYTES ABSOLUTE COUNT (BEAKER) (test code = 414) 1.16 K/ L 1.18-3.74 L MONOCYTES ABSOLUTE COUNT (BEAKER) (test code = 415) 1.23 K/ L 0. 24-0.36 H EOSINOPHILS ABSOLUTE COUNT (BEAKER) (test code = 416) 0.08 K/ L 0.04-0.36 BASOPHILS ABSOLUTE COUNT (BEAKER) (test code = 417) 0.03 K/ L 0. 01-0.08 IMMATURE GRANULOCYTES-RELATIVE PERCENT (BEAKER) (test code 1 % 0-1 = 2801) POCT-GLUCOSE [id number] 14:30:00 Test Item Value Reference Range Interpretation Comments POC-GLUCOSE METER 138 mg/dL 70-110 H : [facility] (BEAKER) (test code = DEMETRIUSSUSANNE Tran [facility], 1538) 56780: Undercover Agent/Techni camille ID = [id number] for KE ITH (V), ELISA RAD, PELVIS, 1 OR 2 [id number] 14:25:00Reason for exam:->hip fxShould this be performed at the bedside?->No [facility] 1945 Sex: FFINAL REPORT RAD, PELVIS, 1 OR 2 VIEWS INDICATION: hip fx COMPARISON: None TECHNIQUE: AP view of the pelvis. AP view of the left hip. FINDINGS/IMPRESSION:Status post left hip arthroplasty withleft femoral nail for repair of left femur fracture. Signed: Elisa Eduardo MDReport Verified Date/T kristie: 01/07/2021 14:25:27 Reading Location: [address] Neuro Reading Room C METABOLIC [id number] 05:58:00 Test Item Value Reference Range Interpretation Comments SODIUM (BEAKER) 138 meq/L 136-145 (test code = 381) POTASSIUM (BEAKER) 4.8 meq/L 3.5-5.1 Specimen slightly (test code = 379) hemolyzed CHLORIDE (BEAKER) 105 meq/L 98-107 (test code = 382) CO2 (BEAKER) (test 24 meq/L 22-29 code = 355) BLOOD UREA NITROGEN 21 mg/dL 7-21 (BEAKER) (test code = 354) CREATININE (BEAKER) 1.06 mg/dL 0.57-1.25 Specimen slightly (test code = 358) hemolyzed GLUCOSE RANDOM 103 mg/dL 70-105 (BEAKER) (test code = 652) CALCIUM (BEAKER) 9.0 mg/dL 8.4-10.2 (test code = 697) EGFR (BEAKER) (test 51 mL/min/1.73 ESTIMA MERY GFR IS code = 1092) sq m NOT ACCURATE CREATININE CLEARANCE IN PREDICTING GLOMERULAR FILTRATION RATE . ESTIMATED GFR I S NOT APPLICABLE FOR DIALYSIS PATIEN TS. Undercover Agent ID - [facility] W/PLT COUNT & AUTO [id number] 05:40:00 Test Item Value Reference Range Interpretation Comments WHITE BLOOD CELL COUNT (BEAKER) 8.5 K/ L 3.5-10.5 (test code = 775) RED BLOOD CELL COUNT (BEAKER) 4.32 M/ L 3.93-5.22 (test code = 761) HEMOGLOBIN (BEAKER) (test code = 13.1 GM/DL 11.2-15.7 410) HEMATOCRIT (BEAKER) (test code = 42.0 % 34.1-44.9 411) MEAN CORPUSCULAR VOLUME (BEAKER) 97.2 fL 79.4-94.8 H (test code = 753) MEAN CORPUSCULAR HEMOGLOBIN 30.3 pg 25.6-32.2 (BEAKER) (test code = 751) MEAN CORPUSCULAR HEMOGLOBIN CONC 31.2 GM/DL 32.2-35.5 L (BEAKER) (test code = 752) RED CELL DISTRIBUTION WIDTH 13.2 % 11.7-14.4 (BEAKER) (test code = 412) PLATELET COUNT (BEAKER) (test 157 K/CU MM 150-450 code = 756) MEAN PLATELET VOLUME (BEAKER) 10.5 fL 9.4-12.3 (test code = 754) NUCLEATED RED BLOOD CELLS 0 /100 WBC 0-0 (BEAKER) (test code = 413) NEUTROPHILS RELATIVE PERCENT 58 % (BEAKER) (test code = 429) LYMPHOCYTES RELATIVE PERCENT 22 % (BEAKER) (test code = 430) MONOCYTES RELATIVE PERCENT 11 % (BEAKER) (test code = 431) EOSINOPHILS RELATIVE PERCENT 8 % (BEAKER) (test code = 432) BASOPHILS RELATIVE PERCENT 1 % (BEAKER) (test code = 437) NEUTROPHILS ABSOLUTE COUNT 4.95 K/ L 1.56-6.13 (BEAKER) (test code = 670) LYMPHOCYTES ABSOLUTE COUNT 1.83 K/ L 1.18-3.74 (BEAKER) (test code = 414) MONOCYTES ABSOLUTE COUNT (BEAKER) 0.93 K/ L 0.24-0.36 H (test code = 415) EOSINOPHILS ABSOLUTE COUNT 0.64 K/ L 0.04-0.36 H (BEAKER) (test code = 416) BASOPHILS ABSOLUTE COUNT (BEAKER) 0.07 K/ L 0.01-0.08 (test code = 417) IMMATURE GRANULOCYTES-RELATIVE 1 % 0-1 PERCENT (BEAKER) (test code = 2801) POCT-GLUCOSE [id number] 07:55:00 Test Item Value Reference Range Interpretation Comments POC-GLUCOSE METER 93 mg/dL 70-110 : TESTED A T BSC 6720 (PEMA) (test code = ROBERT Tran [facility], 1538) [address]: Undercover Agent/Techni camille ID = [id number] for JINA LUCAS TSH/FREE T4 IF [id number] 07:01:00 Test Item Value Reference Range Interpretation Comments THYROID STIMULATING HORMONE 1.714 uIU/mL 0.350-4.940 (PEMA) (test code = 772) Undercover Agent ID - ADMINSARS-COV2/RT-PCR ([facility])2021-01-06 02:42:00 Test Item Value Reference Range Interpretation Comments SARS-COV2/RT-PCR Negative Negative The SARS-Co V-2 target (test code = nucleic acids a re not 5707627) detected in thi s specimen. Negative result s do not preclude SARS-C oV-2 infection and s hould not be used as the barbie e basis for patient managem ent decisions. Nega tive results must be combine d with clinical observ ations, patient history , and epidemiological information. A false negativ e result may occur if a spec imen is improperly mg ected, transported or handled. This SARS CoV-2 test is a rapid, real-time RT-PC R test intended for th e qualitative detection of nu cleic acid from SARS-CoV-2 in a nasopharyngeal swab specimen collected from individuals suspected of CO VID-19 by their healthcar e provider. This test has been authorized by FDA under an EUA for use by authorized laboratories. This test is only authorized for the duration of the declaration that circumstances exist justifying the authorization of emergency use of in vitro diagnostic tests for detection and/or diagnosis of COVID-19 under Section 564(b)(1) of the Federal Food, Drug and Cosmetic Act, 21 U.S.C. 360bbb-3(b)(1), unless the authorization is terminated or revoked sooner. Fact Sheet for Healthcare Providers: https://www.cepheid.co m/Documents/Xpert%20Xpress%20SARS%20CoV-2/Fact%20Sheets/043-3921%96EINF-QLE-0%20 HEALTHCARE%20PROVIDERS%20FACT%20SHEET.pdf Fact Sheet for Healthcare Patients: https://www.TechniScan.Continuent/Documents/Xpert%20Xp ress%20SARS%20CoV-2/Fact%20Sheets/302-3801%67HAMA-PBK-2%20PATIENT%20FACT%20SHEET .pdfRAD, FEMUR, MIN. 2 VIEWS, [id number] 23:53:00Reason for exam:->fall, LLE painShould this be performed at the bedside?->Yes [facility] 1945 Sex: FFINAL REPORT EXAM/TECHNIQUE: Pelvis radiography single view, left finger radiography four views, bilateral hip radiography four views, left knee radiography three views. INDICATION: Hip fracture. COMPARISON: Post radiography from 02/02/2020. FINDINGS: Acute impacted transcervical fracture of the left proximal femur. Status post right total hip arthroplasty. Hardware is intact without adjacentlucency. Status post left total knee arthroplasty. Hardware is intact without adjacent lucency or periprosthetic fracture. Impression: 1. Acute impacted left transcervical femoral fracture.2. Uncomplicated appearance of right total hip arthroplasty and left knee arthroplasty. Signed: Alphonso Munoz MDReport Verified Date/Time: 01/05/2021 23:53:15 RAD, HIPS, 2 VIEWS, [id number] 23:53:00Reason for exam:->left hip fractureShould this be performed at the bedside?->[facility] : 1945 Sex: FFINAL REPORT EXAM/TECHNIQUE: Pelvis radiography single view, left finger radiography four views, bilateral hip radiography four views, left knee radiography three views. INDICATION: Hip fracture. COMPARISON: Post radiography from 02/02/2020. FINDINGS: Acute impacted transcervical fracture of the left proximal femur. Status post right total hip arthroplasty. Hardware is intact without adjacent lucency. Status post left total knee arthroplasty. Hardware is intact without adjacent lucency or periprosthetic fracture. Impression: 1. Acute impacted left transcervical femoral fracture.2. Uncomplicated appearance of right total hip arthroplasty and left knee arthroplasty. Signed: Alphonso Munoz [facility] Verified Date/Time: 01/05/2021 23:53:15 RAD, KNEE, 1 OR 2 VIEWS, [id number] 23:53:00Reason for exam:->fall, LLE painShould this be performed at the bedside?->[facility] : 1945 Sex: FFINAL REPORT EXAM/TECHNIQUE: Pelvis radiography single view, left finger radiography four views, bilateral hip radiography four views, left knee radiography three views. INDICATION: Hip fracture. COMPARISON: Post radiography from 02/02/2020. FINDINGS: Acute impacted transcervical fracture of the left proximal femur. Status post right total hip arthroplasty. Hardware is intact without adjacent lucency. Status post left total knee arthroplasty. Hardware is intact without adjacent lucency or periprosthetic fracture. Impression: 1. Acute impacted left transcervical femoral fracture.2. Uncomplicated appearance of right total hip arthroplasty and left knee arthroplasty. Signed: Alphonso Munoz MDReport Verified Date/Time: 01/05/2021 23:53:15 RAD, PELVIS, 1 OR 2 [id number] 23:53:00 Reason for exam:->left hip fractureShould this be performed at the bedside?->[facility] : 1945 Sex: FFINAL REPORT EXAM/TECHNIQUE: Pelvis radiography single view, left finger radiography four views, bilateral hip radiography four views, left knee radiography three views. INDICATION: Hip fracture. COMPARISON: Post radiography from 02/02/2020. FINDINGS: Acute impacted transcervical fracture of the left proximal femur. Status post right total hip arthroplasty. Hardware is intact without adjacent lucency. Status post left total knee arthroplasty. Hardware is intact without adjacent lucency or periprosthetic fracture. Impression: 1. Acute impacted left transcervical femoral fracture.2. Uncomplicated appearance of right total hip arthroplasty and left knee arthroplasty. Signed: Alphonso Munoz MDReport Verified Date/Time: 01/05/2021 23:53:15 BASIC METABOLIC [id number] 23:00:00 Test Item Value Reference Range Interpretation Comments [...] 0.57-1.25 (test code = 358) GLUCOSE RANDOM 104 mg/dL 70-105 (BEAKER) (test code = 652) CALCIUM (BEAKER) 10.4 mg/dL 8.4-10.2 H (test code = 697) EGFR (BEAKER) (test 56 mL/min/1.73 ESTIMA MERY GFR IS code = 1092) sq m NOT ACCURATE CREATININE CLEARANCE IN PREDICTING GLOMERULAR FILTRATION RATE . ESTIMATED GFR I S NOT APPLICABLE FOR DIALYSIS PATIEN TS. Undercover Agent ID - [id number] 23:00:00 Test Item Value Reference Range Interpretation Comments MAGNESIUM (BEAKER) (test code = 1.8 mg/dL 1.6-2.6 627) Undercover Agent ID - DBHEPATIC FUNCTION [id number] 23:00:00 Test Item Value Reference Range Interpretation Comments TOTAL PROTEIN (BEAKER) (test code = 7.0 gm/dL 6.0-8.3 770) ALBUMIN (BEAKER) (test code = 1145) 4.0 g/dL 3.5-5.0 BILIRUBIN TOTAL (BEAKER) (test code 1.0 mg/dL 0.2-1.2 = 377) BILIRUBIN DIRECT (BEAKER) (test 0.4 mg/dL 0.1-0.5 code = 706) ALKALINE PHOSPHATASE (BEAKER) (test 88 U/L 40-150 code = 346) AST (SGOT) (BEAKER) (test code = 29 U/L 5-34 353) ALT (SGPT) (BEAKER) (test code = 21 U/L 6-55 347) Undercover Agent ID - DBPROTHROMBIN [id number] 22:59:00 Test Item Value Reference Range Interpretation Comments PROTIME (BEAKER) 14.1 seconds 11.9-14.2 (test code = 759) INR (BEAKER) (test 1.11 See_Comment [Automat ed message] code = 370) The system [employer] generated this result transmitted ref erence range: <=5.90. The reference range was not used to int erpret this result as normal/abnormal . RECOMMENDED COUMADIN/WARFARIN INR THERAPY RANGESSTANDARD DOSE: 2.0 - 3.0 Includes: PROPHYLAXIS for venous thrombosis, systemic embolization; TREATMENT for venous thrombosis and/or pulmonary embolus.HIGH RISK: Target INR is 2.5-3.5 for patients with mechanical heart valves.CBC W/PLT COUNT & AUTO [id number] 22:43:00 Test Item Value Reference Range Interpretation Comments WHITE BLOOD CELL COUNT (BEAKER) 8.4 K/ L 3.5-10.5 (test code = 775) RED BLOOD CELL COUNT (BEAKER) 4.47 M/ L 3.93-5.22 (test code = 761) HEMOGLOBIN (BEAKER) (test code = 13.7 GM/DL 11.2-15.7 410) HEMATOCRIT (BEAKER) (test code = 41.7 % 34.1-44.9 411) MEAN CORPUSCULAR VOLUME (BEAKER) 93.3 fL 79.4-94.8 (test code = 753) MEAN CORPUSCULAR HEMOGLOBIN 30.6 pg 25.6-32.2 (BEAKER) (test code = 751) MEAN CORPUSCULAR HEMOGLOBIN CONC 32.9 GM/DL 32.2-35.5 (BEAKER) (test code = 752) RED CELL DISTRIBUTION WIDTH 12.9 % 11.7-14.4 (BEAKER) (test code = 412) PLATELET COUNT (BEAKER) (test 170 K/CU MM 150-450 code = 756) MEAN PLATELET VOLUME (BEAKER) 10.2 fL 9.4-12.3 (test code = 754) NUCLEATED RED BLOOD CELLS 0 /100 WBC 0-0 (BEAKER) (test code = 413) NEUTROPHILS RELATIVE PERCENT 66 % (BEAKER) (test code = 429) LYMPHOCYTES RELATIVE PERCENT 21 % (BEAKER) (test code = 430) MONOCYTES RELATIVE PERCENT 9 % (BEAKER) (test code = 431) EOSINOPHILS RELATIVE PERCENT 3 % (BEAKER) (test code = 432) BASOPHILS RELATIVE PERCENT 1 % (BEAKER) (test code = 437) NEUTROPHILS ABSOLUTE COUNT 5.55 K/ L 1.56-6.13 (BEAKER) (test code = 670) LYMPHOCYTES ABSOLUTE COUNT 1.78 K/ L 1.18-3.74 (BEAKER) (test code = 414) MONOCYTES ABSOLUTE COUNT (BEAKER) 0.71 K/ L 0.24-0.36 H (test code = 415) EOSINOPHILS ABSOLUTE COUNT 0.28 K/ L 0.04-0.36 (BEAKER) (test code = 416) BASOPHILS ABSOLUTE COUNT (BEAKER) 0.05 K/ L 0.01-0.08 (test code = 417) IMMATURE GRANULOCYTES-RELATIVE 0 % 0-1 PERCENT (BEAKER) (test code = 2801) AFB culture + smear (non-sputum)2020-03-21 10:11:00 Test Item Value Reference Range Interpretation Comments Result (test code = No acid-fast bacilli 6463-4) isolated in 42 days AFB Smear (test code = No acid fast bacilli 82036-5) [facility]-SPUTUM[facility]2020-03-21 10:11:00 Test Item [...] code = 994) seen Fungus culture + [id number] 17:21:00 Test Item Value Reference Range Interpretation Comments Result (test code = No fungus isolated in 6463-4) 28 days Fungus Smear (test No fungi seen code = 1406) [facility] + [id number] 17:21:00 Test Item Value Reference Range Interpretation Comments CULTURE (BEAKER) (test No fungus isolated in code = 1095) 28 days FUNGUS SMEAR (BEAKER) No fungi seen (test code = 1406) FUNGUS CULTURE + [id number] 17:21:00 Test Item Value Reference Range Interpretation Comments CULTURE (BEAKER) (test No fungus isolated in code = 1095) 28 days FUNGUS SMEAR (BEAKER) No fungi seen (test code = 1406) FUNGUS CULTURE + [id number] 17:18:00 Test Item Value Reference Range Interpretation Comments CULTURE (BEAKER) (test No fungus isolated in code = 1095) 28 days FUNGUS SMEAR (BEAKER) No fungi seen (test code = 1406) ANAEROBIC [id number] 18:11:00 Test Item Value Reference Range Interpretation Comments CULTURE (BEAKER) (test No anaerobes isolated code = 1095) Anaerobic [id number] 18:10:00 Test Item Value Reference Range Interpretation Comments Result (test code = No anaerobes isolated 6463-4) [facility] [id number] 18:10:00 Test Item Value Reference Range Interpretation Comments CULTURE (BEAKER) (test No anaerobes isolated code = 1095) ANAEROBIC [id number] 18:07:00 Test Item Value Reference Range Interpretation Comments CULTURE (BEAKER) (test No anaerobes isolated code = 1095) [id number] 14:27:00 Test Item Value Reference Interpretation Comments Range Creatine, 0.7 mg/dL <1.3 This test was developed and Serum its analytical (test code performancechar acteristics = 9707519) have been deter mined by [employer] [facility] [place], [place]. It hasnot been diamante ared or approved by the U.S. Food and DrugAdministrat ion. This assay has been valida mery bhardwaj the CLIA regula tions and is used for clinic [facility]. CLARICE (test Performing Lab code = 15 [facility] CLARICE) Diagnostics [facility], [address] [address] Blue Lord MD, PhD [facility] (Asymptomatic ONLY)2020-02-08 11:39:00 Test Item Value Reference Range Interpretation Comments SARS-COV2/RT-PCR Negative Not Detected, (test code = Negative, See 09022-0) external report for linked test SARS-COV-2 [facility] LOLITA PERFORMING LAB (test code = 95794-8) CLARICE (test code = Negative result for [...] of the Act. Fact Sheet for Healthcare Providers:https://www.Whitepagesl.com/sites/default/f lyly/product/documents/F act_Sheet_HC_Providers_L ptt_JPXH-AlP-2.pdf Fact Sheet for Healthcare Patients:https://www.Clifton/sites/default/fi les/product/documents/Fa ct_Sheet_Patients_Lyra_S ARS-CoV-2.pdf Performing Laboratory:[facility] [place] [address] [facility] ([facility])2020-02-08 11:39:00 Test Item Value Reference Range Interpretation Comments SARS-COV2/RT-PCR (test Negative Not Detected, Negative, code = 8747161) See external report for linked test SARS-COV-[address] [facility] LOLITA (test code = 9577831) Negative result for this test determines that [...] individuals suspected of COVID-19 by their healthcare provider.This test [...] justifying the authorization of the emergency use ofin vitro diagnostic tests for detection and/or diagnosis of COVID-19 is terminated under Section 564(b)(2) of the Act or the EUA is revoked under Section 564(g) of the Act.Fact Sheet for Healthcare Prov iders:https://www.Dextr/sites/default/files/product/documents/Fact_Sheet_HC _Pesdofcqr_Fkre_USPB-GzV-3.pdfFact Sheet for Healthcare Patients:https://www.Dextr/sites/default/files/product/docume nts/Kzdf_Pfirf_Mpfbvgiu_Krcx_OEVZ-PoK-4.pdfPerforming Laboratory:[facility].[place], [place] [address]Qkcvn Metabolic Panel 2020-02-08 09:58:00 Test Item Value Reference Range Interpretation Comments Sodium (test code = 139 meq/L 668-721 2477-2) Potassium (test code = 3.9 meq/L 3.5-5.1 2823-3) Chloride (test code = 105 meq/L 98-107 2075-0) CO2 (test code = 28 meq/L 22-29 2028-9) BUN (test code = 12 mg/dL 7-21 3094-0) Creatinine (test code 0.79 mg/dL 0.57-1.25 = 2160-0) Glucose (test code = 109 mg/dL 70-105 H 2345-7) Calcium (test code = 9.6 mg/dL 8.4-10.2 73036-1) EGFR (test code = 72 mL/min/1.73 [place] [address]-0) NOT ACCURATE CREATININE CLEARANCE IN PREDICTING GLOMERULAR FILTRATION RATE . ESTIMATED GFR I S NOT APPLICABLE FOR DIALYSIS PATIENTS. CLARICE (test code = CLARICE) Undercover Agent ID - AAHAMID Lab Interpretation Abnormal (test code = 39307-6) [facility] 09[facility]58[facility]00 Test Item Value Reference Range Interpretation Comments Magnesium (test code = 1.9 mg/dL 1.6-2.6 16210-3) CLARICE (test code = CLARICE) Undercover Agent ID - AAHAMID Lab Interpretation (test Normal code = 19654-9) [facility] 09:58:00 Test Item Value Reference Range Interpretation Comments MAGNESIUM (BEAKER) (test code = 1.9 mg/dL 1.6-2.6 627) Undercover Agent ID - AAHAMIDBASIC METABOLIC [id number] 09:58:00 Test Item Value Reference Range Interpretation [...] S NOT APPLICABLE FOR DIALYSIS PATIEN TS. Undercover Agent ID - AAHAMIDCBC with platelet count + automated [id number] 06:38:00 Test Item Value Reference Range Interpretation Comments WBC (test code = 6690-2) 6.8 See_Comment [A utomated message] The system [employer] generated this result transmitted ref erence range: 3.5 - 10 .5 K/L. The refe rence range was not u sed to interpret this result as normal/abnor mal. RBC (test code = 789-8) 2.82 See_Comment L [Au tomated message] The system [employer] generated this result transmitted ref erence range: 3.93 - 5 .22 M/L. The refe rence range was not u sed to interpret this result as normal/abnor mal. MCHC (test code = 786-4) 30.1 See_Comment L [A utomated message] The system [employer] generated this result transmitted ref erence range: [...] See_Comment [Aut omated message] 777-3) The system [employer] generated this result transmitted ref erence range: 150 - 45 0 K/CU MM. The referen ce range was not u sed to interpret this result as normal/abnor mal. MPV (test code = 10.4 fL 9.4-12.3 22053-7) nRBC (test code = 413) 0 See_Comment [Aut omated message] The system [employer] generated this result transmitted ref erence range: [...] See_Comment [Aut omated message] 670) The system [employer] generated this result transmitted ref erence range: 1.56 - 6 .13 K/L. The refe rence range was not u sed to interpret this result as normal/abnor mal. # Lymphs (test code = 1.40 See_Comment [Auto mated message] 414) The system [employer] generated this result transmitted ref erence range: 1.18 - 3 .74 K/L. The refe rence range was not u sed to interpret this result as normal/abnor mal. # Monos (test code = 0.88 See_Comment H [Autom ated message] 415) The system [employer] generated this result transmitted ref erence range: 0.24 - 0 .36 K/L. The refe rence range was not u sed to interpret this result as normal/abnor mal. # Eos (test code = 416) 1.03 See_Comment H [Au tomated message] The system [employer] generated this result transmitted ref erence range: 0.04 - 0 .36 K/L. The refe rence range was not u sed to interpret this result as normal/abnor mal. # Baso (test code = 417) 0.06 See_Comment [A utomated message] The system [employer] generated this result transmitted ref erence range: 0.01 - 0 .08 K/L. The refe rence range was not u sed to interpret this result as normal/abnor mal. Immature 1 % 0-1 Granulocytes-Relative (test code = 2801) Lab Interpretation (test Abnormal code = 94783-0) [facility] W/PLT COUNT & AUTO [id number] 06:38:00 Test Item Value Reference Range Interpretation [...] (BEAKER) (test code = 2801) BASIC METABOLIC [id number] 15:29:00 Test Item Value Reference Range Interpretation [...] APPLICABLE FOR DIALYSIS PATIEN TS. [facility] [employer] [facility] [employer] [id number] 15:29:00 Test Item Value Reference Range Interpretation Comments MAGNESIUM (BEAKER) (test code = 1.9 mg/dL 1.6-2.6 627) Vancomycin level, [id number] 11:33:00 Test Item Value Reference Range Interpretation Comments Vancomycin Tr (test code = 15.1 ug/mL 10-20 4092-3) CLARICE (test code = CLARICE) Undercover Agent ID - ADMIN Lab Interpretation (test Normal code = 98515-9) [facility] HospitalVANCOMYCIN LEVEL, [id number] 11:33:00 Test Item Value Reference Range Interpretation Comments VANCOMYCIN TROUGH (BEAKER) (test 15.1 ug/mL 10.0-20.0 code = 522) Undercover Agent ID - ADMINCBC W/PLT COUNT & AUTO [id number] 04:53:00 Test Item Value Reference Range Interpretation [...] = 2801) RAD, CHEST, 1 VIEW, NON [id number] 10:07:00Reason for exam:->PICC LINE PLACEMENTShould this be performed at the bedside?->YesFINAL REPORT Exam: RAD, CHEST, 1 VIEW, NON DEPTDate: 02/06/2020 10:05 AM Indicati on: Line placement Comparison: Chest radiograph 02/02/2020 FINDINGS: [...] MDReport Verified Date/Time: 02/06/2020 10:07:30 Reading Location: [facility] C013T Transitional Reading Room XR chest 1 view portable / [id number] 10:07:00Interface, External Ris In - 02/06/2020 10:09 AM CDTFINAL REPORT Exam: RAD, CHEST, 1 VIEW, NON DEPTDate: 02/06/2020 10:05 AM Indication: Line placement Comparison: Chest radiograph 02/02/2020 FINDINGS: Lines/Tubes:Interval removal of right IJ central venous catheter. Interval placement of right PICC line which terminates in the SVC. Lungs:The lungs are well-inflated. Unchanged rightlung nodules measuring up to 1.3 cm. No new focal consolidation or pulmonary edema. Pleura:No pleural effusion. No pneumothorax. Heart/Mediastinum:The cardiomediastinal silhouette is normal in size andcontour. Bones/Soft Tissues: No acute osseous injury. Abdomen: No free air below the diaphragm. IMPRESSION:Right PICC line terminates in the SVC. Unchanged right pulmonary nodules measuring up to 1.[address] should be considered on a nonurgent basis for further evaluation. Signed: Dane Stovall MDRort Verified Date/Time: 02/06/2020 10:07:30 Reading Location: [address] Transitional Reading Room [facility] 2020-02-06 08:29:00 Test Item Value Reference Range Interpretation Comments MAGNESIUM (BEAKER) (test code = 1.9 mg/dL 1.6-2.6 627) Undercover Agent ID - ALFRED MBASIC METABOLIC [id number] 08:29:00 Test Item Value Reference Range Interpretation [...] S NOT APPLICABLE FOR DIALYSIS PATIEN TS. Undercover Agent ID - ALFRED MCBC W/PLT COUNT & AUTO [id number] 06:23:00 Test Item Value Reference Range Interpretation [...] = 2801) SURGICALLY OBTAINED CULTURE + GRAM [id number] 11:08:00 Test Item Value Reference Range Interpretation Comments CULTURE A <1+ Same organi sm has (BEAKER) (test been isolated from code = 1095) cultures(s) of the same body site and collection date . Repeat identifi cation and susceptibil ity testing perform ed only after consultat ion with the [facility].Ente rococcu s species GRAM STAIN <1+ White blood RESULT (BEAKER) cells seen (test code = 1123) GRAM STAIN No organisms seen RESULT (BEAKER) (test code = 465886) SURGICALLY OBTAINED CULTURE + GRAM [id number] 11:07:00 Test Item Value Reference Interpretation Comments [...] No organisms seen (BEAKER) (test code = 212009) SURGICALLY OBTAINED CULTURE + GRAM [id number] 11:07:00 Test Item Value Reference Range Interpretation Comments CULTURE (BEAKER) ENTEROCOCCUS A <1+ Enteroc occus (test code = FAECALIS faecalis 1095) Ampicillin (test S code = 26) Linezolid (test S code = 40) Vancomycin (test S code = 13) GRAM STAIN RESULT <1+ White blood (BEAKER) (test cells seen code = 1123) GRAM STAIN RESULT No organisms seen (BEAKER) (test code = 197276) [id number] 09:46:00 Test Item Value Reference Range Interpretation Comments MAGNESIUM (BEAKER) (test code = 1.9 mg/dL 1.6-2.6 627) Undercover Agent ID Christ BANERJEE FBASIC METABOLIC [id number] 09:46:00 Test Item Value Reference Range Interpretation [...] S NOT APPLICABLE FOR DIALYSIS PATIEN TS. Undercover Agent ID Christ BANERJEE [id number] 11:06:00 Test Item Value Reference Range Interpretation Comments MAGNESIUM (BEAKER) (test code = 1.9 mg/dL 1.6-2.6 627) Undercover Agent ID - AAHAMIDBASIC METABOLIC [id number] 11:06:00 Test Item Value Reference Range Interpretation [...] S NOT APPLICABLE FOR DIALYSIS PATIEN TS. Undercover Agent ID - AAHAMIDPrepare [id number] 00:09:00 Test Item Value Reference Range Interpretation Comments Unit ABO (test code = A Pos [id number]) UNIT NUMBER (test code = [id number] 934-0) Status (test code = 8127840) WORK IN PROGRESS Blood Bank Product (test RED BLOOD CELLS code = 2263) PRODUCT CODE (test code = Y3878P78 933-2) CROSSMATCH (test code = COMPATIBLE 2264) [facility] HospitalT[facility] [id number] 15:53:00 Test Item Value Reference Range Interpretation Comments Case Report (test code Surgical Pathology = 104) Report Case: [id number] Authorizing Provider: Marisol Flores MD Collected: 02/02/2020 03:53 PM Ordering Location: [facility] PERIOPERATIVE Received: 02/03/2020 09:39 AM SERVICES Pathologist: Lauren Putnam MD Specimen: Explant, Hardware from previous surgery for ID: cup/head from right hip replacement DIAGNOSIS (test code = w5ddnFAcIDIro8xpVIYwrMW 3220) uZzEwMzNcZnRuYmpcdWMxIH qztoKoXYpqh1HaW5NbYzQiK FxhbnNpXGRlZmxhbmcxMDMz AJA0ghGrVOVjVFuqRWPtAXv bXi5xaVDghAvmXgIgPQBbj5 hfglFWtrljaIz0j5thEGXhP eI2lWVfLZksO5pbnyHavRKe TEFbCRu8mT92TITvaW1ezQH sIDtccmVkMFxncmVlbjBcYm f5TGElP7gyOZEkTIYxX5WhY D6yJENcNnu4QRY2JIZ4pOcg i1L7iEVyaZIkxCqfUhXaYnO eMVVFa0JaVIq3mFhzQ8ZjSV CxRyQ8dLZuCPRqGVhcBCOfV KZtgwH6lE22RAsqvjQ1rRHl e7Krr68at245gN8ikGEiWQW 6OBKqWYZhlEJdYWFxZHK7DQ BavKGvR8j9IdJxkRGiR3U6E yJvnORcZ4B0MjFbeHFoY9W9 PfGmxDXiSNIpcNOrYb0knBE boJPyuk1wvf59GCK1j6VaoU bjHPY1GZV3JmWoGy2gwQOeJ RHkXC3wGeUozIMmCVVcuc00 hEmmVFxnfjVkrJ1oGwXrWJY thTQoZSAgBZ9grDFwWZDiyV 5ucmxjXHBnYnJkcmhlYWRcc OkbsrSjAi3dtRutCOJ0AAgo W3iikF6fZdS4KFkiE8yjyZ0 hUDw0NEzdoBR9CCScuU5iPD 0xebmdd5fqIqIfBR4esmupm 1iwWaBbHT0sreb9j7ckEfBp OF5xnyxxl1heJxDrTOtuGZD jrlwxPYFqm1ZcqevzVGQab1 DgU5SgkKmtQ36giJbkY33nN MSxiKphtG9dtIhexY7gWuKq ZnMyMFxxbFxwbGFpblxmMFx mczIwXHBsYWluXGYwXGZzMj CogUAmEPFyugNgpSfeiN4mE jBcZnMyMFxwbGFpblxmMVxm czIwIEEuIEhBUkRXQVJFLCB SSUdIVCBISVAgUkVQTEFDRU 9XRkKuLGsIN1IONVHEFA2QN zYJOQ7HXH5RTZc2IDYyrqzq bFxwbGFpblxmMFxmczIwXHB sYWluXGYxXGZzMjAgICAgLS KZWUSRX2WYOHHWBQZFCTlYO XBVSRiSVDZsF1QYM9UhOZHC K1WQJLDAE69pThdgdSPvhnr zNFxintZwLQGjdd21ZIO5Lx Bly3G9PFX5URWaVXHst2faE GVmbGFuZzEwMzNcZnRuYmpc gOGvQEPzMbUib4jqv301jPO bs1mtQFBoMlX6aCKiTPZqaS MvA417ACHiZSscc7oco2DjR CZtrUCil7Y0FPUYoslabZc0 mExrI80fj4D7YzxkD5xkCSC eQJQpV6VqBJ8jDFTmLba8RN W6TIU5NIXzBRPsN4RjRB9cK SYzbDBeZMo4g9rmlIosHUDq IRN2h0bvOZccnoTpNA8lwy7 tgUn0c8ofucYoKDZoWBSlpZ FFSTVsT2YkeLaaUe9pdZo2y YacNnvnWFN5Ufs3ZK8dks12 jto9pAllMONydgglRaU6YXc nEJRbngimJVw7SQuuURUcrR K8EIQyfYRjT4QgCSStXQ0bf jo3BPJ4KAhkBGQfQhP7QVUo gFTuMSZmhFzrJNums994JMR 3IjTyFX7bF7Hkq7Q6nF4aiK SaPYWgpMKfGlZuNEDykc5rd OKqMEczo6BnOXD1bgL5wATx rTCiRYYsPrN8SOuqVU6gny6 8QVOpEVC5iz6wfZGofJbuje FiwERaTSrbJ0ByADSnd200B OXyV7DjAJYmu6K9hqVgKqXi THBplWC9fdE5WHJdPO5lnfa qu6ocJGnuOQnuSWJaceI5dn P0ULBfoZQcX9AocR4yWLUsX H0doefmq4frFXA0YBltTEOf TFX0IwKgMAStc7Dfaqu7CxP lg0JlfGKyMMpiV90ij778NO XpgeXfR3xniAMbzcaljMJoc chdDWaumxD4YWQeHJbgtudv WIRnEPhyG2yyWrNtOSQbxMa zDTirc6MpLRZgEUHjWhAqdL AuZAPzFuk0AGJbnHPqYHInY sVwB3wbkffaSuKTQMJox3ze K6zszYQWbYEtH2ClLDefszB lBAyeRYalWfExEUd3VM54FJ nrKKVmud10 CPT Code(s) (test code z8dlyKIxZNUnvIRoLwZoJQB = 3357) iWAZce2scQJJazSWgJuBtGo NcZnRuYmpcdWMxXGRlZmYwe 6vqn251mWSxl9foLTWhPxE3 yKNhOMPbdXWrS355x7dtm3j vaoPknCB5DTZsPYK6UGewtt QkthQ5WGjltBAdUbR8LNoss zMjLTtgwsLqpzByQxk1OQIh N411AUQ3cEtzb0ehPMA2VTT nRLYjYvPkSe9epQTyQ901NX WfPNPPQZMpmMv1MXCsdoQet cMylGTPj972W832s0iiILTa mpMzaArMvhsje4mgB353UEV hcGVydzEyMjQwXHBhcGVyaD W3BYQvPF3ihutdSxXjMX6eb zxzIqZiNB1seeq7GiQlHC8t cmdiNzIwXGhlYWRlcnkwXGZ ff1AehjibLS3iL5Dnk0W3lA 9maXRcZGVmdGFiNzIwXGZvc d3ykGVuKApad4ZzXFL3nqE6 eOOrhHXlLXGuZY42Qnkkb1T mXnynRZW7CHFodzZad2Efx1 edFuOryxQuX2zwF1QxJMQxM WZyKTHsGnVgakAqr6Zmt4Me gNZutBq7t1coZYMxFUArsKr tv6spRTN1NXAqT2R2uHHck2 xeGAtzHTYvfMY9wgtcMNbwB YXmlkJ2siiyEJxtUWSzcCF5 pylbSLuqHQUgTwR4rsvwWNx cRRAhCVX2YPtjl847RKG4IQ xzYmtwYWdlXHBnbmNvbnRcc GduZGVjXHBsYWluXHBsYWlu XGYwXGZzMjRccWxccGxhaW5 cXdIrWuVuPArsMB3pJLHsF0 vqjWJmIFVdEZQmZ8eeZrNvx X4mnAkvCZtwvxZdAYn4IyJx XHBhcn0= CLINICAL HISTORY (test h5zsdBRnEOJcuLYuBvYsIHP code = 3356) hOWWcg8quINBfnDDuDhYjNu NcZnRuYmpcdWMxXGRlZmYwe 0utb036tTJqk7lgSBExPnH7 oDDyOIRqnVZlN294i6pqy0p wjmZryWY8FJAwKKI7ZCsazp EshqF2DQytsBAeTjR7HEkij oHmLYanawUxekOsDjg4KSBh N788HYY6rBdgg8njXOZ3XSJ kWVYeSyLeVf5voYCkH674ZK AfRJZVSHErfZk9VYGxoiQfd mYolEIGx433J599b6naCLGf uyGtzNdTwjikn3jjY578PLF hcGVydzEyMjQwXHBhcGVyaD E2YSGmYM9axggoRcZlKO2ep oetUoKzUM8lytz2JnQyEG4v cmdiNzIwXGhlYWRlcnkwXGZ on7AbknddGF4iV9Ioj5D9kF 9maXRcZGVmdGFiNzIwXGZvc p9lnJDtKIelo8JbQOC4huQ5 jMSitPKtSOHxSB89Gtogd6O fXuexZMC2LMThfyMxy1Vbc8 rsUhZlhdObN2cgE3UrTDXaK BPqVKZtMeOvbrYgy4Rhd6Oh pCCyeQs7d4qjIDDoWLMfgIn pw1enTII6QNOnS5U0tKXdm3 gfLFtyYVFekCR0mpmaBDjtE GXoubX6agroBAqgXNMywDA1 ylxaVNhyMFGlYtO3vblfOYk gREXoCLT7SQuzl548DPH8KP xzYmtwYWdlXHBnbmNvbnRcc GduZGVjXHBsYWluXHBsYWlu XGYwXGZzMjRccWxccGxhaW5 uRfHuHcQwAUkgVE8eKIGiP8 akaXQfGZUpIPCyU5kzYaPjy R2cnZfiXKboflNxMEJkt4if M0F1OXZluniluIKirU71FRs gaGlwLlxwYXJ9 SPECIMEN SOURCE (test r2wrwEQaMJBsfQEsJzEjPDG code = 3377) vYSWcu1qtQTXvyBAkKbDtDm NcZnRuYmpcdWMxXGRlZmYwe 5hvw573qVHed2scYYMtDoL8 iJIwFPIdyBTnI388q1whd2j xnzMleAW7LKCtNAK0NUgemb DchvA1LHnnvAVrGkK6QWsrj rLrMNakefBzzmOzGvv7IVDr F939UXU1eLcsi6thPEI9PYF mQITmSxDkXj1vbHQuI993QD AsTHVDYRVsrGm5VTIgwpKjd iJgfIEMx918B192r3thMHIb veWesQaQaujib0apU889TLH hcGVydzEyMjQwXHBhcGVyaD Q1DOHxJP0avrhhYoDkMM0qe floKlIgVV1qomz0IdJtJK1y cmdiNzIwXGhlYWRlcnkwXGZ af9JdrgaqET5aW7Ybj4B7yA 9maXRcZGVmdGFiNzIwXGZvc d6wjGMsPJfwh0JyGUJ9oqI0 bZIxeMOtWJLdCK20Lmlmt6X gSzmwGKS7THMqhfMto3Gyb2 izZfAcmwHkH9ghB8ZmBNQwM LElKEZhJmYofsTjt0Scj6Xh eORdmZo4v8dcIMEqHGTabJy bm8pzZSK1UGRgU9I2uMUjp2 joWCktHQNhvHD6nuqlGRljI WPuyaP2wobxHAysOZThrJU4 xafqJEaiQGFqRqC4bsnkCGa hMYCxAXR0RLkla851ZHO4ZJ xzYmtwYWdlXHBnbmNvbnRcc GduZGVjXHBsYWluXHBsYWlu XGYwXGZzMjRccWxccGxhaW5 sMvWbSmSvWDpiFH3hBZPfB4 ofcHZbLWSuOQEdX7fbRxFbp E2xsDflKVvdazKrBTP4rQdo bnQgXHBhcn0= GROSS DESCRIPTION j5fpzVVkZKXtzBFvNdIbIJD (test code = 3366) zVSUzb0icPOLjoTPsCtStAa NcZnRuYmpcdWMxXGRlZmYwe 2pxw734mTAry0sdKYAlZgE6 pEXbIMBkgATtK304x1cnv9z yueQgqZT5GBRaZXR6MRioid WfrxO4HLdwiOUaDzZ1UHoru rIaVLhnmcFqamAeYij3PKQm C452SHT2kHlkt0urVXC8PQV pZTThCeSsEd8muANlJ464UQ CrAMDNYWNxvMp5TENmjzJea uOzzDWEy888S556i8cmZIOc luLkiTcXlbxnr8heR162WOZ hcGVydzEyMjQwXHBhcGVyaD G8OPKqJC9ycwpaUgDjNT0sl vahHeTjES7nobc4SlXqLX2e cmdiNzIwXGhlYWRlcnkwXGZ jb2DthpxwTV2oZ8Fjy4G4fZ 9maXRcZGVmdGFiNzIwXGZvc k5srBExWLpmk3HuNOC7acN9 qRDodAMrLZCfGO30Mthdf5P cMrznTOA1KCBtgdPnz7Dfu7 shGvTrotKwH4pkH9OzFVLyR GClCZUlQiIbrjMqc1Exg7Nq dMPhbYj1p2pjAPPfXWRxlHi me7zzISH0TZPzP5H2bICdw9 mvYEbmFBZqxGE8gsrnLJluP CLgpnK5cgynYXpbAYLyvMS4 opjdQYkfFOSyGyM0ipgkQCx pJIOqBTJ1RLkaw623ZFM0WO xzYmtwYWdlXHBnbmNvbnRcc GduZGVjXHBsYWluXHBsYWlu XGYwXGZzMjRccWxccGxhaW5 pFwQxKgLuVVcgFE5wZDFpQ9 vmvAXtEXIlNMIiT6azXfXfb U3qcEvaSVlaaeBeDGTrB7Uv dmVkIGZyZXNoIGxhYmVsZWQ so4e0bHC5zPHtkRS8xSEymO vhIR2ukURjVFJoM8Old2qjo tRabF7eUTKkZN0qGSTxqVWk LG09QwGetzRwwXglYYVptXL 6UPcjoIAhP0PjyRP9enGzxe G8QWvdcKFxXKBfTPSulzMwI mLhroGlr1CmBBtbGKdejdE1 YXJlIHJhbmdpbmcgZnJvbSA vFpFbxN3hNS3xPGBdPLtiYJ gaSQL3RJR7MLNupUHkm1xdt fuve4rtN1jyZWFzDTosz3Gg dTxoC82ms2ondSGpuDK9yGE yOVSmCCMoAGEbWnMrxD4aLL FmeIwjKS7lFGThS8vdyR1mV JveOBWwhRxbe3efXhGqgoPh cmlwdGlvbiBpcyBpZGVudGl maWVkOlxwYXJccGFyICIwMT UyXBR6GeGaCZLrmnZyUoN5M MufUpWbvAKvJGGDJQQ9ZG1F DTwbS9QPKandOVCuNsS3PXK 0TSEfiREjFMAyukUUGAhyx9 DsDHQbx9CeQ4YkpLgqtPYat TVqLZ7gIR6jUTLgP5Bsj88m HMPkYVAczYSzwHQ6WQJbHDI dhYQcL7DuBHPdbkEhz1XyW1 Leb7SsJHtkcHyuLUKib58hs 88mdQ3gKRCsOUxmVBUuob6= Gross assessment was [facility] performed at ([facility], code = 2777) Department of Pathology, [address] [place] [address] 15876, Technical component [facility] was performed at ([facility], code = 2778) Department of Pathology, [address] [place] [address] 01007, Professional component [facility] was performed at ([facility], code = 2779) Department of Pathology, [address] [place] [address], [facility] HospitalTISSUE [id number] 15:53:00Surgical Pathology Report Case: [id number] Authorizing Provider: Marisol Flores MD Collected: 02/02/2020 03:53 PM Ordering Location: [facility] PERIOPERATIVE Received: 02/03/2020 09:39 AM SERVICES Pathologist: Lauren Putnam MD Specimen: Explant, Hardware from previous surgery for ID: cup/head from right hip replacement A. HARDWARE, RIGHT HIP REPLACEMENT, GROSS EXAMINATION ONLY: - HARDWARE IDENTIFIED (SEE GROSS DESCRIPTION). Signing Pathologist Direct Phone Line: [phone] signed by Lauren Putnam MD on 02/03/2020 at 3:53 [id number] right total hip.Explant Received fresh labeledwith the patient's name, accession number and "explant" are three metallic narayan to narayan- white piecesof orthopedic hardware ranging from 2.3 to 5.0 cm in greatest dimension, which are grossly consistent with an acetabulum, ball and socket. The following inscription is identified:"[id number]""[id number]""B28 MM X STD""[id number]"A gross photograph is taken. No sections are submitted. This case is for gross ex amination only. PA/ew [facility], Department of Pathology, [address] [place], [place] [address], [facility], [address] [place], [place] [address], [facility], Department of [facility], [address] [place] [address], [place] [address], [id number] 10:24:00 Test Item Value Reference Range Interpretation Comments MAGNESIUM (BEAKER) 1.8 mg/dL 1.6-2.6 Specimen slightly (test code = 627) hemolyzed Undercover Agent ID - PIAYA LBASIC METABOLIC [id number] 10:24:00 Test Item Value Reference Range Interpretation [...] S NOT APPLICABLE FOR DIALYSIS PATIEN TS. Undercover Agent ID - PIAYA LCBC (Hemogram only)2020-02-03 07:27:00 Test Item Value Reference Range Interpretation Comments WBC (test code = 6690-2) 13.4 See_Comment H [A utomated message] The system [employer] generated this result transmitted ref erence range: 3.5 - 10 .5 K/L. The refe rence range was not u sed to interpret this result as normal/abnor mal. RBC (test code = 789-8) 2.94 See_Comment L [Au tomated message] The system [employer] generated this result transmitted ref erence range: 3.93 - 5 .22 M/L. The refe rence range was not u sed to interpret this result as normal/abnor mal. MCHC (test code = 786-4) 31.8 See_Comment L [A utomated message] The system [employer] generated this result transmitted ref erence range: [...] See_Comment [Aut omated message] 777-3) The system [employer] generated this result transmitted ref erence range: 150 - 45 0 K/CU MM. The referen ce range was not u sed to interpret this result as normal/abnor mal. MPV (test code = 11.3 fL 9.4-12.3 20434-1) nRBC (test code = 413) 0 See_Comment [Aut omated message] The system [employer] generated this result transmitted ref erence range: 0 - 0 /1 00 WBC. The refere nce range was not u sed to interpret this result as normal/abnor mal. Lab Interpretation (test Abnormal code = 56435-5) [facility] (HEMOGRAM ONLY)2020-02-03 07:27:00 Test Item Value Reference [...] 0-0 (BEAKER) (test code = 413) SPIN/CONCENTRATION [id number] 03:49:00 Test Item Value Reference Range Interpretation Comments CONCENTRATION CHARGED (BEAKER) (test Done code = 2657) SPIN/CONCENTRATION [id number] 03:48:00 Test Item Value Reference Range Interpretation Comments Concentration charged (test code = Done 2657) [facility] [id number] 03:48:00 Test Item Value Reference Range Interpretation Comments CONCENTRATION CHARGED (BEAKER) (test Done code = 2657) RAD, PELVIS, 1 OR 2 [id number] 01:50:00Reason for exam:->right hip revisionFINAL REPORT CLINICAL HISTORY: Right hip revision COMPARISON: 01/31/2020 FINDINGS: A single intraoperative view of the right hip is submitted. The patient is undergoing revision of aright total hip arthroplasty with appropriate position of the acetabular and femoral prostheses. Thefemoral head prosthesis is not yet in place. There is soft tissue gas overlying the right hip related to operative changes. Please see the procedure report for full results. Signed: Cassnadra Schafer MDReport Verified Date/Time: 02/03/2020 01:50:25 Hemoglobin and [id number] 22:24:00 Test Item Value Reference Range Interpretation [...] = 4544-3) CLARICE (test code = CLARICE) Undercover Agent ID - [id number] Lab Interpretation Abnormal (test code = 12223-5) [facility] HospitalHEMOGLOBIN AND [id number] 22:24:00 Test Item Value Reference Range Interpretation Comments HEMOGLOBIN (BEAKER) (test code = 10.0 GM/DL 11.2-15.7 L 410) HEMATOCRIT (BEAKER) (test code = 31.5 % 34.1-44.9 L 411) Undercover Agent ID - [id number], CHEST, 1 VIEW, NON [id number] 22:03:00Reason for exam:->right IJ placementShould this be performed at the bedside?->Yes FINAL REPORT X-ray chest AP portable HISTORY: Right IJ catheter placement COMPARISON: None. FINDINGS: Right IJ route central venous catheter is seen with the tip terminating at thelevel below the loga. There is no pneumothorax. There is significant patient rotation on this exammaking interpretation difficult. There is suspected cardiomegaly, atherosclerotic aorta, possible right middle lobe pneumonia, left middle and lower lung zone interstitial and airspace disease. A 12 mmnodule and a 9 mm nodule in the [...] be considered also. Signed: Ok Mosquera MDReport Verified Da te/Time: 02/02/2020 22:03:36 Reading Location: [address] Consult Reading Room RAD, PELVIS, 1 OR 2 [id number] 20:40:00STAT for PACUReason for exam:->Post op FINAL REPORT RAD, PELVIS, 1 OR 2 VIEWS CLINICAL HISTORY:Post op TECHNIQUE: RAD,PELVIS, 1 OR 2 VIEWS COMPARISON: February 01 2022 hours prior.IMPRESSION:Right hip total arthroplasty revision changes. Postoperative subcutaneous emphysema is reduced. Hardware appears stable without acute complication. Osseous alignment is anatomic. Mild gaseous distention of small bowel loops may represent postoperative ileus but mechanical obstruction not excluded. Signed: Nino Aldana MDReport Verified Date/Time: 02/02/2020 20:40:20 XR pelvis 1 or 2 [id number] 20:40:00Interface, External Ris In - 02/02/2020 8:42 PM CDTFINAL REPORT RAD, PELVIS, 1 OR 2 VIEWS CLINICAL HISTORY:Post op TECHNIQUE: RAD, PELVIS, 1 OR 2 VIEWS COMPARISON: February 01 2022hours prior.IMPRESSION:Right hip total arthroplasty revision changes. Postoperative subcutaneous emphysema is reduced. Hardware appears stable without acute complication. Osseous alignment is anatomic.Mild gaseous distention of small bowel loops may represent postoperative ileus but mechanical obstruction not excluded. Signed: Nino Aldana MDReport Verified Date/Time: 02/02/2020 20:40:20 [facility] [id number] 17:44:00 Test Item Value Reference Range Interpretation Comments Unit ABO (test code = A Pos 4384711) UNIT NUMBER (test code = [id number] 934-0) Status (test code = RETURNED FROM ISSUE 1851771) Blood Bank Product (test FFP code = 2263) PRODUCT CODE (test code = P0258Z37 933-2) [facility] HospitalAntibody [id number] 17:01:00 Test Item Value Reference Range Interpretation Comments ANTIBODY ID (BEAKER) UNID IgG (test code = 2253) Antibody Consult SIGNED OUT Nonspecific IgG (test code = 2479) reactivit y detected; this is likely of limited clinica l significance. F or transfusion pur poses, crossmatch comp atible RBCs will be se lected. Electronic Sign ature: Jazzy rico MD [facility] HospitalBlood gas, [id number] 15:22:00 Test Item Value Reference Range Interpretation Comments pH, Arterial (test 7.39 7.35-7.45 code = 2744-1) pCO2, Arterial (test 41 See_Comment [Autom ated code = 2019-8) message] The system which generated this result [...] 36.3C Lab Interpretation Abnormal (test code = 96989-3) [facility] HospitalCalcium, [id number] 15:22:00 Test Item Value Reference Range Interpretation Comments Calcium, Ion (test code = 1.09 mmol/L 1.12-1.27 L 1993-3) pH, Blood (test code = 7.38 40228-3) CLARICE (test code = CLARICE) FiO2: 50%, Temp 36.3C Lab Interpretation (test Abnormal code = 84440-4) [facility] HospitalHGB/HCT (H&H)-Stat [id number] 15:22:00 Test Item Value Reference Range Interpretation Comments Hemoglobin (test code = 9.6 g/dL 12-15 L 786-4) Hematocrit (test code = 28.0 % 36-45 L 4544-3) CLARICE (test code = CLARICE) FiO2: 50%, Temp 36.3CFiO2: 50%, Temp 36.3CFiO2: 50%, Temp 36.3CFiO2: 50%, Temp 36.3CFiO2: 50%, Temp 36.3C Lab Interpretation (test Abnormal code = 18813-0) [facility] HospitalGlucose-Stat [id number] 15:22:00 Test Item Value Reference Range Interpretation Comments Glucose (test code = 133 mg/dL 70-110 H 2345-7) CLARICE (test code = CLARICE) FiO2: 50%, Temp 36.3CFiO2: 50%, Temp 36.3CFiO2: 50%, Temp 36.3CFiO2: 50%, Temp 36.3CFiO2: 50%, Temp 36.3C Lab Interpretation (test Abnormal code = 79403-9) [facility] Na-Stat [id number] 15:22:00 Test Item Value Reference Range Interpretation Comments Sodium (test code = 134 meq/L 136-145 L 2951-2) CLARICE (test code = CLARICE) FiO2: 50%, Temp 36.3CFiO2: 50%, Temp 36.3CFiO2: 50%, Temp 36.3CFiO2: 50%, Temp 36.3CFiO2: 50%, Temp 36.3C Lab Interpretation (test Abnormal code = 52985-3) [facility] HospitalCALCIUM, [id number] 15:22:00 Test Item Value Reference Range Interpretation Comments CALCIUM IONIZED (BEAKER) (test 1.09 mmol/L 1.12-1.27 L code = 698) PH, BLOOD (BEAKER) (test code = 7.38 1810) FiO2: 50%, Temp 36.3CBLOOD GAS, [id number] 15:22:00 Test Item Value Reference Range Interpretation [...] 50%, Temp 36.3CFiO2: 50%, Temp 36.3CSODIUM NA-STAT [id number] 15:22:00 Test Item Value Reference Range Interpretation Comments SODIUM (BEAKER) (test code = 381) 134 meq/L 136-145 L FiO2: 50%, Temp 36.3CFiO2: 50%, Temp 36.3CFiO2: 50%, Temp 36.3CFiO2: 50%, Temp 36.3CFiO2: 50%, Temp 36.3CGLUCOSE-STAT [id number] 15:22:00 Test Item Value Reference Range Interpretation Comments GLUCOSE RANDOM (BEAKER) (test code 133 mg/dL 70-110 H = 652) FiO2: 50%, Temp 36.3CFiO2: 50%, Temp 36.3CFiO2: 50%, Temp 36.3CFiO2: 50%, Temp 36.3CFiO2: 50%, Temp 36.3CHGB/HCT (H&H) - STAT [id number] 15:22:00 Test Item Value Reference Range Interpretation Comments HEMOGLOBIN (BEAKER) (test code = 9.6 g/dL 12.0-15.0 L 410) HEMATOCRIT (BEAKER) (test code = 28.0 % 36.0-45.0 L 411) FiO2: 50%, Temp 36.3CFiO2: 50%, Temp 36.3CFiO2: 50%, Temp 36.3CFiO2: 50%, Temp 36.3CFiO2: 50%, Temp 36.3CPotassium-Stat [id number] 15:18:00 Test Item Value Reference Range Interpretation Comments Potassium (test code = 3.8 meq/L 3.6-5.5 2823-3) CLARICE (test code = CLARICE) FiO2: 50%, Temp 36.3CFiO2: 50%, Temp 36.3CFiO2: 50%, Temp 36.3CFiO2: 50%, Temp 36.3CFiO2: 50%, Temp 36.3C Lab Interpretation (test Normal code = 50040-3) [facility] [id number] 15:18:00 Test Item Value Reference Range Interpretation Comments POTASSIUM (BEAKER) (test code = 3.8 meq/L 3.6-5.5 379) FiO2: 50%, Temp 36.3CFiO2: 50%, Temp 36.3CFiO2: 50%, Temp 36.3CFiO2: 50%, Temp 36.3CFiO2: 50%, Temp 36.3CGLUCOSE-STAT [id number] 14:34:00 Test Item Value Reference Range Interpretation Comments GLUCOSE RANDOM (BEAKER) (test code 107 mg/dL 70-110 = 652) Temp 35fio2 56%Temp 35fio2 56%Temp 35fio2 56%Temp 35fio2 56%Temp 35fio2 56% POTASSIUM-STAT [id number] 14:34:00 Test Item Value Reference Range Interpretation Comments POTASSIUM (BEAKER) (test code = 4.1 meq/L 3.6-5.5 379) Temp 35fio2 56%Temp 35fio2 56%Temp 35fio2 56%Temp 35fio2 56%Temp 35fio2 56%BLOOD GAS, [id number] 14:34:00 Test Item Value Reference Range Interpretation [...] 56%Temp 35fio2 56%Temp 35fio2 56% SODIUM NA-STAT [id number] 14:34:00 Test Item Value Reference Range Interpretation Comments SODIUM (BEAKER) (test code = 381) 134 meq/L 136-145 L Temp 35fio2 56%Temp 35fio2 56%Temp 35fio2 56%Temp 35fio2 56%Temp 35fio2 56% HGB/HCT (H&H) - STAT [id number] 14:34:00 Test Item Value Reference Range Interpretation Comments HEMOGLOBIN (BEAKER) (test code = 8.2 g/dL 12.0-15.0 L 410) HEMATOCRIT (BEAKER) (test code = 24.0 % 36.0-45.0 L 411) Temp 35fio2 56%Temp 35fio2 56%Temp 35fio2 56%Temp 35fio2 56%Temp 35fio2 56%STAT- LAB IONIZED [id number] 14:33:00 Test Item Value Reference Range Interpretation Comments Filter Ionized Calcium 1.17 mmol/L (test code = 1994-0) CLARICE (test code = CLARICE) Reference Range: No Normals [facility] [id number] 14:33:00 Test Item Value Reference Range Interpretation Comments FILTER IONIZED CALCIUM (BEAKER) 1.17 mmol/L (test code = 1854) Reference Range: No [id number] 11:28:00 Test Item Value Reference Range Interpretation Comments MAGNESIUM (BEAKER) (test code = 2.0 mg/dL 1.6-2.6 627) Undercover Agent ID - [facility]IO [facility] [id number] 11:28:00 Test Item Value Reference Range Interpretation [...] S NOT APPLICABLE FOR DIALYSIS PATIEN TS. Undercover Agent ID - ROSALIO CProthrombin time/[id number] 06:58:00 Test Item Value Reference Interpretation Comments Range Protime (test code = 14.3 See_Comment H [Autom ated 5902-2) message] The system which generated this result transmitted reference range : 11.9 - 14.2 seconds. The reference range was not used to interpret this result as normal/abnormal . INR (test code = 1.14 See_Comment [Automated 5261-6) message] The system which generated this result [...] valves. Lab Interpretation Abnormal (test code = 96044-3) [facility] 06:58:00 Test Item Value Reference Range Interpretation Comments PTT (test code = 36.4 See_Comment H [Automated message] 92736-5) The system [employer] generated this result transmitted ref erence range: 22.5 - 3 6.0 seconds. The reference range was not used to int erpret this result as normal/abnormal . Lab Interpretation (test Abnormal code = 01918-8) [facility]PROT[facility]OM[facility]/[id number] 06:58:00 Test Item Value Reference Range Interpretation [...] is 2.5-3.5 for patients wiht mechanical heart valves.[id number] 06:58:00 Test Item Value Reference Range Interpretation [...] WBC 0-0 (BEAKER) (test code = 413) [id number] 11:22:00 Test Item Value Reference Range Interpretation Comments MAGNESIUM (BEAKER) (test code = 2.0 mg/dL 1.6-2.6 627) Undercover Agent ID - YOKASTA MBASIC METABOLIC [id number] 11:22:00 Test Item Value Reference Range Interpretation [...] S NOT APPLICABLE FOR DIALYSIS PATIEN TS. Undercover Agent ID - YOKASTA MPT/[id number] 07:29:00 Test Item Value Reference Interpretation Comments Range Protime (test code = 15.0 See_Comment H [Autom ated 5902-2) message] The system which generated this result transmitted reference range : 11.9 - 14.2 seconds. The reference range was not used to interpret this result as normal/abnormal . INR (test code = 1.21 See_Comment [Automated 6821-6) message] The system which generated this result transmitted reference range : <=5.90. The reference range was not used to interpret this result as normal/abnormal . PTT (test code = 45.4 See_Comment H [Automated 88952-6) message] The system which generated this result [...] valves. Lab Interpretation Abnormal (test code = 62069-3) [facility]PT/[id number] 07:29:00 Test Item Value Reference Range Interpretation [...] is 2.5-3.5 for patients wiht mechanical heart valves.CBC (HEMOGRAM [...] (test code = 413) [place], ASPIRATION, HIP, [id number] 15:48:00Send cell count, gram stain, cultureReason for [...] requested by the referring clinician. Overlying skin was prepared and draped in the usual sterile fashion. Overlying tissues were anesthetized with dilute Lidocaine for local anesthesia. Using fluoroscopic guidance, an 22 gauge spinal needle was advanced onto theinferolateral aspect of the acetabular cup. [employer] images saved in the patient's medical record. [...] MDReport Verified Date/Time: 01/31/2020 15:48:19 Reading Location: [facility] C0T Transitional Reading Room FL aspiration hip [id number] 15:48:00Interface, External Ris In - 01/31/2020 3:50 PM CDTFINAL REPORT Fluoroscopic guided right hip aspiration History: Patient with recent dislocation of right total hip arthroplasty. Technique: Written informed consent was obtained after discussing risks, benefits, and alternatives ofthe procedure with the patient. Patient was brought to the fluoroscopy suite and placed in supine position. Fluoroscopic imaging demonstrates posterior, superior dislocation of the right hip joint. Thepatient is status post right total hip arthroplasty, with inverted acetabular cup. A suitable percutaneous access site was chosen overlying the inferolateral aspect of the acetabular cup, as requested by the referring clinician. Overlying skin was prepared and draped in the usual sterile fashion. Overlying tissues were anesthetized with dilute Lidocaine for local anesthesia. Using fluoroscopic guidance, an 22 gauge spinal needle was advanced onto the inferolateral aspect of the acetabular cup. Property Insurance Inspector images saved in the patient's medical record. [...] MDReport Verified Date/Time: 01/31/2020 15:48:19 Reading Location: [address] [facility]itional [facility], WO [id number] 15:42:00Unlisted Reason for Exam - Click Yes and [...] mA and /or kV according to patient size,and/or use of iterative reconstruction technique. FINDINGS: The [...] of the symphysis pubis. Moderate L4-L5 and L5-N9swrvmvudlvbj disc disease is noted. A lateral soft [...] MDReport Verified Date/Time: 01/31/2020 15:42:10 Reading Location: [address] Transitional Reading Room CT pelvis without IV [id number] 15:42:00Interface, External Ris In - 01/31/2020 3:45 [...] total hip arthroplasty is significantly displaced within theright acetabular fossa. The cup now opens posteriorly and superiorly.3. 12.5 x 11.4 x 7.7 cm complexcollection within the subcutaneous fat lateral to the right hip, likely a postoperative seroma or phill lving hematoma. Signed: Yonatan Lagos MDReport Verified Date/Time: 01/31/2020 15:42:10 Reading Location: [address] Transitional Reading [facility] Type and screen, [id number] 14:14:00 Test Item Value Reference Range Interpretation Comments ABO/RH AUTOMATED (BEAKER) A POSITIVE (test code = 2260) Ab Scrn (test code = 890-4) POSITIVE done on echo [facility], [id number] 13:22:00 Test Item Value Reference Range Interpretation Comments Rh Factor (test code = 2589) POS ABO Grouping (test code = 2588) A [facility]ECG 12 [id number] 12:31:58Interface, External Ris In - 01/31/2020 12:32 PM CDTVentricular Rate 72 BPMAtrial Rate 72 BPMP-R Inte rval 182 msQRS Duration 82 msQ-T Interval 378 msQTC Calculation(Bazett) 413 msP [place] 44 degreesR [place] -12 degreesT [place] 39 degreesNormal sinus rhythmNormal ECGWhen compared with ECG of 29-OCT-2001 21:37,No significant change was foundConfirmed by MD NELSON, MANDA ([id number]) on 01/31/2020 12:31:57 [facility]Reactive [id number] 12:26:00 Test Item Value Reference Range Interpretation Comments CRP (test code = 676) 2.11 mg/dL 0-0.5 H CLARCIE (test code = CLARICE) Undercover Agent ID - CHRISS F Lab Interpretation (test Abnormal code = 73698-8) [facility]-REACTIVE [id number] 12:26:00 Test Item Value Reference Range Interpretation Comments C-REACTIVE PROTEIN (BEAKER) (test 2.11 mg/dL 0.00-0.50 H code = 676) Undercover Agent ID - CHRISS FRAD, PELVIS, 1 OR 2 [id number] 10:03:00Reason for exam:->right hip dislocationFINAL REPORT Pelvis, one view History:Right hip dislocation Comparison:01/30/2020Findings: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 The acetabular com ponent appears vertically oriented. The study is limited by large patient body habitus. No additional significant bone or joint space abnormality is appreciated. Signed: Yonatan Lagos MDReport Verified Date/Time: 01/31/2020 10:03:40 Reading Location: [address] Transitional Reading Room PTH, [id number] 04:30:00 Test Item Value Reference Range Interpretation Comments PTH (test code = 2731-8) 138.2 pg/mL 8.5-72.5 H CLARICE (test code = CLARICE) Undercover Agent ID - ALFRED M Lab Interpretation (test Abnormal code = 97620-3) [facility] HospitalPhosphorus2020-09-[facility] 04:30:00 Test Item Value Reference Range Interpretation Comments Phosphorus (test code = 3.3 mg/dL 2.3-4.7 2777-1) CLARICE (test code = CLARICE) Undercover Agent ID - ALFRED M Lab Interpretation (test Normal code = 17050-9) [facility] HospitalPTH, [id number] 04:30:00 Test Item Value Reference Range Interpretation Comments PARATHYROID HORMONE INTACT 138.2 pg/mL 8.5-72.5 H (BEAKER) (test code = 577) Undercover Agent ID - ALFRED [id number] 04:30:00 Test Item Value Reference Range Interpretation Comments PHOSPHORUS (BEAKER) (test code = 3.3 mg/dL 2.3-4.7 604) Undercover Agent ID - ALFRED [id number] 04:30:00 Test Item Value Reference Range Interpretation Comments MAGNESIUM (BEAKER) (test code = 2.0 mg/dL 1.6-2.6 627) Undercover Agent ID - ALFRED MBASIC METABOLIC [id number] 04:30:00 Test Item Value Reference Range Interpretation [...] S NOT APPLICABLE FOR DIALYSIS PATIEN TS. Undercover Agent ID - ALFRED MSARS-COV2/RT-PCR ([facility])2020-01-30 21:00:00 Test Item Value Reference Range Interpretation Comments SARS-COV2/RT-PCR (test Negative Not Detected, Negative, code = 4071938) See external report for linked test SARS-COV-[address] [facility] LOLITA (test code = 7980604) Negative result for this test determines that [...] individuals suspected of COVID-19 by their healthcare provider.This test [...] justifying the authorization of the emergency use ofin vitro diagnostic tests for detection and/or diagnosis of COVID-19 is terminated under Section 564(b)(2) of the Act or the EUA is revoked under Section 564(g) of the Act.Fact Sheet for Healthcare Prov iders:https://www.[employer]/sites/default/files/product/documents/Fact_Sheet_HC _Jwsqielbf_Wjhj_DPBK-DzH-0.pdfFact Sheet for Healthcare Patients:https://www.[employer]/sites/default/files/product/docume nts/Ljac_Zidtf_Iqgtdtao_Dukt_YCPW-IdF-4.pdfPerforming Laboratory:[address] [address]GMQ/Free T4 If Indicated 2020-01-30 17:58:00 Test Item Value Reference Range Interpretation Comments TSH (test code = 2.609 See_Comment [Automated 44599-7) message] The system which generated this result transmit mery reference range : 0.350 - 4.940 uIU/mL. The reference range was not used to interpret this result as normal/abnormal . CLARICE (test code = CLARICE) Undercover Agent ID - DB Lab Interpretation Normal (test code = 29637-6) [facility] HospitalTSH/FREE T4 IF [id number] 17:58:00 Test Item Value Reference Range Interpretation Comments THYROID STIMULATING HORMONE 2.609 uIU/mL 0.350-4.940 (BEAKER) (test code = 772) Undercover Agent ID - DBComprehensive metabolic [id number] 17:35:00 Test Item Value Reference Range Interpretation Comments Protein, Total (test 7.0 See_Comment Specime n slightly code = 2885-2) hemolyzed [Automated message] The system which generated this result transmit mery reference range : 6.0 - 8.3 gm/dL . The reference range was not u sed to interpret th is result as normal/abnormal . Albumin (test code = 3.8 g/dL 3.5-5 Specime n slightly 56783-2) hemolyzed Alkaline Phosphatase 100 U/L 40-150 (test code = 6768-6) Total Bilirubin (test 0.5 mg/dL 0.2-1.2 Specim en slightly code = 1975-2) hemolyzed Sodium (test code = 137 meq/L 014-882 9671-2) Potassium (test code 4.4 meq/L 3.5-5.1 Specime [...] Calcium (test code = 9.7 mg/dL 8.4-10.2 47279-9) AST (test code = 19 U/L 5-34 Specimen sl ightly 1920-8) hemolyzed ALT (test code = 11 U/L 6-55 Specimen sl ightly 1742-6) hemolyzed EGFR (test code = 45 mL/min/1.73 [place] [address]-1) NOT ACCURATE CREATININE CLEARANCE IN PREDICTING GLOMERULAR FILTRATION RATE . ESTIMATED GFR I S NOT APPLICABLE FOR DIALYSIS PATIEN TS. CLARICE (test code = CLARICE) Undercover Agent ID - DB Lab Interpretation Abnormal (test code = 99499-5) [facility] [id number] 17:35:00 Test Item Value Reference Range Interpretation Comments MAGNESIUM (BEAKER) 2.1 mg/dL 1.6-2.6 Specimen slightly (test code = 627) hemolyzed Undercover Agent ID - DBCOMPREHENSIVE METABOLIC [id number] 17:35:00 Test Item Value Reference Range Interpretation [...] S NOT APPLICABLE FOR DIALYSIS PATIEN TS. Undercover Agent ID - DBRAD, HIP, MIN 4 VIEWS, [id number] 17:21:00Reason for exam:- >recent right total hip arthroplasty, ?dislocationFINAL REPORT TECHNIQUE: Multiple views of the right hip. INDICATION: 74-year-old woman with recent right total hip arthroplasty. COMPARISON: None. FINDINGS:Suboptimal lateral viewsdue to overlying electronic structures and body habitus. Superior dislocation of the femoral component of the right hip prosthesis in relation to the acetabular component.No acute fractures.Soft tissues are grossly unremarkable. IMPRESSION:Superior dislocation of the femoral component of the right hipprosthesis in relation to the acetabular component. Signed: Ba White Verified Date/Time: 01/30/2020 17:21:57 Reading Location: [facility] C013Y CT Body Reading Room XR Hip 4 Views, [id number] 17:21:00 Interface, External Ris In - 01/30/2020 5:24 PM CDTFINAL REPORT TECHNIQUE: Multiple views of the right hip. INDICATION: 74-year-old woman with recent right total hip arthroplasty. COMPARISON: None. FINDINGS:Suboptimal lateral views due to overlying electronic structures and body habitus. Superior dislocation of the femoral component of the right hip prosthesis in relation to the acetabular component.No acute fractures.Soft tissues are grossly unremarkable. IMPRESSION:Superior dislocation of the femoral component of the right hip prosthesis in relation to the acetabular component. Signed: Ba White MDReport Verified Date/Time: 01/30/2020 17:21:57 Reading Location: [facility] C013Y CT Body Reading [facility] 2020-01-30 17:17:00 Test Item Value Reference Range Interpretation [...] is 2.5-3.5 for patients wiht mechanical heart valves.CBC (HEMOGRAM [...] WBC 0-0 (BEAKER) (test code = 413) CBC WITH [id number] 11:21:00 Test Item Value Reference Range Interpretation Comments WBC (test code = See_Comment [Automated 7728-2) message] The sy stem which generated this result transmitted reference range : 4.30 - 11.10 10*3/?L. The reference range was not used to interpret this result as normal/abnormal . RBC (test code = See_Comment L [Automated 672-8) message] The sy stem which generated this result transmitted reference range : 3.93 - 5.25 10*6/?L. The reference range was not used to interpret this result as normal/abnormal . HGB (test code = 11.0 g/dL 11.6-15 L 718-7) HCT (test code = 33.3 % 35.7-45.2 L 4544-3) MCV (test code = 95.4 fL 80.6-95.5 787-2) MCH (test code = 31.5 pg 25.9-32.8 785-6) MCHC (test code = 33.0 g/dL 31.6-35.1 786-4) RDW-SD (test code = 45.0 fL 39-49.9 80915-0) RDW-CV (test code = 13.0 % 12-15.5 788-0) PLT (test code = See_Comment [Automated 777-3) message] The sy stem which generated this result transmitted reference range : 166 - 358 10*3/ ?L. The reference r josse was not used to interpret this result as normal/abnormal . MPV (test code = 11.0 fL 9.5-12.9 63655-7) NRBC/100 WBC (test See_Comment [Automat ed code = 7659483634) message] The system which generated this result transmitted reference range : 0.0 - 10.0 /100 WBCs. The refer ence range was not u sed to interpret th is result as normal/abnormal . NRBC x10^3 (test code <0.01 See_Comment [Auto mated = 2934424175) message] The s ystem which generated this result transmitted reference range : 10*3/?L. The reference range was not used to interpret this result as normal/abnormal . GRAN MAT (NEUT) % 58.7 % (test code = 770-8) IMM GRAN % (test code 0.30 % = 6410268495) LYMPH % (test code = 25.6 % 736-9) MONO % (test code = 11.8 % 5905-5) EOS % (test code = 3.0 % 713-8) BASO % (test code = 0.6 % 706-2) GRAN MAT x10^3(ANC) 5.86 10*3/uL 1.88-7.09 (test code = 7630796360) IMM GRAN x10^3 (test 0.03 10*3/uL 0-0.06 code = 3495078047) LYMPH x10^3 (test code 2.55 10*3/uL 1.32-3.29 = 731-0) MONO x10^3 (test code 1.18 10*3/uL 0.33-0.92 H = 742-7) EOS x10^3 (test code = 0.30 10*3/uL 0.03-0.39 711-2) BASO x10^3 (test code 0.06 10*3/uL 0.01-0.07 = 704-7) Lab Interpretation Abnormal (test code = 95314-3) [facility] WITH [id number] 09:31:00 Test Item Value Reference Range Interpretation Comments WBC (test code = See_Comment H [Automated 8390-2) message] The system which generated this result transmit mery reference range : 4.30 - 11.10 10*3/?L. The reference range was not used to interpret this result as normal/abnormal . RBC (test code = See_Comment [Automated 589-8) message] The system which generated this result transmit mery reference range : 3.93 - 5.25 10*6/?L. The reference range was not used to interpret this result as normal/abnormal . HGB (test code = 12.5 g/dL 11.6-15 718-7) HCT (test code = 38.5 % 35.7-45.2 4544-3) MCV (test code = 95.8 fL 80.6-95.5 H 787-2) MCH (test code = 31.1 pg 25.9-32.8 785-6) MCHC (test code = 32.5 g/dL 31.6-35.1 786-4) RDW-SD (test code = 42.9 fL 39-49.9 98522-5) RDW-CV (test code = 12.1 % 12-15.5 788-0) PLT (test code = See_Comment [Automated 777-3) message] The system which generated this result transmit mery reference range : 166 - 358 10*3/ ?L. The reference range was not u sed to interpret th is result as normal/abnormal . MPV (test code = 10.8 fL 9.5-12.9 81706-2) NRBC/100 WBC (test See_Comment [Automat ed code = 1760790823) message] The system which generated this result transmit mery reference range : 0.0 - 10.0 /100 WBCs. The reference range was not used to interpret this result as normal/abnormal . NRBC x10^3 (test code <0.01 See_Comment [Auto mated = 6320390378) message] The system which generated this result transmit mery reference range : 10*3/?L. The reference range was not used to interpret this result as normal/abnormal . GRAN MAT (NEUT) % 87.6 % (test code = 770-8) IMM GRAN % (test code 0.60 % = 3980742497) LYMPH % (test code = 6.0 % 736-9) MONO % (test code = 5.5 % 5905-5) EOS % (test code = 0.0 % 713-8) BASO % (test code = 0.3 % 706-2) GRAN MAT x10^3(ANC) 10.45 10*3/uL 1.88-7.09 H (test code = 8966785420) IMM GRAN x10^3 (test 0.07 10*3/uL 0-0.06 H code = 6297361494) LYMPH x10^3 (test code 0.72 10*3/uL 1.32-3.29 L = 731-0) MONO x10^3 (test code 0.66 10*3/uL 0.33-0.92 = 742-7) EOS x10^3 (test code = <0.03 0.03-0.39 L 711-2) BASO x10^3 (test code 0.03 10*3/uL 0.01-0.07 = 704-7) Lab Interpretation Abnormal (test code = 83618-3) [facility] VW [id number] 21:01:27HISTORY: Right hip replacement in OR. FINDINGS: Crosstable view right hip obtained intraoperatively showresection of head and neck of right femur, acetabular measuring metallicdevice in the acetabular cavity and metallic measuring device inserted intoproximal shaft of the right femur. Additional orthopedic hardware seenprojected over the gluteal soft tissues. Ut, Radiant Results Inft User - 01/13/2020 4:02 PM CDTHISTORY: Right hip replacement in OR.FINDINGS: Crosstable view right hip obtained intraoperatively showresection of head and neck of right femur, acetabular measuring metallicdevice in the acetabular cavity and metallic measuring device inserted intoproximal shaft of the right femur. Additional orthopedic hardware seenprojected over the gluteal soft tissues.[facility] CenterIntubation2020-08-19 19:11:21Josef Meeks CRNA ? ? 01/13/2020 ?2:12 PMIntubationUrgency: elective Airway not difficult General Inf ormation and Staff Patient location during procedure: ORResident/ASSISTANT FOOD SERVICE DIRECTOR: Josef Meeks CRNAPerformed: resident/ASSISTANT FOOD SERVICE DIRECTOR Indications and Patient ConditionIndications for airway management: anesthesiaSpontaneous Ventilation: absentSedation level: deepPreoxygenated: yesPatient position: sniffingMILS maintainedthroughoutMask difficulty assessment: 1 - vent by mask Final Airway DetailsFinal airway type: endotracheal airway Successful airway: ETTCuffed: yes Successful intubation technique: direct laryngoscopyEndotracheal tube insertion site: oralBlade: MillerBlade size: #2ETT size (mm): 7.0Cormack-Lehane Classification: grade I - full view of glottisPlacement verified by: chest auscultation and capnometry Nanci sured from: lipsETT to lips (cm): 21Number of attempts at approach: 1 Additional CommentsAirway dry intactUnDeTar Healthcare SystemType and Screen - ONCE [id number] 17:30:38 Test Item Value Reference Range Interpretation Comments ABO & RH (test code A Positive Performe d at [facility] = 20) Laboratory Serv [facility] [place], [place] [address]Toll Free: [phone] A No. [id number] IAT (test code = Negative Performed a t [facility] 1185) Laboratory [facility] [place], [place] [id number] Free: [phone] A No. [id number] [facility] CenterCBC WITH [id number] 22:45:00 Test Item Value Reference Range Interpretation Comments WBC (test code = See_Comment [Automated message] 6690-2) The system [employer] generated this result transmitted ref erence range: 4.30 - 1 1.10 10*3/?L. The re ference range was not u sed to interpret this result as normal/abnor mal. RBC (test code = See_Comment [Automated message] 789-8) The system [employer] generated this result transmitted ref erence range: 3.93 - 5 .25 10*6/?L. The re ference range was not u sed to interpret this result as normal/abnor mal. HGB (test code = 13.2 g/dL 11.6-15 718-7) HCT (test code = 39.8 % 35.7-45.2 4544-3) MCV (test code = 94.8 fL 80.6-95.5 787-2) MCH (test code = 31.4 pg 25.9-32.8 785-6) MCHC (test code = 33.2 g/dL 31.6-35.1 786-4) RDW-SD (test code 45.0 fL 39-49.9 = 43279-8) RDW-CV (test code 12.8 % 12-15.5 = 788-0) PLT (test code = See_Comment [Automated message] 777-3) The system [employer] generated this result transmitted ref erence range: 166 - 35 8 10*3/?L. The re ference range was not u sed to interpret this result as normal/abnor mal. MPV (test code = 10.3 fL 9.5-12.9 94827-8) NRBC/100 WBC (test See_Comment [Automat ed message] code = 4452040848) The syste m which generated this result transmitted ref erence range: 0.0 - 10 .0 /100 WBCs. The refer ence range was not u sed to interpret this result as normal/abnor mal. NRBC x10^3 (test <0.01 See_Comment [Automated message] code = 7599530995) The syste m which generated this result transmitted ref erence range: 10*3/?L. The reference range was not used to interpr et this result as normal/abnormal . GRAN MAT (NEUT) % 62.8 % (test code = 770-8) IMM GRAN % (test 0.50 % code = 5733927770) LYMPH % (test code 22.5 % = 736-9) MONO % (test code 9.5 % = 5905-5) EOS % (test code = 3.9 % 713-8) BASO % (test code 0.8 % = 706-2) GRAN MAT 5.22 10*3/uL 1.88-7.09 x10^3(ANC) (test code = 0328729446) IMM GRAN x10^3 0.04 10*3/uL 0-0.06 (test code = 9664172689) LYMPH x10^3 (test 1.87 10*3/uL 1.32-3.29 code = 731-0) MONO x10^3 (test 0.79 10*3/uL 0.33-0.92 code = 742-7) EOS x10^3 (test 0.32 10*3/uL 0.03-0.39 code = 711-2) BASO x10^3 (test 0.07 10*3/uL 0.01-0.07 code = 704-7) [facility] CenterXR [facility]ST 2 [id number] 21:09:32HISTORY: Preop. TECHNIQUE: PA and lateral views of the chest are obtained. No prior cheststudy available for comparison. FINDINGS: No acute pneumonia detected. No pneumothorax or pleural effusionor pulmonary congestion. Cardiothoracic ratio of approximately 13/28.3 cmis consistent with normal cardiac size. Calcified granulomas are seen inthe right upper lung with calcifications in the right perihilarlymph nodessecondary to remote infection. Left mastectomy noted. Mild thoracolumbar scoliosis noted.No compression fracture detected in thethoracic vertebral bodies. No aggressive bone lesions. CONCLUSIONS: No signs of acute cardiopulmonary disease.[facility], Radiant Results Inft User - 01/12/2020 4:10 PM CDTHISTORY: Preop.TECHNIQUE: PA and lateral views of the chest are obtained. No prior cheststudy available for comparison.FINDINGS: No acute pneumonia detected. No pneumothorax or pleural effusionor pulmonary congestion. Cardiothoracic ratio of approximately 13/28.3 cmis consistent with normal cardiacsize. Calcified granulomas are seen inthe right upper lung with calcifications in the right perihilar lymph nodessecondary to remote infection. Left mastectomy noted.Mild thoracolumbar scoliosis noted.No compression fracture detected in thethoracic vertebral bodies. No aggressive bone lesions.CONCLUSIONS: No signs of acute cardiopulmonary disease.[facility]
[2022-04-11] MEDS: VANCOMYCIN 1 GM in NA CHLORIDE 0.9% 250 ML IVPB SCH ×2 (19:09→21:00)
[2022-04-11] MEDS ORDERED: ENOXAPARIN 40 MG/0.4 ML SQ ONE (19:10)
[2022-04-11] MEDS ORDERED: ACETAMINOPHEN 500 MG TAB PO PRN (19:13)
[2022-04-11] MEDS ORDERED: VANCOMYCIN 1 GM in NA CHLORIDE 0.9% 250 ML IVPB ONE (19:15)
[2022-04-11] MEDS ORDERED: VANCOMYCIN 1 GM/VIAL ONE (20:03)
[2022-04-11 20:04] VITALS: BMI 35.8
[2022-04-11] MEDS ORDERED: NA CHLORIDE 0.9% 250 ML ONE (20:04)
[2022-04-11 20:06] LABS: Absolute Lymphocytes (CBC) 1.4 K/uL (0.7-4.9); Hematocrit 39.4 % (36.0-45.0); Lymphocytes % 15.4 % (15.3-44.8); MCV 88.9 fL (80-100); MPV 8.2 fL (7.6-11.3); RBC Red Blood Cell Count 4.43 M/uL (3.86-4.86)
[2022-04-11] MEDS ORDERED: CEFTRIAXONE 1000 MG/VIAL ONE (20:09)
[2022-04-11 20:15] LABS: Albumin 3.6 g/dL (3.4-5.0); Bilirubin Total 0.5 mg/dL (0.2-1.0); C-Reactive Protein 11.9 mg/L (<3.00); Magnesium 2.3 mg/dL (1.8-2.4); Potassium 4.5 mmol/L (3.5-5.1); Protein, Total 7.4 g/dL (6.4-8.2)
[2022-04-11] MEDS: TRAMADOL HCL 50 MG TAB PO PRN (20:25)
[2022-04-11] MEDS: LOSARTAN POTASSIUM 50 MG TABLET PO SCH (20:32)
[2022-04-11] MEDS: PROPRANOLOL HCL 10 MG TAB PO SCH (20:32)
[2022-04-11] MEDS ORDERED: AMITRIPTYLINE 50 MG TAB PO SCH (21:00)
[2022-04-11] MEDS: FAMOTIDINE 20 MG TAB PO SCH (21:00)
--- NOTE | 2022-04-11 21:19 | RAD REPORT ---
EXAM DESCRIPTION: RAD - Hip Left 2 View - 04/11/2022 9:05 pm CLINICAL HISTORY: cellulitis left thigh COMPARISON: Hip Left 2 View dated 01/05/2021; Hip Left 2 View dated 11/30/2016 FINDINGS: Left total hip arthroplasty noted. No evidence hardware loosening or infection. No fractur e seen.
[2022-04-11] MEDS ORDERED: VANCOMYCIN 750 MG in NA CHLORIDE 0.9% 150 ML IVPB ONE (21:30)
[2022-04-11] MEDS: CEFTRIAXONE 1,000 MG in NA CHLORIDE 0.9% 50 ML IVPB SCH (22:47)
[2022-04-11 23:30] VITALS: O2SAT 96
[2022-04-11] MEDS ORDERED: NA CHLORIDE 0.9% 100 ML ONE (23:37)
[2022-04-11] MEDS ORDERED: VANCOMYCIN 500 MG/VIAL ONE (23:37)
--- NOTE | 2022-04-12 02:06 | HP ---
Date of Admission: 04/11/2022 Chief Complaint: Infection in left leg. History Of Present Illness: Ms. Arroyo is a pleasant 77-year-old female patient who came into office about 2 weeks ago with some redness and warmness of left thigh. This area was towards the lower part of the surgical incision and there was no open wound, no fluctuation and she had changes of cellulitis involving the lower end of the surgical scar and this surgical scar was from the left hip fracture surgery that she had several years ago. She was started on Levaquin 500 mg daily for 2 weeks and she was advised to come see me for followup in 2 weeks. So she came in today and she informed me that for last couple of days or so, she has noted open sore in this area. She denies any fever. After she was evaluated, she was noted to have area of cellulitis in left thigh like before and now has resulted in open wound in center of this area. Allergies: NO KNOWN ALLERGIES. Medications: Amitriptyline 100 mg at bedtime, anastrozole 1 mg daily, famotidine 40 mg daily at bedtime, propranolol 80 mg daily, paroxetine 10 mg daily, losartan 100 mg daily, levothyroxine 75 mcg daily, Levaquin 500 mg daily and last dose will be today, ferrous sulfate 325 mg daily, and naproxen 500 mg 2 times a day as needed for arthritis pain. Review of Systems: Dermatology: As mentioned above. All other systems reviewed and are negative. Past Medical History: Significant for hypothyroidism, impaired fasting glucose, hypertension, hyperlipidemia, chronic kidney disease, left breast cancer, osteoarthritis, fibromyalgia, and osteoporosis. Past Surgical History: Left-sided mastectomy, hysterectomy, right hip fracture surgery, and left hip fracture surgery. Left hip fracture was on 01/05/2021. She also had left knee surgery in the past. Family History: Father had stroke. Mother had stomach cancer. Brother had Alzheimer disease. Social History: Prior history of smoking, not at present time. Use of alcohol is negative. Physical Examination: Vital Signs: Weight 211 pounds, height 64 inches, blood pressure 131/82, pulse 70, respiratory rate 18, and temperature 97.3. General: Awake, alert, oriented, not in distress. HEENT: Head atraumatic, normocephalic. Conjunctivae nonerythematous. Sclerae white. Mouth, no thrush or edema noted. Ears/Nose, no mass, lesion, discharge noted. Neck: Supple. No JVD, lymph nodes, bruit, thyromegaly noted. Lungs: Bilateral good equal air entry. Clear to auscultation. No rhonchi. No rales. Heart: Normal heart sounds, no murmur or gallop. Abdomen: Soft, bowel sounds normal. No guarding, rigidity, tenderness, mass, hepatosplenomegaly, distention, or bruit noted. Extremities: Left lateral thigh has old surgical scar from hip surgery and lower end of the scar has approximately 2 cm open wound with yellowish colored discharge at the base and surrounding skin is pink and warm with induration. No bleeding. Skin: No rash, ulcer, cellulitis. Lymphatics: No lymph node enlargement in neck, supraclavicular, infraclavicular region. Neuro: No focal neurological deficit. Chest: Unremarkable. External Genitalia: Deferred. Rectal: Deferred. Laboratory Data: White count 8.9, hemoglobin 13.1, platelets 207. Sedimentation rate 12. Lactic acid level 1.3. CRP was 11.9. Sodium 139, potassium 4.5, chloride 109, bicarb 26, BUN 27, creatinine 1.14, glucose 106. Liver function tests unremarkable. X-ray of the left hip does not show any acute changes. Impression: 1. Cellulitis, left thigh. 2. Rule out abscess, left thigh. 3. Impaired fasting glucose. 4. Hypothyroidism. 5. Hypertension. 6. Hyperlipidemia. 7. Left breast cancer. 8. Osteoarthritis, multiple sites. Plan: We will admit the patient to hospital for further evaluation and management of this problem. The patient is appropriate for inpatient and is expected to spend 2 midnights in hospital. Home medications will be continued. We will continue her amitriptyline at bedtime. For hypertension, continue losartan and we will give 50 mg 2 times a day and propranolol 20 mg 2 times a day. For hypothyroidism, continue her levothyroxine 75 mcg daily. We will go ahead and give Tylenol 500 mg every 6 hours as needed for mild pain and tramadol 50 mg every 6 hours as needed for moderate pain. Blood cultures will be done. Wound cultures were ordered. We will consult Dr. Alexandra and Dr. Kendrick. Empiric antibiotics, vancomycin and ceftriaxone will be started. DVT prophylaxis will be given using Lovenox per order. Details and plan of treatment discussed with her. Tomorrow we will get a CAT scan of the left hip with contrast. KALEE/SHASHANK Voice ID: [id number] MTDD
[2022-04-12] MEDS: TRAMADOL HCL 50 MG TAB PO PRN (03:11)
[2022-04-12] MEDS ORDERED: LEVOTHYROXINE SOD 0.075 MG TAB PO SCH (06:30)
[2022-04-12] MEDS ORDERED: INFLUENZA VACCINE (for 6+ mo) 0.5 ML DOSE IMVAC ONE (08:00)
[2022-04-12] MEDS ORDERED: PNEUMOCOCCAL VACCINE 0.5 ML IMVAC ONE (08:00)
[2022-04-12] MEDS ORDERED: CEFTRIAXONE 1000 MG/VIAL ONE (08:48)
[2022-04-12] MEDS ORDERED: NA CHLORIDE 0.9% 50 ML ONE (08:58)
[2022-04-12] MEDS ORDERED: PARoxetine HCL 10 MG TAB PO SCH (09:00)
[2022-04-12] MEDS ORDERED: NAPROXEN 250 MG TAB PO SCH (09:00)
[2022-04-12] MEDS: FAMOTIDINE 20 MG TAB PO SCH (09:38)
[2022-04-12] MEDS: LOSARTAN POTASSIUM 50 MG TABLET PO SCH (09:38)
[2022-04-12] MEDS: CEFTRIAXONE 1,000 MG in NA CHLORIDE 0.9% 50 ML IVPB SCH ×2 (09:40→17:37)
[2022-04-12] MEDS: PROPRANOLOL HCL 10 MG TAB PO SCH (09:41)
--- NOTE | 2022-04-12 12:17 | RAD REPORT ---
EXAM DESCRIPTION: CT - Hip Left Wo Con - 04/12/2022 12:00 pm CLINICAL HISTORY: infection Left hip pain and swelling. COMPARISON: No comparisons FINDINGS: There are bilateral total hip arthroplasties noted. Hardware assessment is limited by stre ak artifact. Lateral thigh region in the soft tissues immediately adjacent and lateral to the greater trochanter l eft proximal femur there is a fluid density collection measuring 11.1 cm x 8.4 x 5.0 cm (CC x T x AP) . There is a component of this collection measuring 4 cm in length and extends to the skin surface wi th small soft tissue ulceration. This is presumably an abscess collection with sinus tract of the lat eral left hip skin. IMPRESSION: Fluid density collection lateral thigh soft tissues immediately adjacent of the lateral trochanter of left femur noted. There is evidence of a sinus tract from this collection to the latera l skin surface. Presumably this represents abscess with development of a sinus tract. Bilateral hip arthroplasties are present. Hardware assessment is limited by streak artifact without g ross abnormal finding seen. All CT scans are performed using dose optimization technique as appropriate and may include automated exposure control or mA/KV adjustment according to patient size.
[2022-04-12 16:32] VITALS: BP 116/65; TEMP 97.4
[2022-04-12] MEDS ORDERED: ENOXAPARIN 40 MG/0.4 ML SQ SCH (17:00)
[2022-04-12] MEDS ORDERED: VANCOMYCIN 1.75 GM in NA CHLORIDE 0.9% 500 ML IVPB SCH (22:00)
[2022-04-13] MEDS ORDERED: VANCOMYCIN 1.25 GM in NA CHLORIDE 0.9% 250 ML IVPB SCH (09:00)
--- NOTE | 2022-04-13 16:54 | CON ---
Date of Consultation: 04/12/2022 Reason For Consultation: Left leg wound. History Of Present Illness: Ms. Arroyo is a 77-year-old female who was admitted to the floor from the office after having cellulitis with wound over the lateral aspect of her left hip. She had been bonnie mery for 2 weeks on Levaquin without significant improvement. She had draining sore over the inferior aspect of her left hip surgical incision. She has history of left femoral neck fracture in December last year and was treated with a left hip hemiarthroplasty in medical center at [facility]. She states she had no problems at that time. However, she does have this draining wound. She has histor y of a right hip dislocation in the past as well, has underwent closed reduction. She denies any oth er musculoskeletal complaints at this time. Review of Systems: As above, otherwise negative. Past Medical History: Includes hypothyroidism, hypertension, hyperlipidemia, chronic kidney disease, breast cancer, fibromyalgia, osteoporosis. Past Surgical History: Includes left-sided mastectomy, right total hip replacement, left hip replace ment, left total knee replacement. Social History: No history of tobacco use. No alcohol use. Family History: Reviewed, noncontributory. Physical Examination: General: No apparent distress. HEENT: Normocephalic, atraumatic. Neck: Supple. Cardiovascular: Brisk cap refill to all digits. Chest: Nonlabored breathing. Abdomen: Nondistended. Psychiatric: Responds to exam. Musculoskeletal: Left lower extremity, mild pain with range of motion. Left hip, approximately a 2 cm open wound at the distal end of the surgical incision over the lateral aspect of the left hip with surrounding erythema and some serous discharge with also some yellow exudate. No swelling about the left knee. No pain with range of motion. Left knee, stable to varus and valgus stresses. Neurovas cularly intact distally. Diagnostic Studies: X-rays of the left hip are negative for any fracture or dislocation. Left hip r eplacement in place without signs of prosthesis failure. CT scan of the left hip has been ordered an d will be reviewed. Assessment And Plan: Amirah is a 77-year-old female with a likely infected left hip hemiarthroplasty . We will follow up with the CT scan to assess the location of any significant abscess or fluid mg ection. I recommend transfer to back to [facility] to her primary surgeon for further evaluation a nd treatment recommendations. Please call with any further questions or concerns. CV/MODL Voice ID: [id number] Report ID: [id number]
--- NOTE | 2022-04-13 19:00 | DS ---
Date of Discharge: 04/12/2022 Disposition: Patient was transferred to [facility] for higher level of care. Physical Examination: HEENT: Unremarkable. Lungs: Clear to auscultation. Heart: Sounds normal. Abdomen: Soft. Bowel sounds normal. No guarding, rigidity, tenderness, distention. Extremities: No leg edema. Left lateral thigh lower part of the old surgical incision has open wound, unchanged from yesterday with surrounding pink, warm, indurated skin unchanged from yesterday. Laboratory Data: Yesterday, white count 8.9, hemoglobin 13.1, platelets 207. Sedimentation rate 12. Lactic acid level yesterday was 1.3. CRP was 11.9. Sodium 139, potassium 4.5, chloride 109, bicarb 26, BUN 27, creatinine 1.14, glucose 106. Liver function tests unremarkable. X-ray of the left hip does not show any acute changes. CAT scan of the left hip done today without contrast shows evidence of abscess around the left greater trochanter with sinus tract going down to the femur and this is consistent with prosthetic joint infection. Diagnoses: 1. Septic arthritis, left hip, prosthetic joint infection. 2. Impaired fasting glucose. 3. Hypothyroidism. 4. Hypertension. 5. Hyperlipidemia. 6. Left breast cancer. 7. Osteoarthritis, multiple sites. Hospital Course: This is a 77-year-old pleasant female patient who came into office yesterday and was admitted to the hospital. Please see dictated H and P for more information. The patient was seen at office approximately 2 weeks ago for a small area of cellulitis involving the lower end of this old surgical scar on the left lateral hip. She was started on Levaquin 500 mg daily for 2 weeks and she was asked to come for followup in 2 weeks, which she did yesterday and noted that she had open wound, approximately 2 cm in size in the center of this area where she actually had cellulitis and she reported that she noted this open wound for last 2 days. With this, I was concerned about possibility of prosthetic joint infection and patient was directly admitted to the hospital. Initial blood work was unremarkable. Left hip x-ray was unremarkable. Today, we did a CAT scan of the left hip and consultation was obtained from Dr. Kendrick, Orthopedic Surgery, and he did call me after the CAT scan was done and informed me that the patient has prosthetic joint infection and for us to transfer her to [facility] for higher level of care and transfer request was initiated and I did communicate with hospitalist at the receiving facility and details were discussed and once patient was accepted and arrangements completed, she was transferred via ground ambulance this evening in stable condition. At our hospital, we started her on IV vancomycin and IV ceftriaxone and wound culture and blood culture was done upon admission yesterday, result pending. KALEE/MODL Voice ID: [id number] Report ID: [id number] ROSEMARY
== END 2022-04-12 19:21 | disposition short-term general hospital (02) | DRG 560 ==
LOC: 2ND 18:36
PROVIDERS: ADMIT Internal Medicine; ATTEND Internal Medicine
DX: T84.52XA Infection and inflammatory reaction due to internal left hip prosthesis, initial encounter (principal); L02.416 Cutaneous abscess of left lower limb; L03.116 Cellulitis of left lower limb; E03.9 Hypothyroidism, unspecified; E78.5 Hyperlipidemia, unspecified; I12.9 Hypertensive chronic kidney disease with stage 1 through stage 4 chronic kidney disease, or unspecified chronic kidney disease; N18.9 Chronic kidney disease, unspecified; M79.7 Fibromyalgia; M19.09 Primary osteoarthritis, other specified site; M81.0 Age-related osteoporosis without current pathological fracture; R73.01 Impaired fasting glucose; Z85.3 Personal history of malignant neoplasm of breast; Z96.642 Presence of left artificial hip joint; Z90.12 Acquired absence of left breast and nipple; Z90.710 Acquired absence of both cervix and uterus; Z20.822 Contact with and (suspected) exposure to COVID-19
CPT/HCPCS: 36415; 73700; 80053; 83605; 83735; 85025; 85652; 86140; 87040; 87070; 87205; 97116; 97161; J1650; J3370; J7050; U0003